=== PATIENT | male | born 1940 | race Caucasian/White ===

== ENCOUNTER → 2019-08-07 15:25 | Outpatient (CLI) | payer MEDICARE, OTHER, SELFPAY ==
[2019-08-07 17:29] LABS: Microalbumin,Random Urine 9.6 mg/L (NO RANGE EST.); Microalbumin:Creatinine Ratio 8.1 mg/g CRE (<30 mg/g CRE)
== END ==
PROVIDERS: PCP Family Medicine; Visit Provider Internal Medicine Nephrology
DX: E11.22 Type 2 diabetes mellitus with diabetic chronic kidney disease (principal); N18.9 Chronic kidney disease, unspecified
CPT/HCPCS: 36415; 82043; 82570

== ENCOUNTER → 2019-08-19 09:10 | Outpatient (CLI) | payer MEDICARE, OTHER, SELFPAY ==
--- NOTE | 2019-08-19 09:21 | US_ITS ---
STUDY: RENAL ULTRASOUND - COMPLETE REASON FOR EXAM: Male, 79 years old. CKD 3 TECHNIQUE: Ultrasound evaluation of the kidneys was performed with real-time and static wang-scale imaging. COMPARISON: None. FINDINGS: RIGHT KIDNEY: Normal location of the right kidney, which is normal in size. The right kidney measures 9.4 cm x 4.9 cm x 4.4 cm. There is a normal cortex of the right kidney. The renal cortex measures 0.9 cm. There is no right renal mass or cyst. There are no right renal calculi. There is no right hydronephrosis. DISTAL RIGHT URETER: There is non-visualization of the distal right ureter. There is no demonstrated right ureterovesical junction calculus. There is a visualized right ureteral jet. LEFT KIDNEY: Normal location of the left kidney, which is normal in size. The left kidney measures 9.8 cm x 4.5 cm x 4.3 cm. There is a normal cortex of the left kidney. The renal cortex measures 1.2 cm. There is no left renal mass or cyst. There are no left renal calculi. There is no left hydronephrosis. DISTAL LEFT URETER: There is non-visualization of the distal left ureter. There is no demonstrated left ureterovesical junction calculus. There is a visualized left ureteral jet. BLADDER: The distended urinary bladder has a volume of 72 ml. US/Kidney and Bladder IMPRESSION: Normal ultrasound of the kidneys and urinary bladder. Electronically Signed: Brian Jamison, at 15:13 EDT , Service support ,
== END ==
PROVIDERS: PCP Family Medicine; Visit Provider Family Medicine Geriatric Medicine
DX: N18.3 Chronic kidney disease, stage 3 (moderate) (principal)
CPT/HCPCS: 76770

== ENCOUNTER → 2019-09-17 08:03 | Outpatient (CLI) | payer MEDICARE, OTHER, SELFPAY ==
[2019-09-17 09:00] LABS: Albumin, Serum 3.9 g/dL (3.2-5.0); BUN 52 mg/dL (7-18); BUN/Creat Ratio 29.1 RATIO (10-20); Calcium,Total 8.7 mg/dL (8.5-10.1); Chloride 104 mmol/L (98-107); Creatinine, Serum 1.79 mg/dL (0.70-1.30); EST Glomerular Filtration Rate 39 mL/min (>60); Est Glom Filt Rate - Afr Amer 47 mL/min (>60); Glucose 166 mg/dL (74-106); Phosphorus 3.8 mg/dL (2.5-4.9); Potassium 3.7 mmol/L (3.5-5.1); Sodium Level 137 mmol/L (136-145)
[2019-09-17 09:08] LABS: PTHIN 66.9 pg/mL (18.4-80.1)
[2019-09-17 09:13] LABS: Vitamin D,25 Hydroxy 96.5 ng/mL
== END ==
PROVIDERS: PCP Family Medicine; Referring Provider Internal Medicine Nephrology; Visit Provider Internal Medicine Nephrology
DX: N18.3 Chronic kidney disease, stage 3 (moderate) (principal); E55.9 Vitamin D deficiency, unspecified
CPT/HCPCS: 36415; 80069; 82306; 83970

== ENCOUNTER → 2019-12-01 11:12 | Outpatient (CLI) | payer MEDICARE, OTHER, SELFPAY ==
[2019-12-01 12:56] LABS: Albumin, Serum 3.9 g/dL (3.2-5.0); BUN 36 mg/dL (7-18); BUN/Creat Ratio 20.5 RATIO (10-20); Calcium,Total 9.7 mg/dL (8.5-10.1); Chloride 104 mmol/L (98-107); Creatinine, Serum 1.76 mg/dL (0.70-1.30); EST Glomerular Filtration Rate 40 mL/min (>60); Est Glom Filt Rate - Afr Amer 48 mL/min (>60); Glucose 176 mg/dL (74-106); Phosphorus 3.8 mg/dL (2.5-4.9); Sodium Level 138 mmol/L (136-145)
== END ==
PROVIDERS: PCP Family Medicine; Referring Provider Internal Medicine Nephrology; Visit Provider Internal Medicine Nephrology
DX: N18.3 Chronic kidney disease, stage 3 (moderate) (principal)
CPT/HCPCS: 36415; 80069

== ENCOUNTER → 2020-01-27 08:03 | Outpatient (CLI) | payer MEDICARE, OTHER, SELFPAY ==
[2020-01-27 08:57] LABS: Albumin, Serum 3.7 g/dL (3.2-5.0); BUN 42 mg/dL (7-18); BUN/Creat Ratio 24.1 RATIO (10-20); Calcium,Total 9.4 mg/dL (8.5-10.1); Chloride 108 mmol/L (98-107); Creatinine, Serum 1.74 mg/dL (0.70-1.30); EST Glomerular Filtration Rate 40 mL/min (>60); Est Glom Filt Rate - Afr Amer 49 mL/min (>60); Glucose 176 mg/dL (74-106); Phosphorus 3.7 mg/dL (2.5-4.9); Potassium 3.8 mmol/L (3.5-5.1); Sodium Level 139 mmol/L (136-145)
== END ==
PROVIDERS: PCP Family Medicine; Referring Provider Internal Medicine Nephrology; Visit Provider Internal Medicine Nephrology
DX: N18.30 Chronic kidney disease, stage 3 unspecified (principal)
CPT/HCPCS: 36415; 80069

== ENCOUNTER → 2020-04-26 08:25 | Outpatient (CLI) | payer MEDICARE, OTHER, SELFPAY ==
[2020-04-26 10:33] LABS: Albumin, Serum 3.5 g/dL (3.2-5.0); BUN 42 mg/dL (7-18); BUN/Creat Ratio 26.9 RATIO (10-20); Calcium,Total 9.3 mg/dL (8.5-10.1); Chloride 104 mmol/L (98-107); Creatinine, Serum 1.56 mg/dL (0.70-1.30); EST Glomerular Filtration Rate 46 mL/min (>60); Est Glom Filt Rate - Afr Amer 55 mL/min (>60); Glucose 196 mg/dL (74-106); Phosphorus 3.7 mg/dL (2.5-4.9); Potassium 3.6 mmol/L (3.5-5.1); Sodium Level 138 mmol/L (136-145)
== END ==
PROVIDERS: PCP Family Medicine; Referring Provider Internal Medicine Nephrology; Visit Provider Internal Medicine Nephrology
DX: N18.30 Chronic kidney disease, stage 3 unspecified (principal)
CPT/HCPCS: 36415; 80069

== ENCOUNTER → 2021-01-20 08:56 | Outpatient (CLI) | payer MEDICARE, OTHER, SELFPAY ==
[2021-01-20 09:49] LABS: Hematocrit 40.6 % (40-54); Hemoglobin 13.7 g/dL (13.0-16.5); Mean Corp Hgb Conc 33.7 g/dL (32-36); Mean Corpuscular Hgb 30.4 pg (27.0-32.0); Mean Corpuscular Volume 90.2 fL (80-94); Mean Platelet Vol. 8.7 fl (6.2-12.0); Platelet Count 215 K/mm3 (150-450); RBC Distribution Width CV 12.7 % (11.6-14.6); RBC Distribution Width SD 42.1 fl (35.1-43.9); White Blood Count 7.6 K/mm3 (4.4-11.0)
[2021-01-20 10:10] LABS: Albumin, Serum 3.7 g/dL (3.2-5.0); BUN 35 mg/dL (7-18); BUN/Creat Ratio 20.8 RATIO (10-20); Calcium,Total 8.8 mg/dL (8.5-10.1); Chloride 102 mmol/L (98-107); Creatinine, Serum 1.68 mg/dL (0.70-1.30); EST Glomerular Filtration Rate 42 mL/min (>60); Est Glom Filt Rate - Afr Amer 51 mL/min (>60); Glucose 211 mg/dL (74-106); Phosphorus 2.8 mg/dL (2.5-4.9); Potassium 3.9 mmol/L (3.5-5.1); Sodium Level 138 mmol/L (136-145)
== END ==
PROVIDERS: PCP Family Medicine; Referring Provider Internal Medicine Nephrology; Visit Provider Internal Medicine Nephrology
DX: N18.30 Chronic kidney disease, stage 3 unspecified (principal)
CPT/HCPCS: 36415; 80069; 85027

== ENCOUNTER 2021-07-08 11:19 | Inpatient (IN) | payer MEDICARE, OTHER, SELFPAY ==
[2021-07-08] VITALS (11 sets, daily range): BP systolic 115–168; BP diastolic 63–72; PULSE 58–68; RESP 14–18; TEMP 36.3–36.8; O2SAT 96–98; BMI 26.4; BMI 25.2
--- NOTE | 2021-07-08 11:35 | EKG12_ITS ---
Test Reason : CP Blood Pressure : / mmHG Vent. Rate : 066 BPM Atrial Rate : 066 BPM P-R Int : 174 ms QRS Dur : 146 ms QT Int : 426 ms P-R-T Axes : 005 -35 003 degrees QTc Int : 446 ms Normal sinus rhythm Left axis deviation Right bundle branch block Abnormal ECG Confirmed by SCOTT GUTIERREZ, ANDRY ([id number]), editor publications BESYS GONZALEZ ([id number]) on 07/12/2021 8:55:05 AM Referred By: Confirmed By:ANDRY CHAVEZ MD
--- NOTE | 2021-07-08 11:44 | EX.ED.DYSGE1 ---
HPI <WILLARD Thomas - Last Filed: 07/08/21 13:27> History of Present Illness Chief Complaint: Chest Pain Narrative Narrative: 81-year-old male with history of diabetes, hyperlipidemia, hypertension presents to the emergency department with 1 week of midsternal chest pain worse with exertion. Patient states that for the last week he has felt that while he was walking coming for example going up steps he gets tightness in his chest, he has bilateral arm aching and feels short of breath. These symptoms usually decrease and pretty much disappear with rest. Patient arrives here in slight chest pain secondary to ambulation. Patient has not had any sort of cardiac testing in the last 10 years. 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 Patient denies any recent travel, fevers chills infectious symptoms. [facility] <WILLARD Thomas - Last Filed: 07/08/21 13:27> [facility] Medical History (Updated 07/08/21 @ 13:27 by WILLARD Thomas) Diabetes HTN (hypertension) Hypercholesteremia Home Medications amlodipine 10 mg PO DAILY 07/08/21 [History Last Taken Unknown] atorvastatin 20 mg PO QHS 07/08/21 [History Last Taken Unknown] glipizide 5 mg PO BID 07/08/21 [History Last Taken Unknown] hydrochlorothiazide 12.5 mg PO DAILY 07/08/21 [History Last Taken Unknown] losartan 100 mg PO DAILY 07/08/21 [History Last Taken Unknown] Allergy/AdvReac Type Severity Reaction Status Date / Time No Known Allergies Allergy Verified 07/08/21 11:46 Social History Smoking Status: Former smoker ROS <WILLARD Thomas - Last Filed: 07/08/21 13:27> ROS ED ROS Narrative Constitutional: Negative for fever, chills, weight loss, weakness Eyes: Negative for vision loss, vision change, double vision ENT: Negative for any sore throat, ear pain, congestion Cardiovascular: Negative for any palpitations, racing heartbeat. Positive for chest pain, tightness Respiratory: Negative for any cough, sputum production, hemoptysis, orthopnea. Positive shortness of breath, shortness of breath on exertion Gastrointestinal: Negative for any abdominal pain, nausea, vomiting, diarrhea, constipation, blood in stool, blood in vomit : Negative for any urinary frequency, incontinence, dysuria, retention, blood in urine Muscle skeletal: Negative for any muscle joint pain, stiffness, myalgias, arthralgias, neck pain, back pain Neurological: Negative for any headache, dizziness, syncope, numbness or tingling Skin: Negative for any rashes, lumps, itching, abrasions, lacerations Psychiatric: Negative for any depression, anxiety, stress, suicidal ideation, homicidal ideation Hematologic: Negative for any easy bruising, excessive bruising, easy bleeding Allergies: Negative for any eczema, hives, rash EXAM <WILLARD Thomas - Last Filed: 07/08/21 13:27> Physical Exam Narrative Exam Narrative: Vital signs reviewed. Patient is alert and orient x4, patient is in no respiratory distress, vital signs are stable. Patient does state to have slight pain at this time. HEET: Head normocephalic atraumatic, TMs clear bilaterally. Posterior pharynx is clear, moist mucous membranes. Nares clear bilaterally. Neck: Supple with no lymphadenopathy or tenderness. No signs of meningismus, negative jolt sign. Cardiac: Regular rate and rhythm no murmurs gallops or rubs, equal peripheral pulses bilaterally. Respiratory: Lungs clear to auscultation bilaterally. No chest tenderness. Abdomen: Soft, nontender, nondistended. No abdominal bruit or pulsatile masses. No hepatosplenomegaly Extremities: No peripheral edema, no signs of gross trauma or deformity. Active full range of motion of all extremities. Neuro: Cranial nerves II through XII intact, no focal neurological deficits. Skin: Clean dry and intact with no rash, purpura, petechiae, vesicles or pustules. Backslash flank: No CVA tenderness, no midline spinal tenderness, no deformity. Psych: Normal mood and affect. No SI, HI or acute psychosis. Const Vital Signs: 07/08/21 11:22 07/08/21 11:39 07/08/21 11:43 Temperature 98.1 F Temperature Source Temporal Pulse Rate 68 62 Respiratory Rate 18 Respiratory Pattern Normal Blood Pressure 155/68 H 168/67 H Blood Pressure Mean 97 100 Pulse Ox 97 Oxygen Delivery Method Room Air Room Air 07/08/21 11:45 07/08/21 12:10 07/08/21 12:37 Temperature Temperature Source Pulse Rate 60 Respiratory Rate 17 Respiratory Pattern Blood Pressure 134/66 H 149/64 H Blood Pressure Mean 92 Pulse Ox 97 Oxygen Delivery Method Room Air Room Air Positive well nourished and well developed General Appearance ED: well developed <Dr. Paulino Ray MD - Last Filed: 07/08/21 12:17> Physical Exam Const Vital Signs: 07/08/21 11:22 07/08/21 11:39 07/08/21 11:43 Temperature 98.1 F Temperature Source Temporal Pulse Rate 68 62 Respiratory Rate 18 Respiratory Pattern Normal Blood Pressure 155/68 H 168/67 H Blood Pressure Mean 97 100 Pulse Ox 97 Oxygen Delivery Method Room Air Room Air 07/08/21 11:45 07/08/21 12:10 07/08/21 12:37 Temperature Temperature Source Pulse Rate 60 Respiratory Rate 17 Respiratory Pattern Blood Pressure 134/66 H 149/64 H Blood Pressure Mean 92 Pulse Ox 97 Oxygen Delivery Method Room Air Room Air MDM <WILLARD Thomas - Last Filed: 07/08/21 13:27> [facility] Narrative Medical decision making narrative: Patient arrives well, is in no distress, patient presents emergency department with 1 week of chest pain worse on exertion. Patient did receive a full cardiac work-up, patient's laboratory studies show a normal CBC, patient's chemistry shows slight renal dysfunction however this is chronic and baseline for the patient. Patient's BNP was 74 which is normal. Patient's troponin was 17. Patient's EKG did have slight changes from 10 years ago. Patient still had slight chest pain on arrival while at rest, patient received Nitropaste as well as 324 aspirin. Patient was then pain-free and remained so. Patient's chest x-ray was unremarkable read by ER physician. After talking with the patient, I do believe that the patient's story is concerning, patient's heart score is 5, due to the patient's age, story being convincing, I am concerned for unstable angina. I did speak with cardiology who agrees with admission and would like to patient to receive Lovenox. Patient will be admitted by the hospitalist, patient verbally is happy with the care and is stable for admission. Patient's diagnosis will be unstable angina Lab Data Labs: Laboratory Results - last 24 hr 07/08/21 07/08/21 07/08/21 11:30 11:30 11:30 WBC 7.1 RBC 4.53 L Hgb 13.4 Hct 41.2 MCV 90.9 MCH 29.6 MCHC 32.5 RDW Std Deviation 43.4 RDW Coeff of Jose Miguel 13.1 Plt Count 216 MPV 8.3 Immature Gran % (Auto) 0.400 Neut % (Auto) 60.7 Lymph % (Auto) 23.0 [place] % (Auto) 10.2 H Eos % (Auto) 5.0 Baso % (Auto) 0.7 Absolute Neuts (auto) 4.3 Absolute Lymphs (auto) 1.62 Nucleated RBC % 0 Sodium 139 Potassium 4.1 Chloride 109 H Carbon Dioxide 23.0 Anion Gap 7 BUN 37 H Creatinine 1.66 H Estim Creat Clear Calc 36.04 Est GFR (MDRD) Af Amer 51 L Est GFR (MDRD) Non-Af 43 L BUN/Creatinine Ratio 22.3 H Glucose 170 H Calcium 9.0 Troponin I High Sens B-Natriuretic Peptide 74.0 07/08/21 11:30 WBC RBC Hgb Hct MCV MCH MCHC RDW Std Deviation RDW Coeff of Jose Miguel Plt Count MPV Immature Gran % (Auto) Neut % (Auto) Lymph % (Auto) [place] % (Auto) Eos % (Auto) Baso % (Auto) Absolute Neuts (auto) Absolute Lymphs (auto) Nucleated RBC % Sodium Potassium Chloride Carbon Dioxide Anion Gap BUN Creatinine Estim Creat Clear Calc Est GFR (MDRD) Af Amer Est GFR (MDRD) Non-Af BUN/Creatinine Ratio Glucose Calcium Troponin I High Sens 17 B-Natriuretic Peptide Radiography Diagnostic Testing: Clinical Impression(s) from Imaging Studies Chest X-Ray 07/08/21 11:50 IMPRESSION: No radiographic evidence of acute cardiopulmonary disease. Electronically Signed: Collins Marina MD at 12:24 EDT Reading Location ID and State: [facility] / [place] Tel , Service support , EKG Normal sinus rhythm: Attestation: I personally reviewed and interpreted this EKG as follows: Interpretation: Sinus Rhythm Comments: Normal sinus rhythm, left axis deviation, right bundle branch block, rate of 66 bpm, FL interval 174 ms, QRS duration 146 ms, no acute ST elevation, no acute infarct noted. Prior EKG tracings: available for review <Dr. Paulino Ray MD - Last Filed: 07/08/21 12:17> MDM MDM Narrative Medical decision making narrative: Seen and evaluated independently and in conjunction with nurse practitioner. Agree with notes above unless documented otherwise. Patient with about 1 week of symptoms consistent with stable angina, after resting his symptoms resolved in about 30 minutes. He gets dyspneic, discomfort in his substernal area that is nonpleuritic and discomfort in both of his arms. He states occasionally he has had discomfort when lying down at night and it has gone away with [place]. He had some discomfort last night and instead of taking anything he got up and went to the couch and eventually things resolved and then he went back to bed and went to sleep. Today he had another episode after walking to the basement and back up, and thought he should be seen since he has not sought care yet for this in the last week. He states that this time while at rest he still has some mild chest tightness but no arm discomfort or other symptoms. When he walks a little and does not get chest discomfort, he also does not have dyspnea. No known history of ischemic cardiac disease. EKG shows an old stable right bundle branch block, but he has a new left axis although we are comparing to an EKG from 2012, which certainly has its limitations. Lab Data Attestation: I reviewed the patient's lab results. Labs: Laboratory Results - last 24 hr 07/08/21 07/08/21 07/08/21 11:30 11:30 11:30 WBC 7.1 RBC 4.53 L Hgb 13.4 Hct 41.2 MCV 90.9 MCH 29.6 MCHC 32.5 RDW Std Deviation 43.4 RDW Coeff of Jose Miguel 13.1 Plt Count 216 MPV 8.3 Immature Gran % (Auto) 0.400 Neut % (Auto) 60.7 Lymph % (Auto) 23.0 [place] % (Auto) 10.2 H Eos % (Auto) 5.0 Baso % (Auto) 0.7 Absolute Neuts (auto) 4.3 Absolute Lymphs (auto) 1.62 Nucleated RBC % 0 Sodium 139 Potassium 4.1 Chloride 109 H Carbon Dioxide 23.0 Anion Gap 7 BUN 37 H Creatinine 1.66 H Estim Creat Clear Calc 36.04 Est GFR (MDRD) Af Amer 51 L Est GFR (MDRD) Non-Af 43 L BUN/Creatinine Ratio 22.3 H Glucose 170 H Calcium 9.0 Troponin I High Sens B-Natriuretic Peptide 74.0 07/08/21 11:30 WBC RBC Hgb Hct MCV MCH MCHC RDW Std Deviation RDW Coeff of Jose Miguel Plt Count MPV Immature Gran % (Auto) Neut % (Auto) Lymph % (Auto) [place] % (Auto) Eos % (Auto) Baso % (Auto) Absolute Neuts (auto) Absolute Lymphs (auto) Nucleated RBC % Sodium Potassium Chloride Carbon Dioxide Anion Gap BUN Creatinine Estim Creat Clear Calc Est GFR (MDRD) Af Amer Est GFR (MDRD) Non-Af BUN/Creatinine Ratio Glucose Calcium Troponin I High Sens 17 B-Natriuretic Peptide Radiography Chest X-Ray - ED: 1 View, Read by ED Physician, Normal and No Acute Disease Diagnostic Testing: Clinical Impression(s) from Imaging Studies Chest X-Ray 07/08/21 11:50 IMPRESSION: No radiographic evidence of acute cardiopulmonary disease. Electronically Signed: Collins Marina MD at 12:24 EDT Reading Location ID and State: [facility] / [place] Tel , Service support , Discharge Plan Triage Chief Complaint: Chest Pain ED Midlevel Provider: Joel Lu ED Provider: Paulino Ray Dx/Rx/DC Orders Clinical Impression: Angina pectoris, unstable, Acute dyspnea Prescriptions: No Action amlodipine 10 mg tablet 10 mg PO DAILY RF: 0 losartan 25 mg tablet 100 mg PO DAILY RF: 0 glipizide 5 mg tablet 5 mg PO BID RF: 0 atorvastatin 20 mg tablet 20 mg PO QHS RF: 0 hydrochlorothiazide 12.5 mg tablet 12.5 mg PO DAILY RF: 0 Primary Care Provider: Joe Mak Referrals: Joe Mak MD [Primary Care Provider] - Disposition Disposition: Acute Care [facility]
[2021-07-08 11:47] LABS: Absolute Lymphocyte Count 1.62 X10^3/uL (0.83-4.51); Absolute Neutrophil Count 4.3 X10^3/uL (2.0-7.7); Basophil# 0.05 X10^3/uL; Basophil% 0.7 % (0-1); Eosinophil# 0.35 X10^3/uL; Hematocrit 41.2 % (40-54); Hemoglobin 13.4 g/dL (13.0-16.5); Lymphocyte # 1.62 X10^3/ul (0.83-4.51); Mean Corp Hgb Conc 32.5 g/dL (32-36); Mean Corpuscular Hgb 29.6 pg (27.0-32.0); Mean Corpuscular Volume 90.9 fL (80-94); Mean Platelet Vol. 8.3 fl (6.2-12.0); Monocyte# 0.72 X10^3/uL; Monocyte% 10.2 % (0-10); NRBC Flagged by Analyzer 0 % (0-5); Neutrophil # 4.28 X10^3/uL (2.7-7.7); Neutrophil % 60.7 % (47-70); Platelet Count 216 K/mm3 (150-450); RBC Distribution Width CV 13.1 % (11.6-14.6); RBC Distribution Width SD 43.4 fl (35.1-43.9); Red Blood Count 4.53 M/mm3 (4.6-6.2); White Blood Count 7.1 K/mm3 (4.4-11.0)
--- NOTE | 2021-07-08 11:50 | RAD_ITS ---
INDICATION: chest pain EXAMINATION/TECHNIQUE: X-RAY - XR Chest 1 View COMPARISON: 08/06/2011. FINDINGS: Poor inspiratory effort is seen that limits evaluation. LINES/DEVICES: None. LUNGS: No consolidation, edema or effusion. No pneumothorax. MEDIASTINUM AND CARDIOVASCULAR STRUCTURES: Cardiac silhouette not enlarged. Central airways and mediastinal contour are unremarkable. BONES AND SOFT TISSUES: Degenerative bone changes seen unremarkable for the patient''s age. RAD/Chest 1 View (Portable) IMPRESSION: No radiographic evidence of acute cardiopulmonary disease. Electronically Signed: Collins Marina MD at 12:24 EDT ,
[2021-07-08 12:01] LABS: Anion Gap 7 (5-15); BUN 37 mg/dL (7-18); BUN/Creat Ratio 22.3 RATIO (10-20); Chloride 109 mmol/L (98-107); Creatinine, Serum 1.66 mg/dL (0.70-1.30); EST Glomerular Filtration Rate 43 mL/min (>60); Est Glom Filt Rate - Afr Amer 51 mL/min (>60); Estimated Creatinine Clearance 36.04 ml/min; Glucose 170 mg/dL (74-106); Potassium 4.1 mmol/L (3.5-5.1); Sodium Level 139 mmol/L (136-145)
[2021-07-08] MEDS: Aspirin 81 MG TAB.CHEW 162 MG PO (12:07)
[2021-07-08] MEDS: Nitroglycerin Oint 1 INCH PACKET 0.5 INCH TD ×2 (12:10→17:32)
[2021-07-08 12:28] LABS: Troponin-I HS (w/2H Reflex) 17 pg/mL (3.0-78.0)
[2021-07-08] MEDS: Enoxaparin 80 MG/0.8 ML Syringe SC (13:46)
--- NOTE | 2021-07-08 13:50 | ECHOD_ITS ---
Reason For Study: Unstable Angina Procedure This was a 2D Doppler, Color Flow transthoracic echocardiogram. Exam performed portable in patient room. Left Ventricle Normal left ventricle. The estimated ejection fraction is 55-60 %. Right Ventricle Normal right ventricle. Normal systolic function. Atria Normal left atrium. Normal right atrium. Mitral Valve The mitral valve is structurally normal. No prolapse or stenosis seen. No eccentric mitral valve insufficiency. Tricuspid Valve Normal tricuspid valve. No tricuspid valve insufficiency. Aortic Valve Mild diffuse aortic valve calcification. Mild (1+) aortic valve insufficiency. Pulmonic Valve The pulmonic valve is not well visualized. Great Vessels Normal aortic root. Pericardium/Pleural No pericardial effusion. MMode/2D Measurements & Calculations LVIDd: 4.7 cm IVSd: 1.2 cm LA dimension: 3.9 cm LVIDs: 2.4 cm LVPWd: 1.2 cm FS: 49.1 % LAV(MOD-bp): 59.2 ml LA A4 area: 17.8 cm2 RA A4 area: 12.8 cm2 LAV(MOD-bp) Indexed: 30.0 ml/m2 LAV(MOD-sp2): 69.4 ml LAV(MOD-sp4): 46.9 ml Time Measurements MV dec time: 0.48 sec Doppler Measurements & Calculations MV E max neal: 47.8 cm/sec Lat Peak E' Neal: 8.1 cm/sec Med Peak E' Neal: 6.3 cm/sec MV A max neal: 90.4 cm/sec E/E' lat: 5.9 E/E' med: 7.6 MV E/A: 0.53 MV V2 max: 102.1 cm/sec MV P1/2t max neal: 60.7 cm/sec Ao V2 max: 102.2 cm/sec MV max P.2 mmHg MV P1/2t: 141.4 msec Ao max P.2 mmHg MV V2 mean: 45.7 cm/sec MV dec slope: 125.7 cm/sec2 MV mean P.99 mmHg MVA(P1/2t): 1.6 cm2 MV V2 VTI: 28.9 cm AI max neal: 377.9 cm/sec LV V1 max: 79.4 cm/sec PA V2 max: 82.8 cm/sec AI max P.1 mmHg LV V1 max P.5 mmHg AI dec slope: 125.8 cm/sec2 AI P1/2t: 880.1 msec TR max neal: 210.3 cm/sec TR max P.7 mmHg ECHO/Echo Complete Interpretation Summary The estimated ejection fraction is 55-60 %. Mild AI No previous study to compare Ordering Physician: Keegan Lee Referring Physician: Joe Mak Performed By: Helio Ochoa RCS
[2021-07-08 14:13] LABS: Reflex Troponin-HS? (from REC) Y
--- NOTE | 2021-07-08 14:20 | EKG12_ITS ---
Test Reason : TIMED EKG Blood Pressure : / mmHG Vent. Rate : 060 BPM Atrial Rate : 060 BPM P-R Int : 190 ms QRS Dur : 146 ms QT Int : 424 ms P-R-T Axes : 058 -32 015 degrees QTc Int : 424 ms Normal sinus rhythm Left axis deviation Right bundle branch block Abnormal ECG Confirmed by SCOTT GUTIERREZ, ANDRY ([id number]), web content editor BESSY GONZALEZ ([id number]) on 07/12/2021 11:19:16 AM Referred By: DR SPARKS Confirmed By:ANDRY CHAVEZ MD
[2021-07-08 14:32] LABS: Phosphorus 2.8 mg/dL (2.5-4.9)
[2021-07-08 14:35] LABS: Troponin-I HS 13 pg/mL (3.0-78.0)
[2021-07-08 14:38] LABS: AST(SGOT) 19 U/L (15-37); Alanine Aminotransfer ALT/SGPT 30 U/L (16-61); Albumin, Serum 3.8 g/dL (3.2-5.0); Alkaline Phosphatase 63 U/L (45-117); Bilirubin, Direct 0.11 mg/dL (0.00-0.30); Globulin 3.1 g/dL (2.2-4.2); Magnesium 2.3 mg/dL (1.6-2.6); Protein, Total 6.9 g/dL (6.4-8.2)
--- NOTE | 2021-07-08 14:50 | PCM.HP.STD ---
HPI - General General Date of Admission: 07/08/21 Date of Service: 07/08/21 Chief Complaint: Chest pain ongoing intermittent for 1 week HPI Narrative JOAQUIN DARDEN, is a 81 M with no significant prior cardiac disease came to ED with chest pain for 1 week. He describes chest pain mainly exertional on walking and climbing stairs for 1 week. He denies having chest pain before that. Chest pain is mainly midsternal feels like tightness associated with shortness of breath/exertional dyspnea, 4-5/10 intensity. At the same time he has bilateral aching pain over both arms but he denies radiation. The frequency, severity and duration of chest pain is increased in last 1 week. Denies numbness and tingling in fingers. Denies dizziness/lightheadedness. No fever chills, cough or URI symptoms. Patient had twelve-lead EKG in ED which shows normal sinus rhythm, LAD, RBBB, QTC 446 ms, QRS 146 ms. There is slight [address] depression in 1-lead V4. He had old EKG done in 2011 which has all T waves upright otherwise no significant ST-T difference. Patient had last stress test about 10 years ago was told it is normal. He had also 1 time cardiac cath in 2005 in [facility] and no significant abnormality was found. Chest x-ray individually reviewed no acute abnormality. ER physician consulted carroting machine offbearer Dr. Swartz and 1 therapeutic dose of Lovenox. Patient has CKD stage IIIb and follows Dr. Hillary Ferrell Patient started smoking in the age of 10 and quit in 1966. Used to smoke 3 packs a day therefore 45 pack years of smoking but he denies having chronic cough, wheezing or other chronic symptoms of COPD. Patient does not have drinking alcohol or substance use habit [facility] Medical History Diabetes GERD (gastroesophageal reflux disease) HTN (hypertension) Hypercholesteremia Kidney disease Home Medications amlodipine 10 mg PO DAILY 07/08/21 [History Last Taken 07/08/21] atorvastatin 20 mg PO QHS 07/08/21 [History Last Taken 07/07/21] glipizide 5 mg PO BID 07/08/21 [History Last Taken 07/08/21] hydrochlorothiazide 12.5 mg PO DAILY 07/08/21 [History Last Taken 07/08/21] losartan 100 mg PO DAILY 07/08/21 [History Last Taken 07/08/21] Allergy/AdvReac Type Severity Reaction Status Date / Time No Known Allergies Allergy Verified 07/08/21 11:46 Social History Smoking Status: Former smoker ROS ROS Narrative Constitutional: Denies fever or chills. Patient has good exercise capacity. HEENT: Reports systems reviewed and no addt'l complaints, except as documented Respiratory/Chest: Exertional chest pain or shortness of breath admission HPI Gastrointestinal: Denies coffee ground emesis, hematemesis or vomiting. No constipation. Bowel movement normal. Genitourinary: Denies burning urination or new urinary tract symptoms Musculoskeletal: No significant joint pain and limited range of motion Neurologic: Denies seizure-like activity skin: No ulcer. No rash Endocrinology: Reports systems reviewed and no addt'l complaints, except as documented Hematologic/Lymphatic: Reports systems reviewed and no addt'l complaints, except as documented Rest 14 ROS are negative except as mentioned in HPI Vital Signs Vital Signs Vital Signs: 07/08/21 11:22 07/08/21 11:39 07/08/21 11:43 Temperature 98.1 F Temperature Source Temporal Pulse Rate 68 62 Respiratory Rate 18 Respiratory Pattern Normal Blood Pressure 155/68 H 168/67 H Blood Pressure Mean 97 100 Blood Pressure Source Blood Pressure Position Blood Pressure Location Pulse Ox 97 Oxygen Delivery Method Room Air Room Air 07/08/21 11:45 07/08/21 12:10 07/08/21 12:37 Temperature Temperature Source Pulse Rate 60 Respiratory Rate 17 Respiratory Pattern Blood Pressure 134/66 H 149/64 H Blood Pressure Mean 92 Blood Pressure Source Blood Pressure Position Blood Pressure Location Pulse Ox 97 Oxygen Delivery Method Room Air Room Air 07/08/21 13:35 07/08/21 14:30 Temperature 97.3 F L 97.3 F L Temperature Source Temporal Oral Pulse Rate 60 58 L Respiratory Rate 14 16 Respiratory Pattern Blood Pressure 115/72 148/63 H Blood Pressure Mean 86 91 Blood Pressure Source Monitor Blood Pressure Position Semi-Fowlers Blood Pressure Location Right Arm Pulse Ox 98 98 Oxygen Delivery Method Room Air Room Air Weight Weight: 175 lb 11.335 oz Body Mass Index (BMI) 25.2 Physical Exam Narrative General: Alert, Oriented x3, Cooperative HEENT: Atraumatic, PERRLA, EOMI, Normocephalic Oral: No Gingival or Mucosal Lesions/ Ulcerations Neck: Supple, No JVD, Negative Carotid Bruits Lungs: Air entry equal in bilateral lung bases. No crepitation/rhonchi Cardiovascular: Regular rate, Regular Rhythm, Normal S1, Normal S2, No murmurs Abdomen: Bowel Sounds Present, Soft, Non Tender, Non-Distended : No renal angle tenderness. No suprapubic tenderness. Extremities: Subtle bilateral ankle edema, Capillary Refill Less than 3 Seconds Skin: No rashes, No breakdown Musculoskeletal: No Tenderness to Palpation of Joints or Extremities. ROM full Neurological: Cranial nerves II-XII grossly intact, DTR 2+/4 and Symmetrical, Neuro grossly intact Psych/Mental Status: Normal Affect, Appropriate Results Lab / Micro Data Result Diagrams: 07/08/21 11:30 07/08/21 11:30 Labs: Laboratory Results - last 24 hr 07/08/21 11:30: WBC 7.1, RBC 4.53 L, Hgb 13.4, Hct 41.2, MCV 90.9, MCH 29.6, MCHC 32.5, RDW Std Deviation 43.4, RDW Coeff of Jose Miguel 13.1, Plt Count 216, MPV 8.3, Immature Gran % (Auto) 0.400, Neut % (Auto) 60.7, Lymph % (Auto) 23.0, [place] % (Auto) 10.2 H, Eos % (Auto) 5.0, Baso % (Auto) 0.7, Absolute Neuts (auto) 4.3, Absolute Lymphs (auto) 1.62, Nucleated RBC % 0 07/08/21 11:30: Sodium 139, Potassium 4.1, Chloride 109 H, Carbon Dioxide 23.0, Anion Gap 7, BUN 37 H, Creatinine 1.66 H, Estim Creat Clear Calc 36.04, Est GFR (MDRD) Af Amer 51 L, Est GFR (MDRD) Non-Af 43 L, BUN/Creatinine Ratio 22.3 H, Glucose 170 H, Calcium 9.0 07/08/21 11:30: B-Natriuretic Peptide 74.0 07/08/21 11:30: Troponin I High Sens 17 07/08/21 13:55: Magnesium 2.3, Total Bilirubin 0.40, Direct Bilirubin 0.11, AST 19, ALT 30, Alkaline Phosphatase 63, Total Protein 6.9, Albumin 3.8, Globulin 3.1 07/08/21 13:55: Phosphorus 2.8 07/08/21 13:55: Troponin I High Sens 13 Radiology Impression Chest X-Ray 07/08/21 11:50 IMPRESSION: No radiographic evidence of acute cardiopulmonary disease. Assessment & Plan Assessment/Plan (1) Angina pectoris, unstable: PLAN: This 81-year-old female admitted with chest pain and shortness of breath with only exertional which increased in severity, frequency and duration consistent with unstable angina. 1. Unstable angina: Patient is being admitted. Twelve-lead EKG reviewed does not show any significant change. Repeat EKG on the floor. First troponin negative. Serial troponin. Bond Trader is consulted. Lexiscan nuclear stress test tomorrow AM. 2D echo is ordered. TSH and lipid for tomorrow a.m. Patient denies any previous history of [place], cardiac stent. This started on baby aspirin, nitroglycerin ointment. The patient troponin goes high we will start on heparin drip but patient is not good for enoxaparin because of CKD stage IIIb 2. Hypertension: Blood pressure elevated, systolic in 160s. Patient is on losartan, HCTZ and amlodipine continued. 3. Dyslipidemia: On atorvastatin 40 mg daily. 4. CKD stage IIIb: Patient creatinine clearance is 36 mL/min. His creatinine 1.66. He is around baseline 1.5- 1.7. He follows Dr. Ferrell. 5. VT prophylaxis: Patient already had 1 therapeutic dose of Lovenox. Will hold for further anticoagulant. Bilateral SCDs Living will/advanced directive/end of life care: Patient does have living will or advanced directive. His is power of library circulation technician for health after discussion of benefits/risks procedures involved with full code, DNR CC arrest and DNR CC, the patient opted for DNRCC arrest with no intubation Patient doesn't want artificial life support including intubation, tube feed, ventilator and/chest compression, central venous catheter, vasopressor and DC shock if needed Total time spent in [id number] encounter in discussion of advanced directive 16 minutes. Charges/Coding Visit Charges OBSV E&M: 16093 Initial observation care L3 Procedures Hospitalists Procedures: 58537 Advncd Care Plan 30 Min
--- NOTE | 2021-07-08 15:31 | PCM.CONS.C ---
Documented by User: Carey WILBURN PA 07/08/21 16:38 Assessment & Plan Assessment/Plan (1) Angina pectoris, unstable: (2) HTN (hypertension): (3) Hypercholesteremia: PLAN: Patient's chest discomfort is concerning for angina. We will obtain an echocardiogram and a stress test. Patient was given nitroglycerin paste. He will also continue with his atorvastatin. Troponins have been negative x2 Patient's blood pressure appears adequately controlled at this time. He will continue with his current home medication. He is on amlodipine, losartan, hydrochlorothiazide HPI Consult Data Date of Consult: 07/08/21 HPI Narrative HPI Narrative: JOAQUIN DARDEN, is a 81 M who presents here to [facility] ER for CP. He notes that he has CP 1 week that is midsternal and worse with exertion. Patient states that for the last week he has felt that while he was walking coming for example going up steps he gets tightness in his chest, he has bilateral arm aching and feels short of breath. These symptoms usually decrease and pretty much disappear with rest. troponins negative x 2. He does have a hx of HTN, HLD and DM. [facility] Medical History (Updated 07/08/21 @ 16:35 by Carey WILBURN, PA) Diabetes GERD (gastroesophageal reflux disease) HTN (hypertension) Hypercholesteremia Kidney disease Home Medications amlodipine 10 mg PO DAILY 07/08/21 [History Last Taken 07/08/21] atorvastatin 20 mg PO QHS 07/08/21 [History Last Taken 07/07/21] glipizide 5 mg PO BID 07/08/21 [History Last Taken 07/08/21] hydrochlorothiazide 12.5 mg PO DAILY 07/08/21 [History Last Taken 07/08/21] losartan 100 mg PO DAILY 07/08/21 [History Last Taken 07/08/21] Allergy/AdvReac Type Severity Reaction Status Date / Time No Known Allergies Allergy Verified 07/08/21 11:46 Social History Smoking Status: Former smoker ROS Constitutional Constitutional: Denies change in weight, chills, fatigue, frequent falls, headache(s) or lethargy Eyes Eyes: Denies acute decrease in peripheral vision, blurry vision or change in vision ENT HEENT: Denies dizziness, dry mouth, epistaxis, headache(s), tinnitus or vertigo Cardiovascular Cardiovascular: Reports as per HPI and chest pain; Denies claudication, dyspnea at rest, dyspnea on exertion, edema, irregular heart rhythm, lightheadedness, orthopnea, orthostatic symptoms, palpitations or pedal edema Respiratory/Chest Respiratory/Chest: Denies cough, dyspnea, dyspnea on exertion, tachypnea or wheezing Gastrointestinal Gastrointestinal: Denies abdominal pain, bloating, coffee ground emesis, diarrhea, heartburn, hematemesis, hematochezia, melena or nausea Genitourinary Genitourinary: Denies hematuria Musculoskeletal Musculoskeletal: Denies myalgias, numbness or tingling Neurologic Neurologic: Denies abnormal gait, abnormal speech, memory loss, paresthesias or weakness Physical Exam Const alert, oriented x3, no apparent distress and healthy appearing HEENT normocephalic, head/scalp atraumatic, hearing grossly normal bilaterally, external ears normal, external nose normal and moist oral mucous membranes Eyes PERRL, EOMs intact bilaterally, conjunctivae normal and no scleral icterus Neck no lymphadenopathy, supple and no JVD Resp normal respiratory effort and clear to auscultation bilaterally Cardio regular rate, regular rhythm, S1 normal heart sound, S2 normal heart sound, no murmurs, no rub, no gallops, no clicks, no JVD and peripheral pulses 2+ throughout GI normal to inspection, nondistended, normoactive bowel sounds, soft to palpation, non-tender and non-distended Extremity normal to inspection, normal capillary refill, no clubbing, cyanosis or edema and no pedal edema Neuro oriented x3, CN's II-XII intact bilaterally, moves all extremities and no focal motor deficits Psych cooperative and affect normal Risk Stratification Risk Stratification Applicable: Yes Age >/= 65: Yes >/= 3 CAD Risk Factors (HTN, HLD, DM, family hx of CAD, or current smoker): Yes Aspirin Use in the Past 7 Days: Yes Severe Angina (>/= episodes in 24 hours): No EKG ST Changes >/= 0.5mm: No Positive Cardiac Marker: No SIOBHAN Risk Stratification Score: 3 SIOBHAN % Risk: 13% Risk Charges/Coding Visit Charges Office Visits / Consults: 48928 IP Consult L3 Objective Data Vital Signs: Vital Signs Temp Pulse Resp BP Pulse Ox 97.3 F L 58 L 16 148/63 H 98 07/08/21 14:30 07/08/21 14:30 07/08/21 14:30 07/08/21 14:30 07/08/21 14:58 Oxygen Delivery Method Room Air Weight: 175 lb 11.335 oz Body Mass Index (BMI) 25.2 Lab / Micro Data Result Diagrams: 07/08/21 11:30 07/08/21 11:30 Labs: Laboratory Results - last 24 hr 07/08/21 11:30: WBC 7.1, RBC 4.53 L, Hgb 13.4, Hct 41.2, MCV 90.9, MCH 29.6, MCHC 32.5, RDW Std Deviation 43.4, RDW Coeff of Jose Miguel 13.1, Plt Count 216, MPV 8.3, Immature Gran % (Auto) 0.400, Neut % (Auto) 60.7, Lymph % (Auto) 23.0, [place] % (Auto) 10.2 H, Eos % (Auto) 5.0, Baso % (Auto) 0.7, Absolute Neuts (auto) 4.3, Absolute Lymphs (auto) 1.62, Nucleated RBC % 0 07/08/21 11:30: Sodium 139, Potassium 4.1, Chloride 109 H, Carbon Dioxide 23.0, Anion Gap 7, BUN 37 H, Creatinine 1.66 H, Estim Creat Clear Calc 36.04, Est GFR (MDRD) Af Amer 51 L, Est GFR (MDRD) Non-Af 43 L, BUN/Creatinine Ratio 22.3 H, Glucose 170 H, Calcium 9.0 07/08/21 11:30: B-Natriuretic Peptide 74.0 07/08/21 11:30: Troponin I High Sens 17 07/08/21 13:55: Magnesium 2.3, Total Bilirubin 0.40, Direct Bilirubin 0.11, AST 19, ALT 30, Alkaline Phosphatase 63, Total Protein 6.9, Albumin 3.8, Globulin 3.1 07/08/21 13:55: Phosphorus 2.8 07/08/21 13:55: Troponin I High Sens 13 Cardiology Labs/Tests 07/08/21 11:30: WBC 7.1, RBC 4.53 L, Hgb 13.4, Hct 41.2, MCV 90.9, MCH 29.6, MCHC 32.5, Plt Count 216, MPV 8.3, Immature Gran % (Auto) 0.400, Neut % (Auto) 60.7, Lymph % (Auto) 23.0, [place] % (Auto) 10.2 H, Eos % (Auto) 5.0, Baso % (Auto) 0.7, Absolute Neuts (auto) 4.3, Nucleated RBC % 0 07/08/21 11:30: Sodium 139, Potassium 4.1, Chloride 109 H, Carbon Dioxide 23.0, Anion Gap 7, BUN 37 H, Creatinine 1.66 H, Est GFR (MDRD) Af Amer 51 L, Est GFR (MDRD) Non-Af 43 L, BUN/Creatinine Ratio 22.3 H, Glucose 170 H, Calcium 9.0 07/08/21 11:30: B-Natriuretic Peptide 74.0 07/08/21 13:55: Magnesium 2.3, Total Bilirubin 0.40, Direct Bilirubin 0.11 07/08/21 13:55: Phosphorus 2.8 EKG: SR with RBBB Radiography Diagnostic Testing: Radiology Impression Chest X-Ray 07/08/21 11:50 IMPRESSION: No radiographic evidence of acute cardiopulmonary disease. Electronically Signed: Collins Marina MD at 12:24 EDT Reading Location ID and State: [facility] Tel , Service support , Documented by User: Dr. Ana Alex MD 07/08/21 17:45 Assessment & Plan Assessment/Plan (1) Angina pectoris, unstable: (2) HTN (hypertension): (3) Hypercholesteremia: PLAN: I independently reviewed the clinical data, including the EKG, cardiac telemetry, echocardiogram cardiac biomarkers with high sensitive troponins, current lab test and I formulated the cardiac care plan As per midlevel documentation HPI Consult Data Date of Consult: 07/08/21 [facility] Medical History (Updated 07/08/21 @ 16:35 by Carey WILBURN, PA) Diabetes GERD (gastroesophageal reflux disease) HTN (hypertension) Hypercholesteremia Kidney disease Home Medications amlodipine 10 mg PO DAILY 07/08/21 [History Last Taken 07/08/21] atorvastatin 20 mg PO QHS 07/08/21 [History Last Taken 07/07/21] glipizide 5 mg PO BID 07/08/21 [History Last Taken 07/08/21] hydrochlorothiazide 12.5 mg PO DAILY 07/08/21 [History Last Taken 07/08/21] losartan 100 mg PO DAILY 07/08/21 [History Last Taken 07/08/21] Allergy/AdvReac Type Severity Reaction Status Date / Time No Known Allergies Allergy Verified 07/08/21 11:46 Social History Smoking Status: Former smoker Lab / Micro Data Result Diagrams: 07/08/21 11:30 07/08/21 11:30
[2021-07-08] MEDS: 0.9% Normal Saline 1,000 ML 75 ML IV (15:35)
[2021-07-08 17:26] LABS: Bedside Glucose 154 mg/dL (74-106)
[2021-07-08 18:54] LABS: Troponin-I HS 13 pg/mL (3.0-78.0)
--- NOTE | 2021-07-08 20:00 | EKG12_ITS ---
Test Reason : Blood Pressure : / mmHG Vent. Rate : 058 BPM Atrial Rate : 058 BPM P-R Int : 192 ms QRS Dur : 152 ms QT Int : 432 ms P-R-T Axes : -29 -38 -06 degrees QTc Int : 424 ms Sinus bradycardia Left axis deviation Right bundle branch block Abnormal ECG Confirmed by SCOTT GUTIERREZ, ANDRY ([id number]), order editor BESSY GONZALEZ ([id number]) on 07/12/2021 11:20:02 AM Referred By: CLARE Confirmed By:ANDRY CHAVEZ MD
[2021-07-08] MEDS: Atorvastatin Calcium 40 MG Tablet PO (21:23)
[2021-07-08 21:30] LABS: Bedside Glucose 92 mg/dL (74-106)
[2021-07-09] VITALS (13 sets, daily range): BP systolic 104–146; BP diastolic 57–78; PULSE 53–64; RESP 12–18; TEMP 36.4–37.1; O2SAT 95–99
--- NOTE | 2021-07-09 05:55 | EKG12_ITS ---
Test Reason : AM EKG Blood Pressure : / mmHG Vent. Rate : 053 BPM Atrial Rate : 053 BPM P-R Int : 184 ms QRS Dur : 148 ms QT Int : 452 ms P-R-T Axes : -20 -34 -05 degrees QTc Int : 424 ms Sinus bradycardia Left axis deviation Right bundle branch block Abnormal ECG Confirmed by SCOTT GUTIERREZ, ANDRY ([id number]), material expeditor BESSY GONZALEZ ([id number]) on 07/12/2021 11:18:18 AM Referred By: DR SPARKS Confirmed By:ANDRY CHAVEZ MD
[2021-07-09 06:20] LABS: Hematocrit 36.3 % (40-54); Hemoglobin 11.7 g/dL (13.0-16.5); Mean Corp Hgb Conc 32.2 g/dL (32-36); Mean Corpuscular Hgb 29.1 pg (27.0-32.0); Mean Corpuscular Volume 90.3 fL (80-94); Mean Platelet Vol. 8.7 fl (6.2-12.0); Platelet Count 178 K/mm3 (150-450); RBC Distribution Width CV 13.1 % (11.6-14.6); RBC Distribution Width SD 42.9 fl (35.1-43.9); Red Blood Count 4.02 M/mm3 (4.6-6.2); White Blood Count 5.7 K/mm3 (4.4-11.0)
[2021-07-09] MEDS: Losartan Potassium 100 MG Tablet PO (06:44)
[2021-07-09 06:50] LABS: Bedside Glucose 98 mg/dL (74-106)
[2021-07-09 07:06] LABS: Anion Gap 5 (5-15); BUN 30 mg/dL (7-18); BUN/Creat Ratio 23.1 RATIO (10-20); Calcium,Total 8.1 mg/dL (8.5-10.1); Chloride 111 mmol/L (98-107); Cholesterol 115 mg/dL (200); EST Glomerular Filtration Rate 56 mL/min (>60); Est Glom Filt Rate - Afr Amer 68 mL/min (>60); Estimated Creatinine Clearance 46.01 ml/min; Glucose 93 mg/dL (74-106); High Density Lipoprotein 38 mg/dL; Potassium 4.2 mmol/L (3.5-5.1); Sodium Level 139 mmol/L (136-145); Thyroid Stim Hormone (TSH) 1.67 uIU/mL (0.358-3.74); Triglycerides 116 mg/dL; Very Low Density Lipoprotein 23 mg/dL (5-40)
[2021-07-09] MEDS: amLODIPine 10 MG Tablet PO (08:00)
[2021-07-09 08:07] LABS: Hemoglobin A1c 7.3 % (3.8-5.6)
[2021-07-09 11:06] LABS: Bedside Glucose 191 mg/dL (74-106)
--- NOTE | 2021-07-09 11:19 | PCM.DC ---
Discharge Instructions Diet Discharge Diet: 2000 mg Sodium Diet Activity Discharge Activity: Return to Normal Activity and May Not Drive Dressing / Incision Call your doctor if you observe: Fever of 101 or Higher, Numbness or Tingling, Change in Color, Inability to urinate, Inability to have a bowel movement, Shortness of breath, Dizziness, Fainting spells, Swelling in the ankles, Chest pain, Prolonged hiccupping, Increased palpitations (irregular heartbeat) and Calf discomfort Follow Up Care Test Results: Test results from this visit will be discussed in further detail at your follow-up appointment, if applicable. Discharge Plan Admission Admit Date/Time: 07/08/21 13:16 Primary Reason for Your Visit: Atypical chest pain/unstable angina Attending Provider: eKegan Lee Primary Care Provider: Joe Mak Consulting Providers: Ana Alex Discharge Orders/Prescriptions Prescriptions: New losartan 100 mg Tablet 100 mg PO DAILY Qty: 30 RF: 0 aspirin [Aspirin Low Dose] 81 mg tablet,delayed release (DR/EC) 81 mg PO DAILY Qty: 30 RF: 2 Continued amlodipine 10 mg tablet 10 mg PO DAILY RF: 0 losartan 25 mg tablet 100 mg PO DAILY RF: 0 glipizide 5 mg tablet 5 mg PO BID RF: 0 atorvastatin 20 mg tablet 20 mg PO QHS RF: 0 hydrochlorothiazide 12.5 mg tablet 12.5 mg PO DAILY RF: 0 Referrals / Follow Up: Joe Mak MD [Primary Care Provider] - Disposition Disposition (needs filled in before D/C Order can be placed): Home, Self Care
[2021-07-09] MEDS: hydroCHLOROthiazide 12.5mg 12.5 MG PO (12:19)
--- NOTE | 2021-07-09 13:26 | PCM.PN.HOSP ---
Subjective Subjective The patient did not had any chest pain overnight. He tolerated the stress test good but a stress test right abnormal therefore plan for heart cath on Sunday Objective Data Objective Data Vital Signs: Vital Signs Temp Pulse Resp BP Pulse Ox 98.1 F 57 L 12 138/64 H 99 07/09/21 12:14 07/09/21 12:14 07/09/21 12:14 07/09/21 12:14 07/09/21 12:14 Oxygen Delivery Method Room Air Weight: 175 lb 11.335 oz Body Mass Index (BMI) 25.2 Intake & Output: Intake and Output for Last 24 Hours 07/07/21 07/08/21 07/09/21 23:59 23:59 23:59 Intake Total 650 / 650 1030 / 1030 Balance 650 / 650 1030 / 1030 Lab / Micro Data Result Diagrams: 07/09/21 05:38 07/09/21 05:38 Labs: Laboratory Results - last 24 hr 07/08/21 13:55: Magnesium 2.3, Total Bilirubin 0.40, Direct Bilirubin 0.11, AST 19, ALT 30, Alkaline Phosphatase 63, Total Protein 6.9, Albumin 3.8, Globulin 3.1 07/08/21 13:55: Phosphorus 2.8 07/08/21 13:55: Troponin I High Sens 13 07/08/21 17:18: POC Glucose 154 H 07/08/21 17:50: Troponin I High Sens 13 07/08/21 21:21: POC Glucose 92 07/09/21 05:38: WBC 5.7, RBC 4.02 L, Hgb 11.7 L, Hct 36.3 L, MCV 90.3, MCH 29.1, MCHC 32.2, RDW Std Deviation 42.9, RDW Coeff of Jose Miguel 13.1, Plt Count 178, MPV 8.7 07/09/21 05:38: Sodium 139, Potassium 4.2, Chloride 111 H, Carbon Dioxide 23.0, Anion Gap 5, BUN 30 H, Creatinine 1.30, Estim Creat Clear Calc 46.01, Est GFR (MDRD) Af Amer 68, Est GFR (MDRD) Non-Af 56 L, BUN/Creatinine Ratio 23.1 H, Glucose 93, Calcium 8.1 L, Triglycerides 116, Cholesterol 115, LDL Cholesterol 54, VLDL Cholesterol 23, HDL Cholesterol 38 L, TSH 1.67 07/09/21 05:38: Hemoglobin A1c 7.3 H 07/09/21 06:42: POC Glucose 98 07/09/21 11:00: POC Glucose 191 H Radiography Diagnostic Testing: Radiology Impression Echocardiogram 07/08/21 13:50 Interpretation Summary The estimated ejection fraction is 55-60 %. Mild AI No previous study to compare Ordering Physician: Keegan Lee Referring Physician: Joe Mak Performed By: Helio Ochoa RCS Physical Exam Narrative Seen and examined. General: Alert, Oriented x3, Cooperative HEENT: Atraumatic, PERRLA, EOMI, Normocephalic Oral: No Gingival or Mucosal Lesions/ Ulcerations Neck: Supple, No JVD, Negative Carotid Bruits Lungs: Air entry equal in bilateral lung bases. No crepitation/rhonchi Cardiovascular: Regular rate, Regular Rhythm, Normal S1, Normal S2, subtle grade 2/6 early diastolic murmur over right second ICS Abdomen: Bowel Sounds Present, Soft, Non Tender, Non-Distended : No renal angle tenderness. No suprapubic tenderness. Extremities: Ankle edema resolved. Capillary Refill Less than 3 Seconds Skin: No rashes, No breakdown Musculoskeletal: No Tenderness to Palpation of Joints or Extremities. ROM full Neurological: Cranial nerves II-XII grossly intact, DTR 2+/4 and Symmetrical, Neuro grossly intact Psych/Mental Status: Normal Affect, Appropriate Assessment & Plan Assessment/Plan (1) Angina pectoris, unstable: PLAN: This 81-year-old female admitted with chest pain and shortness of breath with only exertional which increased in severity, frequency and duration consistent with unstable angina. 1. Unstable angina: Patient is being admitted. Patient was admitted for observation but changed to inpatient status when the stress test came abnormal. Twelve-lead EKG reviewed does not show any significant change. Repeat EKG on the floor. First troponin negative. Serial troponin. Base Cloth Inspector is consulted. Lexiscan nuclear stress test tomorrow AM. 2D echo is ordered. TSH and lipid for tomorrow a.m. Patient denies any previous history of [place], cardiac stent. This started on baby aspirin, nitroglycerin ointment. 07/09: Patient serial troponins are negative. Patient AK-Taine worsen V1 to V4 and repeat EKG on floor was similar with no difference. Patient had uneventful night and had Lexiscan nuclear stress test. Stress test reported abnormal therefore discussed with the patient to stay over the weekend for heart cath on Sunday. Patient agreed. Fasting profile in normal range except HDL 38. 2. Hypertension: Blood pressure elevated, systolic in 160s. Patient is on losartan, HCTZ and amlodipine continued. 07/09: Blood pressure is controlled. plate inspector shows sinus rhythm. 3. Dyslipidemia: On atorvastatin 40 mg daily. 4. Diabetes mellitus type 2 with diabetic nephropathy, CKD stage IIIb: A1c came 7.3 g%. Glucose 93. Patient will most likely need low-dose glipizide. Patient can be put on metformin but needs his creatinine clearance to be closely monitored. Currently creatinine clearance is 46 mL/min but it is contraindicated if creatinine clearance less than 30 mill per minute Patient's admitting creatinine clearance is 36 mL/min with creatinine 1.66. He is around baseline 1.5- 1.7. He follows Dr. Ferrell. 5. VT prophylaxis: Patient already had 1 therapeutic dose of Lovenox. Will hold for further anticoagulant. Bilateral SCDs Living will/advanced directive/end of life care: Patient does have living will or advanced directive. His is power of retail assistant for health after discussion of benefits/risks procedures involved with full code, DNR CC arrest and DNR CC, the patient opted for DNRCC arrest with no intubation Patient doesn't want artificial life support including intubation, tube feed, ventilator and/chest compression, central venous catheter, vasopressor and DC shock if needed Total time spent in [id number] encounter in discussion of advanced directive 16 minutes. Charges/Coding Visit Charges Inpatient E&M: 93429 Subs Hosp L2
--- NOTE | 2021-07-09 13:36 | STRESSREP_ITS ---
Stress Test Report Pharmacologic/Lexiscan sestamibi myocardial perfusion stress test. Indication; 81-year-old patient admitted through the ER with symptoms of chest pain Evidently this has been ongoing for 1 week midsternal worse with exertion and it has been radiating to both arms associated with shortness of breath. Patient had history of hypertension, hyperlipidemia and typical angina Also noted he had a mild elevation of serum creatinine 1.6. Stress protocol: Resting EKG demonstrates. Normal sinus rhythm. With right bundle branch block 0.4 mg of regadenoson was infused per usual protocol followed by rapid intravenous saline flush injection continuous EKG monitoring was performed. The maximum heart rate attained was 80 bpm which was 57% of maximum predicted heart . Stress EKG showed[, no significant change from the resting EKG, with maximum heart rate of 80 bpm. When as right bundle branch block Arrhythmia: No arrhythmia demonstrated Symptoms: Patient had no symptoms of chest pain Blood pressure at rest: 172/70 mmHg blood pressure at the end of stress: 172/70 mmHg Myocardial perfusion protocol. 12 mCi ]of Technetium 99m Sestamibi was injected at rest. [ 0.4 mg ]of Regadenoson was infused per usual protocol peak [id number] mCi ]of Technetium 99m sestamibi was injected. Stress images were obtained stress and rest images were reconstructed and compared in the short axis vertical and horizontal long axis. Gated images were also obtained Perfusion SPECT analysis: Review of the images demonstrate reduced tracer uptake post Lexiscan injection in the anterior, apical and inferior myocardium In comparison to the resting images, consistent with reversible myocardial ischemia in the area specified Gated SPECT analysis: The gated ejection fraction is 65%, normal wall motion and normal LV systolic function Conclusion: Abnormal Lexiscan sestamibi myocardial fusion study with reversible myocardial ischemia in the anteroapical and inferior myocardium. Normal LV systolic function Recommendations; Correlate with clinical presentation and discuss the need of cardiac catheterization. Ana Alex MD,FACC,[facility]
--- NOTE | 2021-07-09 14:10 | CASEMGMT ---
RN CM CONTROL ROOM SUPERVISOR CM to room to meet with patient for initial transition planning/care coordination assessment. RN SUJATHA introduced self and role at [facility]. Pt voices understanding and consents to assessment at this time. Pt resting in bed in no distress at this time. Pt is A/O at this time and answers all questions appropriately. Care providers, pharmacy, and demographics verified/updated at this time. PCP: Dr Joe Mak Specialists: Dr Ferrell--carpentry supervisor Preferred Pharmacy: [facility] Insurance: [facility], [facility] Prescription Benefit: Yes LNOK: , [place]. Dtr, Yuliana Living Arrangements: Lives w/ in one-story home w/2 steps to enter. Independent w/ADL's and IADL's. Transportation: Pt states drives self and states no transportation concerns at this time. also drives. DME: Has a functioning glucometer w/supplies. Pt denies need for further DME. HHC/SNF: No hx of either. Denies need for HHC. Pt wishes to return home and states has no concerns with going home at time of discharge. CM to follow for any discharge planning/needs. Pt voices no concerns/needs at this time. Advised pt to ask for CM if any questions/concerns/needs arise. Voices understanding. PLAN: Home w/discharge plans in place. Griffin MARKS RN, CM
--- NOTE | 2021-07-09 14:31 | PN.CARD_ITS ---
Objective Data Vital Signs: Vital Signs Temp Pulse Resp BP Pulse Ox 98.1 F 57 L 12 138/64 H 99 07/09/21 12:14 07/09/21 12:14 07/09/21 12:14 07/09/21 12:14 07/09/21 12:14 Oxygen Delivery Method Room Air Weight: 175 lb 11.335 oz Body Mass Index (BMI) 25.2 Intake & Output: Intake and Output for Last 24 Hours 07/07/21 07/08/21 07/09/21 23:59 23:59 23:59 Intake Total 650 / 650 1030 / 1030 Balance 650 / 650 1030 / 1030 Lab / Micro Data Result Diagrams: 07/09/21 05:38 07/09/21 05:38 Labs: Laboratory Results - last 24 hr 07/08/21 13:55: Magnesium 2.3, Total Bilirubin 0.40, Direct Bilirubin 0.11, AST 19, ALT 30, Alkaline Phosphatase 63, Total Protein 6.9, Albumin 3.8, Globulin 3.1 07/08/21 13:55: Phosphorus 2.8 07/08/21 13:55: Troponin I High Sens 13 07/08/21 17:18: POC Glucose 154 H 07/08/21 17:50: Troponin I High Sens 13 07/08/21 21:21: POC Glucose 92 07/09/21 05:38: WBC 5.7, RBC 4.02 L, Hgb 11.7 L, Hct 36.3 L, MCV 90.3, MCH 29.1, MCHC 32.2, RDW Std Deviation 42.9, RDW Coeff of Jose Miguel 13.1, Plt Count 178, MPV 8.7 07/09/21 05:38: Sodium 139, Potassium 4.2, Chloride 111 H, Carbon Dioxide 23.0, Anion Gap 5, BUN 30 H, Creatinine 1.30, Estim Creat Clear Calc 46.01, Est GFR (MDRD) Af Amer 68, Est GFR (MDRD) Non-Af 56 L, BUN/Creatinine Ratio 23.1 H, Glucose 93, Calcium 8.1 L, Triglycerides 116, Cholesterol 115, LDL Cholesterol 54, VLDL Cholesterol 23, HDL Cholesterol 38 L, TSH 1.67 07/09/21 05:38: Hemoglobin A1c 7.3 H 07/09/21 06:42: POC Glucose 98 07/09/21 11:00: POC Glucose 191 H Cardiology Labs/Tests 07/08/21 13:55: Magnesium 2.3, Total Bilirubin 0.40, Direct Bilirubin 0.11 07/08/21 13:55: Phosphorus 2.8 07/09/21 05:38: WBC 5.7, RBC 4.02 L, Hgb 11.7 L, Hct 36.3 L, MCV 90.3, MCH 29.1, MCHC 32.2, Plt Count 178, MPV 8.7 07/09/21 05:38: Sodium 139, Potassium 4.2, Chloride 111 H, Carbon Dioxide 23.0, Anion Gap 5, BUN 30 H, Creatinine 1.30, Est GFR (MDRD) Af Amer 68, Est GFR (MDRD) Non-Af 56 L, BUN/Creatinine Ratio 23.1 H, Glucose 93, Calcium 8.1 L, Triglycerides 116, Cholesterol 115, LDL Cholesterol 54, VLDL Cholesterol 23, HDL Cholesterol 38 L 07/09/21 05:38: Hemoglobin A1c 7.3 H Rhythm: Normal sinus rhythm EKG: Right bundle branch block ECHO: LV systolic function with no significant valve abnormality Stress Test: Abnormal stress result with reversible myocardial ischemia anterior, apical and inferior LV systolic function is preserved with ejection fraction of 66% Radiography Diagnostic Testing: Radiology Impression Echocardiogram 07/08/21 13:50 Interpretation Summary The estimated ejection fraction is 55-60 %. Mild AI No previous study to compare Ordering Physician: Keegan Lee Referring Physician: Joe Mak Performed By: Helio Ochoa RCS Physical Exam Narrative Seen and evaluated today at bedside along with the nursing staff No symptoms of chest pain reported Patient alert orientated x3 Cardiovascular exam; personnel monitor showed normal sinus rhythm S1-S2 regular, no murmur no systolic or diastolic murmur Chest is clear to auscultation bilateral. No lower extremity edema noted. Assessment & Plan Assessment/Plan (1) Hypercholesteremia: (2) HTN (hypertension): (3) Angina pectoris, unstable: PLAN: This 81-year-old male who had typical symptoms of chest pain on exertion/relieved with rest Highly suggestive of angina with CAD Patient known to have history of hypertension hyperlipidemia There is no prior cardiac evaluation And also noted mild elevation serum creatinine to 1.6 on admission now 1.3 Patient had evaluation with a series of high sensitive troponin which is negative, personnel monitor, echocardiogram and Lexiscan sestamibi marker perfusion study Cardiac care plan recommendations; 1. We will start on IV fluids 75 cc/per hour and encourage oral fluid intake 2. We will continue to monitor BMP. Will continue the current medication and will plan for evaluation with cardiac catheterization on Sunday/right radial artery approach. I discussed the need for cardiac catheterization in detail with the patient as well as with the nursing staff
[2021-07-09] MEDS: 0.9% Normal Saline 1,000 ML 75 ML IV (14:41)
[2021-07-09 16:26] LABS: Bedside Glucose 150 mg/dL (74-106)
[2021-07-09] MEDS: Nitroglycerin Oint 1 INCH PACKET 0.5 INCH TD ×2 (17:02→23:36)
--- NOTE | 2021-07-09 18:53 | CASEMGMT ---
RN CM NOTE: Pt has MCR, so can transfer to any tertiary facility of choice, if transfer is recommended. Griffin BSN RN CM
[2021-07-09] MEDS: Atorvastatin Calcium 40 MG Tablet PO (21:52)
[2021-07-09 22:01] LABS: Bedside Glucose 110 mg/dL (74-106)
[2021-07-10] VITALS (13 sets, daily range): BP systolic 124–158; BP diastolic 57–68; PULSE 51–60; RESP 18; TEMP 36.2–36.6; O2SAT 94–98
[2021-07-10] MEDS: 0.9% Normal Saline 1,000 ML 75 ML IV ×2 (02:24→15:08)
[2021-07-10 06:37] LABS: Anion Gap 8 (5-15); BUN 37 mg/dL (7-18); BUN/Creat Ratio 23.7 RATIO (10-20); Calcium,Total 8.3 mg/dL (8.5-10.1); Chloride 110 mmol/L (98-107); Creatinine, Serum 1.56 mg/dL (0.70-1.30); EST Glomerular Filtration Rate 46 mL/min (>60); Est Glom Filt Rate - Afr Amer 55 mL/min (>60); Estimated Creatinine Clearance 38.35 ml/min; Glucose 119 mg/dL (74-106); Sodium Level 140 mmol/L (136-145)
[2021-07-10] MEDS: Nitroglycerin Oint 1 INCH PACKET 0.5 INCH TD ×4 (06:45→23:36)
[2021-07-10] MEDS: hydroCHLOROthiazide 12.5mg 12.5 MG PO (10:19)
[2021-07-10] MEDS: amLODIPine 10 MG Tablet PO (10:19)
[2021-07-10] MEDS: Losartan Potassium 100 MG Tablet PO (10:19)
--- NOTE | 2021-07-10 11:09 | PCM.PN.HOSP ---
Subjective Subjective Patient does not have any chest pain or shortness of breath. Plan for cardiac cath on Sunday Objective Data Objective Data Vital Signs: Vital Signs Temp Pulse Resp BP Pulse Ox 97.7 F L 60 18 158/68 H 98 07/10/21 10:15 07/10/21 10:15 07/10/21 10:15 07/10/21 10:15 07/10/21 10:15 Oxygen Delivery Method Room Air Weight: 175 lb 11.335 oz Body Mass Index (BMI) 25.2 Intake & Output: Intake and Output for Last 24 Hours 07/08/21 07/09/21 07/10/21 23:59 23:59 23:59 Intake Total 650 / 650 1580 / 1580 1278.75 / 1278.75 Balance 650 / 650 1580 / 1580 1278.75 / 1278.75 Lab / Micro Data Result Diagrams: 07/09/21 05:38 07/10/21 05:24 Labs: Laboratory Results - last 24 hr 07/09/21 16:00: POC Glucose 150 H 07/09/21 21:51: POC Glucose 110 H 07/10/21 05:24: Sodium 140, Potassium 4.0, Chloride 110 H, Carbon Dioxide 22.0, Anion Gap 8, BUN 37 H, Creatinine 1.56 H, Estim Creat Clear Calc 38.35, Est GFR (MDRD) Af Amer 55 L, Est GFR (MDRD) Non-Af 46 L, BUN/Creatinine Ratio 23.7 H, Glucose 119 H, Calcium 8.3 L Physical Exam Narrative Seen and examined. Sinus rhythm on associate dean. Physical exam General: Alert, Oriented x3, Cooperative HEENT: Atraumatic, PERRLA, EOMI, Normocephalic Oral: No Gingival or Mucosal Lesions/ Ulcerations Neck: Supple, No JVD, Negative Carotid Bruits Lungs: Air entry equal in bilateral lung bases. No crepitation/rhonchi Cardiovascular: Regular rate, Regular Rhythm, Normal S1, Normal S2, grade 2/6 early diastolic murmur over right second ICS Abdomen: Bowel Sounds Present, Soft, Non Tender, Non-Distended : No renal angle tenderness. No suprapubic tenderness. Extremities: Ankle edema resolved. Capillary Refill Less than 3 Seconds Skin: No rashes, No breakdown Musculoskeletal: No Tenderness to Palpation of Joints or Extremities. ROM full Neurological: Cranial nerves II-XII grossly intact, DTR 2+/4 and Symmetrical, Neuro grossly intact Psych/Mental Status: Normal Affect, Appropriate Assessment & Plan Assessment/Plan (1) Angina pectoris, unstable: PLAN: This 81-year-old female admitted with chest pain and shortness of breath with only exertional which increased in severity, frequency and duration consistent with unstable angina. 1. Unstable angina: Patient is being admitted. Patient was admitted for observation but changed to inpatient status when the stress test came abnormal. Twelve-lead EKG reviewed does not show any significant change. Repeat EKG on the floor. First troponin negative. Serial troponin. Electrical Appliance Repairer is consulted. Lexiscan nuclear stress test tomorrow AM. 2D echo is ordered. TSH and lipid for tomorrow a.m. Patient denies any previous history of [place], cardiac stent. This started on baby aspirin, nitroglycerin ointment. 07/09: Patient serial troponins are negative. Patient AK-Taine worsen V1 to V4 and repeat EKG on floor was similar with no difference. Patient had uneventful night and had Lexiscan nuclear stress test. Stress test reported abnormal therefore discussed with the patient to stay over the weekend for heart cath on Sunday. Patient agreed. Fasting profile in normal range except HDL 38. 07/10: TSH normal. Plan for cardiac cath on Sunday 2. Hypertension: Blood pressure elevated, systolic in 160s. Patient is on losartan, HCTZ and amlodipine continued. 07/09: Blood pressure is controlled. product development director shows sinus rhythm. 07/10: Blood pressure fluctuates. Continue home medications. 3. Dyslipidemia: On atorvastatin 40 mg daily. 4. Diabetes mellitus type 2 with diabetic nephropathy, CKD stage IIIb: A1c came 7.3 g%. Glucose 93. Patient will most likely need low-dose glipizide. Patient can be put on metformin but needs his creatinine clearance to be closely monitored. Currently creatinine clearance is 46 mL/min but it is contraindicated if creatinine clearance less than 30 mill per minute Patient's admitting creatinine clearance is 36 mL/min with creatinine 1.66. He is around baseline 1.5- 1.7. He follows Dr. Ferrell. 5. VT prophylaxis: Patient already had 1 therapeutic dose of Lovenox. Will hold for further anticoagulant. Bilateral SCDs Living will/advanced directive/end of life care: Patient does have living will or advanced directive. His is power of state attorney for health after discussion of benefits/risks procedures involved with full code, DNR CC arrest and DNR CC, the patient opted for DNRCC arrest with no intubation Patient doesn't want artificial life support including intubation, tube feed, ventilator and/chest compression, central venous catheter, vasopressor and DC shock if needed Total time spent in [id number] encounter in discussion of advanced directive 16 minutes. Charges/Coding Visit Charges Inpatient E&M: 83064 Subs Hosp L2
[2021-07-10 11:46] LABS: Bedside Glucose 163 mg/dL (74-106)
--- NOTE | 2021-07-10 16:32 | PN.CARD_ITS ---
Subjective Subjective Seen and evaluated today at bedside No symptoms of chest pain at rest. Objective Data Vital Signs: Vital Signs Temp Pulse Resp BP Pulse Ox 97.7 F L 58 L 18 158/68 H 98 07/10/21 10:15 07/10/21 15:04 07/10/21 10:15 07/10/21 10:15 07/10/21 10:15 Oxygen Delivery Method Room Air Weight: 175 lb 11.335 oz Body Mass Index (BMI) 25.2 Intake & Output: Intake and Output for Last 24 Hours 07/08/21 07/09/21 07/10/21 23:59 23:59 23:59 Intake Total 650 / 650 1580 / 1580 2592.50 / 2592.50 Balance 650 / 650 1580 / 1580 2592.50 / 2592.50 Lab / Micro Data Result Diagrams: 07/09/21 05:38 07/10/21 05:24 Labs: Laboratory Results - last 24 hr 07/09/21 21:51: POC Glucose 110 H 07/10/21 05:24: Sodium 140, Potassium 4.0, Chloride 110 H, Carbon Dioxide 22.0, Anion Gap 8, BUN 37 H, Creatinine 1.56 H, Estim Creat Clear Calc 38.35, Est GFR (MDRD) Af Amer 55 L, Est GFR (MDRD) Non-Af 46 L, BUN/Creatinine Ratio 23.7 H, Glucose 119 H, Calcium 8.3 L 07/10/21 11:35: POC Glucose 163 H Cardiology Labs/Tests 07/10/21 05:24: Sodium 140, Potassium 4.0, Chloride 110 H, Carbon Dioxide 22.0, Anion Gap 8, BUN 37 H, Creatinine 1.56 H, Est GFR (MDRD) Af Amer 55 L, Est GFR (MDRD) Non-Af 46 L, BUN/Creatinine Ratio 23.7 H, Glucose 119 H, Calcium 8.3 L Rhythm: Sinus rhythm EKG: Normal sinus rhythm no significant ST?the abnormalities noted ECHO: Normal LV systolic function Stress Test: Abnormal nuclear stress test Assessment & Plan Assessment/Plan (1) Hypercholesteremia: (2) HTN (hypertension): (3) Angina pectoris, unstable: PLAN: This patient presented with typical angina severe retrosternal chest pain worse on exertion relieved with rest Had a history of hypertension hyperlipidemia Also had symptoms of dyspnea on exertion Present his clinical presentation he was evaluated by echocardiogram serial cardiac markers as well as Lexiscan sestamibi [facility] Cardiac care plan recommendations; 1. I reviewed the current medication continue current treatment 2. He had renal insufficiency with a baseline creatinine 1.5?to 1.6 is on IV fluid normal saline 3. He has abnormal nuclear stress test and will proceed with cardiac catheterization with minimal amount of contrast
[2021-07-10 16:45] LABS: Bedside Glucose 163 mg/dL (74-106)
[2021-07-10] MEDS: Atorvastatin Calcium 40 MG Tablet PO (20:42)
[2021-07-10 21:26] LABS: Bedside Glucose 161 mg/dL (74-106)
[2021-07-11] VITALS (16 sets, daily range): BP systolic 115–153; BP diastolic 61–100; PULSE 54–63; RESP 12–21; TEMP 36–36.8; O2SAT 96–99
[2021-07-11] MEDS: 0.9% Normal Saline 1,000 ML 75 ML IV (04:00)
--- NOTE | 2021-07-11 05:00 | EKG12_ITS ---
Test Reason : PRE OP Blood Pressure : / mmHG Vent. Rate : 053 BPM Atrial Rate : 053 BPM P-R Int : 196 ms QRS Dur : 148 ms QT Int : 448 ms P-R-T Axes : -13 -26 002 degrees QTc Int : 420 ms Sinus bradycardia Right bundle branch block Abnormal ECG Confirmed by SCOTT GUTIERREZ, ANDRY ([id number]), publishing editor BESSY GONZALEZ ([id number]) on 07/13/2021 10:03:47 AM Referred By: KEMAR Confirmed By:ANDRY CHAVEZ MD
[2021-07-11 05:37] LABS: Anion Gap 7 (5-15); BUN 35 mg/dL (7-18); BUN/Creat Ratio 26.3 RATIO (10-20); Calcium,Total 8.4 mg/dL (8.5-10.1); Chloride 110 mmol/L (98-107); Creatinine, Serum 1.33 mg/dL (0.70-1.30); EST Glomerular Filtration Rate 55 mL/min (>60); Est Glom Filt Rate - Afr Amer 66 mL/min (>60); Estimated Creatinine Clearance 44.98 ml/min; Glucose 147 mg/dL (74-106); Sodium Level 137 mmol/L (136-145)
[2021-07-11] MEDS: Nitroglycerin Oint 1 INCH PACKET 0.5 INCH TD ×2 (06:00→11:38)
[2021-07-11] MEDS: Losartan Potassium 100 MG Tablet PO (06:01)
[2021-07-11] MEDS: amLODIPine 10 MG Tablet PO (06:01)
[2021-07-11 06:16] LABS: Bedside Glucose 153 mg/dL (74-106)
--- NOTE | 2021-07-11 08:36 | NURSING ---
Report called to crime laboratory analyst.
--- NOTE | 2021-07-11 10:14 | PCM.OP.PRO ---
Procedure Report Date of Procedure: 07/11/21 1. Select of left cholangiography 2. Selective right cholangiography 3. Left ventriculogram. #4 placement of TR band to right radial artery arteriotomy site. Preprocedure diagnosis. 81-year-old patient presented with retrosternal chest pain typical of angina noted mainly on exertion relieved with rest Patient had history of hypertension hyperlipidemia had associated symptoms of shortness of breath Based on clinical presentation we will schedule for nuclear stress test which is abnormal with preserved LV function and abnormal nuclear stress test in the LAD distribution Including anterior and apical myocardium. The echocardiographic evaluation showed LV function is preserved with no significant valvular abnormality. Initial creatinine was 1.6 patient was given IV fluid and creatinine improved to 1.33 Patient was taken to the Bilingual Patient Support Caseworker today Consent; Risk and benefit of the procedure explained detail patient like to proceed informed consent obtained. Sedation patient sedated with intravenous Versed intravenous fentanyl Diagnostic catheter use; 1. 6 Nepalese sheaths Terumo applied to right radial artery 2. 5 Nepalese [place] catheter 3. 5 Nepalese pigtail catheter. Procedure in detail; Patient brought to the Bilingual Patient Support Caseworker in fasting state Right radial artery prepped and draped in the usual sterile fashion Access obtained from the right radial artery We proceed with a 5 Nepalese [place] catheter advanced ascending aorta cannulated the left main without difficulty, multiple views of the left coronary system obtain including ROMANSH, KAN cranial and caudal views Following this same catheter, used to cannulate the RCA and 3 views of the right coronary system obtain including ROMANSH, KAN cranial and caudal views Following this catheter exchanged for 5 Nepalese pigtail catheter/straight advanced ascending aorta across the aortic valve without difficulty and left ventriculogram in addition to measurement of LVEDP was performed Pullback pressure was performed as well Findings; Hemodynamic Of systolic function preserved, ejection fraction 60% 2. No systolic gradient across aortic valve. 3. No mitral regurgitation noted 4. LVEDP measured within normal Coronary angiography; 1. Left main heavily calcified with extension of calcification into LAD, left circumflex and a small ramus intermedius Left main coronary artery had around 50% stenosis, tram-like calcification was noted into the left main as well as into the LAD. 2. With the high-grade 90% stenosis of the proximal LAD involving the site of the Ist diagonal Also noted lesion involving the very septal branch ostial around 70% Rest of the LAD had no significant atherosclerosis, the left anterior descending artery large vessel reach all the way to the apex Ramus intermedius small vessel was ostium around 70% 3 the left circumflex large vessel calcified with a circumflex in the AV groove had distal lesion of around 70% and ostial lesion of around 50 to 60% 4. RCA large dominant calcified proximally around 50% Distal RCA had around 20-30%, and the ostium and proximal RPDA had around 50% stenosis Conclusion and recommendation Next; This patient 81-year-old with typical angina and abnormal stress test Had a heavily calcified coronary system involving the left main with extension of calcification into the LAD I discussed the case with the singeing torch operator Dr. Emiliana Pretty at [facility] She accepted to reviewed the angiographic films and evaluate the patient for possible intervention in the proximal LAD versus evaluation for CABG Total amount of contrast used in this case is 70 cc Patient remained stable in the Bilingual Patient Support Caseworker with no complication TR band applied to right radial artery sheath and patient will be transferred today to [facility] Ana Alex MD,FACC,[facility]
[2021-07-11] MEDS: hydroCHLOROthiazide 12.5mg 12.5 MG PO (10:51)
[2021-07-11 11:45] LABS: Bedside Glucose 157 mg/dL (74-106)
--- NOTE | 2021-07-11 14:22 | PCM.DC.SUM ---
Providers Date of Admission: 07/09/21 Date of Discharge: 07/11/21 Primary Care Physician: Dr. Joe Mak MD Consultations 07/08/21 13:22 Consult: Cardiology Routine Consulting Provider: Ana Alex Reason for Consult: Unstable angina EMERGENT Consult: No MD Notified: Yes Date Notified: 07/08/21 Time Notified: 13:22 Method of Notification: Verbal Comments:: ED physician discussed with him Reason For Visit: CHEST PAIN Diagnosis Discharge Diagnosis (1) Hypercholesteremia: Status: Acute Code(s): E78.00 - Pure hypercholesterolemia, unspecified (2) HTN (hypertension): Status: Chronic Code(s): I10 - Essential (primary) hypertension (3) Angina pectoris, unstable: Status: Acute Code(s): I20.0 - Unstable angina Medications at Discharge Home Medications amlodipine 10 mg PO DAILY 07/08/21 atorvastatin 20 mg PO QHS 07/08/21 glipizide 5 mg PO BID 07/08/21 hydrochlorothiazide 12.5 mg PO DAILY 07/08/21 losartan 100 mg PO DAILY 07/08/21 aspirin [Aspirin Low Dose] 81 mg PO DAILY #30 tab 07/09/21 losartan 100 mg PO DAILY #30 tab 07/09/21 Hospital Course Operations None Procedures 2-D Echocardiogram, Cardiac catheterization and Stress test Summary of Care Provided Minutes Spent on Discharge: 36 Hospital Course: Mr. Barajas is an 81-year-old white male who presented to the emergency department at [facility] on 07/09/2021 with a chief complaint of intermittent chest pain. The patient had no previous history of cardiac disease however he came into the emergency department on the above date after suffering from intermittent chest pain for approximately 1 week. On presentation he reported that the pain was predominantly exertional and he was experiencing it when he was walking or climbing stairs. Pain was located in the midsternal region and felt like tightness and was associated with shortness of breath/exertional dyspnea. At the time he is experiencing the chest pain he was also experiencing bilateral aching sensation over bilateral upper extremities. An EKG was done on presentation and showed slight ST depression in leads V1 through V4. He evidently had a stress test 10 years prior and was told it was normal. He reported he also had a cardiac catheterization in 2005 at the [facility] in [place] and no significant abnormalities were found at that time. His chest x-ray was unremarkable. The ER physician talked to the manufacturing manager on-call who recommended a therapeutic dose of Lovenox and admission for further work-up. He was admitted to the PCU and a stress test was performed on 07/09/2021 which showed reversible myocardial ischemia at the anterior apical and inferior myocardium. An echocardiogram was performed and showed an EF of 55 to 60% with mild AI and given his abnormal stress test cardiac catheterization was recommended. He was maintained on aspirin, atorvastatin, and losartan during his hospitalization. Beta-tanisha was deferred secondary to bradycardia. Cardiac enzymes were cycled and were negative x3 during his hospital course. A lipid panel was obtained and he was found to have a total cholesterol 115/HDL of 38/LDL of 54. His hemoglobin A1c was drawn and found to be 7.3 on 07/09/2021. He does have some chronic kidney disease and follows with Dr. Hillary Ferrell from nephrology. Hydration was maintained after cardiac catheterization up until the time of discharge. His cardiac catheterization showed heavily calcified left main with extension of calcification into the LAD, left circumflex, and ramus intermedius. The LAD had approximately 50% stenosis. There is a high-grade 90% stenosis of the proximal LAD as well as a 70% stenotic lesion involving the septal ostial branch of the LAD. The ramus intermedius was a small vessel and had approximately 70% disease. The circumflex was a large vessel that was calcified and had approximately 70% stenosis as well as an ostial lesion around 50 to 60%. The RCA was large and dominant and had calcified proximately to 50% with the distal RCA showing around 20 to 30% stenosis. Given his heavily calcified coronary artery system and disease involving the left main with extension of the calcium to the LAD his case was discussed with interventional radiology at [facility] and she accepted the patient for possible intervention via high risk PCI versus CABG. The patient was discharged to [facility] chest pain-free on 07/11/2021 in stable condition. Discharge diagnoses: Multivessel coronary artery disease with significant calcification HTN HPL CKD stage III [id number] with a hemoglobin A1c of 7.3 History of GERD History of tobacco abuse-remote Physical Exam Const alert, oriented x3, no apparent distress, average body habitus and no limitations Constitutional Narrative: Older white male sitting up in bed watching television eating lunch, appears comfortable nontoxic General Appearance: cooperative, comfortable, well kempt and well developed Orientation / Consciousness: awake HEENT normocephalic, head/scalp atraumatic and moist oral mucous membranes HEENT Narrative: Mildly hard of hearing, dentition is fair, no thrush Eyes PERRL, EOMs intact bilaterally and conjunctivae normal Neck no lymphadenopathy, supple and no JVD Neck Narrative: Trachea midline, no thyroid enlargement Resp normal respiratory effort, no retractions, no use of accessory muscles and clear to auscultation bilaterally Auscultation: Negative for crackles, rales, rhonchi or wheezes Cardio regular rhythm, S1 normal heart sound, S2 normal heart sound, no murmurs, no rub, no gallops, no clicks and no JVD Cardio Narrative: Slight bradycardia GI normal to inspection, nondistended, normoactive bowel sounds, soft to palpation, non-tender and non-distended; Negative for hepatosplenomegaly Extremity no clubbing, cyanosis or edema Extremity Narrative: Right wrist with post catheterization compressive device in place, no cyanosis in the fingers, cap refill is 2+ in the right hand, no ecchymosis at catheterization site Skin no rashes or lesions noted, no wounds, skin turgor normal and no jaundice Neuro oriented x3, CN's II-XII intact bilaterally, moves all extremities and no focal motor deficits Sensorium / Orientation: awake and alert Speech: speech normal Motor Exam: strength 5/5 throughout Psych affect normal Psych Narrative: Very pleasant and appropriately interactive Weight / BMI Weight Weight: 79.7 kg Body Mass Index (BMI) 25.2 ABG / Lab / Microbiology Data Result Diagrams: 07/09/21 05:38 07/11/21 05:05 Laboratory: Laboratory Results - last 24 hr 07/10/21 16:37: POC Glucose 163 H 07/10/21 20:41: POC Glucose 161 H 07/11/21 05:05: Sodium 137, Potassium 4.0, Chloride 110 H, Carbon Dioxide 20.0 L, Anion Gap 7, BUN 35 H, Creatinine 1.33 H, Estim Creat Clear Calc 44.98, Est GFR (MDRD) Af Amer 66, Est GFR (MDRD) Non-Af 55 L, BUN/Creatinine Ratio 26.3 H, Glucose 147 H, Calcium 8.4 L 07/11/21 05:56: POC Glucose 153 H 07/11/21 11:37: POC Glucose 157 H D/C Instructions Discharge Diet: 2000 mg Sodium Diet Call your doctor if you observe: Fever of 101 or Higher, Numbness or Tingling, Change in Color, Inability to urinate, Inability to have a bowel movement, Shortness of breath, Dizziness, Fainting spells, Swelling in the ankles, Chest pain, Prolonged hiccupping, Increased palpitations (irregular heartbeat) and Calf discomfort Meaningful Use Info Meaningful Use Diagnoses (Choose all that apply): None applicable Discharge Plan Admission Admit Date/Time: 07/09/21 14:26 Primary Reason for Your Visit: Atypical chest pain/unstable angina Attending Provider: Trudy Ferrell Primary Care Provider: Joe Mak Consulting Providers: Ana Alex Discharge Orders/Prescriptions Prescriptions: New losartan 100 mg Tablet 100 mg PO DAILY Qty: 30 RF: 0 aspirin [Aspirin Low Dose] 81 mg tablet,delayed release (DR/EC) 81 mg PO DAILY Qty: 30 RF: 2 Continued amlodipine 10 mg tablet 10 mg PO DAILY RF: 0 losartan 25 mg tablet 100 mg PO DAILY RF: 0 glipizide 5 mg tablet 5 mg PO BID RF: 0 atorvastatin 20 mg tablet 20 mg PO QHS RF: 0 hydrochlorothiazide 12.5 mg tablet 12.5 mg PO DAILY RF: 0 Referrals / Follow Up: Joe Mak MD [Primary Care Provider] - Disposition Disposition (needs filled in before D/C Order can be placed): Acute Care Hospital Charges/Coding Visit Charges Inpatient E&M: 82984 Disch Hosp
--- NOTE | 2021-07-11 14:44 | NURSING ---
Report called to [facility] 1 central RN Migdalia.
--- NOTE | 2021-07-11 14:49 | NURSING ---
Patient stated he would call family and update them with his transfer to [facility]. Pt given bed number and telephone number for family.
== END 2021-07-11 16:18 | disposition short-term general hospital (02) | DRG 287 ==
LOC: ED 13:27 → PCU 13:41
PROVIDERS: Internal Medicine Interventional Cardiology; Nurse Practitioner; Admitting Provider Internal Medicine; Emergency Provider Emergency Medicine; PCP Family Medicine; Visit Provider Internal Medicine
DX: I25.110 Atherosclerotic heart disease of native coronary artery with unstable angina pectoris (principal); I45.2 Bifascicular block; E11.22 Type 2 diabetes mellitus with diabetic chronic kidney disease; N18.32 Chronic kidney disease, stage 3b; E78.5 Hyperlipidemia, unspecified; I12.9 Hypertensive chronic kidney disease with stage 1 through stage 4 chronic kidney disease, or unspecified chronic kidney disease; K21.9 Gastro-esophageal reflux disease without esophagitis; R00.1 Bradycardia, unspecified; Z79.84 Long term (current) use of oral hypoglycemic drugs; Z87.891 Personal history of nicotine dependence; Z79.899 Other long term (current) drug therapy
CPT/HCPCS: 36415; 71045; 78452; 80048; 80061; 80076; 82962; 83036; 83735; 83880; 84100; 84443; 84484; 85025; 85027; 93005; 93017; 93306; 93458; 99152; 99153; 99285; A9500; J7030; Q9957; Q9967; A4216; C1769; C1894; J2785

== ENCOUNTER → 2021-08-03 | Outpatient (CLI) | payer MEDICARE, OTHER, SELFPAY ==
--- NOTE | 2021-08-03 11:03 | ART_ITS ---
Reason For Study: Decreased pedal pulses, PVD Procedure A bilateral lower extremity continuous wave Doppler with analog waveform analysis,segmental pressures,and ankle brachial indexes without exercise. Left Segmental Pressures Left brachial= 168mmHg. Left calf = 191mmHg. Left posterior tibial artery = 164mmHg. Left dorsalis pedis artery = 151mmHg. Left digit = 76 mmHg. The left dorsalis pedis waveforms are biphasic. The left posterior tibial artery waveforms are biphasic. Right Segmental Pressures Right brachial= 163mmHg. Right posterior tibial artery = 153mmHg. Right dorsalis pedis artery = 174mmHg. Right digit = 109 mmHg. The right dorsalis pedis waveforms are biphasic. The right posterior tibial artery waveforms are triphasic. Indices The right ankle brachial index by the dorsalis pedis is 1.04. The right ankle brachial index by the posterior tibial artery is 0.91. The right digital-brachial index is 0.65. The left ankle brachial index by the dorsalis pedis is 0.90. The left ankle brachial index by the posterior tibial artery is 0.98. The left digital-brachial index is 0.45. VL/Lower Ext Art Exam w/o Exercis Interpretation Summary Right PT and DP ankle-brachial index at rest with a PT of 0.91 and a DP of 1.04 and that value technically normal. The right posterior tibial demonstrates a normal triphasic Doppler waveform while the dorsalis pedis is biphasic consistent with more moderate disease. The right digital brachial index of 0.65 is abnormal Left lower extremity demonstrates a left PT and DP ankle-brachial index of 0.98 and 0.9 at rest which is close to normal however Doppler waveforms are biphasic at both the lef t posterior tibial and dorsalis pedis consistent with a more moderate level disease. The left digi doretha brachial index is abnormal at 0.45 Ordering Physician: Carey Valladares Referring Physician: Joe Mak MD Performed By: Corinne Allen RVT
--- NOTE | 2021-08-03 11:03 | CDU_ITS ---
Reason For Study: Bruit Rt. Velocities/BP Lt. Velocities/BP Prox CCA 68.2/8.2 cm/sec. Prox CCA 96.2/11.4 cm/sec. Mid CCA 69.5/9.5 cm/sec. Mid CCA 67.9/6.5 cm/sec. Dist CCA 61.7/6.9 cm/sec. Dist CCA 60.5/6.5 cm/sec. Prox ICA 117.4/22.5 cm/sec. Prox ICA 60.5/9 cm/sec. Mid ICA 112/18.8 cm/sec. Mid ICA 56.9/9 cm/sec. Dist ICA 65.6/14.7 cm/sec. Dist ICA 90/15.1 cm/sec. Rt. ICA/CCA = 1.72. Lt. ICA/CCA = 1.33. Prox ECA 90/5.3 cm/sec. Prox ECA 66.7/7.7 cm/sec. Rt. Vert. 43.2/6.9 cm/sec. Lt. Vert. 34.3/6 cm/sec. Right Extracranial There is homogeneous, smooth atherosclerotic plaque noted in the right common carotid artery. There is heterogeneous, irregular atherosclerotic plaque noted in the right internal carotid artery. The right internal carotid artery is not well visualized. There is intimal thickening but no significant atherosclerotic plaque noted in the right external carotid artery. Antegrade flow is noted in the right vertebral artery. Left Extracranial There is homogeneous, smooth atherosclerotic plaque noted in the left common carotid artery. There is heterogeneous, irregular atherosclerotic plaque noted in the left internal carotid artery. The left internal carotid artery is not well visualized. There is intimal thickening but no significant atherosclerotic plaque noted in the left external carotid artery. Antegrade flow is noted in the left vertebral artery. Procedure Carotid Duplex [id number]. This is a Carotid Duplex examination using B-mode, color flow and specral Doppler. Exam performed in department. VL/Carotid Duplex Ultrasound Interpretation Summary Mild calcific plaque with shadowing proximal right internal carotid artery with less than 50% stenosis Less than 50% stenosis right external carotid artery Minimal plaque of the proximal left internal carotid artery with less than 50% stenosis. Less than 50% stenosis left external carotid artery Patent and antegrade vertebral arteries bilaterally Ordering Physician: Carey Valladares Referring Physician: Joe Mak MD Performed By: Corinne Allen RVT
== END | disposition home or self-care (01) ==
LOC: CVS 09:18
PROVIDERS: PCP Family Medicine; Referring Provider Physician Assistant Medical; Visit Provider Physician Assistant Medical
DX: R09.89 Other specified symptoms and signs involving the circulatory and respiratory systems (principal); I73.9 Peripheral vascular disease, unspecified
CPT/HCPCS: 93880; 93923

== ENCOUNTER → 2021-08-16 | Outpatient (CLI) | payer MEDICARE, OTHER, SELFPAY ==
--- NOTE | 2021-08-16 08:33 | CR.HP_ITS ---
CR - History & Physical - General Arrival date:: 08/16/21 Arrival time:: 08:00 Date of Referral:: 07/21/21 Date of CR Evaluation:: 08/16/21 Referring Physician: Dr. Anupama Holguin - History of Present Cardiac Event Onset Date: Enter Onset Date of cardiac illnesses in Comment field below PTCA or coronary stenting:: Yes - 06/28/2021 Type of Symptoms:: 81 M history of diabetes, hyperlipidemia, hypertension presented to the emergency room on 07/08/2021 with midsternal chest pains with 1-week duration. Over the previous wek noticed a tightness in his chest while walking, going up steps, he developed bilateral arm aching and shortness of breath. Interventions with present event:: Nuclear stress test and heart cath w/subsequent coronary stenting. Were there any complications?: None - Sleep Disorder Evaluation Hx of Sleep Apnea: No Do you snore loudly (louder than talking or can be heard through closed doors)?: No Do you often feel tired/ fatigued/ sleepy during daytime?: No Has anyone observed you stop breathing during sleep?: No History of Hypertension (for STOP score): Yes STOP Results: Negative - Medications Home Medications: Ambulatory Orders Medication Instructions Recorded glipizide 5 mg PO BID 07/08/21 amlodipine 10 mg tablet 10 mg PO DAILY #90 tab 08/03/21 aspirin 81 mg tablet,delayed 81 mg PO DAILY #90 tab 08/03/21 release clopidogrel 75 mg tablet 75 mg PO DAILY #90 tab 08/03/21 atorvastatin 80 mg tablet 80 mg PO DAILY #90 tab 08/04/21 losartan 100 mg tablet 100 mg PO DAILY #90 tab 08/05/21 pantoprazole 40 mg tablet,delayed 40 mg PO DAILY #90 tab 08/05/21 release COVID-19 vacc,mRNA(Pfizer)(PF) ml IM 08/16/21 [Pfizer COVID-19 Vaccine (EUA)] - Allergies Allergies/Adverse Reactions: Allergies No Known Allergies Allergy (Verified 07/19/21 15:19) Advanced Directives - Advanced Directives Power of Atg Java Developer: Yes Living Will: Yes Advance Directives Information Provided: No Advance Directives on File: Yes DNR Order?:: No - MOLST See MOLST form: No Past Medical History - Covid-19 Screening Fever: No Unexplained muscle aches: No Current respiratory symptoms: No Upper respiratory infections symptoms: No Gastro-intestinal symptoms: Yes - Side effects related to medications (loose stools) Xhs-Ejip-Wwwqkg symptoms: No Has tested positive for COVID-19 in last 30 days: No Date of testin08/16/21 - Has had 2 vaccines and one of the Booster Vaccines Had contact w/person w/symptoms or Covid-19 (+) last 14 days: No Has High Risk Exposures ID'd by Health dept/Inf Control team: No 65 years or older:: Yes Lives in Assisted Living facility:: No Has a chronic lung disease or moderate to severe asthma:: No Has a serious heart condition:: No Immunocompromised:: No Severely obese (Body Mass Index of 40 or higher):: No Diabetic:: Yes Has chronic kidney disease undergoing dialysis:: No Has liver disease:: No - Past Medical Illness Medical History: Past Medical History (Last Updated 07/19/21 @ 16:34 by Carey WILBURN, PA) Angina pectoris, unstable I20.0 CAD (coronary artery disease), [place] coronary artery I25.10 Left main heavily calcified with extension of calcification into LAD, left circumflex and a small ramus intermedius, Left main coronary artery had around 50% stenosis, tram-like calcification was noted into the left main as well as into the LAD. With the high-grade 90% stenosis of the proximal LAD involving the site of the Ist diagonal Also noted lesion involving the very septal branch ostial around 70% Rest of the LAD had no significant atherosclerosis, the left anterior descending artery large vessel reach all the way to the apex Ramus intermedius small vessel was ostium around 70% 3 the left circumflex large vessel calcified with a circumflex in the AV groove had distal lesion of around 70% and ostial lesion of around 50 to 60% RCA large dominant calcified proximally around 50% Distal RCA had around 20- 30%, and the ostium and proximal RPDA had around 50% stenosis Diabetes E11.9 GERD (gastroesophageal reflux disease) K21.9 HTN (hypertension) I10 Hypercholesteremia E78.00 Kidney disease N28.9 Right carotid bruit R09.89 - Past Surgical History Surgical History: Past Surgical History (Last Updated 07/19/21 @ 16:39 by Carey WILBURN, PA) History of heart artery stent Z95.5 06/2021 [facility] Social History - Smoking History Smoking Status: Former smoker Hx Tobacco Use: No Hx Smoking Exposure: No - Alcohol Use Alcohol Usage: No - Substance Abuse Hx Substance Use: No - Occupation Occupation (List type of work in comments):: Retired - Hobbies, Recreation, Social Activities Hobbies: Sports - GOLF but hasn't played 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 Recreational Activities: I am able to engage in all my recreational activities Social Environment - Status Marital Status: - Current Living Arrangements Living Environment:: Spouse - Children How many children do you have?: 2 Do any of your children live nearby?: Yes - Suha (daughter), other (son) lives in [facility] - Safety Do you feel safe in your surroundings?: Yes - Assistance Do you need any assistance at home?: none Review of Systems - Review of Systems Hints: Right click = Denies (Slash). Left click = Reports ([place]) Review of Present Symptoms: Reports: Shortness of Breath with Exertion, Angina - still a little chest pressure even after the stent. Denied radiating arm discomfort., Fatigue, Appetite - Normal, Appetite - Special Diet - Try to watch foods due to diabetic history., Sleep - Normal. Denies: Shortness of Breath at Rest, Dizziness/Lightheadedness, Heart Arrhythmia/Irregularities, Sexual Changes - Pain Is Patient Pain Free?: Yes Pain Location: none Pain Level: 0/10 Risk Factor Assessment - Chief Complaint Chief Complaint: 81 male w/ history of diabetes hypertension and hyperlipidemia. - Vital Signs Temperature: 98.6 F Respiratory Rate: 18 Pulse Ox: 98 Blood Pressure: 144/82 - Pulse Pulse Rate: 66 Pulse Rhythm: Regular - Hypertension Blood Pressure Sitting - Left Arm: 144/82 - Stress Stress: Recent - Blood Cholesterol/Lipids Total Cholesterol (mg/dL) Goal = less than 200 mg/dL: 115 HDL Cholesterol (mg/dL) Goal = less than 40 mg/dL: 38 LDL Cholesterol (mg/dL) Goal = less than 70 mg/dL: 54 Triglycerides (mg/dL) Goal = less than 150 mg/dL: 116 - Diabetes Diabetic History: Type II, Medication Dependent Nutrition Referral for Diabetes: No - Obesity Height: 5 ft 10 in Weight:: 179 lb Weight in Pounds: 179.0 lbs Weight Source: Standing Scale Body Mass Index (BMI): 25.7 Nutritional Referral for Obesity: No - Physical Inactivity Physical Inactivity: Reg Exercise 30 min/day, Recreational activity - Risk Stratification Risk Guidelines: Lowest Risk: Risk Factor for Smoking, Risk Factor for Dyslipidemia, Risk Factor for Obesity, Risk Factor for Sedentary Lifestyle, Risk Factor for Depression, Moderate Risk: Risk Factor for Diabetes - Glucose 147 A1c 7.3, Highest Risk: Risk Factor for Hypertension - 144/82 Motivation - Motivation to Participate On a scale of 1 to 10, how prepared are you to commit to attending program?: 8 What do you see as barriers to successfully being able to complete the program?: none What do you see as the benefits of succesfully completing the program? In other words, what do you hope to get out of participating in the program?: Get health back, be able to confidently do tasks not worry about heart. Are there issues you are dealing with that will interfere with completing the program?: none Do you have a spouse or signficant other, family or friends who will help support you to complete the program?: Not really, children dont check in much. mainly my support.
--- NOTE | 2021-08-16 08:33 | PCM.CR.ITP ---
Diagnosis - General Information Admitting Diagnosis: 81 M history of diabetes, hyperlipidemia, hypertension presented to the emergency room on 07/08/2021 with midsternal chest pains with 1-week duration. Over the previous wek noticed a tightness in his chest while walking, going up steps, he developed bilateral arm aching and shortness of breath. Secondary Diagnosis: Diabetes, Hyperlpidemia, Hypertension Personal Learning Style:: Audio/Visual, Written Barriers to Learning: Hearing Impairment, Vision Impairment Stage of change r/t lifestyle modifications:: Action Gave educational material for:: Treating Heart Disease, Emotions & Heart Disease, Stress Management & Relaxation, Sleep Disorders & Heart Disease, How The Heart Works, What it means to have Heart Disease, How Coronary Artery Disease is Diagnosed, Heart Procedures, What Heart Medications Do, Risk Factors & Modifications, Living an Active Life, Nutrition - Education/Goals Individual Counseling: Initial Assessment: Abnormal Cholesterol Levels, High Blood Pressure Cardiac Rehabilitation Goals: 1. Maintain the individual as the primary focus of care. 2. To improve the patient's quality of life. 3. Identification of cardiac risk factors and provide cardiac risk factor management. 4. Enhance the psychosocial status of the patient. 5. Reconditioning enough to allow the patient to resume customary activities. 6. Control symptoms of cardiac disease Personal Goals: Initial Assessment: Improve energy level, Improve knowledge of cardiac disease, Improve muscle strength and endurance, Control risk factors (learn risk factor modification) Scale for measuring improvement of personal goals: Enter appropriate number in Comments. 2 = Unchanged. 3 = Slightly Better. 4 = Moderate Improvement. 5 = Met my Goal - Diagnosis & Disease Process Outcomes/Goals: Pt IDs own risk factors & lifestyle modifications by Session 10, Verbalizes symptoms of angina & response by session 3., Pt independently manages Plan/Interventions: Assist Pt to ID & engage in lifestyle modification to reduce CVD risk, Instruct on individual risk factors, Review symptoms of angina & emergency actions, Review secondary diagnosis & identify educational needs. - Safety Referral to Physical Therapy: No Referral to [facility] Case Management: No Fall Risk Assessed:: Yes Assistive Devices:: None Exercise - Initial Assessment - Visit Date of Eval: 08/16/21 Session #:: 0 - Pre-cardiac rehab evaluation Mets: Pre-: >7 METS for 30 minutes by discharge - Physician Prescribed Exercise Modalities: Treadmill, Rower, Airdyne, NuStep Frequency: 3x/week for 12 weeks [36 sessions] Intensity: 60-80% of age predicted maximum heart rate reserve Current METSs:: 3.0 Target Heart Rate:: 90-118 Resting Blood Pressure: 144/82 EKG Type: Sinus Rhythm Current Physical Activity or Exercising minutes: >60 minutes daily - Outcomes & Goals Goals:: Verbalizes understanding of THR, RPE & goal METS by session 6, Documents in home exercise log/reports 30 min aerobic 5 day/wk by DC, Demonstrates accurate pulse taking by DC - Intervention & Plan Exercise Program Goals: Instruct on personal THR & RPE, Instruct on MET level & personal MET goal, Show patient to take own pulse /validate performance until accurate, Instruct on home exercise - Physical Activity Home Exercise Physical Activity - Home Exercise: Safe Exercise, Warm-up, Self-monitoring, Cool-Down, Home Exercise > 30 min Daily, Sitting Time <3 hours/daily - Outcomes & Goals Outcomes/Goals: Demonstrates correct Warm-up/exercise Cool-Down (S3) if = 2.5 METs, Verbalizes symptoms of exercise intolerance by Session 3 (S3), Demonstrate safe equipment use (S3) & follows exercise prescrition (6) - Intervention & Plan Plan/Intervention: Instruct warm-up & cool-down if exercising at > 2 METs, Instruct on symptoms of exercise intolerance & actions to take, Instruct & monitor on saf, Assess intial functional capacity & safety risk Nutrition - Initial Assessment - Program Goals Nutrition Program Goals: LDL <100 optimal. 100 - 129 Near optimal. 130 - 159 Borderline High. 160 - 189 High. Total Cholesterol <200 desirable. 200 - 239 Borderline High. >/= 240 High. HDL < 40 Low >/=60 High. Triglycerides <150 desirable. <199 optimal. VlDL 5 - 40. HgbA1C <7%. BMI <25 Patient has diagnosis of Hyperlipidemia (ICD E78)?: Yes - Visit Date of Assessment:: 08/16/21 Session #:: 0 - pre-cardiac rehab evaluation - Cholesterol/Lipids Triglycerides (mg/dL): 116 Total Cholesterol (mg/dL): 115 LDL Cholesterol (mg/dL): 54 HDL Cholesterol (mg/dL): 38 Determine presence & major risk factors that modify LDL goal: Hypertension or hypertensive medication, Low HDL cholesterol <40 mg/dL*, Family history of premature CHD in Male < 55 years: female <65 yearsFa, Age men > 45 years; women >/= 55 years Outcomes/Goals: Pt IDs own risk factors & lifestyle modifications by Session 10, Verbalizes symptoms of angina & response by session 3., Pt independently manages Intervention/Plan: Instruct on personal lipid levels & lipid goals/NCEP guidelines, Instruct on cholesterol Referral to dietitian:: Yes - Medical Nutrition Therapy - Diabetes (Other Core Measures) Diabetes Type: Diagnosis Type II ICD-10 E11 Fasting blood glucose:: 147 Hgb A1C (4.2 - 6.3): 7.3 Insulin dependent injection/pump?: No Non-Insulin Dependent?: Yes Do you monitor your blood sugar at home?: Yes Referral to Diabetic Clinic:: No - Previously did Diabetic Education/Clinic - using vitamins Outcomes/Goals:: Able to state symptoms of, Able to state, Able to state Intervention/Plan:: Instruct on, Instruct on - Weight Mgt (Other Care) Not Applicable: Yes Height: 5 ft 10 in Weight:: 179 lb BMI: 25.7 Diagnosis Overweight/Obesity BMI> 30% ICD-10 E66: No Diagnosis High BMI/Morbid Obesity BMI> 35% ICD-10 Z68: No Outcomes/Goals: Pt sets, maintains & shows weight loss goal & trend during rehab Intervention/Plan: Instruct on ideal BMI & set weight loss goal w/patient - Healthy Eating Habits Will attend diet classes:: Yes Outcomes/Goals:: Consume diet rich in vegs,fruits,whole grain/high fiber,fish,lean meat, Limit sat/trans fats,cholesterol & added salts & sugars Intervention/Plan:: Assess current eating habits - Education Gave educational materials for:: Signs & symptoms of hypoglycemia - Patient able to verbalize symptoms/reactions to blood sugar emergencies., Signs & symptoms of hyperglycemia, Relate diabetes to coronary artery disease, Healthy eating Nutrition - 30-Day Assessment Nutrition - 60-Day Assessment Nutrition - 90-Day Assessment Nutrition - Final Assessment Medical - Initial Assessment - Visit Date of Eval: 08/16/21 Session #:: 0 - pre-cardiac rehab evaluation - Medication Compliance Preventative Medication(s):: Aspirin, Clopidogrel/P2Y12 inhibit, Beta tanisha H/O mental health issues: depression, anxiety, or addiction?: No Doesn?t believe in the benefits of treatment?: No Believes medications are unnecessary or harmful?: No Has a concern about medication side effects?: No Expresses concern over the cost of medications?: No Outcomes/Goals: Verbalizes medications,desired effect & common side effects @ DC, Pt self-reports following medication regimen, Keeps card in wallet w/medications listed by DC Interventions/plans: Instruct on medication effects & side effects, Review medication list w/patient every two weeks, Instruct importance of taking meds as ordered & assist problem solving - Tobacco Use Tobacco Use: Non-smoker - Hypertension Hypertension Diagnosis:: Hypertension ICD-10 I10 Resting Blood Pressure:: 144/82 [place] [employer] Hypertension Guidelines: [place] [employer] Hypertension Guidelines. Normal BP Less than 120/80. Elevated BP 120/80. Hypertension Stage 1: BP 130-139/80-89. Hypertesnion Stage 2: BP 140 or higher/90 or higher. Hypertension Crisis: BP higher than 180/120 Outcomes/Goals: Able to verbalize/achieve optimal blood pressure <130/80, Incorporates diet changes & exercise for blood pressure control by DC Interventions/plan: Instruct on optimal blood pressure, hypertension & medications, Instruct on effects of sodium, alcohol, stress, exercise &hypertension - Tobacco Cessation Referral Smoking Cessation Referral:: No Individual Education/Counseling:: No Education Schedule Given:: Yes Medical- 30-Day Assessment Medical- 60-Day Assessment Medical- 90-Day Assessment Medical - Final Assessment Psychosocial - Initial Assess - VIsit Date of Eval: 08/16/21 Session #:: 0 - pre-cardiac rehab evaulation Not Applicable: Yes History of previous Mental disease:: No - Psychosocial Test Tool Used:: [employer] Power QOL Cardiac, PHQ-9 Questionnaire phq-9 Severity: Severity. 1-4 Minimal Depression. 5-9 Mild Depression. 10-14 Moderate Depression. 15-19 Moderately Sever Depression. 20-27 Severe Depression. Rule: - Referral to Behavioral Health PS - Interventions: Yes Attend Stress Management Classes, No Referral to Behavioral Health if PHQ-9 score >9:, No Referral to [facility], No Referral to Physician if PHQ-9 if score is 5-9: - Outcomes/Goals: See list Psychosocial Outcomes/Goals:: ID's personal stressors & 2 strategies to manage stress by discharge - Intervention/Plan: See List Interventions/Plan:: Assess stressors,coping strategies & signs of derpression on admission, Instruct/assist pt to develop coping & personal stress Mgt strategies, Instruct patient to recognize signs & symptoms of depression, Instruct patient to recog Psychosocial - 30-Day Assess Psychosocial - 60-Day Assess Psychosocial - 90-Day Assess Psychosocial - Final Assessmen Patient Health Questionnaire Initial Assessment 1. Little interest or pleasure in doing things: Not at all 2. Feeling down, depressed, or hopeless: Not at all 3. Trouble falling or staying asleep, or sleeping too much: More than half the days 5. Poor appetite or overeating: Not at all 6. Feeling bad about yourself -- or that you are a failure or have let yourself or your family down: Not at all 7. Trouble concentrating on things, such as reading the newspaper or watching television: Not at all 8. Moving or speaking so slowly that other people could have noticed. Or the opposite - being so fidgety or restless that you have been moving around a lot more than usual: More than half the days 9. Thoughts that you would be better off , or of hurting yourself in some way: Not at all How difficult have these problems made it for you to do your work, take care of things at home, or get along with other people?: Not difficult at all Total Score: 4 JENNIFER-Q SV Test - Statements CAD is a disease of the arteries in the heart: I Don't Know Examples of risk factors for heart disease: I Don't Know Angina is chest pain or discomfort: I Don't Know The benefits of resistance training include: True Eating more meat and dairy products: False Anti-platelet medications such as aspirin are important: True The only effective way to manage stress: False An exercise warm-up slowly increases heart rate: I Don't Know Prepared, processed foods usually have high sodium: True Depression is common after a heart attack: True The statin medications lower cholesterol: True To control blood pressure, lower the amount of sodium: True If someone gets chest discomfort during walking: False Transfats are partially hydrogenated vegetable oils: True Sleep apnea that is not treated increases the risk: I Don't Know To control cholesterol, one should become a vegetarian: False Someone knows if he/she is exercising at the right level: I Don't Know Diabetes cannot be prevented with exercise & health eating: False Stress is a large risk for heart attack: True A diet that can help lower blood pressure is rich in: True - Total Score Total Correct Responses: 14 Self-Efficacy Initial Assessment We would like to know how confident you are in doing certain activities. Please select your confidence level for:: Select your confidence level for the following using the scale 1-10 where 1 is not at all confident and 10 is totally confident. Your score is the average of all 6 responses. Fatigue: How confident are you that you can keep the fatigue caused by your disease from interfering with the things you want to do? Select Number: 5 Physical Discomfort or Pain: How confident are you that you can keep the physical discomfort or pain of your disease from interfering with the things you want to do? Select Number: 5 Emotional Distress: How confident are you that you can keep the emotional distress caused by your disease from interfering with the things you want to do? Select Number: 9 Other Symptoms or Health Problems: How confident are you that you can keep other symptoms or health problems from interfering with the things you want to do? Select Number: 9 Different Tasks and Activities: How confident are you that you can do the different tasks and activities needed to manage your health condition so as to reduce your need to see a doctor? Select Number: 10 Medication: How confident are you that you can do things other than just taking medication to reduce how much your illness affects your everyday life? Select Number: 9 Total Score:: 7 Nutrition Survey - Nutrition Survey Initial Have you lost >10 lbs over the past 2 months without trying?: No Are you following a special diet at home for diabetes, low fat, or low salt?: Yes Are you interested in meeting with a dietitian for help understanding your diet?: No Do you eat less than 3 meals a day?: Yes Do you eat fatty meats (mathur, sausage, ribs, etc), fried foods, desserts, large amounts of salad dressings, margarine, butter, or cheese most days?: Yes Do you have food allergies? [Enter types in comment field]: No Do you eat in restaurants more than 3 times a week?: No Do you season food with salt, seasoning salt, or garlic salt?: Yes Do you used canned, boxed, frozen meals, or soups, seasoning packets?: No Total Score:: 4
[2021-08-16 09:09] VITALS: BP 144/82; PULSE 66; RESP 18; TEMP 37; O2SAT 98; BMI 25.7
[2021-08-16 09:36] VITALS: BP 144/82; BMI 25.7
== END | disposition home or self-care (01) ==
LOC: CR 07:37
PROVIDERS: PCP Family Medicine; Referring Provider Internal Medicine Cardiovascular Disease; Visit Provider Internal Medicine Cardiovascular Disease
DX: Z00.00 Encounter for general adult medical examination without abnormal findings (principal)

== ENCOUNTER → 2021-08-30 | Outpatient (CLI) | payer MEDICARE, OTHER, SELFPAY ==
[2021-08-16 09:36] VITALS: BMI 25.7
[2021-08-30 10:13] LABS: Absolute Lymphocyte Count 1.34 X10^3/uL (0.83-4.51); Absolute Neutrophil Count 3.7 X10^3/uL (2.0-7.7); Basophil# 0.06 X10^3/uL; Eosinophil# 0.35 X10^3/uL; Eosinophils% 5.7 % (0-5); Hematocrit 39.7 % (40-54); Hemoglobin 13.2 g/dL (13.0-16.5); Lymphocyte # 1.34 X10^3/ul (0.83-4.51); Lymphocyte % 21.7 % (19-41); Mean Corp Hgb Conc 33.2 g/dL (32-36); Mean Corpuscular Hgb 29.9 pg (27.0-32.0); Mean Platelet Vol. 8.3 fl (6.2-12.0); Monocyte# 0.72 X10^3/uL; Monocyte% 11.7 % (0-10); NRBC Flagged by Analyzer 0 % (0-5); Neutrophil # 3.68 X10^3/uL (2.7-7.7); Neutrophil % 59.6 % (47-70); Platelet Count 212 K/mm3 (150-450); RBC Distribution Width CV 13.7 % (11.6-14.6); RBC Distribution Width SD 44.9 fl (35.1-43.9); Red Blood Count 4.41 M/mm3 (4.6-6.2); White Blood Count 6.2 K/mm3 (4.4-11.0)
[2021-08-30 10:49] LABS: Anion Gap 7 (5-15); BUN 30 mg/dL (7-18); BUN/Creat Ratio 18.1 RATIO (10-20); Chloride 105 mmol/L (98-107); Creatinine, Serum 1.66 mg/dL (0.70-1.30); EST Glomerular Filtration Rate 43 mL/min (>60); Est Glom Filt Rate - Afr Amer 51 mL/min (>60); Glucose 170 mg/dL (74-106); Sodium Level 137 mmol/L (136-145)
== END | disposition home or self-care (01) ==
LOC: LAB 09:44
PROVIDERS: PCP Family Medicine; Referring Provider Physician Assistant Medical; Visit Provider Physician Assistant Medical
DX: I25.10 Atherosclerotic heart disease of native coronary artery without angina pectoris (principal); I10 Essential (primary) hypertension
CPT/HCPCS: 36415; 80048; 85025

== ENCOUNTER → 2021-09-07 | Outpatient (CLI) | payer MEDICARE, OTHER, SELFPAY ==
[2021-09-07 08:11] VITALS: BMI 25.0
[2021-09-07 10:20] LABS: Hematocrit 39.3 % (40-54); Hemoglobin 13.1 g/dL (13.0-16.5); Mean Corp Hgb Conc 33.3 g/dL (32-36); Mean Corpuscular Hgb 29.8 pg (27.0-32.0); Mean Corpuscular Volume 89.5 fL (80-94); Mean Platelet Vol. 8.4 fl (6.2-12.0); Platelet Count 205 K/mm3 (150-450); RBC Distribution Width CV 13.7 % (11.6-14.6); RBC Distribution Width SD 44.9 fl (35.1-43.9); Red Blood Count 4.39 M/mm3 (4.6-6.2); White Blood Count 6.9 K/mm3 (4.4-11.0)
[2021-09-07 10:46] LABS: Albumin, Serum 3.8 g/dL (3.2-5.0); BUN 29 mg/dL (7-18); BUN/Creat Ratio 16.9 RATIO (10-20); Calcium,Total 9.1 mg/dL (8.5-10.1); Chloride 105 mmol/L (98-107); Creatinine, Serum 1.72 mg/dL (0.70-1.30); EST Glomerular Filtration Rate 41 mL/min (>60); Est Glom Filt Rate - Afr Amer 49 mL/min (>60); Glucose 173 mg/dL (74-106); Potassium 4.5 mmol/L (3.5-5.1); Sodium Level 137 mmol/L (136-145)
== END | disposition home or self-care (01) ==
LOC: LAB 09:57
PROVIDERS: PCP Family Medicine; Visit Provider Internal Medicine Nephrology
DX: N18.30 Chronic kidney disease, stage 3 unspecified (principal)
CPT/HCPCS: 36415; 80069; 83970; 85027

== ENCOUNTER 2021-09-14 09:30 | Outpatient (RCR) | payer MEDICARE, OTHER, SELFPAY ==
[2021-08-16 09:36] VITALS: BMI 25.7
--- NOTE | 2021-09-07 07:57 | CR.ITP_ITS ---
Diagnosis Exercise - 30-day Assessment - Visit Date of Eval: 09/07/21 Session #:: 6 - Physician Prescribed Exercise Modalities: Treadmill, Rower, Airdyne, NuStep, SciFit, Lateral [employer] Frequency: 3x/week for 12 weeks [36 sessions] Intensity: 60-80% of age predicted maximum heart rate reserve Current METSs:: 3.5 Target Heart Rate:: 90-118 Current RPE:: 12 Maximum Excercise HR:: 101 Resting Blood Pressure: 142/60 Maximum Exercise Blood Pressure: 134/60 EKG Type: SR to ST with BBB with occas pac noted. - Outcomes & Goals Goals:: Verbalizes understanding of THR, RPE & goal METS by session 6, Documents in home exercise log/reports 30 min aerobic 5 day/wk by DC, Demonstrates accurate pulse taking by DC, Other additional outcome/goals: see below - Intervention & Plan Exercise Program Goals: Instruct on personal THR & RPE, Instruct on MET level & personal MET goal, Show patient to take own pulse /validate performance until accurate, Instruct on home exercise, Other additional plan/int - 30-day Reassessments 30 day Reassessments:: Progressing - Physical Activity Home Exercise Physical Activity - Home Exercise: Safe Exercise, Warm-up, Self-monitoring, Cool-Down, Home Exercise > 30 min Daily, Sitting Time <3 hours/daily - Outcomes & Goals Outcomes/Goals: Demonstrates correct Warm-up/exercise Cool-Down (S3) if = 2.5 METs, Verbalizes symptoms of exercise intolerance by Session 3 (S3), Demonstrate safe equipment use (S3) & follows exercise prescrition (6), Other: See below - Intervention & Plan Plan/Intervention: Instruct warm-up & cool-down if exercising at > 2 METs, Instruct on symptoms of exercise intolerance & actions to take, Instruct & monitor on saf, Assess intial functional capacity & safety risk, Other See below - 30-day Reassessments 30 day Reassessments:: Progressing Nutrition - Initial Assessment Nutrition - 30-Day Assessment - Program Goals Nutrition Program Goals: LDL <100 optimal. 100 - 129 Near optimal. 130 - 159 Borderline High. 160 - 189 High. Total Cholesterol <200 desirable. 200 - 239 Borderline High. >/= 240 High. HDL < 40 Low >/=60 High. Triglycerides <150 desirable. <199 optimal. VlDL 5 - 40. HgbA1C <7%. BMI <25 Patient has diagnosis of Hyperlipidemia (ICD E78)?: Yes - Visit Date of Assessment:: 09/07/21 Session #:: 6 - Cholesterol/Lipids Determine presence & major risk factors that modify LDL goal: Hypertension or hypertensive medication, Low HDL cholesterol <40 mg/dL*, Family history of premature CHD in Male < 55 years: female <65 yearsFa, Age men > 45 years; women >/= 55 years Outcomes/Goals: Pt IDs own risk factors & lifestyle modifications by Session 10, Verbalizes symptoms of angina & response by session 3., Pt independently manages, Other Additional Outcomes/Goals: Intervention/Plan: Advocate for lipid panel cholesterol medication if applicable, Instruct on personal lipid levels & lipid goals/NCEP guidelines, Instruct on cholesterol, Other additional plan/int Referral to dietitian:: Yes - medical nutrition therapy 30-day Reassessments:: Progressing - Diabetes (Other Core Measures) Diabetes Type: Diagnosis Type II ICD-10 E11 Insulin dependent injection/pump?: No Non-Insulin Dependent?: Yes Do you monitor your blood sugar at home?: Yes Referral to Diabetic Clinic:: No - previously attended Outcomes/Goals:: Able to state symptoms of, Able to state, Able to state, Other additional Intervention/Plan:: Instruct on, Refer to, Instruct on, Other 30-day Reassessments:: Progressing - Weight Mgt (Other Care) Height: 5 ft 10 in Weight:: 78.925 kg BMI: 25.0 Diagnosis Overweight/Obesity BMI> 30% ICD-10 E66: No Diagnosis High BMI/Morbid Obesity BMI> 35% ICD-10 Z68: No Outcomes/Goals: Pt sets, maintains & shows weight loss goal & trend during rehab, Other additional outcomes/goals Intervention/Plan: Instruct on ideal BMI & set weight loss goal w/patient, Assist pt to ID & incorporate diet changes for weight loss by S9, Refer to Structured Weight Loss program as appropriate, Encourage goal of using 250- 300dcal per session for weight loss, Other additional plan/interventions 30 day Reassessments:: Progressing - Healthy Eating Habits Will attend diet classes:: Yes Outcomes/Goals:: Consume diet rich in vegs,fruits,whole grain/high fiber,fish,lean meat, Limit sat/trans fats,cholesterol & added salts & sugars, Other additional outcome/goals: Intervention/Plan:: Assess current eating habits, Other Additional plan/interventions 30-day Reassessments:: Progressing Nutrition - 60-Day Assessment Nutrition - 90-Day Assessment Nutrition - Final Assessment Medical - Initial Assessment Medical- 30-Day Assessment - Visit Date of Eval: 09/07/21 Session #:: 6 - Medication Compliance Preventative Medication(s):: Aspirin, Clopidogrel/P2Y12 inhibit, Beta tanisha H/O mental health issues: depression, anxiety, or addiction?: No Doesn?t believe in the benefits of treatment?: No Believes medications are unnecessary or harmful?: No Has a concern about medication side effects?: No Expresses concern over the cost of medications?: No Outcomes/Goals: Verbalizes medications,desired effect & common side effects @ DC, Pt self-reports following medication regimen, Keeps card in wallet w/medications listed by DC, Other additional outcome/goals: Interventions/plans: Instruct on medication effects & side effects, Review medication list w/patient every two weeks, Instruct importance of taking meds as ordered & assist problem solving, Other additional 30-day Reassessments:: Progressing - Tobacco Use Tobacco Use: Non-smoker - Hypertension Hypertension Diagnosis:: Hypertension ICD-10 I10 Resting Blood Pressure:: 142/60 [place] [employer] Hypertension Guidelines: [place] [employer] Hypertension Guidelines. Normal BP Less than 120/80. Elevated BP 120/80. Hypertension Stage 1: BP 130-139/80-89. Hypertesnion Stage 2: BP 140 or higher/90 or higher. Hypertension Crisis: BP higher than 180/120 Peak Exercise Blood Pressure:: 134/60 Outcomes/Goals: Able to verbalize/achieve optimal blood pressure <130/80, Incorporates diet changes & exercise for blood pressure control by DC, Other additional outcomes/goals Interventions/plan: Instruct on optimal blood pressure, hypertension & medications, Instruct on effects of sodium, alcohol, stress, exercise &hypertension, Other additional plan/interventions 30 day Reassessments:: Progressing - Tobacco Cessation Referral Smoking Cessation Referral:: No Individual Education/Counseling:: No Education Schedule Given:: Yes Medical- 60-Day Assessment Medical- 90-Day Assessment Medical - Final Assessment Psychosocial - Initial Assess Psychosocial - 30-Day Assess - VIsit Date of Eval: 09/07/21 Session #:: 6 History of previous Mental disease:: No - Outcomes/Goals: See list Psychosocial Outcomes/Goals:: ID's personal stressors & 2 strategies to manage stress by discharge, Other Additional outcome/goals: - Intervention/Plan: See List Interventions/Plan:: Assess stressors,coping strategies & signs of derpression on admission, Instruct/assist pt to develop coping & personal stress Mgt strategies, Refer to Behavioral Health if appropriate, Refer to Physician if appropriate, Instruct patient to recognize signs & symptoms of depression, Instruct patient to recog, Other additional plan/intervention - 30-day Reassessments: 30 day Reassessments:: Progressing Psychosocial - 60-Day Assess Psychosocial - 90-Day Assess Psychosocial - Final Assessmen Patient Health Questionnaire 30-Day Re-eval Assessment 1. Little interest or pleasure in doing things: Not at all 2. Feeling down, depressed, or hopeless: Not at all 3. Trouble falling or staying asleep, or sleeping too much: More than half the days 4. Feeling tired or having little energy: Not at all 5. Poor appetite or overeating: Not at all 6. Feeling bad about yourself -- or that you are a failure or have let yourself or your family down: Not at all 7. Trouble concentrating on things, such as reading the newspaper or watching television: Not at all 8. Moving or speaking so slowly that other people could have noticed. Or the opposite - being so fidgety or restless that you have been moving around a lot more than usual: More than half the days 9. Thoughts that you would be better off , or of hurting yourself in some way: Not at all How difficult have these problems made it for you to do your work, take care of things at home, or get along with other people?: Not difficult at all Total Score: 4 Self-Efficacy 30-Day Re-eval Assessment We would like to know how confident you are in doing certain activities. Please select your confidence level for:: Select your confidence level for the following using the scale 1-10 where 1 is not at all confident and 10 is totally confident. Your score is the average of all 6 responses. Fatigue: How confident are you that you can keep the fatigue caused by your disease from interfering with the things you want to do? Select Number: 5 Physical Discomfort or Pain: How confident are you that you can keep the physical discomfort or pain of your disease from interfering with the things you want to do? Select Number: 5 Emotional Distress: How confident are you that you can keep the emotional distress caused by your disease from interfering with the things you want to do? Select Number: 9 Other Symptoms or Health Problems: How confident are you that you can keep other symptoms or health problems from interfering with the things you want to do? Select Number: 9 Different Tasks and Activities: How confident are you that you can do the different tasks and activities needed to manage your health condition so as to reduce your need to see a doctor? Select Number: 10 Medication: How confident are you that you can do things other than just taking medication to reduce how much your illness affects your everyday life? Select Number: 9 Total Score:: 7 Nutrition Survey
[2021-09-07 08:11] VITALS: BP 134/60; BP 142/60; BMI 25.0
== END 2021-09-15 23:59 ==
LOC: CR 09:30
PROVIDERS: PCP Family Medicine; Referring Provider Internal Medicine Cardiovascular Disease; Visit Provider Internal Medicine Cardiovascular Disease
DX: Z95.5 Presence of coronary angioplasty implant and graft (principal)
CPT/HCPCS: 93798

== ENCOUNTER 2021-10-11 10:58 | Emergency (ER) | payer MEDICARE, OTHER, SELFPAY ==
[2021-09-07 08:11] VITALS: BMI 25.0
--- NOTE | 2021-10-11 | CT_ITS ---
STUDY: CT ABDOMEN AND PELVIS WITH CONTRAST REASON FOR EXAM: Male, 81 years old. One month history of intermittent abdominal pain. This is worse postprandial. RADIATION DOSAGE (If Supplied By Facility): CTDIvol = ( 14.84 ) mGy, DLP = ( 906.80 ) mGycm TECHNIQUE: Transaxial images were obtained from the dome of the diaphragm to the symphysis pubis with oral contrast. Oral and amp; IV Gastrografin and amp; 100mL Isovue-300 was administered. Sagittal and coronal images were reconstructed. Individualized dose optimization techniques were used for this CT. COMPARISON: None. FINDINGS: Calcified granuloma in the right lower lobe. Mild increased linear markings at the lung bases suggestive of bibasilar atelectasis and/or scarring. Coronary artery calcification. There is decreased attenuation of the liver consistent with steatosis. There are surgical clips in the gallbladder fossa consistent with a prior cholecystectomy. Normal spleen. Normal pancreas. Normal bilateral adrenal glands. Normal right kidney. There is a 1 cm cyst in the inferior lateral aspect of the left kidney. Normal visualized stomach. Normal small intestine. There are multiple colonic diverticula consistent with diverticulosis. Fecal material is seen in the cecum. I cannot rule out an underlying lesion. The appendix is visualized and appears normal. There is diffuse atherosclerotic calcification of the abdominal aorta and its major visceral branches, without a demonstrated aneurysm. Normal inferior vena cava. Normal retroperitoneum. Normal urinary bladder. There is enlargement of the prostate gland. The prostate measures 4.3 cm x 4.5 cm. Normal abdominal wall. Disc space narrowing and degeneration with spondylosis at the L4-L5 level. CT/Abdomen/Pelvis WITH Contrast IMPRESSION: Sigmoid diverticulosis. Fecal material is seen in the cecum. An underlying lesion cannot be excluded. Fatty attrition of the liver. Prior cholecystectomy. Electronically Signed: Brian Jamison MD at 15:18 EDT ,
[2021-10-11 10:59] VITALS: BP 122/70; PULSE 67; RESP 18; TEMP 36.8; O2SAT 98; BMI 25.1
--- NOTE | 2021-10-11 11:14 | EKG12_ITS ---
Test Reason : Blood Pressure : / mmHG Vent. Rate : 062 BPM Atrial Rate : 062 BPM P-R Int : 186 ms QRS Dur : 144 ms QT Int : 448 ms P-R-T Axes : 210 212 173 degrees QTc Int : 454 ms Suspect arm lead reversal, interpretation assumes no reversal Unusual P axis, possible ectopic atrial rhythm Right bundle branch block T wave abnormality, consider inferior ischemia Abnormal ECG Recommend Repeat ECG Confirmed by SCOTT GUTIERREZ, ANDRY ([id number]), online content editor BESSY GONZALEZ ([id number]) on 10/13/2021 12:51:35 PM Referred By: Nader Confirmed By:ANDRY CHAVEZ MD
--- NOTE | 2021-10-11 11:15 | EDS_ITS ---
HPI History of Present Illness Chief Complaint: Abd Pain Informant: patient Onset/Context/Timing Onset: Month(s) Current Severity: Mild Maximum Severity: Moderate Narrative Narrative: Patient presents secondary to epigastric abdominal pain. He states he has had this pain for several months since he had his heart attack. He was initially given a prescription for pantoprazole. Patient states he did not really notice much improvement with this and at his last cardiology appointment they told him he could stop it. He was seen by his PCP last week for routine check. He mentioned the abdominal pain to his doctor. When pain worsened he called his PCP who recommended he come to the emergency room. Patient has noted no fever or chills. He denies vomiting or diarrhea. [facility] Medical History Angina pectoris, unstable CAD (coronary artery disease), [place] coronary artery Diabetes GERD (gastroesophageal reflux disease) HTN (hypertension) Hypercholesteremia Kidney disease Right carotid bruit Home Medications glipizide 5 mg tablet 5 mg PO BID diabetic 07/08/21 [History Last Taken 07/08/21] amlodipine 10 mg tablet 10 mg PO DAILY heart #90 tabs 08/03/21 [Rx Last Taken U nknown] aspirin 81 mg tablet,delayed release (Teofilo Low Dose Aspirin) 81 mg PO DAILY #90 tabs 08/03/21 [Rx Last Taken Unknown] clopidogrel 75 mg tablet (Plavix) 75 mg PO DAILY #90 tabs 08/03/21 [Rx Last Taken Unknown] atorvastatin 80 mg tablet 80 mg PO DAILY increased from 20 to 80 mg due to stents #90 tabs 08/04/21 [Rx Last Taken Unknown] pantoprazole 40 mg tablet,delayed release 40 mg PO DAILY #90 tabs 08/05/21 [Rx Last Taken Unknown] COVID-19 vacc,mRNA(Pfizer)(PF) 30 mcg/0.3 mL IM susp (purple) (Arrayent COVID-19 Vaccine (PF)) ml IM 08/16/21 [History Last Taken Unknown] isosorbide mononitrate 30 mg tablet,extended release 24 hr 30 mg PO DAILY #90 tabs 08/30/21 [Rx Last Taken Unknown] losartan 100 mg tablet 50 mg PO DAILY this is a dose increase since in hospital #90 tabs 08/30/21 [Rx Last Taken Unknown] nitroglycerin 0.4 mg sublingual tablet (Nitrostat) 0.4 mg sublingual Q5-15M PRN chest pain #25 tabs 08/30/21 [Rx Last Taken Unknown] hydrocodone-acetaminophen 5-325mg 5mg-325mg 1 tab PO Q6H PRN pain 3 days #10 tabs 10/11/21 [Rx Last Taken Unknown] Allergy/AdvReac Type Severity Reaction Status Date / Time No Known Allergies Allergy Verified 10/11/21 11:01 Surgical History History of heart artery stent Social History Smoking Status: Former smoker ROS ROS ED Constitutional Constitutional ED: Denies chills or fever(s) Eyes Eyes: Denies change in vision or discharge from eye(s) ENT ENT ED: Denies discharge from eye(s), rhinorrhea or sore throat Cardiovascular Cardiovascular: Denies chest pain or palpitations Respiratory/Chest Respiratory/Chest: Denies cough or dyspnea Gastrointestinal Gastrointestinal: Reports abdominal pain; Denies diarrhea, nausea or vomiting Genitourinary Genitourinary ED: Denies difficulty urinating or dysuria Musculoskeletal Musculoskeletal: Denies back pain or extremity pain Integumentary Denies Abrasions or rash Neurologic Neurologic: Denies headache(s) or weakness Allergic/Immunologic Allergic/Immunologic ED: Denies lip swelling or urticaria EXAM Physical Exam Const Vital Signs: 10/11/21 10:59 10/11/21 13:00 Temperature 98.2 F Temperature Source Temporal Pulse Rate 67 82 Respiratory Rate 18 16 Blood Pressure 122/70 H 141/67 H Blood Pressure Mean 87 91 Pulse Ox 98 96 Oxygen Delivery Method Room Air Room Air Positive well nourished and well developed General Appearance ED: well developed HEENT Reports normocephalic and head/scalp atraumatic Eyes PERRL and EOMs intact bilaterally Neck supple Chest Wall inspection of chest normal and palpation of chest normal Resp normal respiratory effort and clear to auscultation bilaterally Cardio regular rate and regular rhythm GI non-tender Auscultation: hypoactive bowel sounds Palpation: soft Back/Spine no CVA tenderness Extremity normal to inspection Neuro oriented x3 and no sensory deficits noted Sensorium / Orientation: alert Motor Exam: strength 5/5 throughout Psych mental status grossly normal Skin no rashes or lesions noted MDM MDM MDM Narrative Medical decision making narrative: EKG and lab work obtained. Patient initially given a GI cocktail. When he had no resolution of his symptoms with this morphine and Zofran are ordered. CT scan with contrast obtained. Lab Data Attestation: I reviewed the patient's lab results. Labs: Laboratory Results - last 24 hr 10/11/21 10/11/21 11:33 11:33 WBC 7.4 RBC 4.01 L Hgb 12.0 L Hct 36.4 L MCV 90.8 MCH 29.9 MCHC 33.0 RDW Std Deviation 46.5 H RDW Coeff of Jose Miguel 13.8 Plt Count 180 MPV 8.5 Immature Gran % (Auto) 0.400 Neut % (Auto) 70.9 H Lymph % (Auto) 15.9 L [place] % (Auto) 8.1 Eos % (Auto) 4.3 Baso % (Auto) 0.4 Absolute Neuts (auto) 5.3 Absolute Lymphs (auto) 1.18 Nucleated RBC % 0 Sodium 140 Potassium 3.8 Chloride 108 H Carbon Dioxide 23.0 Anion Gap 9 BUN 38 H Creatinine 1.56 H Estim Creat Clear Calc 37.14 Est GFR (MDRD) Af Amer 55 L Est GFR (MDRD) Non-Af 46 L BUN/Creatinine Ratio 24.4 H Glucose 142 H Calcium 9.1 Total Bilirubin 0.60 Direct Bilirubin 0.17 AST 20 ALT 28 Alkaline Phosphatase 70 Troponin I High Sens 7 Total Protein 6.3 L Albumin 3.6 Globulin 2.7 Lipase 145 Radiography Diagnostic Testing: Clinical Impression(s) from Imaging Studies Abdomen/Pelvis CT 10/11/21 00:00 IMPRESSION: Sigmoid diverticulosis. Fecal material is seen in the cecum. An underlying lesion cannot be excluded. Fatty attrition of the liver. Prior cholecystectomy. Electronically Signed: Brian Jamison MD at 15:18 EDT , Treatment and Re-Evaluation Narrative: CBC and chemistry studies largely unremarkable. Creatinine 1.56, similar to prior values. LFTs and lipase normal. Troponin normal. CT scan abdomen pelvis reveals diverticulosis with some fecal material at the cecum. No upper abdominal abnormalities appreciated. Patient has no pain in the lower abdomen, only the epigastrium. We did discuss possibility of an ulcer and he will need GI follow-up for possible scope. I did recommend he restart his pantoprazole. I will write him a few pain pills for breakthrough pain. Discharge Plan Triage Chief Complaint: Abd Pain ED Provider: Lisa Doe Dx/Rx/DC Orders Clinical Impression: Epigastric pain Instructions: ED Epigastric Pain Uncertain Cause Prescriptions: New hydrocodone-acetaminophen 5-325 mg tablet 1 tab PO Q6H PRN (Reason: pain) 3 Days Qty: 10 0RF No Action losartan 100 mg tablet 50 mg PO DAILY Qty: 90 3RF isosorbide mononitrate 30 mg tablet extended release 24 hr 30 mg PO DAILY Qty: 90 3RF nitroglycerin [Nitrostat] 0.4 mg tablet, sublingual 0.4 mg sublingual Q5-15M PRN (Reason: chest pain) Qty: 25 3RF Rx Instructions: do not exceed 3 doses per episode glipizide 5 mg tablet 5 mg PO BID Label Comments: TAKE 1 TABLET BY MOUTH TWICE DAILY U4EA COVID-19 Vaccine (EUA) 30 mcg/0.3 mL Suspension For Reconstitution IM Rx Instructions: PATIENT HAS HAD TWO VACCINES MAR/APR 2020 AND THE ONE BOOSTER 02/07/2021. amlodipine 10 mg tablet 10 mg PO DAILY Qty: 90 3RF aspirin [Teofilo Low Dose Aspirin] 81 mg tablet,delayed release (DR/EC) 81 mg PO DAILY Qty: 90 3RF clopidogrel [Plavix] 75 mg tablet 75 mg PO DAILY Qty: 90 3RF atorvastatin 80 mg tablet 80 mg PO DAILY Qty: 90 3RF pantoprazole 40 mg tablet,delayed release (DR/EC) 40 mg PO DAILY Qty: 90 3RF Primary Care Provider: Joe Mak Referrals: Friend,DO Odilon [Med Staff - Active Staff] - As soon as possible Joe Mak MD [Primary Care Provider] - Disposition Disposition: Home, Self Care
[2021-10-11 11:40] LABS: Absolute Lymphocyte Count 1.18 X10^3/uL (0.83-4.51); Absolute Neutrophil Count 5.3 X10^3/uL (2.0-7.7); Basophil# 0.03 X10^3/uL; Basophil% 0.4 % (0-1); Eosinophil# 0.32 X10^3/uL; Eosinophils% 4.3 % (0-5); Hematocrit 36.4 % (40-54); Lymphocyte # 1.18 X10^3/ul (0.83-4.51); Lymphocyte % 15.9 % (19-41); Mean Corpuscular Hgb 29.9 pg (27.0-32.0); Mean Corpuscular Volume 90.8 fL (80-94); Mean Platelet Vol. 8.5 fl (6.2-12.0); Monocyte% 8.1 % (0-10); NRBC Flagged by Analyzer 0 % (0-5); Neutrophil # 5.27 X10^3/uL (2.7-7.7); Neutrophil % 70.9 % (47-70); Platelet Count 180 K/mm3 (150-450); RBC Distribution Width CV 13.8 % (11.6-14.6); RBC Distribution Width SD 46.5 fl (35.1-43.9); Red Blood Count 4.01 M/mm3 (4.6-6.2); White Blood Count 7.4 K/mm3 (4.4-11.0)
[2021-10-11] MEDS: Mag Hydrox/Al Hydrox/Simeth 30 ML UDC PO (11:41)
[2021-10-11 12:00] LABS: AST(SGOT) 20 U/L (15-37); Alanine Aminotransfer ALT/SGPT 28 U/L (16-61); Albumin, Serum 3.6 g/dL (3.2-5.0); Alkaline Phosphatase 70 U/L (45-117); Anion Gap 9 (5-15); BUN 38 mg/dL (7-18); BUN/Creat Ratio 24.4 RATIO (10-20); Bilirubin, Direct 0.17 mg/dL (0.00-0.30); Calcium,Total 9.1 mg/dL (8.5-10.1); Chloride 108 mmol/L (98-107); Creatinine, Serum 1.56 mg/dL (0.70-1.30); EST Glomerular Filtration Rate 46 mL/min (>60); Est Glom Filt Rate - Afr Amer 55 mL/min (>60); Estimated Creatinine Clearance 37.14 ml/min; Globulin 2.7 g/dL (2.2-4.2); Glucose 142 mg/dL (74-106); Lipase 145 U/L (73-393); Potassium 3.8 mmol/L (3.5-5.1); Protein, Total 6.3 g/dL (6.4-8.2); Sodium Level 140 mmol/L (136-145); Troponin-I HS 7 pg/mL (3.0-78.0)
[2021-10-11 13:00] VITALS: BP 141/67; PULSE 82; RESP 16; O2SAT 96
[2021-10-11] MEDS: Morphine 4 MG/ML Syringe IV (13:18)
[2021-10-11] MEDS: Ondansetron 4 MG/2 ML Vial IV (13:19)
[2021-10-11 15:38] VITALS: BP 146/72; PULSE 84; RESP 16; O2SAT 97
== END 2021-10-11 15:48 | disposition home or self-care (01) ==
PROVIDERS: Emergency Provider Emergency Medicine; PCP Family Medicine; Visit Provider Emergency Medicine
DX: R10.13 Epigastric pain (principal); I25.10 Atherosclerotic heart disease of native coronary artery without angina pectoris; I25.2 Old myocardial infarction; Z87.891 Personal history of nicotine dependence
CPT/HCPCS: 74177; 80048; 80076; 83690; 84484; 85025; 93005; 96374; 96375; 99283; Q9967; A4216; J2405

== ENCOUNTER 2021-10-14 09:30 | Outpatient (RCR) | payer MEDICARE, OTHER, SELFPAY ==
[2021-09-07 08:11] VITALS: BMI 25.0
[2021-09-16 00:10] VITALS: BP 134/60; BP 142/60
== END 2021-10-16 23:59 ==
LOC: CR 09:30
PROVIDERS: PCP Family Medicine; Referring Provider Internal Medicine Cardiovascular Disease; Visit Provider Internal Medicine Cardiovascular Disease
DX: Z95.5 Presence of coronary angioplasty implant and graft (principal)
CPT/HCPCS: 93798

== ENCOUNTER → 2021-11-09 | Outpatient (CLI) | payer MEDICARE, OTHER, SELFPAY ==
[2021-09-07 08:11] VITALS: BMI 25.0
[2021-10-31 09:46] VITALS: BMI 24.2
--- NOTE | 2021-11-09 12:47 | STRESSREP_ITS ---
Stress Test Report Date: 11-09-2021 Procedure: Exercise tolerance test/imaging study Indications: Chest pain; CAD; PCI; PAD Consent: Per the patient Procedure: The patient exercised on a Kingsley protocol for 6 minutes completing Stage II achieving a peak heart rate of 123 bpm (88% predicted maximal heart rate) with a peak blood pressure 180/60 mmHg and a peak MET capacity of 7 METs. The baseline ECG demonstrated sinus bradycardia; right bundle branch block. The peak exercise ECG demonstrated significant somatic/motion artifact with no obvious ECG changes. There were no cardiac dysrhythmias pretest, during exercise, or recovery. The functional capacity was considered good. There was brief chest tightness during early recovery was subsequent spontaneous resolution. The examination was discontinued secondary to dyspnea and leg fatigue. Impression: 1. Technically adequate (percent predicted maximal heart rate greater than 85%) exercise tolerance test 2. Peak exercise ECG with continued right bundle branch block pattern with no obvious ECG changes 3. There were no cardiac dysrhythmias pretest, during exercise, or recovery 4. Nuclear images pending Myocardial perfusion imaging study: Technique: The patient was injected with 12.0 mCi of technetium 99m Cardiolite and subsequently rest SPECT Cardiolite nuclear imaging was obtained in the horizontal long, vertical long, and short axis views. The patient exercised on a Kingsley protocol for 6 minutes completing Stage II achieving a peak heart rate of 123 bpm (88% predicted maximal heart rate) with a peak blood pressure 180/60 mmHg and a peak MET capacity of 7 METs. The patient was injected with 35.3 mCi of technetium 99m Cardiolite and subsequently stress SPECT Cardiolite nuclear imaging was obtained in the horizontal long, vertical long, and short axis views. A gated Cardiolite study at peak stress was obtained. Interpretation: Rest and stress SPECT Cardiolite nuclear imaging status post realignment, normalization, and attenuation correction, demonstrates the appearance of relative uniform tracer uptake and myocardial perfusion appearing within normal limits. There is end systolic thickening and brightening. The gated Cardiolite study demonstrates myocardial thickening and inward wall motion. The reported LVEF is 72%. Impression: 1. Rest and stress SPECT Cardiolite nuclear imaging demonstrate relative uniform tracer uptake and myocardial perfusion appearing within normal limits. 2. The gated Cardiolite study reports an LVEF of 72%. This note was generated with [employer] software. It may contain incorrect words, spelling, and punctuation that were not noted in checking the note before signing.
== END | disposition home or self-care (01) ==
LOC: CVS 06:35
PROVIDERS: PCP Family Medicine; Referring Provider Physician Assistant Medical; Visit Provider Physician Assistant Medical
DX: R07.9 Chest pain, unspecified (principal)
CPT/HCPCS: 78452; 93017; A9500; A4216

== ENCOUNTER 2021-11-11 09:30 | Outpatient (RCR) | payer MEDICARE, OTHER, SELFPAY ==
[2021-09-07 08:11] VITALS: BMI 25.0
[2021-10-17 00:10] VITALS: BP 134/60; BP 142/60
--- NOTE | 2021-10-31 09:36 | CR.ITP_ITS ---
Diagnosis Exercise - 90-day Assessment - Visit Date of Eval: 10/31/21 Session #:: 32 Comments:: Patient is to be scheduled for a stress test but does not know the date. - Physician Prescribed Exercise Modalities: Treadmill, Airdyne, NuStep Frequency: 3x/week for 12 weeks [36 sessions] Intensity: 60-80% of age predicted maximum heart rate reserve Current METSs:: 5.0 Target Heart Rate:: 90-118 Current RPE:: 12-13 Maximum Excercise HR:: 103 Resting Blood Pressure: 94/44 Maximum Exercise Blood Pressure: 124/44 Current Physical Activity or Exercising minutes: 35:04 - Outcomes & Goals Goals:: Verbalizes understanding of THR, RPE & goal METS by session 6, Documents in home exercise log/reports 30 min aerobic 5 day/wk by DC, Demonstrates accurate pulse taking by DC - Intervention & Plan Exercise Program Goals: Instruct on personal THR & RPE, Instruct on MET level & personal MET goal, Show patient to take own pulse /validate performance until accurate, Instruct on home exercise - 30-day Reassessments 30 day Reassessments:: Met - Physical Activity Home Exercise Physical Activity - Home Exercise: Safe Exercise, Warm-up, Self-monitoring, Cool-Down, Home Exercise > 30 min Daily, Sitting Time <3 hours/daily - Outcomes & Goals Outcomes/Goals: Demonstrates correct Warm-up/exercise Cool-Down (S3) if = 2.5 METs, Verbalizes symptoms of exercise intolerance by Session 3 (S3), Demonstrate safe equipment use (S3) & follows exercise prescrition (6) - Intervention & Plan Plan/Intervention: Instruct warm-up & cool-down if exercising at > 2 METs, Instruct on symptoms of exercise intolerance & actions to take, Instruct & monitor on saf, Assess intial functional capacity & safety risk - 30-day Reassessments 30 day Reassessments:: Met Nutrition - Initial Assessment Nutrition - 30-Day Assessment Nutrition - 60-Day Assessment Nutrition - 90-Day Assessment - Program Goals Nutrition Program Goals: LDL <100 optimal. 100 - 129 Near optimal. 130 - 159 Borderline High. 160 - 189 High. Total Cholesterol <200 desirable. 200 - 239 Borderline High. >/= 240 High. HDL < 40 Low >/=60 High. Triglycerides <150 desirable. <199 optimal. VlDL 5 - 40. HgbA1C <7%. BMI <25 Patient has diagnosis of Hyperlipidemia (ICD E78)?: Yes - Visit Date of Assessment:: 10/31/21 Session #:: 32 - No recent labs drawn - Cholesterol/Lipids Lipid Medication: Atorvastatin Determine presence & major risk factors that modify LDL goal: Hypertension or hypertensive medication, Family history of premature CHD in Male < 55 years: female <65 yearsFa, Age men > 45 years; women >/= 55 years Outcomes/Goals: Pt IDs own risk factors & lifestyle modifications by Session 10, Verbalizes symptoms of angina & response by session 3., Pt independently manages Intervention/Plan: Instruct on personal lipid levels & lipid goals/NCEP guidelines, Instruct on cholesterol Referral to dietitian:: Yes 30-day Reassessments:: Met Reassessment Notes & Comments:: Patient compliant with medication for cholesterol control. - Diabetes (Other Core Measures) Diabetes Type: Not Applicable - Weight Mgt (Other Care) Not Applicable: Yes Height: 5 ft 10 in Weight:: 169 lb BMI: 24.2 Diagnosis Overweight/Obesity BMI> 30% ICD-10 E66: No Diagnosis High BMI/Morbid Obesity BMI> 35% ICD-10 Z68: No Outcomes/Goals: Pt sets, maintains & shows weight loss goal & trend during rehab Intervention/Plan: Instruct on ideal BMI & set weight loss goal w/patient, Assist pt to ID & incorporate diet changes for weight loss by S9, Encourage goal of using 250-300dcal per session for weight loss 30 day Reassessments:: Met Reassessment Notes & Comments:: Patient at appropriate weight and BMI - Healthy Eating Habits Will attend diet classes:: Yes Outcomes/Goals:: Consume diet rich in vegs,fruits,whole grain/high fiber,fish,lean meat, Limit sat/trans fats,cholesterol & added salts & sugars Intervention/Plan:: Assess current eating habits 30-day Reassessments:: Met - Education Gave educational materials for:: Healthy eating - Patient easting healthy diet, Cardiac Diet Low Fat, Low Cholesterol, Low Sodium Nutrition - Final Assessment Core - Initial Assessment Core - 30-Day Assessment Core - 60-Day Assessment Core - 90 Day Assessment - Visit Date of Eval: 10/31/21 Session #:: 32 - Medication Compliance Preventative Medication(s):: Aspirin, Clopidogrel/P2Y12 inhibit, Statin/lipid, Beta tanisha H/O mental health issues: depression, anxiety, or addiction?: No Doesn?t believe in the benefits of treatment?: No Believes medications are unnecessary or harmful?: No Has a concern about medication side effects?: No Expresses concern over the cost of medications?: No Outcomes/Goals: Verbalizes medications,desired effect & common side effects @ DC, Pt self-reports following medication regimen, Keeps card in wallet w/medications listed by DC Interventions/plans: Instruct on medication effects & side effects, Review medication list w/patient every two weeks, Instruct importance of taking meds as ordered & assist problem solving 30-day Reassessments:: Met Reassessment Notes & Comments:: Patient compliant with medications, taken as prescribed. Verbalizes general action/side effects. - Tobacco Use Tobacco Use: Non-smoker - Hypertension Hypertension Diagnosis:: Hypertension ICD-10 I10 Resting Blood Pressure:: 94/44 [place] [employer] Hypertension Guidelines: [place] [employer] Hypertension Guidelines. Normal BP Less than 120/80. Elevated BP 120/80. Hypertension Stage 1: BP 130-139/80-89. Hypertesnion Stage 2: BP 140 or higher/90 or higher. Hypertension Crisis: BP higher than 180/120 Peak Exercise Blood Pressure:: 124/44 Outcomes/Goals: Able to verbalize/achieve optimal blood pressure <130/80, Incorporates diet changes & exercise for blood pressure control by DC Interventions/plan: Instruct on optimal blood pressure, hypertension & medications, Instruct on effects of sodium, alcohol, stress, exercise &hypertension 30 day Reassessments:: Met Reassessment Notes & Comments:: Blood pressure is controlled by medication. - Tobacco Cessation Referral Smoking Cessation Referral:: No Individual Education/Counseling:: No Education Schedule Given:: Yes Core - Final Assessment Psychosocial - Initial Assess Psychosocial - 30-Day Assess Psychosocial - 60-Day Assess Psychosocial - 90-Day Assess - VIsit Date of Eval: 10/31/21 Session #:: 32 Not Applicable: Yes History of previous Mental disease:: No - Psychosocial Test Tool Used:: PHQ-9 Questionnaire phq-9 Severity: Severity. 1-4 Minimal Depression. 5-9 Mild Depression. 10-14 Moderate Depression. 15-19 Moderately Sever Depression. 20-27 Severe Depression. Rule: - Referral to Behavioral Health PS - Interventions: Yes Attend Stress Management Classes, No Referral to Behavioral Health if PHQ-9 score >9:, No Referral to [facility], No Referral to Physician if PHQ-9 if score is 5-9: - Outcomes/Goals: See list Psychosocial Outcomes/Goals:: ID's personal stressors & 2 strategies to manage stress by discharge - Intervention/Plan: See List Interventions/Plan:: Assess stressors,coping strategies & signs of derpression on admission, Instruct/assist pt to develop coping & personal stress Mgt strategies, Instruct patient to recognize signs & symptoms of depression, Instruct patient to recog - 30-day Reassessments: 30 day Reassessments:: Met Reassessment Notes & Comments:: Patient able to identify stressors and methods to control stress. Practices relaxation techniques. Psychosocial - Final Assessmen Patient Health Questionnaire 90-Day Re-eval Assessment 1. Little interest or pleasure in doing things: Not at all 2. Feeling down, depressed, or hopeless: Not at all 3. Trouble falling or staying asleep, or sleeping too much: Several days 4. Feeling tired or having little energy: Not at all 5. Poor appetite or overeating: Not at all 6. Feeling bad about yourself -- or that you are a failure or have let yourself or your family down: Not at all 7. Trouble concentrating on things, such as reading the newspaper or watching television: Not at all 8. Moving or speaking so slowly that other people could have noticed. Or the opposite - being so fidgety or restless that you have been moving around a lot more than usual: Several days 9. Thoughts that you would be better off , or of hurting yourself in some way: Not at all How difficult have these problems made it for you to do your work, take care of things at home, or get along with other people?: Not difficult at all Total Score: 2 Self-Efficacy 90-Day Re-eval Assessment We would like to know how confident you are in doing certain activities. Please select your confidence level for:: Select your confidence level for the following using the scale 1-10 where 1 is not at all confident and 10 is totally confident. Your score is the average of all 6 responses. Fatigue: How confident are you that you can keep the fatigue caused by your disease from interfering with the things you want to do? Select Number: 6 Physical Discomfort or Pain: How confident are you that you can keep the physical discomfort or pain of your disease from interfering with the things you want to do? Select Number: 7 Emotional Distress: How confident are you that you can keep the emotional distress caused by your disease from interfering with the things you want to do? Select Number: 9 Other Symptoms or Health Problems: How confident are you that you can keep other symptoms or health problems from interfering with the things you want to do? Select Number: 9 Different Tasks and Activities: How confident are you that you can do the different tasks and activities needed to manage your health condition so as to reduce your need to see a doctor? Select Number: 10 Medication: How confident are you that you can do things other than just taking medication to reduce how much your illness affects your everyday life? Select Number: 10 Total Score:: 8 Nutrition Survey
[2021-10-31 09:46] VITALS: BP 124/44; BP 94/44; BMI 24.2
== END 2021-11-16 23:59 ==
LOC: CR 09:30
PROVIDERS: PCP Family Medicine; Referring Provider Internal Medicine Cardiovascular Disease; Visit Provider Internal Medicine Cardiovascular Disease
DX: Z95.5 Presence of coronary angioplasty implant and graft (principal)
CPT/HCPCS: 93798

== ENCOUNTER 2021-11-24 15:08 | Outpatient (CLI) | payer MEDICARE, OTHER, SELFPAY ==
[2021-10-31 09:46] VITALS: BMI 24.2
[2021-11-24 16:17] LABS: Erythrocyte Sedimentation Rate 5 mm/hr (0-20)
[2021-11-24 16:51] LABS: CRP < 2.90 mg/L (0.0-3.0)
[2021-11-28 13:07] LABS: Anti-Centromere B Ab <0.2 AI (0.0-0.9); Anti-Chromatin <0.2 AI (0.0-0.9); Anti-Jo <0.2 AI (0.0-0.9); Anti-Scleroderma-70 AB <0.2 AI (0.0-0.9); RNP Ab <0.2 AI (0.0-0.9); SJOGREN'S Anti-SS-A test < 0.2 AI (0.0-0.9); SJOGREN'S Anti-SS-B test < 0.2 AI (0.0-0.9); Smith Ab <0.2 AI (0.0-0.9)
[2021-11-28 15:07] LABS: Endomysial Antibody IgA Negative (Negative)
[2021-11-29 14:12] LABS: Immunoglobulin A 159 mg/dL (61-437); t-Transglutaminase IgA <2 U/mL (0-3)
[2021-11-29 15:25] LABS: Anti-dsDNA Ab <1 IU/mL (0-9)
[2021-12-02 07:07] LABS: Albumin 3.6 g/dL (2.9-4.4); Alpha-1-Globulins 0.3 g/dL (0.0-0.4); Alpha-2-Globulins 0.7 g/dL (0.4-1.0); Cytoplasmic Ab (C-ANCA) <1:20 titer (Neg:<1:20); Gamma Globulin 0.6 g/dL (0.4-1.8); Immunoglobulin A 162 mg/dL (61-437); Immunoglobulin E 235 IU/mL (6-495); Immunoglobulin G 633 mg/dL (603-1613); Immunoglobulin M 62 mg/dL (15-143)
[2021-12-02 11:02] LABS: Carbohydrate Ag 19-9 2261 26 U/mL (0-35); Gastrin, Serum 862 pg/mL (0-115); Perinuclear Ab (P-ANCA) <1:20 titer (Neg:<1:20)
== END 2021-11-24 23:59 | disposition home or self-care (01) ==
LOC: LAB 15:10
PROVIDERS: PCP Family Medicine; Referring Provider Internal Medicine Gastroenterology; Visit Provider Internal Medicine Gastroenterology
DX: R10.9 Unspecified abdominal pain (principal)
CPT/HCPCS: 36415; 82784; 82785; 82941; 83516; 84165; 85652; 86140; 86225; 86235; 86255; 86256; 86301; 86304; 86334

== ENCOUNTER → 2021-12-01 | Outpatient (CLI) | payer MEDICARE, OTHER, SELFPAY ==
[2021-10-31 09:46] VITALS: BMI 24.2
--- NOTE | 2021-12-01 09:13 | RAD_ITS ---
PROCEDURE: Air contrast Upper GI with Small Bowel Follow Through DATE OF EXAMINATION: 12/01/2021. INDICATION: Male, 81 years old. Upper abdominal pain and weight loss. FLUOROSCOPY TIME (if supplied): (1:14) minutes/seconds. 24 images were obtained. TECHNIQUE: Radiographic and fluoroscopic images of the distal esophagus, stomach, and entire small intestine were obtained following the oral ingestion of barium. COMPARISON: None. FINDINGS: The esophagus is unremarkable. No evidence of esophageal obstruction. There is evidence of gastroesophageal reflux. No mass lesion is seen. The stomach and duodenum are unremarkable. No evidence of ulceration. No mass lesion is seen. A single contrast small bowel follow through exam demonstrates the small bowel to have no evidence for stricture, ulceration or mass. The transit time is normal at 60 minutes. RAD/Upper GI/w Small Bowel IMPRESSION: 1. Gastroesophageal reflux. Electronically Signed: Brian Jamison MD at 14:59 EDT ,
== END | disposition home or self-care (01) ==
LOC: RAD 09:12
PROVIDERS: PCP Family Medicine; Referring Provider Internal Medicine Gastroenterology; Visit Provider Internal Medicine Gastroenterology
DX: R10.9 Unspecified abdominal pain (principal); R63.4 Abnormal weight loss
CPT/HCPCS: 74246; 74248

== ENCOUNTER → 2022-01-03 | Outpatient (CLI) | payer MEDICARE, OTHER, SELFPAY ==
[2021-10-31 09:46] VITALS: BMI 24.2
[2022-01-03 10:17] LABS: Absolute Lymphocyte Count 1.28 X10^3/uL (0.83-4.51); Absolute Neutrophil Count 4.3 X10^3/uL (2.0-7.7); Basophil# 0.06 X10^3/uL; Basophil% 0.9 % (0-1); Eosinophil# 0.41 X10^3/uL; Eosinophils% 6.1 % (0-5); Hematocrit 41.4 % (40-54); Hemoglobin 13.4 g/dL (13.0-16.5); Lymphocyte # 1.28 X10^3/ul (0.83-4.51); Lymphocyte % 19.1 % (19-41); Mean Corp Hgb Conc 32.4 g/dL (32-36); Mean Corpuscular Hgb 29.6 pg (27.0-32.0); Mean Corpuscular Volume 91.6 fL (80-94); Mean Platelet Vol. 9.3 fl (6.2-12.0); Monocyte# 0.64 X10^3/uL; Monocyte% 9.5 % (0-10); NRBC Flagged by Analyzer 0 % (0-5); Neutrophil % 64.1 % (47-70); Platelet Count 204 K/mm3 (150-450); RBC Distribution Width CV 13.8 % (11.6-14.6); RBC Distribution Width SD 46.9 fl (35.1-43.9); Red Blood Count 4.52 M/mm3 (4.6-6.2); White Blood Count 6.7 K/mm3 (4.4-11.0)
[2022-01-03 10:49] LABS: Iron 97 ug/dL (65-175)
== END | disposition home or self-care (01) ==
LOC: LAB 09:15
PROVIDERS: PCP Family Medicine; Referring Provider Internal Medicine Gastroenterology; Visit Provider Internal Medicine Gastroenterology
DX: R63.4 Abnormal weight loss (principal); D64.9 Anemia, unspecified
CPT/HCPCS: 36415; 83540; 85025

== ENCOUNTER → 2022-01-10 | Outpatient (CLI) | payer MEDICARE, OTHER, SELFPAY ==
[2021-10-31 09:46] VITALS: BMI 24.2
--- NOTE | 2022-01-10 13:33 | RAD_ITS ---
EXAM: XR THORACIC SPINE, 3 VIEWS CLINICAL INDICATION: ABD PAIN TECHNIQUE: Frontal, lateral and swimmer''s views of the thoracic spine. This report was created using [employer] technology. COMPARISON: None. FINDINGS: VERTEBRAE: Mild curvature of the thoracic spine convex to the right. Exaggeration of the normal thoracic kyphosis. Preserved vertebral body height. No fracture. No spondylolisthesis. No significant facet arthropathy. DISC SPACES: Unremarkable. Disc spaces are maintained. RAD/Thoracic Spine 3 Views IMPRESSION: 1. Mild curvature of the thoracic spine convex to the right. 2. Exaggeration of the normal thoracic kyphosis. 3. No acute abnormality identified. Electronically Signed: Grant Hines MD at 2:43 EDT ,
== END | disposition home or self-care (01) ==
LOC: RAD 13:32
PROVIDERS: PCP Family Medicine; Referring Provider Family Medicine; Visit Provider Family Medicine
DX: R10.9 Unspecified abdominal pain (principal)
CPT/HCPCS: 72072

== ENCOUNTER → 2022-04-03 | Outpatient (CLI) | payer MEDICARE, OTHER, SELFPAY ==
[2021-10-31 09:46] VITALS: BMI 24.2
--- NOTE | 2022-04-03 16:44 | CT_ITS ---
CT angiogram of the abdominal aorta with bilateral lower extremity runoff with 3-dimensional reconstructions, with MIP reconstructions Clinical history: ABD PAIN POST MEALS Technique: Multiple helical CT images were obtained from the domes the diaphragms to level of feet after intravenous administration of iodinated contrast with transaxial, coronal and sagittal multiplanar reconstructions. On a separate workstation, 3-dimensional reconstructions were obtained of the arterial vasculature using volume rendering technique and maximal intensity projection technique as per departmental protocol. This CT exam has been performed using low dose vendor recommended protocols to limit radiation exposure to As Low As Reasonably Achievable. Radiation Dose: The CTDI = mGy and the total DLP = 546.28 mGy*cm.. COMPARISON: none FINDINGS: ABDOMEN / PELVIS: Heart size is normal. There is minor coronary artery calcification. Minor atelectasis within the dependent portion of the lungs. Nonspecific fatty infiltrated liver without mass or bile duct dilatation. The visualized portions of the spleen and pancreas appear to be within normal limits. The gallbladder has been removed The kidneys are unremarkable. No evidence for small bowel obstruction. Diverticular disease of the descending and sigmoid colon without evidence for acute diverticulitis. No evidence for acute appendicitis. The pelvic structures appear normal. Lumbar spine demonstrates degenerative changes VASCULAR STRUCTURES: There appears to be good opacification and patency of the visualized abdominal aorta which demonstrates multifocal calcific plaque without aneurysmal dilatation. There appears to be good opacification and patency of the celiac trunk, superior mesenteric artery also demonstrate proximal calcific plaquing without significant narrowing.. There appears to be good opacification and patency noted of the RIGHT and LEFT renal arteries also demonstrate mild calcific plaquing.. There appears to be good opacification and patency noted of the inferior mesenteric artery. CT/CTA Abdomen W/WO Contrast IMPRESSION: Diffuse atherosclerotic disease without evidence for aneurysmal dilatation or hemodynamically significant stenosis of the aorta or major visceral branches... No acute abnormalities with other findings as above Electronically Signed: Mihai Dewey MD at 17:37 EST ,
[2022-04-03 17:30] LABS: CREATININE FINGERSTICK 1.6 mg/dL (0.70-1.30)
== END | disposition home or self-care (01) ==
LOC: CT 16:42
PROVIDERS: PCP Family Medicine; Referring Provider Internal Medicine Gastroenterology; Visit Provider Internal Medicine Gastroenterology
DX: R10.84 Generalized abdominal pain (principal)
CPT/HCPCS: 74175; Q9967

== ENCOUNTER → 2022-05-02 | Outpatient (CLI) | payer MEDICARE, OTHER, SELFPAY ==
[2021-09-07 08:11] VITALS: BMI 25.0
[2021-10-31 09:46] VITALS: BMI 24.2
[2022-05-02 12:04] LABS: Albumin, Serum 3.7 g/dL (3.2-5.0); BUN 30 mg/dL (7-18); BUN/Creat Ratio 20.3 RATIO (10-20); Calcium,Total 8.8 mg/dL (8.5-10.1); Chloride 104 mmol/L (98-107); Creatinine, Serum 1.48 mg/dL (0.70-1.30); EST Glomerular Filtration Rate 48 mL/min (>60); Est Glom Filt Rate - Afr Amer 59 mL/min (>60); Glucose 150 mg/dL (74-106); Phosphorus 3.5 mg/dL (2.5-4.9); Potassium 4.2 mmol/L (3.5-5.1); Sodium Level 139 mmol/L (136-145)
== END | disposition home or self-care (01) ==
LOC: LAB 11:08
PROVIDERS: PCP Family Medicine; Referring Provider Internal Medicine Nephrology; Visit Provider Internal Medicine Nephrology
DX: N18.30 Chronic kidney disease, stage 3 unspecified (principal)
CPT/HCPCS: 36415; 80069

== ENCOUNTER → 2022-05-06 | Outpatient (CLI) | payer MEDICARE, OTHER, SELFPAY ==
[2021-10-31 09:46] VITALS: BMI 24.2
--- NOTE | 2022-05-06 08:42 | CT_ITS ---
INDICATION: ABNORMAL CXR EXAMINATION: CT CHEST WITHOUT CONTRAST - CT Chest W/O Contrast Injection TECHNIQUE: Helically acquired images were obtained of the chest. A radiation dose optimization technique was used for this scan. IV Contrast dosage and agent: None. COMPARISON: Prior chest x-ray of 07/08/2021. FINDINGS: LUNGS, PLEURA AND LARGE AIRWAYS: 8 mm calcified granuloma in the right lower lobe. Pleural-based stranding/scarring right upper lobe. No focal infiltrate otherwise is seen. No pleural effusion or thickening. No pneumothorax. THYROID: No thyroid lesions. HEART AND PERICARDIUM: Heart size is normal. No pericardial effusion. Coronary calcifications. VESSELS: There is spotty calcifications of the thoracic aorta without evidence of aneurysm. MEDIASTINUM AND HARDEEP: Few small normal-sized mediastinal nodes. No evidence of adenopathy. Esophagus is unremarkable. No hiatal hernia. UPPER ABDOMEN: Status post hysterectomy. No acute process is seen. BONES: Degenerative changes of the thoracic spine. CT/Chest without Contrast IMPRESSION: 1. Calcified right lower lobe granuloma. 2. No focal acute inflammatory process. Electronically Signed: Vinny Leahy MD at 13:47 EST ,
== END | disposition home or self-care (01) ==
LOC: CT 08:38
PROVIDERS: PCP Family Medicine; Referring Provider Family Medicine; Visit Provider Family Medicine
DX: R93.89 Abnormal findings on diagnostic imaging of other specified body structures (principal); R91.1 Solitary pulmonary nodule
CPT/HCPCS: 71250

== ENCOUNTER → 2022-07-21 | Outpatient (CLI) | payer MEDICARE, OTHER, SELFPAY ==
[2021-10-31 09:46] VITALS: BMI 24.2
[2022-07-21 12:04] LABS: Absolute Lymphocyte Count 1.44 X10^3/uL (0.83-4.51); Absolute Neutrophil Count 9.3 X10^3/uL (2.0-7.7); Basophil# 0.01 X10^3/uL; Basophil% 0.1 % (0-1); Eosinophil# 0.04 X10^3/uL; Eosinophils% 0.3 % (0-5); Hematocrit 39.9 % (40-54); Hemoglobin 12.8 g/dL (13.0-16.5); Lymphocyte # 1.44 X10^3/ul (0.83-4.51); Lymphocyte % 12.1 % (19-41); Mean Corp Hgb Conc 32.1 g/dL (32-36); Mean Corpuscular Hgb 29.8 pg (27.0-32.0); Mean Platelet Vol. 8.4 fl (6.2-12.0); Monocyte# 1.13 X10^3/uL; Monocyte% 9.5 % (0-10); NRBC Flagged by Analyzer 0 % (0-5); Neutrophil # 9.25 X10^3/uL (2.7-7.7); Neutrophil % 77.4 % (47-70); Platelet Count 214 K/mm3 (150-450); RBC Distribution Width CV 13.7 % (11.6-14.6); RBC Distribution Width SD 46.4 fl (35.1-43.9); Red Blood Count 4.29 M/mm3 (4.6-6.2); White Blood Count 11.9 K/mm3 (4.4-11.0)
[2022-07-21 12:39] LABS: Anion Gap 8 (5-15); BUN 44 mg/dL (7-18); BUN/Creat Ratio 28.4 RATIO (10-20); Calcium,Total 9.1 mg/dL (8.5-10.1); Chloride 108 mmol/L (98-107); Creatinine, Serum 1.55 mg/dL (0.70-1.30); EST Glomerular Filtration Rate 46 mL/min (>60); Est Glom Filt Rate - Afr Amer 56 mL/min (>60); Glucose 133 mg/dL (74-106); Sodium Level 140 mmol/L (136-145); Thyroid Stim Hormone (TSH) 1.78 uIU/mL (0.358-3.74)
== END | disposition home or self-care (01) ==
LOC: LAB 11:29
PROVIDERS: PCP Family Medicine; Referring Provider Internal Medicine Cardiovascular Disease; Visit Provider Internal Medicine Cardiovascular Disease
DX: I10 Essential (primary) hypertension (principal); I25.10 Atherosclerotic heart disease of native coronary artery without angina pectoris
CPT/HCPCS: 36415; 80048; 84443; 85025

== ENCOUNTER 2022-08-08 12:25 | Observation (INO) | payer MEDICARE, OTHER, SELFPAY ==
[2021-10-31 09:46] VITALS: BMI 24.2
[2022-08-07 09:48] VITALS: BMI 24.2
--- NOTE | 2022-08-08 12:31 | CL.D_ITS ---
Patient Name: JOAQUIN DARDEN Study Date: 08/08/2022 Performing: Aníbal Donaldson MD Ht: 70 inches 177.8 cm : 1940 Wt: 169.01 lbs 76.66 kg Age: 82 Gender: male BSA: 1.94 PROCEDURE(S) PERFORMED [id number])LHC/COR/LV CLINICAL PROFILE AND INDICATIONS Indications: Suspected CAD Heart Failure: None Stress/Imaging Stress/Image Study Performed: No CAD Presentations: Unstable angina. CONCLUSIONS Severe in-stent stenosis noted in the proximal LAD with severe proximal right coronary artery disease. RECOMMENDATIONS Referred for immediate PCI DESCRIPTION OF PROCEDURE The patient arrived to the procedure lab. The risks and benefits of the procedure as well as a full description of our services here and current unavailability of surgical backup were fully explained to the patient and/or their significant other prior to the catheterization. The Timeout was completed, verifying the correct patient and procedure. The patient's procedural site was prepped and draped in the usual fashion. Local anesthetic was given subcutaneously to right radial region with Lidocaine 2%. Using a modified Seldinger technique, arterial access was obtained via the right radial artery, a 6Fr sheath was inserted. Right Coronary Artery selective angiography was then performed in multiple views using a 5 Fr. 4.0 Palermo catheter. Left Coronary Artery selective angiography was performed in multiple views using a 5 Fr. 4.0 Palermo catheter. Left Ventriculography was performed in KAN projection using a 5 Fr. Pigtail catheter. LV to AO pullback pressures were then recorded. CORONARY ANGIOGRAPHY DOMINANCE: Right Dominant LEFT HEART ASSESSMENT Left Ventricular Ejection Fraction: by LV Gram 60 % Normal LV wall motion Normal Left Ventricular systolic function LEFT MAIN: Mild calcification, Mild luminal irregularities LEFT ANTERIOR DESCENDING ARTERY: Previously stented vessel in the proximal and mid segment with what appears to be a high-grade in-stent stenosis of approximately 80% in the proximal LAD and mild diffuse disease in the rest of the LAD. CIRCUMFLEX ARTERY: Moderate luminal irregularities up to 50% RIGHT CORONARY ARTERY: Proximal right coronary artery with eccentric 60% stenotic lesion and diffuse disease noted throughout the rest of the vessel with distal 50% stenosis present. COMPLICATIONS No Complications PROCEDURE MEDICATIONS Versed 1 mg IV Fentanyl 50 mcg IV Oxygen: 2 L/min via nasal cannula Heparin given IA 08/08/2022 12:03:25 Heparin 3000 unit(s) IV 08/08/2022 12:29:18 Verapamil 2.5mg, Ntg 200mcgs, 2000 units of Heparin given IA 08/08/2022 12:03:25 SUMMARY OF HEMODYNAMIC DATA Time AIR REST ECG 10:35:36 AO 113/48 (76) SA 12:10:18 LV 125/5, 13 12:17:42 LV 133/4, 12 12:17:51 LV 135/4, 14 12:18:34 LV 131/4, 14 12:18:37 Signed By Aníbal Donaldson MD On 08/08/2022 12:30:47 Aníbal Donaldson MD
--- NOTE | 2022-08-08 13:30 | EKG12_ITS ---
Test Reason : AM EKG Blood Pressure : / mmHG Vent. Rate : 048 BPM Atrial Rate : 048 BPM P-R Int : 192 ms QRS Dur : 146 ms QT Int : 496 ms P-R-T Axes : 044 -33 027 degrees QTc Int : 443 ms Sinus bradycardia Left axis deviation Right bundle branch block Abnormal ECG When compared with ECG of 08-AUG-2022 15:00, MANUAL COMPARISON REQUIRED, DATA IS UNCONFIRMED Confirmed by LEI GUTIERREZ, ANÍBAL ([id number]), newspaper managing editor BESSY GONZALEZ ([id number]) on 08/10/2022 9:14:21 AM Referred By: Aníbal Donaldson Confirmed By:ANÍBAL DONALDSON MD
[2022-08-08 13:42] VITALS: BP 164/62; PULSE 56; RESP 16; TEMP 36.3; O2SAT 97
--- NOTE | 2022-08-08 13:45 | CRPHASE1 ---
Patient Communication Former Patient:: Phase II PHII Cardiac Rehab Discussed with Patient:: Yes Guide to Cardiac Rehab Given to Patient:: Yes Cardiac Rehab Facility Choice List Given to Patient:: No Choice Program [facility] PHII:: Communication Given to CR [employer] Attendant:: Aníbal Donaldson Phase II Cardiac Rehab:: Yes Sessions:: 36 sessions - 3 days/wk, 12 weeks Cardiac Rehabilitation Info Cardiac Rehabilitation Program Information: Cardiac Rehab The cardiac rehab team at [facility] consists of highly skilled exercise physiologists, nurses, respiratory therapists and physicians working together with you. Our purpose is to help you have a full recovery and achieve the goals you set for yourself. Over the years many of our patients have returned to activities they assumed they would never do again! We can help restore your confidence and motivation to make lifestyle changes that can have a significant impact on your health and quality of life! We can help answer questions and concerns you may have about exercise, lifestyle, medications, diet, stress and anxiety which are common following a hospitalization. WE monitor ECG and vital signs during exercise and discuss your progress with you and report to your physician(s). Cardiac Rehab is proven to help reduce readmissions, improve functional capacity and lower recurrence of problems with your heart. Our Cardiac Rehab program is Certified by the [place] [employer]io-Vascular [employer] Pulmonary [employer] (AACVPR) and Accredited by the [place] [employer] through our [facility]. You can contact us at . We invite you to call us with your questions or to get started in our program. If you have other questions or concerns be sure to ask your physician/provider during your follow-up visit. WE look forward to seeing you!
--- NOTE | 2022-08-08 13:45 | CRPH1.INSTRU ---
General Education CAD and cardiac anatomy and function:: Patient communicates acknowledgment, Needs reinforcement Explanation of diagnoses and procedures:: Patient communicates acknowledgment, Needs reinforcement Sign/Symptoms of ND:: Patient communicates acknowledgment, Needs reinforcement Antiplatelet therapy: Patient communicates acknowledgment, Needs reinforcement Proper use of NTG-SL: Patient communicates acknowledgment, Needs reinforcement Emergency procedures and activation of EMS: Patient communicates acknowledgment, Needs reinforcement Compliance of all prescribed medications: Patient communicates acknowledgment, Needs reinforcement Smoking Patient Nicotine/Smoking Risk Factors Are:: Non-smoker Dyslipidemia Patient Dyslipidemia Risk Factors Are:: Total Cholesterol, Triglycerides, HDL, LDL Recommendations Include:: Lipid profile not available Dyslipidemia Response Code:: Patient communicates acknowledgment, Needs reinforcement Overweight/Obesity Patient Overweight/Obesity Risk Factors Are:: BMI Normal [24-29 & > 65 years old] Recommendations Include:: Weight loss of 5-10%, Reduced calorie diet, Exercise 5-7 times/week Overweight/Obesity:: Patient communicates acknowledgment, Needs reinforcement Hypertension Recommendations Include:: BP <130/80 if diabetic, Decrease/maintain normal body weight Hypertension:: Patient communicates acknowledgment, Needs reinforcement Heart Disease Patient Heart Disease Risk Factors Are:: Previous cardiac event Recommendations Include:: Educated family members of their risk Heart Disease Response Code:: Patient communicates acknowledgment, Needs reinforcement Diabetes Patient Diabetes Risk Factors Are:: Elevated blood sugars Recommendations Include:: Maintain fasting blood sugars 70-110 md/dL, Maintain HgbA1c of 6% or less, Monitor blood sugar as prescribed, Diabetic dietary guidelines Diabetes:: Patient communicates acknowledgment, Needs reinforcement Sedentary Patient Sedentary Risk Factors Are:: Lack of regular exercise Recommendations Include:: Aerobic exercise 5-7 times/week for 20-30 minutes continuously, Benefits of regular exercise, Discussed home walking program, Monitored Outpatient Cardiac Rehab Sedentary Response Code:: Patient communicates acknowledgment, Needs reinforcement
[2022-08-08 15:46] VITALS: BP 114/65; PULSE 55; RESP 16; TEMP 35.8; O2SAT 97
[2022-08-08] MEDS: glipiZIDE 5 MG Tablet PO (17:21)
[2022-08-08] MEDS: Atorvastatin Calcium 80 MG Tablet PO (17:21)
[2022-08-08] MEDS: Sucralfate 1 GM Tablet PO (17:21)
[2022-08-08 21:57] VITALS: BP 141/64; PULSE 51; RESP 18; TEMP 36.6; O2SAT 95
[2022-08-09 03:29] VITALS: BP 112/60; PULSE 50; RESP 18; TEMP 36.4; O2SAT 96
[2022-08-09 06:50] LABS: Bedside Glucose 114 mg/dL (74-106)
[2022-08-09 07:16] LABS: Hematocrit 39.4 % (40-54); Hemoglobin 12.9 g/dL (13.0-16.5); Mean Corp Hgb Conc 32.7 g/dL (32-36); Mean Corpuscular Hgb 30.4 pg (27.0-32.0); Mean Corpuscular Volume 92.7 fL (80-94); Mean Platelet Vol. 8.8 fl (6.2-12.0); Platelet Count 153 K/mm3 (150-450); RBC Distribution Width CV 13.7 % (11.6-14.6); Red Blood Count 4.25 M/mm3 (4.6-6.2); White Blood Count 5.6 K/mm3 (4.4-11.0)
--- NOTE | 2022-08-09 07:23 | PN.CARD_ITS ---
Subjective Subjective Patient seen and evaluated. Objective Data Vital Signs: Vital Signs Temp Pulse Resp BP Pulse Ox O2 Del Method 97.6 F L 50 L 18 112/60 96 Room Air 08/09/22 03:29 08/09/22 03:29 08/09/22 03:29 08/09/22 03:29 08/09/22 03:29 08/09/22 03:29 Oxygen Delivery Method Room Air Weight: 169 lb Body Mass Index (BMI) 24.2 Intake & Output: Intake and Output for Last 24 Hours 08/07/22 08/08/22 08/09/22 23:59 23:59 23:59 Intake Total 120 / 320 400 / 400 Output Total 400 / 900 900 / 900 Balance -280 / -580 -500 / -500 Lab / Micro Data Result Diagrams: 08/09/22 06:25 08/09/22 06:25 Labs: Laboratory Results - last 24 hr 08/09/22 06:25: WBC 5.6, RBC 4.25 L, Hgb 12.9 L, Hct 39.4 L, MCV 92.7, MCH 30.4, MCHC 32.7, RDW Std Deviation 47.0 H, RDW Coeff of Jose Miguel 13.7, Plt Count 153, MPV 8.8 08/09/22 06:28: POC Glucose 114 H Cardiology Labs/Tests 08/09/22 06:25: WBC 5.6, RBC 4.25 L, Hgb 12.9 L, Hct 39.4 L, MCV 92.7, MCH 30.4, MCHC 32.7, Plt Count 153, MPV 8.8 Rhythm: EKG: ECHO: Stress Test: Cardiac Cath: PCI: CT Surgery: Holter monitor: EPS: PPM: CXR: Chest CT Scan: Physical Exam Const alert, oriented x3 and no apparent distress General Appearance: cooperative HEENT hearing grossly normal bilaterally Head and Scalp: atraumatic Eyes EOMs intact bilaterally Neck General: normal visual inspection Chest inspection of chest normal and palpation of chest normal Resp normal respiratory effort Auscultation: clear to auscultation bilaterally Cardio regular rate, regular rhythm, S1 normal heart sound and S2 normal heart sound Jugular Venous Distention: JVD GI normal to inspection, nondistended, normoactive bowel sounds Extremity normal capillary refill and no pedal edema Peripheral Pulses: Yes pulses 2+ throughout and femoral pulses present Skin no rashes or lesions noted Neuro oriented x3 and CN's II-XII intact bilaterally Psych Appearance: grossly normal and appropriate Assessment & Plan Assessment/Plan (1) Hx of right coronary artery stent placement: PLAN: Patient underwent angioplasty and stenting of the right coronary artery. Appears to be doing well. I would not recommend that we make any changes at this particular time. (2) History of placement of stent in LAD coronary artery: PLAN: He underwent angioplasty and stenting of the proximal LAD which had in- stent stenosis. The plan to be to continue the same with no changes. Patient will follow-up with rehabilitation as well as in the office. (3) HTN (hypertension): PLAN: He does have a history of hypertension and will continue with the current medical therapy.
--- NOTE | 2022-08-09 07:27 | DCINST_ITS ---
Discharge Instructions Diet Discharge Diet: No restrictions Activity Discharge Activity: Return to Normal Activity Additional Activity Instructions:: You must have someone drive you home. Do not drive until instructed by your doctor. You must have someone stay with you all night after your test. Rest in bed or on the couch until the next morning. Limit the number of times you go up and down stairs the day of your test. Apply pressure to the puncture site if you sneeze or cough. Dressing / Incision Call your doctor if your incision/area has: Increased Pain/ Swelling, Increased Redness, Foul Smelling Discharge and Swelling at the incision site Call your doctor if you observe: Fever of 101 or Higher Additional Dressing/Incision Instructions:: Keep the dressing (bandage) on until the next morning. You may then shower, but do not take a tub bath for 5 days after your test. It is normal to have some tenderness and discomfort at the puncture site. Sometimes bruising also occurs. However, if pain, numbness, or coldness occurs below the puncture site (in your leg, toes, arms or fingers) call your doctor at once. You may have a small, marble sized knot at the puncture site. This is normal. Do not rub it. It will go away in 4-6 weeks. Bleeding can occur from the area where the puncture was done. Blood may spurt or drip from the site. If blood spurts, apply pressure right away to stop bleeding and call 911. Although rare, bleeding into the tissue (hematoma) can also occur. If this happens, a large, firm area goose egg under the skin will appear. If any of these occur, lie down as flat as you can and have someone apply firm pressure to the cath site with a gauze pad or a clean washcloth for 10-15 minutes. Call 911 or go to the Emergency Department. Follow Up Care When: Office will call for appointment. Test Results: Test results from this visit will be discussed in further detail at your follow- up appointment, if applicable. Discharge Plan Admission Admit Date/Time: 08/08/22 12:25 Attending Provider: Aníbal Donaldson Primary Care Provider: Joe Mak Discharge Orders/Prescriptions Prescriptions: No Action nitroglycerin [Nitrostat] 0.4 mg tablet, sublingual 0.4 mg sublingual Q5-15M PRN (Reason: chest pain) Qty: 25 3RF Rx Instructions: do not exceed 3 doses per episode sucralfate [Carafate] 100 mg/mL suspension 10 ml PO BID Qty: 1000 1RF tramadol 100 mg tablet 100 mg PO DAILY Qty: 14 1RF Rx Instructions: DNExceed 3 doses/24h cholecalciferol (vitamin D3) 125 mcg (5,000 unit) capsule 125 mcg PO DAILY isosorbide mononitrate 60 mg tablet extended release 24 hr 60 mg PO DAILY Qty: 60 3RF amlodipine 10 mg tablet 10 mg PO DAILY Qty: 60 3RF glipizide 5 mg tablet 5 mg PO BID Label Comments: TAKE 1 TABLET BY MOUTH TWICE DAILY aspirin [Teofilo Low Dose Aspirin] 81 mg tablet,delayed release (DR/EC) 81 mg PO DAILY Qty: 90 3RF atorvastatin 80 mg tablet 80 mg PO DAILY Qty: 90 3RF clopidogrel [Plavix] 75 mg tablet 75 mg PO DAILY Qty: 90 3RF losartan 100 mg tablet 100 mg PO DAILY Qty: 90 3RF Referrals / Follow Up: Joe Mak MD [Primary Care Provider] - Disposition Disposition (needs filled in before D/C Order can be placed): Home, Self Care
[2022-08-09 08:11] LABS: ALB/GLOB Ratio 1.3 RATIO (0.9-2.4); AST(SGOT) 21 U/L (15-37); Alanine Aminotransfer ALT/SGPT 26 U/L (16-61); Albumin, Serum 3.3 g/dL (3.2-5.0); Alkaline Phosphatase 67 U/L (45-117); Anion Gap 7 (5-15); BUN 32 mg/dL (7-18); BUN/Creat Ratio 22.2 RATIO (10-20); Calcium,Total 8.7 mg/dL (8.5-10.1); Chloride 111 mmol/L (98-107); Creatinine, Serum 1.44 mg/dL (0.70-1.30); EST Glomerular Filtration Rate 50 mL/min (>60); Est Glom Filt Rate - Afr Amer 60 mL/min (>60); Estimated Creatinine Clearance 40.84 ml/min; Globulin 2.6 g/dL (2.2-4.2); Glucose 117 mg/dL (74-106); Potassium 4.2 mmol/L (3.5-5.1); Protein, Total 5.9 g/dL (6.4-8.2); Sodium Level 140 mmol/L (136-145)
[2022-08-09 08:40] VITALS: BP 119/50; PULSE 53; RESP 16; TEMP 36.4; O2SAT 97
[2022-08-09] MEDS: Losartan Potassium 100 MG Tablet PO (08:44)
[2022-08-09] MEDS: Clopidogrel Bisulfate 75 MG Tablet PO (08:44)
[2022-08-09] MEDS: Aspirin E.C. 81 MG Tablet PO (08:44)
[2022-08-09] MEDS: amLODIPine 10 MG Tablet PO (08:44)
[2022-08-09] MEDS: Isosorbide Mononitrate 60 MG Tablet PO (08:44)
[2022-08-09] MEDS: glipiZIDE 5 MG Tablet PO (08:44)
[2022-08-09] MEDS: Cholecalciferol (Vit D3) 125 MCG CAPSULE (5,000 UNITS) PO (08:45)
[2022-08-09] MEDS: Atorvastatin Calcium 80 MG Tablet PO (08:47)
--- NOTE | 2022-08-09 09:46 | PHA.DC.MR ---
Pharmacy Service has performed discharge medication reconciliation for this patient. The patient's discharge medication list was reviewed for discrepancies and discrepancies were resolved. Home Medications glipizide 5 mg tablet 5 mg PO BID diabetic 07/08/21 nitroglycerin 0.4 mg sublingual tablet (Nitrostat) 0.4 mg sublingual Q5-15M PRN chest pain #25 tabs 08/30/21 sucralfate 100 mg/mL oral suspension (Carafate) 10 ml PO BID #1,000 mL 11/24/21 tramadol 100 mg tablet 100 mg PO DAILY #14 tabs 11/24/21 aspirin 81 mg tablet,delayed release (Teofilo Low Dose Aspirin) 81 mg PO DAILY 03/22/2022: Do not refill until pt calls #90 tabs 03/22/22 atorvastatin 80 mg tablet 80 mg PO DAILY 03/22/2022: Do not refill until pt. calls #90 tabs 03/22/22 clopidogrel 75 mg tablet (Plavix) 75 mg PO DAILY #90 tabs 07/11/22 losartan 100 mg tablet 100 mg PO DAILY #90 tabs 07/11/22 amlodipine 10 mg tablet 10 mg PO DAILY 03/22/22: Do not refill until pt calls #60 tabs 07/21/22 cholecalciferol (vitamin D3) 125 mcg (5,000 unit) capsule 125 mcg PO DAILY 07/21/22 isosorbide mononitrate 60 mg tablet,extended release 24 hr 60 mg PO DAILY 03/22/2022 Do not refill until pt. calls #60 tabs 07/21/22
--- NOTE | 2022-08-09 10:00 | EKG12_ITS ---
Test Reason : Blood Pressure : / mmHG Vent. Rate : 053 BPM Atrial Rate : 053 BPM P-R Int : 190 ms QRS Dur : 142 ms QT Int : 480 ms P-R-T Axes : 114 -39 023 degrees QTc Int : 450 ms Sinus bradycardia Left axis deviation Right bundle branch block Abnormal ECG When compared with ECG of 11-OCT-2021 11:28, Sinus rhythm has replaced Ectopic atrial rhythm Questionable change in QRS axis Confirmed by LEI GUTIERREZ, ANÍBAL ([id number]), greeting card editor BESSY GONZALEZ ([id number]) on 08/10/2022 9:15:32 AM Referred By: Aníbal Donaldson Confirmed By:ANÍBAL DONALDSON MD
--- NOTE | 2022-08-09 12:01 | CL.I_ITS ---
Patient Name: JOAQUIN DARDEN Study Date: 08/08/2022 Performing: Cortez Sinclair MD Ht: 70 inches 177.8 cm : 1940 Wt: 169.2 lbs 76.66 kg Age: 82 Gender: male BSA: 1.94 PROCEDURE(S) PERFORMED IC12-(47470/C9600)TATE W/WO PTCA, SINGLE CORONARY ARTERY IC12-(73278/C9600)TATE W/WO PTCA, SINGLE CORONARY ARTERY CLINICAL PROFILE AND CO-MORBIDITIES Indications: Suspected CAD Heart Failure: None Stress/Imaging Stress/Image Study Performed: No CAD Presentations: Unstable angina. CONCLUSIONS Successful TATE to pLAD and pRCA RECOMMENDATIONS DESCRIPTION OF PROCEDURE The patient arrived to the procedure lab. The risks and benefits of the procedure as well as a full description of our services here and current unavailability of surgical backup were fully explained to the patient and/or their significant other prior to the catheterization. The Timeout was completed, verifying the correct patient and procedure. The patient's procedural site was prepped and draped in the usual fashion. Local anesthetic was given subcutaneously to right radial region with Lidocaine 2% Using a modified Seldinger technique,arterial access was obtained via the right radial artery, a 6Fr sheath was inserted. Right Coronary Artery selective angiography was then performed in multiple views using a 5 Fr. 4.0 [place] catheter. Left Coronary Artery selective angiography was performed in multiple views using a 5 Fr. 4.0 [place] catheter. Left Ventriculography was performed in KAN projection using a 5 Fr. Pigtail catheter. LV to AO pullback pressures were then recorded.The images were reviewed and options discussed. A decision was then made to proceed with an Intervention, IVUS or other adjunct procedure. xb3 Guide catheter was inserted and engaged into the LCA. bmw Guide wire was advanced to the LAD. trevor 4.0 x 12 Drug Eluting stent was advanced across the lesion in the LAD, proximal. Angiogram performed post stent deployment. nc euphora 4.0 x 8 Balloon catheter was inserted post stent. Angiogram performed post balloon dilatation. bmw Guide wire was repositioned to the RCA jr4 Guide catheter was inserted and engaged into the RCA. svc euphora 3.0 x 15 Balloon catheter was advanced across lesion in the right coronary, proximal. PTCA balloon inflated at 10 atms for 11 secs. PTCA balloon inflated at 8 atms for 10 secs. trevor 3.5 x 18 Drug Eluting stent was advanced across the lesion in the right coronary, proximal. Angiogram performed post stent deployment. The arterial sheath was pulled and a TR Band was applied for hemostasis INTERVENTION INFORMATION LESION SITE: LAD (Proximal) Lesion Complexity: High/C, chronic total occlusion: No, lesion at bifurcation: No, thrombus present: No, lesion length: 12 mm, culprit lesion: Yes, Previously treated lesion: No Pre Stenosis: 85 % Pre intervention SIOBHAN flow: 3 PROCEDURE: Drug Eluting Stent with post dilatation Post Stenosis: 0 % Post intervention SIOBHAN flow: 3 Lesion Devices: Cordis 6 Fr XB3.0 100cm Guide Catheter Aparicio .014 190cm BMW [place] Straight Medtronic Resolute Trevor RX TATE 4.0x12 Medtronic NC EUPHORA RX 4.0x08 BALLOON LESION SITE: RCA (Proximal) Lesion Complexity: High/C, chronic total occlusion: No, lesion at bifurcation: No, thrombus present: No, lesion length: 15 mm, culprit lesion: Yes, Previously treated lesion: No Pre Stenosis: 80 % Pre intervention SIOBHAN flow: 3 PROCEDURE: Drug Eluting Stent with pre dilatation. Post Stenosis: 0 % Post intervention SIOBHAN flow: 3 Lesion Devices: Cordis 6 Fr JR4 100cm Guide Catheter Medtronic SC EUPHORA RX 3.0x15 BALLOON Medtronic Resolute [place] RX TATE 3.5x18 [employer] 6 Irish GuideLiner COMPLICATIONS No Complications PROCEDURE MEDICATIONS Versed 1 mg IV Fentanyl 50 mcg IV Oxygen: 2 L/min via nasal cannula Heparin given IA 08/08/2022 12:03:25 Heparin 3000 unit(s) IV 08/08/2022 12:29:18 Verapamil 2.5mg, Ntg 200mcgs, 2000 units of Heparin given IA 08/08/2022 12:03:25 SUMMARY OF HEMODYNAMIC DATA Time AIR REST ECG 10:35:36 AO 113/48 (76) SA 12:10:18 LV 125/5, 13 12:17:42 LV 133/4, 12 12:17:51 LV 135/4, 14 12:18:34 LV 131/4, 14 12:18:37 Signed By Cortez Sinclair MD On 08/09/2022 12:00:36 Cortez Sinclair MD
== END 2022-08-09 07:27 | disposition home or self-care (01) ==
LOC: PCU 13:29
PROVIDERS: Specialist; Admitting Provider Internal Medicine Cardiovascular Disease; PCP Family Medicine; Referring Provider Internal Medicine Cardiovascular Disease; Visit Provider Internal Medicine Cardiovascular Disease
DX: I25.110 Atherosclerotic heart disease of native coronary artery with unstable angina pectoris (principal); E11.9 Type 2 diabetes mellitus without complications; Z95.5 Presence of coronary angioplasty implant and graft; T82.855A Stenosis of coronary artery stent, initial encounter; Z79.899 Other long term (current) drug therapy; Z79.84 Long term (current) use of oral hypoglycemic drugs; Z79.82 Long term (current) use of aspirin; Z79.02 Long term (current) use of antithrombotics/antiplatelets; K21.9 Gastro-esophageal reflux disease without esophagitis; I10 Essential (primary) hypertension; E78.00 Pure hypercholesterolemia, unspecified; Z87.891 Personal history of nicotine dependence
CPT/HCPCS: 36415; 80053; 82962; 85027; 92928; 93005; 93458; 99152; 99153; 99221; J7040; Q9967; C1725; C1769; C1874; C1887; C1894; C9600; G0378

== ENCOUNTER → 2022-08-21 | Outpatient (CLI) | payer MEDICARE, OTHER, SELFPAY ==
[2021-10-31 09:46] VITALS: BMI 24.2
--- NOTE | 2022-08-21 14:29 | PCM.CR.HP2 ---
CR - History & Physical - General Arrival date:: 08/21/22 Arrival time:: 14:29 Date of Referral:: 08/08/22 Date of CR Evaluation:: 08/21/22 Referring Physician: Dr. Aníbal Donaldson Primary Diagnosis: PCI with stent - History of Present Cardiac Event Onset Date: Enter Onset Date of cardiac illnesses in Comment field below PTCA or coronary stenting:: Yes - 08/08/22 LAD Vessel: LAD - Sleep Disorder Evaluation Hx of Sleep Apnea: No Do you snore loudly (louder than talking or can be heard through closed doors)?: No Do you often feel tired/ fatigued/ sleepy during daytime?: No Has anyone observed you stop breathing during sleep?: No History of Hypertension (for STOP score): Yes STOP Results: Negative - Medications Home Medications: Ambulatory Orders Medication Instructions Recorded glipizide 5 mg tablet 5 mg PO BID diabetic 07/08/21 nitroglycerin 0.4 mg sublingual 0.4 mg sublingual Q5-15M PRN chest 08/30/21 tablet (Nitrostat) pain #25 tabs sucralfate 100 mg/mL oral 10 ml PO BID #1,000 mL 11/24/21 suspension (Carafate) tramadol 100 mg tablet 100 mg PO DAILY #14 tabs 11/24/21 aspirin 81 mg tablet,delayed 81 mg PO DAILY 03/22/2022: Do not 03/22/22 release (Teofilo Low Dose Aspirin) refill until pt calls #90 tabs atorvastatin 80 mg tablet 80 mg PO DAILY 03/22/2022: Do not 03/22/22 refill until pt. calls #90 tabs clopidogrel 75 mg tablet (Plavix) 75 mg PO DAILY #90 tabs 07/11/22 losartan 100 mg tablet 100 mg PO DAILY #90 tabs 07/11/22 amlodipine 10 mg tablet 10 mg PO DAILY 03/22/22: Do not 07/21/22 refill until pt calls #60 tabs cholecalciferol (vitamin D3) 125 125 mcg PO DAILY 07/21/22 mcg (5,000 unit) capsule isosorbide mononitrate 60 mg 60 mg PO DAILY 03/22/2022 Do not 07/21/22 tablet,extended release 24 hr refill until pt. calls #60 tabs - Allergies Allergies/Adverse Reactions: Allergies No Known Allergies Allergy (Verified 07/21/22 10:19) Advanced Directives - Advanced Directives Power of [place]: Yes Living Will: Yes Advance Directives Information Provided: Yes Advance Directives on File: Yes DNR Order?:: No Past Medical History - Covid-19 Screening 65 years or older:: Yes Has a serious heart condition:: Yes - Past Medical Illness Medical History: Past Medical History (Last Updated 08/08/22 @ 16:55 by Mikala Staton) Angina pectoris, unstable I20.0 CAD (coronary artery disease), [place] coronary artery I25.10 Left main heavily calcified with extension of calcification into LAD, left circumflex and a small ramus intermedius, Left main coronary artery had around 50% stenosis, tram-like calcification was noted into the left main as well as into the LAD. With the high-grade 90% stenosis of the proximal LAD involving the site of the Ist diagonal Also noted lesion involving the very septal branch ostial around 70% Rest of the LAD had no significant atherosclerosis, the left anterior descending artery large vessel reach all the way to the apex Ramus intermedius small vessel was ostium around 70% 3 the left circumflex large vessel calcified with a circumflex in the AV groove had distal lesion of around 70% and ostial lesion of around 50 to 60% RCA large dominant calcified proximally around 50% Distal RCA had around 20-30%, and the ostium and proximal RPDA had around 50% stenosis Diabetes E11.9 GERD (gastroesophageal reflux disease) K21.9 HTN (hypertension) I10 Hypercholesteremia E78.00 Kidney disease N28.9 Right carotid bruit R09.89 - Past Surgical History Surgical History: Past Surgical History (Last Updated 08/08/22 @ 16:55 by Mikala Staton) History of heart artery stent Z95.5 06/2021 [facility] History of placement of stent in LAD coronary artery Onset Date: ~08/08/22 Z95.5 Proximal LAD- TATE [place] 4.0 x12mm Hx of right coronary artery stent placement Onset Date: ~08/08/22 Z95.5 Proximal RCA-TATE [place] 3.5 x 18mm Social History - Smoking History Smoking Status: Former smoker Years Smokin Packs Smoked per Day: 3 Hx Smoking Cessation Date: 03/19/1966 Hx Tobacco Use: No - Alcohol Use Alcohol Usage: No - Substance Abuse Hx Substance Use: No - Occupation Occupation (List type of work in comments):: Retired - Hobbies, Recreation, Social Activities Hobbies: Woodworking Recreational Activities: I am able to engage in most, but not all activities Social Environment - Status Marital Status: - 2 - Current Living Arrangements Living Environment:: Spouse - Children How many children do you have?: 2 Do any of your children live nearby?: Yes - Safety Do you feel safe in your surroundings?: Yes - Assistance Do you need any assistance at home?: no Review of Systems - Review of Systems Hints: Right click = Denies (Slash). Left click = Reports ([place]) Review of Present Symptoms: Reports: Shortness of Breath with Exertion, PVD, Angina, Dizziness/Lightheadedness, Fatigue, Appetite - Normal, Appetite - Special Diet, Sleep - Normal. Denies: Shortness of Breath at Rest, Operative Discomfort, Wound Healing, Heart Arrhythmia/Irregularities, Sexual Changes - Pain Is Patient Pain Free?: No Pain Location: back, other - knee Pain Level: 07/26 Risk Factor Assessment - Vital Signs Pulse Ox: 96 Blood Pressure: 116/70 - Hypertension How long have you been treated?: 20 - Diabetes Diabetic History: Type II - declines nutrition therapy Nutrition Referral for Diabetes: No - Obesity Height: 5 ft 10 in Weight:: 76.657 kg Weight in Pounds: 169.0 lbs Body Mass Index (BMI): 24.2 Nutritional Referral for Obesity: No - Physical Inactivity Physical Inactivity: Reg Exercise 30 min/day - Risk Stratification Risk Guidelines: Lowest Risk: Risk Factor for Smoking, Moderate Risk: Risk Factor for Dyslipidemia, Risk Factor for Diabetes, Risk Factor for Obesity, Risk Factor for Hypertension, Risk Factor for Sedentary Lifestyle, Risk Factor for Depression Motivation - Motivation to Participate On a scale of 1 to 10, how prepared are you to commit to attending program?: 10 What do you see as barriers to successfully being able to complete the program?: nothing What do you see as the benefits of succesfully completing the program? In other words, what do you hope to get out of participating in the program?: more energy Are there issues you are dealing with that will interfere with completing the program?: no Do you have a spouse or signficant other, family or friends who will help support you to complete the program?: yes
[2022-08-21 15:15] VITALS: BP 116/70; O2SAT 96; BMI 24.2
--- NOTE | 2022-08-21 15:16 | PCM.CR.ITP ---
Diagnosis - General Information Admitting Diagnosis: PCI with stent Personal Learning Style:: Audio/Visual Gave educational material for:: Treating Heart Disease, Emotions & Heart Disease, Stress Management & Relaxation, Sleep Disorders & Heart Disease, How The Heart Works, What it means to have Heart Disease, How Coronary Artery Disease is Diagnosed, Heart Procedures, What Heart Medications Do, Risk Factors & Modifications, Living an Active Life, Nutrition - Education/Goals Cardiac Rehabilitation Goals: 1. Maintain the individual as the primary focus of care. 2. To improve the patient's quality of life. 3. Identification of cardiac risk factors and provide cardiac risk factor management. 4. Enhance the psychosocial status of the patient. 5. Reconditioning enough to allow the patient to resume customary activities. 6. Control symptoms of cardiac disease Personal Goals: Initial Assessment: Improve muscle strength and endurance, Control risk factors (learn risk factor modification) Scale for measuring improvement of personal goals: Enter appropriate number in Comments. 2 = Unchanged. 3 = Slightly Better. 4 = Moderate Improvement. 5 = Met my Goal - Diagnosis & Disease Process Outcomes/Goals: Pt IDs own risk factors & lifestyle modifications by Session 10, Verbalizes symptoms of angina & response by session 3., Pt independently manages, Other Additional Outcomes/Goals: Plan/Interventions: Assist Pt to ID & engage in lifestyle modification to reduce CVD risk, Instruct on individual risk factors, Review symptoms of angina & emergency actions, Review secondary diagnosis & identify educational needs., Other see comment 30 day Reassessments:: Not Met 30 day Reassessments:: Not Met 30 day Reassessments:: Not Met - Safety Referral to Physical Therapy: No Referral to [facility] Case Management: No Fall Risk Assessed:: Yes Assistive Devices:: None Exercise - Initial Assessment - Visit Date of Eval: 08/21/22 - initial eval Mets: Pre-: >3 METS for 30 minutes by discharge, >5 METS for 30 minutes by discharge, >7 METS for 30 minutes by discharge, Unable to meet goal due to: (see comment below) - Physician Prescribed Exercise Modalities: Treadmill, Rower, Airdyne, NuStep, SciFit, Lateral [place] Frequency: 3x/week for 12 weeks [36 sessions] Intensity: 60-80% of age predicted maximum heart rate reserve Current METSs:: 3 Target Heart Rate:: 89-103 Resting Blood Pressure: 116/70 EKG Type: SB - Outcomes & Goals Goals:: Verbalizes understanding of THR, RPE & goal METS by session 6, Documents in home exercise log/reports 30 min aerobic 5 day/wk by DC, Demonstrates accurate pulse taking by DC, Other additional outcome/goals: see below - Intervention & Plan Exercise Program Goals: Instruct on personal THR & RPE, Instruct on MET level & personal MET goal, Show patient to take own pulse /validate performance until accurate, Instruct on home exercise, Other additional plan/int - Physical Activity Home Exercise Physical Activity - Home Exercise: Safe Exercise, Warm-up, Self-monitoring, Cool-Down, Home Exercise > 30 min Daily, Sitting Time <3 hours/daily - Outcomes & Goals Outcomes/Goals: Demonstrates correct Warm-up/exercise Cool-Down (S3) if = 2.5 METs, Verbalizes symptoms of exercise intolerance by Session 3 (S3), Demonstrate safe equipment use (S3) & follows exercise prescrition (6), Other: See below - Intervention & Plan Plan/Intervention: Instruct warm-up & cool-down if exercising at > 2 METs, Instruct on symptoms of exercise intolerance & actions to take, Instruct & monitor on saf, Assess intial functional capacity & safety risk, Other See below Nutrition - Initial Assessment - Program Goals Nutrition Program Goals: LDL <100 optimal. 100 - 129 Near optimal. 130 - 159 Borderline High. 160 - 189 High. Total Cholesterol <200 desirable. 200 - 239 Borderline High. >/= 240 High. HDL < 40 Low >/=60 High. Triglycerides <150 desirable. <199 optimal. VlDL 5 - 40. HgbA1C <7%. BMI <25 Patient has diagnosis of Hyperlipidemia (ICD E78)?: Yes - Visit Date of Assessment:: 08/21/22 - initial eval - Cholesterol/Lipids (Other Core Measures) Determine presence & major risk factors that modify LDL goal: Cigarette smoking, Hypertension or hypertensive medication, Low HDL cholesterol <40 mg/dL*, Family history of premature CHD in Male < 55 years: female <65 yearsFa, Age men > 45 years; women >/= 55 years Outcomes/Goals: Pt IDs own risk factors & lifestyle modifications by Session 10, Verbalizes symptoms of angina & response by session 3., Pt independently manages, Other Additional Outcomes/Goals: Intervention/Plan: Advocate for lipid panel cholesterol medication if applicable, Instruct on personal lipid levels & lipid goals/NCEP guidelines, Instruct on cholesterol, Other additional plan/int Referral to dietitian:: No - declines - Diabetes (Other Core Measures) Diabetes Type: Diagnosis Type II ICD-10 E11 Non-Insulin Dependent?: Yes Outcomes/Goals:: Able to state symptoms of, Able to state, Able to state, Other additional - Healthy Eating Habits Will attend diet classes:: Yes Outcomes/Goals:: Consume diet rich in vegs,fruits,whole grain/high fiber,fish,lean meat, Limit sat/trans fats,cholesterol & added salts & sugars, Other additional outcome/goals: Intervention/Plan:: Assess current eating habits, Other Additional plan/interventions - Education Gave educational materials for:: Signs & symptoms of hypoglycemia, Signs & symptoms of hyperglycemia, Relate diabetes to coronary artery disease Nutrition - 30-Day Assessment Nutrition - 60-Day Assessment Nutrition - 90-Day Assessment Nutrition - Final Assessment Core - Initial Assessment - Visit Date of Eval: 08/21/22 - initial eval - Medication Compliance Preventative Medication(s):: Clopidogrel/P2Y12 inhibit, Statin/lipid, Beta tanisha, ARB (Angiotensi Rcap) H/O mental health issues: depression, anxiety, or addiction?: No Doesn?t believe in the benefits of treatment?: No Has a concern about medication side effects?: No Expresses concern over the cost of medications?: No Outcomes/Goals: Verbalizes medications,desired effect & common side effects @ DC, Pt self-reports following medication regimen, Keeps card in wallet w/medications listed by DC, Other additional outcome/goals: Interventions/plans: Instruct on medication effects & side effects, Review medication list w/patient every two weeks, Instruct importance of taking meds as ordered & assist problem solving, Other additional - Tobacco Use Tobacco Use: Non-smoker How long ago did you quit using tobacco products?: Greater than or equal to 6 months ago - Hypertension Hypertension Diagnosis:: Hypertension ICD-10 I10 Resting Blood Pressure:: 116/70 [place] [employer] Hypertension Guidelines: [place] [employer] Hypertension Guidelines. Normal BP Less than 120/80. Elevated BP 120/80. Hypertension Stage 1: BP 130-139/80-89. Hypertesnion Stage 2: BP 140 or higher/90 or higher. Hypertension Crisis: BP higher than 180/120 Outcomes/Goals: Able to verbalize/achieve optimal blood pressure <130/80, Incorporates diet changes & exercise for blood pressure control by DC, Other additional outcomes/goals Interventions/plan: Instruct on optimal blood pressure, hypertension & medications, Instruct on effects of sodium, alcohol, stress, exercise &hypertension, Other additional plan/interventions - Tobacco Cessation Referral Smoking Cessation Referral:: No Individual Education/Counseling:: No Education Schedule Given:: Yes Core - 30-Day Assessment Core - 60-Day Assessment Core - 90 Day Assessment Core - Final Assessment Psychosocial - Initial Assess - VIsit Date of Eval: 08/21/22 - initial eval History of previous Mental disease:: No - Outcomes/Goals: See list Psychosocial Outcomes/Goals:: ID's personal stressors & 2 strategies to manage stress by discharge, Other Additional outcome/goals: - Intervention/Plan: See List Interventions/Plan:: Assess stressors,coping strategies & signs of derpression on admission, Instruct/assist pt to develop coping & personal stress Mgt strategies, Refer to Behavioral Health if appropriate, Refer to Physician if appropriate, Instruct patient to recognize signs & symptoms of depression, Instruct patient to recog, Other additional plan/intervention Psychosocial - 30-Day Assess Psychosocial - 60-Day Assess Psychosocial - 90-Day Assess Psychosocial - Final Assessmen Patient Health Questionnaire Initial Assessment 1. Little interest or pleasure in doing things: More than half the days 2. Feeling down, depressed, or hopeless: Not at all 3. Trouble falling or staying asleep, or sleeping too much: Not at all 4. Feeling tired or having little energy: Nearly every day 5. Poor appetite or overeating: Not at all 6. Feeling bad about yourself -- or that you are a failure or have let yourself or your family down: Not at all 7. Trouble concentrating on things, such as reading the newspaper or watching television: Not at all 8. Moving or speaking so slowly that other people could have noticed. Or the opposite - being so fidgety or restless that you have been moving around a lot more than usual: Nearly every day 9. Thoughts that you would be better off , or of hurting yourself in some way: Several days How difficult have these problems made it for you to do your work, take care of things at home, or get along with other people?: Not difficult at all Total Score: 9 JENNIFER-Q SV Test - Statements CAD is a disease of the arteries in the heart: True Examples of risk factors for heart disease: False Angina is chest pain or discomfort: I Don't Know The benefits of resistance training include: False Eating more meat and dairy products: False Anti-platelet medications such as aspirin are important: True The only effective way to manage stress: False An exercise warm-up slowly increases heart rate: True Prepared, processed foods usually have high sodium: True Depression is common after a heart attack: True The statin medications lower cholesterol: True To control blood pressure, lower the amount of sodium: True If someone gets chest discomfort during walking: False Transfats are partially hydrogenated vegetable oils: False Sleep apnea that is not treated increases the risk: I Don't Know To control cholesterol, one should become a vegetarian: False Someone knows if he/she is exercising at the right level: True Diabetes cannot be prevented with exercise & health eating: False Stress is a large risk for heart attack: True A diet that can help lower blood pressure is rich in: True - Total Score Total Correct Responses: 14 Self-Efficacy Initial Assessment We would like to know how confident you are in doing certain activities. Please select your confidence level for:: Select your confidence level for the following using the scale 1-10 where 1 is not at all confident and 10 is totally confident. Your score is the average of all 6 responses. Fatigue: How confident are you that you can keep the fatigue caused by your disease from interfering with the things you want to do? Select Number: 5 Physical Discomfort or Pain: How confident are you that you can keep the physical discomfort or pain of your disease from interfering with the things you want to do? Select Number: 5 Emotional Distress: How confident are you that you can keep the emotional distress caused by your disease from interfering with the things you want to do? Select Number: 10 Other Symptoms or Health Problems: How confident are you that you can keep other symptoms or health problems from interfering with the things you want to do? Select Number: 9 Different Tasks and Activities: How confident are you that you can do the different tasks and activities needed to manage your health condition so as to reduce your need to see a doctor? Select Number: 10 Medication: How confident are you that you can do things other than just taking medication to reduce how much your illness affects your everyday life? Select Number: 10 Total Score:: 8 Nutrition Survey - Nutrition Survey Initial Have you lost >10 lbs over the past 2 months without trying?: No Are you following a special diet at home for diabetes, low fat, or low salt?: Yes Are you interested in meeting with a dietitian for help understanding your diet?: No Do you eat less than 3 meals a day?: No Do you eat fatty meats (mathur, sausage, ribs, etc), fried foods, desserts, large amounts of salad dressings, margarine, butter, or cheese most days?: No Do you have food allergies? [Enter types in comment field]: No Do you eat in restaurants more than 3 times a week?: No Do you season food with salt, seasoning salt, or garlic salt?: No Do you used canned, boxed, frozen meals, or soups, seasoning packets?: No Total Score:: 1
[2022-08-21 15:28] VITALS: BP 116/70
== END | disposition home or self-care (01) ==
LOC: CR 14:26
PROVIDERS: PCP Family Medicine; Referring Provider Internal Medicine Cardiovascular Disease; Visit Provider Internal Medicine Cardiovascular Disease
DX: Z95.5 Presence of coronary angioplasty implant and graft (principal); E11.9 Type 2 diabetes mellitus without complications; I10 Essential (primary) hypertension; I25.10 Atherosclerotic heart disease of native coronary artery without angina pectoris; K21.9 Gastro-esophageal reflux disease without esophagitis; E78.00 Pure hypercholesterolemia, unspecified; N28.9 Disorder of kidney and ureter, unspecified; R09.89 Other specified symptoms and signs involving the circulatory and respiratory systems; Z87.891 Personal history of nicotine dependence; R06.02 Shortness of breath; R42 Dizziness and giddiness; R53.83 Other fatigue

== ENCOUNTER 2022-09-15 08:00 | Outpatient (RCR) | payer MEDICARE, OTHER, SELFPAY ==
[2021-10-31 09:46] VITALS: BMI 24.2
== END 2022-09-15 23:59 ==
LOC: CR 08:00
PROVIDERS: PCP Family Medicine; Referring Provider Internal Medicine Cardiovascular Disease; Visit Provider Internal Medicine Cardiovascular Disease
DX: Z95.5 Presence of coronary angioplasty implant and graft (principal)
CPT/HCPCS: 93798

== ENCOUNTER → 2022-10-13 | Outpatient (CLI) | payer MEDICARE, OTHER, SELFPAY ==
[2021-10-31 09:46] VITALS: BMI 24.2
[2022-09-20 11:18] VITALS: BMI 24.6
--- NOTE | 2022-10-13 09:25 | ART_ITS ---
Reason For Study: PVD Procedure A bilateral lower extremity continuous wave Doppler with analog waveform analysis,segmental pressures,and ankle brachial indexes without exercise. Left Segmental Pressures Left brachial= 110mmHg. Left posterior tibial artery = 116mmHg. Left dorsalis pedis artery = 129mmHg. Left digit = 57 mmHg. Right Segmental Pressures Right brachial= 116mmHg. Right posterior tibial artery = 128mmHg. Right dorsalis pedis artery = 130mmHg. Right digit = 54 mmHg. Indices The right ankle brachial index by the posterior tibial artery is 1.10. The right ankle brachial index by the dorsalis pedis is 1.12. The right digital-brachial index is 0.47. The left ankle brachial index by the posterior tibial artery is 1.00. The left ankle brachial index by the dorsalis pedis is 1.11. The left digital-brachial index is 0.49. VL/Lower Ext Art Exam w/o Exercis Interpretation Summary Right MEME 1.12, normal. Doppler/PVR waveforms of the right leg normal at rest. TBI diminished, pedal/digit disease vs spasm Left MEME 1.11, normal. Doppler/PVR waveforms of the left leg normal at rest. TB I diminished, pedal/digit disease vs spasm Ordering Physician: Ventura Berry Referring Physician: Joe Mak Performed By: Serena Burns RDCS/RVT
== END | disposition home or self-care (01) ==
LOC: CVS 09:24
PROVIDERS: PCP Family Medicine; Referring Provider Surgery Trauma Surgery; Visit Provider Surgery Trauma Surgery
DX: R09.89 Other specified symptoms and signs involving the circulatory and respiratory systems (principal)
CPT/HCPCS: 93923

== ENCOUNTER 2022-10-16 08:00 | Outpatient (RCR) | payer MEDICARE, OTHER, SELFPAY ==
[2021-10-31 09:46] VITALS: BMI 24.2
--- NOTE | 2022-09-20 11:07 | PCM.CR.ITP ---
Exercise - Initial Assessment Visit Session #:: 12 Nutrition - Initial Assessment Visit Session #:: 12 Weight Mgt (Other Care) Height: 5 ft 10 in Weight:: 171 lb 8 oz BMI: 24.6 Core - Initial Assessment Visit Session #:: 12 Psychosocial - Initial Assess VIsit Session #:: 12 Target Goals Target Goals Patient Health Questionnaire PHQ-9 Screening 30-Day Re-eval Assessment: 1. Little interest or pleasure in doing things: More than half the days 2. Feeling down, depressed, or hopeless: Not at all 3. Trouble falling or staying asleep, or sleeping too much: Not at all 4. Feeling tired or having little energy: Nearly every day 5. Poor appetite or overeating: Not at all 6. Feeling bad about yourself -- or that you are a failure or have let yourself or your family down: Not at all 7. Trouble concentrating on things, such as reading the newspaper or watching television: Not at all 8. Moving or speaking so slowly that other people could have noticed. Or the opposite - being so fidgety or restless that you have been moving around a lot more than usual: Nearly every day Total Score: 8 Self-Efficacy 6-Item Scale 30-Day Re-eval Assessment: We would like to know how confident you are in doing certain activities. Please select your confidence level for: Fatigue Select Number: 5 Physical Discomfort or Pain Select Number: 5 Emotional Distress Select Number: 10 Other Symptoms or Health Problems Select Number: 9 Different Tasks and Activities Select Number: 10 Medication Select Number: 10 Total Score:: 8 Nutrition Survey Nutrition Survey Instructions Scoring Instructions Exercise - 30-day Assessment Visit Date of Eval: 09/20/22 Session #:: 12 Physician Prescribed Exercise Modalities: Treadmill, NuStep and Lateral [place] Frequency: 3x/week for 12 weeks [36 sessions] Intensity: 60-80% of age predicted maximum heart rate reserve Current METSs:: 4 Target Heart Rate:: 89-103 Current RPE:: 12 Maximum Excercise HR:: 81 Resting Blood Pressure: 98/46 Maximum Exercise Blood Pressure: 110/40 EKG Type: 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 Outcomes & Goals Goals:: Verbalizes understanding of THR, RPE & goal METS by session 6, Documents in home exercise log/reports 30 min aerobic 5 day/wk by DC, Demonstrates accurate pulse taking by DC and Other additional outcome/goals: see below Intervention & Plan Exercise Program Goals: Instruct on personal THR & RPE, Instruct on MET level & personal MET goal, Show patient to take own pulse /validate performance until accurate, Instruct on home exercise and Other additional plan/int 30-day Reassessments 30 day Reassessments:: Progressing Reassessment Notes & Comments:: pulse taking demonstrated Physical Activity Home Exercise Physical Activity - Home Exercise: Safe Exercise, Warm-up, Self-monitoring, Cool-Down, Home Exercise > 30 min Daily and Sitting Time <3 hours/daily Outcomes & Goals Outcomes/Goals: Demonstrates correct Warm-up/exercise Cool-Down (S3) if = 2.5 METs, Verbalizes symptoms of exercise intolerance by Session 3 (S3), Demonstrate safe equipment use (S3) & follows exercise prescrition (6) and Other: See below Intervention & Plan Plan/Intervention: Instruct warm-up & cool-down if exercising at > 2 METs, Instruct on symptoms of exercise intolerance & actions to take, Instruct & monitor on saf, Assess intial functional capacity & safety risk and Other See below 30-day Reassessments 30 day Reassessments:: Progressing Reassessment Notes & Comments:: safe exercise class attended Nutrition - 30-Day Assessment Program Goals Nutrition Program Goals Patient has diagnosis of Hyperlipidemia (ICD E78)?: Yes Visit Date of Eval: 09/20/22 Session #:: 12 Cholesterol/Lipids (Other Core Measures) Determine presence & major risk factors that modify LDL goal: Cigarette smoking, Hypertension or hypertensive medication, Low HDL cholesterol <40 mg/dL*, Family history of premature CHD in Male < 55 years: female <65 yearsFa and Age men > 45 years; women >/= 55 years Outcomes/Goals: Pt IDs own risk factors & lifestyle modifications by Session 10, Verbalizes symptoms of angina & response by session 3., Pt independently manages and Other Additional Outcomes/Goals: Intervention/Plan: Advocate for lipid panel cholesterol medication if applicable, Instruct on personal lipid levels & lipid goals/NCEP guidelines, Instruct on cholesterol and Other additional plan/int Referral to dietitian:: No (declines) 30-day Reassessments:: Progressing Reassessment Notes & Comments:: pt to attend nutrition class Diabetes (Other Core Measures) Diabetes Type: Diagnosis Type II ICD-10 E11 Outcomes/Goals:: Able to state symptoms of, Able to state, Able to state and Other additional Intervention/Plan:: Instruct on, Refer to, Instruct on and Other Weight Mgt (Other Care) Height: 5 ft 10 in Weight:: 171 lb 8 oz BMI: 24.6 Diagnosis Overweight/Obesity BMI> 30% ICD-10 E66: No Diagnosis High BMI/Morbid Obesity BMI> 35% ICD-10 Z68: No Outcomes/Goals: Pt sets, maintains & shows weight loss goal & trend during rehab and Other additional outcomes/goals Intervention/Plan: Instruct on ideal BMI & set weight loss goal w/patient, Assist pt to ID & incorporate diet changes for weight loss by S9, Refer to Structured Weight Loss program as appropriate, Encourage goal of using 250-300dcal per session for weight loss and Other additional plan/interventions 30 day Reassessments:: Progressing Reassessment Notes & Comments:: pt to attend nutrition class Healthy Eating Habits Will attend diet classes:: Yes Outcomes/Goals:: Consume diet rich in vegs,fruits,whole grain/high fiber,fish,lean meat, Limit sat/trans fats,cholesterol & added salts & sugars and Other additional outcome/goals: 30-day Reassessments:: Progressing Reassessment Notes & Comments:: pt to attend nutrition class Education Gave educational materials for:: Signs & symptoms of hypoglycemia, Signs & symptoms of hyperglycemia, Relate diabetes to coronary artery disease and Healthy eating Nutrition - 60-Day Assessment Weight Mgt (Other Care) Height: 5 ft 10 in Weight:: 171 lb 8 oz BMI: 24.6 Core - 30-Day Assessment Visit Date of Eval: 09/20/22 Session #:: 12 Medication Compliance Preventative Medication(s):: Clopidogrel/P2Y12 inhibit, Statin/lipid, Beta tanisha and ARB (Angiotensi Rcap) H/O mental health issues: depression, anxiety, or addiction?: No Doesn?t believe in the benefits of treatment?: No Believes medications are unnecessary or harmful?: No Has a concern about medication side effects?: No Expresses concern over the cost of medications?: No Outcomes/Goals: Verbalizes medications,desired effect & common side effects @ DC, Pt self-reports following medication regimen, Keeps card in wallet w/medications listed by DC and Other additional outcome/goals: Interventions/plans: Instruct on medication effects & side effects, Review medication list w/patient every two weeks, Instruct importance of taking meds as ordered & assist problem solving and Other additional 30-day Reassessments:: Met Tobacco Use Tobacco Use: Non-smoker Hypertension Hypertension Diagnosis:: Hypertension ICD-10 I10 Resting Blood Pressure:: 98/46 [place] [employer] Hypertension Guidelines Outcomes/Goals: Able to verbalize/achieve optimal blood pressure <130/80, Incorporates diet changes & exercise for blood pressure control by DC and Other additional outcomes/goals Interventions/plan: Instruct on optimal blood pressure, hypertension & medications, Instruct on effects of sodium, alcohol, stress, exercise &hypertension and Other additional plan/interventions 30 day Reassessments:: Met Tobacco Cessation Referral Smoking Cessation Referral:: No Individual Education/Counseling:: No Education Schedule Given:: Yes Psychosocial - 30-Day Assess VIsit Date of Eval: 09/20/22 Session #:: 12 History of previous Mental disease:: No Target Goals Target Goals Psychosocial - 60-Day Assess Target Goals Target Goals Psychosocial - 90-Day Assess Target Goals Target Goals Psychosocial - Final Assessmen Target Goals Target Goals Nutrition - 90-Day Assessment Weight Mgt (Other Care) Height: 5 ft 10 in Weight:: 171 lb 8 oz BMI: 24.6 Nutrition - Final Assessment Weight Mgt (Other Care) Height: 5 ft 10 in Weight:: 171 lb 8 oz BMI: 24.6
[2022-09-20 11:18] VITALS: BP 98/46; BMI 24.6
== END 2022-10-16 23:59 ==
LOC: CR 08:00
PROVIDERS: PCP Family Medicine; Referring Provider Internal Medicine Cardiovascular Disease; Visit Provider Internal Medicine Cardiovascular Disease
DX: Z95.5 Presence of coronary angioplasty implant and graft (principal)
CPT/HCPCS: 93798

== ENCOUNTER 2022-11-15 08:00 | Outpatient (RCR) | payer MEDICARE, OTHER, SELFPAY ==
[2022-09-20 11:18] VITALS: BMI 24.6
[2022-10-17 00:21] VITALS: BP 98/46
--- NOTE | 2022-10-20 07:23 | CR.ITP_ITS ---
Nutrition - Initial Assessment Weight Mgt (Other Care) Height: 5 ft 10 in Weight:: 173 lb 8 oz BMI: 24.9 Psychosocial - Initial Assess Target Goals Target Goals Referral to Behavioral Health PS - Interventions: Yes: Attend Stress Management Classes and No: Referral to Behavioral Health if PHQ-9 score >9:, No: Referral to [facility] and No: Referral to Physician if PHQ-9 if score is 5-9: Patient Health Questionnaire PHQ-9 Screening 60-Day Re-eval Assessment: 1. Little interest or pleasure in doing things: Not at all 2. Feeling down, depressed, or hopeless: Not at all 3. Trouble falling or staying asleep, or sleeping too much: Not at all 4. Feeling tired or having little energy: Several days 5. Poor appetite or overeating: Not at all 6. Feeling bad about yourself -- or that you are a failure or have let yourself or your family down: Not at all 7. Trouble concentrating on things, such as reading the newspaper or watching television: Not at all 8. Moving or speaking so slowly that other people could have noticed. Or the opposite - being so fidgety or restless that you have been moving around a lot more than usual: Several days 9. Thoughts that you would be better off , or of hurting yourself in some way: Not at all How difficult have these problems made it for you to do your work, take care of things at home, or get along with other people?: Somewhat difficult Total Score: 2 Self-Efficacy 6-Item Scale 60-Day Re-eval Assessment: We would like to know how confident you are in doing certain activities. Please select your confidence level for: Fatigue Select Number: 6 Physical Discomfort or Pain Select Number: 8 Emotional Distress Select Number: 10 Other Symptoms or Health Problems Select Number: 9 Different Tasks and Activities Select Number: 10 Medication Select Number: 10 Total Score:: 8 Nutrition Survey Nutrition Survey Instructions Scoring Instructions Exercise - 60-day Assessment Visit Date of Eval: 10/20/22 Session #:: 23 Physician Prescribed Exercise Modalities: Treadmill, NuStep and Lateral Windows Vmware Administrator Frequency: 3x/week for 12 weeks [36 sessions] Intensity: 60-80% of age predicted maximum heart rate reserve Duration: 30 - 45 minutes Current METSs:: 5.0 Target Heart Rate:: 89-103 Current RPE:: 11-13 Maximum Excercise HR:: 88 Resting Blood Pressure: 98/44 Maximum Exercise Blood Pressure: 144/50 EKG Type: SB to sinus rhythm with BBB and rare PACs. Current Physical Activity or Exercising minutes: 42:32 Outcomes & Goals Goals:: Verbalizes understanding of THR, RPE & goal METS by session 6, Documents in home exercise log/reports 30 min aerobic 5 day/wk by DC and Demonstrates accurate pulse taking by DC Intervention & Plan Exercise Program Goals: Instruct on personal THR & RPE, Instruct on MET level & personal MET goal, Show patient to take own pulse /validate performance until accurate and Instruct on home exercise 30-day Reassessments 30 day Reassessments:: Met Physical Activity Home Exercise Physical Activity - Home Exercise: Safe Exercise, Warm-up, Self-monitoring, Cool-Down, Home Exercise > 30 min Daily and Sitting Time <3 hours/daily Outcomes & Goals Outcomes/Goals: Demonstrates correct Warm-up/exercise Cool-Down (S3) if = 2.5 METs, Verbalizes symptoms of exercise intolerance by Session 3 (S3) and Demonstrate safe equipment use (S3) & follows exercise prescrition (6) Intervention & Plan Plan/Intervention: Instruct warm-up & cool-down if exercising at > 2 METs, Instruct on symptoms of exercise intolerance & actions to take, Instruct & monitor on saf and Assess intial functional capacity & safety risk 30-day Reassessments 30 day Reassessments:: Met Nutrition - 30-Day Assessment Weight Mgt (Other Care) Height: 5 ft 10 in Weight:: 173 lb 8 oz BMI: 24.9 Nutrition - 60-Day Assessment Program Goals Nutrition Program Goals Patient has diagnosis of Hyperlipidemia (ICD E78)?: Yes Visit Date of Eval: 10/20/22 Session #:: 23 Cholesterol/Lipids (Other Core Measures) Total Triglycerides (mg/dL): 116 Total Cholesterol: 115 LDL Cholesterol (mg/dL): 54 HDL Cholesterol (mg/dL): 38 Determine presence & major risk factors that modify LDL goal: Hypertension or hypertensive medication, Low HDL cholesterol <40 mg/dL*, Family history of premature CHD in Male < 55 years: female <65 yearsFa and Age men > 45 years; women >/= 55 years Outcomes/Goals: Pt IDs own risk factors & lifestyle modifications by Session 10, Verbalizes symptoms of angina & response by session 3. and Pt independently manages Intervention/Plan: Instruct on personal lipid levels & lipid goals/NCEP guidelines and Instruct on cholesterol Referral to dietitian:: Yes 30-day Reassessments:: Progressing Diabetes (Other Core Measures) Diabetes Type: Not Applicable Weight Mgt (Other Care) Not Applicable: Yes Height: 5 ft 10 in Weight:: 173 lb 8 oz BMI: 24.9 Diagnosis Overweight/Obesity BMI> 30% ICD-10 E66: No Diagnosis High BMI/Morbid Obesity BMI> 35% ICD-10 Z68: No Outcomes/Goals: Pt sets, maintains & shows weight loss goal & trend during rehab Intervention/Plan: Instruct on ideal BMI & set weight loss goal w/patient 30 day Reassessments:: Met Healthy Eating Habits Will attend diet classes:: Yes Outcomes/Goals:: Consume diet rich in vegs,fruits,whole grain/high fiber,fish,lean meat and Limit sat/trans fats,cholesterol & added salts & sugars Intervention/Plan:: Assess current eating habits Education Gave educational materials for:: Healthy eating Core - 60-Day Assessment Visit Date of Eval: 10/20/22 Session #:: 23 Medication Compliance Preventative Medication(s):: Aspirin, Clopidogrel/P2Y12 inhibit, Statin/lipid and Beta tanisha H/O mental health issues: depression, anxiety, or addiction?: No Doesn?t believe in the benefits of treatment?: No Believes medications are unnecessary or harmful?: No Has a concern about medication side effects?: No Expresses concern over the cost of medications?: No Outcomes/Goals: Verbalizes medications,desired effect & common side effects @ DC, Pt self-reports following medication regimen and Keeps card in wallet w/medications listed by DC Interventions/plans: Instruct on medication effects & side effects, Review medication list w/patient every two weeks and Instruct importance of taking meds as ordered & assist problem solving 30-day Reassessments:: Met Tobacco Use Tobacco Use: Non-smoker Hypertension Hypertension Diagnosis:: Hypertension ICD-10 I10 Resting Blood Pressure:: 98/44 [place] [employer] Hypertension Guidelines Peak Exercise Blood Pressure:: 144/50 Outcomes/Goals: Able to verbalize/achieve optimal blood pressure <130/80 and Incorporates diet changes & exercise for blood pressure control by DC Interventions/plan: Instruct on optimal blood pressure, hypertension & medications and Instruct on effects of sodium, alcohol, stress, exercise &hypertension 30 day Reassessments:: Met Tobacco Cessation Referral Smoking Cessation Referral:: No Individual Education/Counseling:: No Education Schedule Given:: Yes Psychosocial - 30-Day Assess Target Goals Target Goals Referral to Behavioral Health PS - Interventions: Yes: Attend Stress Management Classes and No: Referral to Behavioral Health if PHQ-9 score >9:, No: Referral to [facility] and No: Referral to Physician if PHQ-9 if score is 5-9: Outcomes/Goals: See list Psychosocial Outcomes/Goals:: ID's personal stressors & 2 strategies to manage stress by discharge Psychosocial - 60-Day Assess VIsit Date of Eval: 10/20/22 Session #:: 23 Not Applicable: Yes History of previous Mental disease:: No Target Goals Target Goals Psychosocial Test Tool Used:: PHQ-9 Questionnaire phq-9 Severity Referral to Behavioral Health PS - Interventions: Yes: Attend Stress Management Classes and No: Referral to Behavioral Health if PHQ-9 score >9:, No: Referral to [facility] and No: Referral to Physician if PHQ-9 if score is 5-9: Outcomes/Goals: See list Psychosocial Outcomes/Goals:: ID's personal stressors & 2 strategies to manage stress by discharge Intervention/Plan: See List Interventions/Plan:: Assess stressors,coping strategies & signs of derpression on admission, Instruct/assist pt to develop coping & personal stress Mgt strategies, Instruct patient to recognize signs & symptoms of depression and Instruct patient to recog 30-day Reassessments: 30 day Reassessments:: Progressing Psychosocial - 90-Day Assess Target Goals Target Goals Referral to Behavioral Health PS - Interventions: Yes: Attend Stress Management Classes and No: Referral to Behavioral Health if PHQ-9 score >9:, No: Referral to [facility] and No: Referral to Physician if PHQ-9 if score is 5-9: Psychosocial - Final Assessmen Target Goals Target Goals Referral to Behavioral Health PS - Interventions: Yes: Attend Stress Management Classes and No: Referral to Behavioral Health if PHQ-9 score >9:, No: Referral to [facility] and No: Referral to Physician if PHQ-9 if score is 5-9: Nutrition - 90-Day Assessment Weight Mgt (Other Care) Height: 5 ft 10 in Weight:: 173 lb 8 oz BMI: 24.9 Nutrition - Final Assessment Weight Mgt (Other Care) Height: 5 ft 10 in Weight:: 173 lb 8 oz BMI: 24.9
[2022-10-20 07:30] VITALS: BP 98/44; BMI 24.9
== END 2022-11-16 23:59 ==
LOC: CR 08:00
PROVIDERS: PCP Family Medicine; Referring Provider Internal Medicine Cardiovascular Disease; Visit Provider Internal Medicine Cardiovascular Disease
DX: Z95.5 Presence of coronary angioplasty implant and graft (principal)
CPT/HCPCS: 93798

== ENCOUNTER 2022-11-17 06:01 | Outpatient (RCR) | payer MEDICARE, OTHER, SELFPAY ==
[2022-10-20 07:30] VITALS: BMI 24.9
[2022-11-17 00:30] VITALS: BP 98/44; BP 98/46
== END 2022-12-16 23:59 ==
LOC: CR 06:01
PROVIDERS: PCP Family Medicine; Referring Provider Internal Medicine Cardiovascular Disease; Visit Provider Internal Medicine Cardiovascular Disease
DX: Z95.5 Presence of coronary angioplasty implant and graft (principal); I25.10 Atherosclerotic heart disease of native coronary artery without angina pectoris
CPT/HCPCS: 93798

== ENCOUNTER → 2022-11-27 | Outpatient (CLI) | payer MEDICARE, OTHER, SELFPAY ==
[2022-10-20 07:30] VITALS: BMI 24.9
[2022-11-27 11:01] LABS: AST(SGOT) 22 U/L (15-37); Alanine Aminotransfer ALT/SGPT 35 U/L (16-61); Albumin, Serum 3.4 g/dL (3.2-5.0); Alkaline Phosphatase 73 U/L (45-117); Bilirubin, Direct 0.18 mg/dL (0.00-0.30); Cholesterol 104 mg/dL (200); Globulin 3.2 g/dL (2.2-4.2); High Density Lipoprotein 57 mg/dL; Protein, Total 6.6 g/dL (6.4-8.2); Triglycerides 67 mg/dL; Very Low Density Lipoprotein 13 mg/dL (5-40)
== END | disposition home or self-care (01) ==
LOC: LAB 09:42
PROVIDERS: PCP Family Medicine; Referring Provider Physician Assistant Medical; Visit Provider Physician Assistant Medical
DX: E78.00 Pure hypercholesterolemia, unspecified (principal); I10 Essential (primary) hypertension
CPT/HCPCS: 36415; 80061; 80076

== ENCOUNTER → 2022-12-25 | Outpatient (CLI) | payer MEDICARE, OTHER, SELFPAY ==
[2021-10-31 09:46] VITALS: BMI 24.2
[2022-10-20 07:30] VITALS: BMI 24.9
[2022-12-25 12:02] LABS: Albumin, Serum 3.4 g/dL (3.2-5.0); BUN 29 mg/dL (7-18); BUN/Creat Ratio 15.8 RATIO (10-20); Calcium,Total 9.2 mg/dL (8.5-10.1); Chloride 105 mmol/L (98-107); Creatinine, Serum 1.84 mg/dL (0.70-1.30); EST Glomerular Filtration Rate 38 mL/min (>60); Est Glom Filt Rate - Afr Amer 46 mL/min (>60); Glucose 225 mg/dL (74-106); Phosphorus 3.6 mg/dL (2.5-4.9); Potassium 4.1 mmol/L (3.5-5.1); Sodium Level 137 mmol/L (136-145)
[2022-12-25 13:49] LABS: Protein, Urine (Random) 30.3 mg/dL (<11.9); Protein:Creat Ratio 81 mg/g CRE (0-200)
== END | disposition home or self-care (01) ==
LOC: LAB 09:56
PROVIDERS: PCP Family Medicine; Referring Provider Internal Medicine Nephrology; Visit Provider Internal Medicine Nephrology
DX: E11.22 Type 2 diabetes mellitus with diabetic chronic kidney disease (principal); N18.30 Chronic kidney disease, stage 3 unspecified
CPT/HCPCS: 36415; 80069; 82570; 84156

== ENCOUNTER → 2023-02-02 | Outpatient (CLI) | payer MEDICARE, OTHER, SELFPAY ==
[2022-10-20 07:30] VITALS: BMI 24.9
[2023-02-02 09:07] LABS: Albumin, Serum 3.5 g/dL (3.2-5.0); BUN 24 mg/dL (7-18); Calcium,Total 8.5 mg/dL (8.5-10.1); Chloride 110 mmol/L (98-107); Creatinine, Serum 1.41 mg/dL (0.70-1.30); EST Glomerular Filtration Rate 51 mL/min (>60); Est Glom Filt Rate - Afr Amer 62 mL/min (>60); Glucose 151 mg/dL (74-106); Phosphorus 3.4 mg/dL (2.5-4.9); Potassium 3.7 mmol/L (3.5-5.1); Sodium Level 141 mmol/L (136-145)
== END | disposition home or self-care (01) ==
LOC: LAB 07:53
PROVIDERS: PCP Family Medicine; Referring Provider Internal Medicine Nephrology; Visit Provider Internal Medicine Nephrology
DX: N17.9 Acute kidney failure, unspecified (principal); N18.30 Chronic kidney disease, stage 3 unspecified
CPT/HCPCS: 36415; 80069

== ENCOUNTER 2023-04-02 18:07 | Inpatient (IN) | payer MEDICARE, OTHER, SELFPAY ==
[2022-10-20 07:30] VITALS: BMI 24.9
[2023-04-02 18:08] VITALS: BP 136/72; PULSE 71; RESP 16; TEMP 36; O2SAT 98
[2023-04-02 19:06] LABS: Absolute Lymphocyte Count 1.56 X10^3/uL (0.83-4.51); Absolute Neutrophil Count 3.4 X10^3/uL (2.0-7.7); Basophil# 0.06 X10^3/uL; Eosinophil# 0.56 X10^3/uL; Eosinophils% 8.9 % (0-5); Hematocrit 35.4 % (40-54); Hemoglobin 11.4 g/dL (13.0-16.5); Lymphocyte # 1.56 X10^3/ul (0.83-4.51); Lymphocyte % 24.8 % (19-41); Mean Corp Hgb Conc 32.2 g/dL (32-36); Mean Corpuscular Hgb 29.2 pg (27.0-32.0); Mean Corpuscular Volume 90.8 fL (80-94); Mean Platelet Vol. 8.6 fl (6.2-12.0); Monocyte# 0.71 X10^3/uL; Monocyte% 11.3 % (0-10); NRBC Flagged by Analyzer 0 % (0-5); Neutrophil # 3.38 X10^3/uL (2.7-7.7); Neutrophil % 53.8 % (47-70); Platelet Count 203 K/mm3 (150-450); RBC Distribution Width CV 13.6 % (11.6-14.6); RBC Distribution Width SD 45.1 fl (35.1-43.9); White Blood Count 6.3 K/mm3 (4.4-11.0)
[2023-04-02 19:24] LABS: Anion Gap 9 (5-15); BUN 34 mg/dL (7-18); BUN/Creat Ratio 16.8 RATIO (10-20); Calcium,Total 8.8 mg/dL (8.5-10.1); Chloride 105 mmol/L (98-107); Creatinine, Serum 2.02 mg/dL (0.70-1.30); EST Glomerular Filtration Rate 34 mL/min (>60); Est Glom Filt Rate - Afr Amer 41 mL/min (>60); Glucose 284 mg/dL (74-106); Potassium 3.6 mmol/L (3.5-5.1); Sodium Level 140 mmol/L (136-145)
[2023-04-02 20:06] VITALS: BMI 24.6
[2023-04-02 20:10] VITALS: RESP 18
--- NOTE | 2023-04-02 20:19 | EX.ED.DYSGE1 ---
HPI History of Present Illness Chief Complaint: GI Bleed [facility] Medical History Angina pectoris, unstable CAD (coronary artery disease), [place] coronary artery Diabetes GERD (gastroesophageal reflux disease) HTN (hypertension) Hypercholesteremia Kidney disease Right carotid bruit Home Medications glipizide 5 mg tablet 5 mg PO BID diabetic 07/08/21 [History Last Taken 04/02/23] aspirin 81 mg tablet,delayed release (Teofilo Low Dose Aspirin) 81 mg PO DAILY 03/22/2022: Do not refill until pt calls #90 tabs 03/22/22 [Rx Last Taken 04/02/23] clopidogrel 75 mg tablet (Plavix) 75 mg PO DAILY #90 tabs 07/11/22 [Rx Last Taken 04/02/23] cholecalciferol (vitamin D3) 125 mcg (5,000 unit) capsule 125 mcg PO DAILY 07/21/22 [History Last Taken 04/02/23] isosorbide mononitrate 60 mg tablet,extended release 24 hr 60 mg PO DAILY 03/22/2022 Do not refill until pt. calls #60 tabs 07/21/22 [Rx Last Taken 04/02/23] atorvastatin 80 mg tablet 80 mg PO DAILY #90 tabs 09/22/22 [Rx Last Taken 04/01/23] amlodipine 5 mg tablet 5 mg PO DAILY Dose decreased #90 tabs 01/08/23 [Rx Last Taken 04/02/23] losartan 50 mg tablet 50 mg PO DAILY Dose decreased #90 tabs 01/08/23 [Rx Last Taken 04/02/23] Allergy/AdvReac Type Severity Reaction Status Date / Time No Known Allergies Allergy Verified 04/02/23 18:07 Surgical History History of heart artery stent History of placement of stent in LAD coronary artery (~08/08/22) Hx of right coronary artery stent placement (~08/08/22) Social History Smoking Status: Former smoker EXAM Physical Exam Const Vital Signs: 04/02/23 18:08 04/02/23 20:10 04/02/23 21:42 Temperature 96.8 F L 96.2 F L Temperature Source Temporal Pulse Rate 71 61 Respiratory Rate 16 18 16 Blood Pressure 136/72 H 150/77 H Blood Pressure Mean 93 101 Pulse Ox 98 97 Oxygen Delivery Method Room Air Room Air [facility] [place] Medical decision making narrative: HISTORY OF PRESENT ILLNESS: 82-year-old male presents with concern for GI bleed. States he noted dark stool. Denies taking blood thinners notes he takes aspirin and Plavix. REVIEW OF SYSTEMS: Pertinent positives: Dark stool Pertinent negatives: Abdominal pain, chest pain, shortness of breath PHYSICAL EXAM: Nursing triage notes reviewed, Vital signs reviewed Constitutional: please see mdm HENT: MMM Eyes: Pupils equal round and reactive to light, Extraocular muscles intact Neck: No stridor, no JVD, full neck ROM Lungs: Clear to auscultation, No wheezing or rales. No increased work of breathing, no conversational dyspnea, no accessory muscle use, no nasal flaring. No respiratory distress noted Heart: Regular rate and rhythm, No murmurs, No rubs and No gallops, 2+ distal pulses (radial, femoral, posterior tibial) in all extremities Abdomen: Soft, there is no tenderness, rigidity, rebound or guarding, no obvious peritoneal signs, no palpable pulsatile abdominal masses, no auscultated abdominal bruit : No CVAT rectal exam: (Performed property management bookkeeper) with dried bright blood. Extremities: No edema Neuro: No focal neurological deficits, cranial nerves II through XII intact, 5/5 strength in all extremities. Intact sensation to light touch in all extremities, 2+ reflexes bilateral patella tendons. Normal gait. No ataxia. Skin: No rash or lesions noted MEDICAL DECISION MAKING: Chief Complaint: GI bleed External records reviewed: Last GI visit in 2021 Factors affecting care: CAD status post stent, type 2 diabetes, hypertension, hyperlipidemia Social determinants of health: Elderly History obtained from others: The patient's Consults: Gastroenterology, internal medicine [facility] Narrative: Patient was hemodynamically stable, afebrile, nontoxic-appearing. Patient had multiple episodes of copious bloody bowel movements here proximally 60 cc x 2. I considered the following differential diagnosis: Peptic ulcer disease, GI bleed, anemia, arrhythmia ALL IMAGES (IF OBTAINED) HAVE BEEN PERSONALLY REVIEWED AND INTERPRETED BY MYSELF. CBC with leukocytosis, noted worsening anemia approximately 1.5 g/dL decreased from last study, no thrombocytopenia BMP without electrolyte abnormalities, no anion gap,, no CAMELIA Hemoccult test is positive The synthesis of the patient history, physical exam suggest a relatively brisk GI bleed. He is hemodynamically stable otherwise did not require emergent transfusion at this time. Did talk to Dr. Hirsch GI doctor. Dr. Hirsch agreed to evaluate the patient on urgent basis. Spoke with the hospitalist who recommend admitting the patient to the ICU. Dr. Scherer recommended obtaining type and screen, and giving Protonix. These were ordered. The patient and/or family, caregivers express understanding. The patient and/or family, caregivers agrees with the plan. Shared decision making: I will have a discussion with the patient and or visitors regarding risk/benefits of further testing or admission. They will be made aware of of the risk/benefits inherent in this decision they will be given the opportunity to voice understanding. Total critical care time today provided was at least 0 minutes. This excludes separately billable procedures. Critical care time (if documented) is secondary to the patient having high probability of clinically significant/life threatening deterioration in the patient's condition which required my urgent intervention. Impression: 1. GI bleed 2. Acute kidney injury 3. Antiplatelet therapy Dispo: Admit to ICU Lab Data Labs: Laboratory Results - last 24 hr 04/02/23 19:00 WBC 6.3 RBC 3.90 L Hgb 11.4 L Hct 35.4 L MCV 90.8 MCH 29.2 MCHC 32.2 RDW Std Deviation 45.1 H RDW Coeff of Jose Miguel 13.6 Plt Count 203 MPV 8.6 Immature Gran % (Auto) 0.200 Neut % (Auto) 53.8 Lymph % (Auto) 24.8 [place] % (Auto) 11.3 H Eos % (Auto) 8.9 H Baso % (Auto) 1.0 Absolute Neuts (auto) 3.4 Absolute Lymphs (auto) 1.56 Nucleated RBC % 0 Sodium 140 Potassium 3.6 Chloride 105 Carbon Dioxide 26.0 Anion Gap 9 BUN 34 H Creatinine 2.02 H Est GFR (MDRD) Af Amer 41 L Est GFR (MDRD) Non-Af 34 L BUN/Creatinine Ratio 16.8 Glucose 284 H Calcium 8.8 Discharge Plan Triage Chief Complaint: GI Bleed ED Provider: Teja Cruz Dx/Rx/DC Orders Prescriptions: No Action cholecalciferol (vitamin D3) 125 mcg (5,000 unit) capsule 125 mcg PO DAILY isosorbide mononitrate 60 mg tablet extended release 24 hr 60 mg PO DAILY Qty: 60 3RF glipizide 5 mg tablet 5 mg PO BID Patient Comments: TAKE 1 TABLET BY MOUTH TWICE DAILY aspirin [Teofilo Low Dose Aspirin] 81 mg tablet,delayed release (DR/EC) 81 mg PO DAILY Qty: 90 3RF clopidogrel [Plavix] 75 mg tablet 75 mg PO DAILY Qty: 90 3RF atorvastatin 80 mg tablet 80 mg PO DAILY Qty: 90 3RF losartan 50 mg tablet 50 mg PO DAILY Qty: 90 3RF amlodipine 5 mg tablet 5 mg PO DAILY Qty: 90 3RF Primary Care Provider: Joe Mak Referrals: Joe Mak MD [Primary Care Provider] - Capacity Legal [employer] Shift Superintendent Reflex Medical hold order details:: IF a medical hold is selected below, a suggested order for a MEDICAL HOLD will reflex upon signing the document. Next of kin: [place] law dictates a PRIORITY LIST for identifying legal decision-maker/legal next of kin in the following order (LNOK): 1st: The patient?s legal guardian, if any 2nd: The patient's spouse (if status is questionable, consult Risk Management) 3rd: The patient?s adult child(georges) (majority, if multiple children) 4th: The patient?s parents 5th: The patient?s adult siblings (majority, if multiple children siblings)
--- OUTSIDE RECORDS SUMMARY | 2023-04-02 20:58 | XMS RPT_ITS | CCD ---
Author Name Unknown Address [address] [place] [address] Organization [facility] Care Team Providers Care Bilingual Teacher Assistant Name Role Phone Jovanna Osuna NP Unavailable [phone] NOVY, MIRTA MCCORD Admitting Unavailable ADA SEARS Attending Unavailable NOVY, MIRTA MCCORD Referring Unavailable BROWN, JOE F Primary Care Unavailable NOVY, MIRTA MCCORD Admitting Unavailable RAJESH HENRY Attending Unavailable NOVY, MIRTA MCCORD Referring Unavailable BROWN, JEO F Primary Care Unavailable NOVY, MIRTA MCCORD Admitting Unavailable MH DIAB, CLASSROOM Attending Unavailable NOVY, MIRTA MCCORD Referring Unavailable BROWN, JOE F Primary Care Unavailable NOVY, MIRTA MCCORD Admitting Unavailable MH DIAB, CLASSROOM Attending Unavailable NOVY, MIRTA MCCORD Referring Unavailable BROWN, JOE F Primary Care Unavailable NOVY, MIRTA MCCORD Admitting Unavailable MH DIAB, CLASSROOM Attending Unavailable NOVY, MIRTA MCCORD Referring Unavailable ZAHRAA, JOE F Primary Care Unavailable NOVY, MIRTA MCCORD Admitting Unavailable MH DIAB, CLASSROOM Attending Unavailable NOVY, MIRTA MCCORD Referring Unavailable BROWN, JOE F Primary Care Unavailable NOVY, MIRTA MCCORD Admitting Unavailable RAJESH HENRY Attending Unavailable NOVY, MIRTA MCCORD Referring Unavailable BROWN, JOE F Primary Care Unavailable Jovanna Osuna NP Unavailable [phone] Unavailable Primary Care Provider UnavailKAYLEIGH Peñaloza Referring Unavailable PROVIDER, UNKNOWN Attending Unavailable PROVIDER, UNKNOWN Admitting Unavailable BARB CASAS Referring Unavailable PROVIDER, UNKNOWN Attending Unavailable PROVIDER, UNKNOWN Admitting Unavailable JOE MAK Admitting Unavailable ZAHRAA, JOE Primary Care Unavailable JOE MAK Consulting Unavailable JOE MAK Attending Unavailable PROVIDER, UNKNOWN Consulting Unavailable PROVIDER, UNKNOWN Consulting Unavailable PROVIDER, UNKNOWN Consulting Unavailable Joe Mak MD Primary Care Provider JOE MAK Referring Unavailable JOE MAK Primary Care Unavailable WILLY VELIZ Attending Unavailable Joe Mak MD Unavailable [facility] Unavailable [phone] Endocrinology Provider Unavailable Unavailab bandar Neurology Provider Unavailable Unavailable Harjinder GUTIERREZ, Dr. Eckert Unavailable [facility] Unavailable [facility] Unavailable Darling GUTIERREZ, Dr. Lemus Unavailable Ghassan HALE, Dr. Hillary Aceves Unavailable [phone] [facility] Unavailable [place]ham SECURITY ROVER, Cara Shipman Unavailable Unavailable Kelvin SECURITY ROVER, Yennifer Unavailable Unavailable Eliceo MUJICA, Zhanna Unavailable Unavailable Kd PRADHANN, Carey Unavailable Unavailable Griffin CHATTERJEE, Janice Hancock Unavailable Unavaila ble Ankush SECURITY ROVER, Rodolfo Unavailable Unavailable Kemi Rey RN Unavailable [place]augh SECURITY ROVER, Kirsten K Unavailable Unavai labbandar Hines, Annika R Unavailable Unavailable Dumont, Lavonne L Unavailable Raúl COAT FELLER, Esther Unavailable Unavailable Connor SECURITY ROVER, Jacinta M Unavailable Unavailab le [place] SECURITY ROVER, Rosalee Garcia Unavailable Unavailab bandar Taylor MD, Felipe Hancock Unavailable Gianna Acharya Unavailable Unavailable Vess SECURITY ROVER, Neilee L Unavailable Unavailable Wengerd SECURITY ROVER, Lisa Unavailable Unavailabl e Zaugg SECURITY ROVER, Annika Unavailable Unavailable Unavailable Unavailable Allergies Allergy Classification Reported Allergen(s) Allergy Type Date of Onset Reaction(s) Facility (3 sources) Grass pollen; Translations: [GRASS POLLEN] Drug Intolerance 5 Intolerance [facility] Medications Current Medications Medication Drug Class(es) Dates Sig (Normalized) Sig (Original) clopidogrel 75 mg oral tablet (1 source) P2Y12 Platelet Inhibitor take 1 tablet by mouth once daily Clopidogrel Bisulfate 75 MG Oral Tablet ; 1 daily (75 MG) dicyclomine hydrochloride 10 mg oral capsule (1 source) Anticholinergic Start: 01-09-2022 take 1 capsule by mouth three times daily as needed for pain Dicyclomine HCl 10 MG Oral Capsule ; 1 (one) Capsule tid prn abdominal pain for 0 days Quantity: 60 {Capsule} Refills: 0 Ordered: 09-Jan-2022 KRISTY Ryan Kenneth Start: 09-Jan-2022 escitalopram 5 mg oral tablet (2 sources) Serotonin Reuptake Inhibitor Start: 03-23-2022 End: 03-24-2023 take 1 tablet by mouth once daily for anxiety escitalopram oxalate (LEXAPRO) 5 mg tablet TAKE ONE TABLET BY MOUTH EVERY DAY FOR REPEATED EPISODES OF ANXIETY 0 03/23/2022 03/24/2023 Active Completed/Discontinued Medications Medication Drug Class(es) Dates Sig (Normalized) Sig (Original) acarbose 25 mg oral tablet (3 sources) alpha-Glucosidase Inhibitor Start: 09-16-2010 End: 11-05-2012 PRECOSE 25 MG TABS ACARBOSE [id number] Kenan Shelton DO Problems Active Problems Problem Classification Problem Date Documented Da te Episodic/Chronic Abdominal pain (16 sources) Abdominal pain, epigastric; Translations: [Generalized abdominal pain] 03-31-2021 Episodic Administrative/social admission (9 sources) Issue of repeat prescriptions 03-31-2021 Episodic Anxiety disorders (5 sources) Anxiety disorder; Translations: [Anxiety disorder, unspecified] 03-31-2021 Chronic Chronic kidney disease (13 sources) Chronic kidney disease stage 3; Translations: [Chronic kidney disease, Stage III (moderate)] 10-04-2022 Chronic Chronic obstructive pulmonary disease and bronchiectasis (2 sources) Bronchitis; Translations: [Bronchitis, not specified as acute or chronic] 03-31-2021 Episodic Coronary atherosclerosis and other heart disease (7 sources) Coronary arteriosclerosis; Translations: [Atherosclerotic heart disease of [place] coronary artery without angina pectoris] Onset: 04-21-2022 Chronic Past or Other Problems Problem Classification Problem Date Documented Date Episodic/Chronic Biliary tract disease (2 sources) Intramural calcification of gallbladder; Translations: [Other specified diseases of gallbladder] Onset: 11-17-2009 Episodic Other and unspecified benign neoplasm (3 sources) Hemangioma of skin; Translations: [Skin - benign mole and nevus] Onset: 01-06-2011 01-06-2011 Episodic Other and unspecified benign neoplasm (1 source) Skin - benign mole and nevus; Translations: [Other benign neoplasm of skin, unspecified] Onset: 01-06-2011 01-06-2011 Episodic Other nutritional; endocrine; and metabolic disorders (2 sources) Body mass index (BMI) 26.0-26.9, adult; Translations: [Body mass index (BMI) 26.0-26.9, adult] Onset: 07-31-2016 07-31-2016 Episodic Other skin disorders (3 sources) Actinic keratosis; Translations: [Lentigo] Onset: 01-06-2011 01-06-2011 Episodic Other skin disorders (1 source) Lentigo; Translations: [Other melanin hyperpigmentation] Onset: 01-06-2011 01-06-2011 Episodic Unclassified (1 source) Consultation - Would like to discuss off and on abdominal pain. No constipation or diarrhea. Has been going to Dr Nolan. Is taking Tramadol as needed for pain. Pain is worse when he is upright feels better supine. 01-10-2022 Unclassified (1 source) Follow up consultation - The patient is here to follow-up after hospitalization ([facility] with chest pain (heart cath)) on : (07-11-21 to 07-13-21). Note for Consultation follow-up : Just started driving today, but feeling light headed. Seen cap inspector, Dr. Holguin's MATH INSTRUCTOR, on 07/19/2021. Patient brought list of blood sugar readings. Is to be on new (thinks it is insulin) medication but was never called in so has not started. 07-20-2021 Unclassified (1 source) [ADDITIONAL REASON] Transition into care - The patient is transitioning into care from a hospital and a summary of care was reviewed. 07-20-2021 Unclassified (1 source) Elevated blood sugars - The past several weeks fasting blood sugars have ranged from 164 to 215. Also thinks he has been taking two Amlodipine instead of one daily. Insurance will not fill new rx. reviewed by [facility] 04-18-2021 Unclassified (1 source) Follow up diagnostic procedure results - Diagnostic tests performed on : (06/14/2018) include other (Echocardiogram). 06-21-2018 Unclassified (1 source) Dizziness - The onset of the dizziness has been acute and has been occurring in a persistent pattern for months. The course has been increasing. The dizziness is characterized as lightheadedness. The dizziness is precipitated by standing suddenly. There has been associated neck pain, neck stiffness and visual changes (flashing lights yesterday), while there has been no associated nausea, vomiting, headache, fever, tinnitus or ear pain. The dizziness is relieved by lying still. Note for Dizziness : Complains of extreme fatigue and weakness and generalized pain. We recently increased glyburide but sx predate that. get sob very easily. No CP. Sx are worsening. 06-12-2018 Unclassified (1 source) Follow Up for Multiple Chronic Conditions - The patient is here for follow-up of chronic kidney disease, depression, diabetes, hyperlipidemia and hypertension. The patient always takes the prescribed medications. No side effects noted (no refill needed today.). The patient has low activity level and no regular exercise program (states difficult to walk due to heel spur of left foot, was seen by foot doctor yesterday). The patient's glucose levels are monitored several time(s) a month (occasionally, brought list of readings), out of office blood pressure checks occur occasionally (brought list of readings) and dietary compliance is fairly good usually adhering to recommendations. The patient states that there is no recent angina or dyspnea, weight has increased (7#) and headaches are rarely noted. Note for Multiple chronic conditions follow-up : Last blood work was 12/18/2017 through [facility], last lipid 04/2017.Metformin was stopped at last office visit due to decreased RF . EGFR was down to 29 and Cr up to 2.2. Once stopping metformin his Cr dropped to 1.4 and EGFR was u to 49. Patient started taking again about 1 week ago, is up to taking 1 tab BID. reviewed by [facility] 01-25-2018 Unclassified (1 source) Cold Symptoms - Symptoms include nasal congestion, runny nose, ear fullness, sore throat, productive cough, fever, chills and headache. The onset was sudden 2 week(s) ago. The symptoms occur constantly. The patient describes this as moderate in severity and unchanged. Current treatment includes non-prescription cold medication. Risk factors do not include smoking. The patient has not been exposed to an individual with similar symptoms. Note for Upper respiratory infection : reviewed by [facility] 02-26-2017 Unclassified (1 source) Elevated Glucose - Patient is here today with the complain of elevated glucose. He checks his blood sugar at home and is noticing an increase. He is seeing technology engineer at [facility] but he has not been satisifed w results. 10-04-2016 Unclassified (1 source) Follow up consultation - The patient is here to follow-up after a consult ([facility]) on : (05/12/16 and several times after ). Note for Consultation follow-up : Patient went to a routine visit at the [facility] and they advised his blood pressure was elevated and they changed his medications. They d/c his enalapril and placed him on losartan 50mg qd. His bp remains elevated and he is here today for follow up. reviewed by [facility] 06-16-2016 Unclassified (1 source) DIscuss Medications - Pt here today just to discuss some of his medications. He is currently on Foltanx bid it costs him 45.00 for 6o tabs ( 1 month supply) and its just too expensive. Wants to discuss an alternative.He also has some Vitamins with him that he has taken for years. He takes Red Rice yeast 600 mg bid; Prostate Health 3 tabs daily; Berberine Glucogold 1 tab tid; CoQ 10 100 mg daily; Vitamin D3 once a day 1000 IU; B COmplex daily. He just wants to make sure he is taking these correctly and that all are needed.He also recently had labs done at [facility] and has results that he would like to discuss. reviewed by [facility] 11-15-2015 Unclassified (1 source) Diarrhea - The onset of the diarrhea has been sudden (come upon quickly.) and has been occurring for 3 weeks. The course has been increasing (worse daily than other days.). The stools are watery. The frequency of bowel movements has been 5 per day (better get to the toilet right after eating or drinking.). The volume of the stools is small. The symptoms have been associated with abdominal pain (when he has to use the bathroom.). Note for Diarrhea : He has hx of dumping ever since GB surgery. he took immodium and it slowed him somewhat. 08-19-2014 Unclassified (1 source) Abdominal pain - The onset of the abdominal pain has been acute and has been occurring in a persistent pattern for 4 weeks. The pain is described as a moderate dull ache and pressure sensation. The pain is located in the lower abdomen and radiates to the back. The symptoms have no relieving factors. There has been no associated constipation, dysuria, heartburn or nausea. Note for Abdominal pain : Pain seems to start lower back and radiates to lower abdomen. No sx w urination. Pt has had divertivulitis but this feels different. No fevers. 07-21-2013 Unclassified (1 source) Follow up consultation - The patient is here to follow-up after Emergency Room/Urgent Care ([facility] with diagnosis of non traumatic left shoulder pain.) on : (08-14-11). Note for Follow up consultation : Continues with left shoulder pain but it is not as severe as yesterday. In ER cardiac enzymes and EKG were normal . Chest and abdominal CTs wer basically normal. There were some mediastinal abnormalities that were read as fat deposits ( also an AVM of R lower lobe ). Pain is 70 % better. He reports pain is much worse w deep inspiration. 08-15-2011 Unclassified (1 source) Abdominal pain - The onset of the pain has been acute and has been occurring in an intermittent pattern for 1 month. The course has been recurrent. The pain is described as a moderate pressure sensation and gnawing. The pain is located in the epigastrium and radiates to the back (on occasion.). The symptoms are aggravated by meals (1/2 to 1 hour after eating) and lying down. There has been no associated constipation or diarrhea. Note for Abdominal pain : Pain is worse after eating in epigatrium and radiation to the back and right. He is under increased stress since staring on building a home. MOM did not help, no other meds tried. 06-13-2011 Unclassified (1 source) Follow up for multiple chronic conditions - The patient is here for follow-up of hypertension, hyperlipidemia and diabetes. The patient always takes the prescribed medications. No side effects noted. The patient engages in regular exercise program 1-3 times per week. The patient's glucose levels are monitored daily (this morning was 140), out of office blood pressure checks occur rarely and dietary compliance is fairly good usually adhering to recommendations. Note for Follow up for multiple chronic conditions : pt has no c/o at this time. at last vist we stopped zocor and pt is due for labs today 05-10-2011 Unclassified (1 source) Right flank pain - Continues with right flank pain for a couple of months. No improvement. Kidney u/s was normal. No relation to eating or drinking. has hx of GB removal in past. Pain catches at times gladys w rotational movements.Last just a few seconds w sharp pain but otherwise has a contnuous dull ache in R flank. 10-05-2010 Unclassified (1 source) Ellieutinantolin - 69 year old here today for routine check up for diabetes, cholesterol and HTN. States that whenever he takes his sugars at home they are always running in the 200's. Currently on Metformin 500 bid and precose 25 mg tid with meals. States that he feels ok even with the high sugars. Was dizzy once when it was elevated but otherwise no sympotms. FBS today 217. HGB A1C 8.6 today.Has been fasting for cholesterol today. On zocor 40 mg daily for this. Denies any chest pain or sob.On enalopril 20 mg bid for htn. Does not monitor these at home and today BP [id number]. Denies headache or swelling of ewxtrmities.Has no major concerns or issues today. Is not able to exericise on regular basis with weather lately but looking forward to spring when he can get out and move around. 05-27-2010 Unclassified (1 source) Rt little finger laceration - Fell lastnight and injured rt little finger. Laceration on end of finger. 03-23-2010 Results Test Name Value Interpretation Reference Range Facil ity Vital Signs Date Time Vital Sign Value Performing Clinician Sri joshi 11-07-2022 12:45-0400 Body height 177.8 cm Willy Veliz MD Work Phone: [facility] 11-07-2022 12:45-0400 Body weight 78.47 kg Willy Veliz MD Work Phone: [facility] 11-07-2022 12:45-0400 Diastolic blood pressure 62 mm[Hg] Willy Veliz MD Work Phone: [facility] 11-07-2022 12:45-0400 Heart rate 54 /min Willy Veliz MD Work Phone: [facility] 11-07-2022 12:45-0400 Systolic blood pressure 115 mm[Hg] Willy Veliz MD Work Phone: [facility] 10-04-2022 08:03-0400 Body weight 77.11 kg Rodolfo Le[facility]uga [facility]PN [facility]. 10-04-2022 08:03-0400 Diastolic blood pressure 53 mm[Hg] Rodolfo Lechuga LPN [facility]. Encounters Encounter Date Encounter Type Care Provider Facility Start: 11-07-2022 End: 11-07-2022 ambulatory JOE MAK Facility:[facility] Start: 11-07-2022 End: 11-07-2022 Patient encounter procedure Willy Veliz MD Work Phone: [facility] Procedures Date Procedure Procedure Detail Performing Clinician Start: 10-04-2022 End: 10-04-2022 Adv care pln/ no alt dcsn mkr docd or refusal Joe Mak MD Work Phone: Start: 10-04-2022 End: 10-04-2022 Depression screening Joe Mak MD Work Phone: Start: 10-04-2022 End: 10-04-2022 Falls risk assessment documented Joe Mak MD Work Phone: Start: 10-04-2022 End: 10-04-2022 PPPS, subseq visit Joe Mak MD Work Phone: Start: 10-04-2022 End: 10-04-2022 Pt falls assess docd w/o fall/injury past year Joe Mak MD Work Phone: Start: 10-04-2022 End: 10-04-2022 Scr dep neg, no plan reqd Joe Mak MD Work Phone: Start: 09-28-2022 End: 09-28-2022 Hemoglobin A1c/Hemoglobin.total in Blood Rodolfo Lechuga LPN Plan of Treatment Date Care Activity Detail Author Start: 04-04-2023 Patient encounter procedure Medical; RTN OFFICE VISIT - 6 MTH F[facility] Start: 04-Apr-2023 8:10 MD Joe Mak [facility]ment [facility] Start: 03-27-2023 Nursing evaluation of patient and report Medical; Nurse visit - fasting labs - [facility] Start: 27-Mar-2023 8:00 NURSE, FLOAT Appointment Request [facility] Start: 11-17-2022 Influenza vaccination INFLUENZA (#1) [facility] Start: 03-19-2022 ADVANCE DIRECTIVE DISCUSSION ADVANCE DIRECTIVE DISCUSSION [facility] Start: 03-19-2022 DEPRESSION ASSESSMENT DEPRESSION ASSESSMENT [facility] Start: 03-15-2021 COVID-19 Vaccine (4 - Booster for Pfizer series) COVID-19 Vaccine (4 - Booster for Pfizer series) [facility] Start: 03-15-2021 COVID-19 VACCINE (4 - Pfizer series) COVID-19 VACCINE (4 - Pfizer series) [facility] Start: 07-21-2019 Hemoglobin A1c/Hemoglobin.total in Blood HBA1C [facility] Start: 07-31-2016 End: 08-06-2016 *CMP Complete Metabolic Panel *CMP Complete Metabolic Panel [facility] Work Phone: Start: 07-31-2016 End: 08-06-2016 *Microalbumin, Creatine Ratio, rand urine *Microalbumin, Creatine Ratio, rand urine [facility] Work Phone: Start: 07-31-2016 End: 08-06-2016 HbA1c *HgA1C [facility] Work Phone: Start: 07-31-2016 End: 08-06-2016 Lipid panel [AGGREGATE] *Lipid Profile [facility] Work Phone: Start: 2005 PNEUMOCOCCAL: 65+ (1 - PCV) PNEUMOCOCCAL: 65+ (1 - PCV) [facility] Start: 1990 Shingles (RZV) Vaccine (1 of 2) Shingles (RZV) Vaccine (1 of 2) [facility] Start: 1990 SHINGRIX VACCINE (1 of 2) SHINGRIX VACCINE (1 of 2) [facility] Start: 06-28-1959 Tetanus vaccination Tetanus (Td or Tdap) Booster [facility] Start: 04-11-1960 Urine microalbumin profile DTAP,TDAP,TD (1 - Tdap) [facility] Start: 1958 Hepatitis B surface antibody level LDL CHOLESTEROL [facility] Start: 1958 Tetanus + diphtheria + acellular pertussis vaccine (product) Tdap Booster [facility] Start: 1950 3 comp foot exam completed DIABETIC FOOT EXAM [facility] Start: 1950 Hepatitis B screening URINE ALBUMIN:CREATININE RATIO [facility] Start: 1950 Hepatitis C antibody, confirmatory test DILATED RETINAL EXAM [facility] Start: 1946 PNEUMOCOCCAL: 65+ (1 - PCV) PNEUMOCOCCAL: 65+ (1 - PCV) [facility] Start: 1940 COVID-19 VACCINE (#1) COVID-19 VACCINE (#1) [facility] Immunizations Immunization Date Immunization Notes Care Provider Fa cili 01-30-2022 influenza, high dose seasonal, preservative-free Joe Mak MD Work Phone: [facility]; [facility] 01-30-2022 Influenza, injectabl e, high-dose seasonal, quadrivalent, 0.7 mL, preservative free (LHG=337) Kayleigh Merchant WEB COMMUNICATIONS SPECIALIST-DEVELOPMENT ARCHITECT Work Phone: [facility] 01-18-2021 COVID-Pfizer (30 MCG/0.3 ML) Joe Mak MD [facility] 01-04-2021 Influenza, injectabl e, high-dose seasonal, quadrivalent, 0.7 mL, preservative free (HZL=116) Kayleigh Merchant WEB COMMUNICATIONS SPECIALIST-DEVELOPMENT ARCHITECT Work Phone: [facility] 05-10-2020 COVID-Pfizer (30 MCG/0.3 ML) Joe Mak MD Work Phone: [facility] 04-15-2020 COVID-Pfizer (30 MCG/0.3 ML) Joe Mak MD Work Phone: [facility]; [facility] 12-23-2019 influenza virus vaccine, unspecified formulation Joe Mak MD Work Phone: [facility] 12-23-2019 influenza, injectabl e, quadrivalent, preservative free Kayleigh Merchant WEB COMMUNICATIONS SPECIALIST-DEVELOPMENT ARCHITECT Work Phone: [facility] 12-23-2019 influenza, injectabl e, quadrivalent, contains preservative Joe Mak MD Work Phone: [facility] Payers Date Payer Category Payer Unknown [id number] 2005 Medicare [id number] 2005 Medicare [id number] 2005 Department of [facility] e (SHERRY and others) [id number] 2005 Unknown [id number] 1940 Unknown [id number] 1940 Unknown [id number] 1940 Unknown [id number]. 1940 Unknown [id number]. 1940 Unknown [id number]. 1940 Unknown [id number]. 1940 Unknown [id number]. 1940 Unknown [id number] Social History Date Type Detail Facility Tobacco smoking stat [facility] Start: 1940 [facility] Start: 09-28-2010 Tobacco smoking stat [facility] Ex-smoker [facility] Work Phone: History of tobacco use Current smoker [facility] Work Phone: History of tobacco use Cigarette Smoker [facility] [place] Work Phone: Start: 09-28-2010 End: 11-07-2022 Cigarettes smoked current (pack per day) - Reported 1 [facility] Start: 09-28-2010 Tobacco use and exposure Smokeless tobacco non-user [facility] Work Phone: Start: 11-02-2021 End: 11-07-2022 Alcohol intake Current non-drinker of alcohol (finding) [facility] Start: 11-02-2021 End: 11-07-2022 Tobacco use panel [facility] Alcohol Use: Alcohol Use: ; Occasional [facility] use. [facility] Exercise History: Exercise Histo ry: ; Light. [facility]; [facility] Tobacco Use: Tobacco Use: ; F ormer smoker. [facility]; [facility] Work Phone: Occasional alcohol use [facility]; [facility] Work Phone: Medical Equipment Procedure Code Equipment Code Equipment Origin al Text Equipment Identifier Dates Blood Glucose Te st In Vitro Strip ; 1 (one) Strip Strip daily for 0 days Quantity: 100 {Strip} Refills: 6 Ordered: 27-May-2019 KRISTY Dias Rocio Start: 08-Jan-2015 End: 27-May-2019 Status: Inactive Comments: DM 250/E11.9Precision Extra Strips [id number] Start: 01-08-2015 End: 05-27-2019 Goals Date Patient Goal Desired Activity /State 03-27-2018 Progress note 11-07-2022 Note Date & Type Note Facility 11-07-2022 Note HNO ID: [id number] Author: Willy Veliz MD Service: ? Author Type: Physician Type: Progress Notes Filed: 11/07/2022 1:53 PM Note Text: Referring Provider: Joe Mak MD Date: November 07, 2022 Chief Complaint: Tremors HISTORY OF PRESENT ILLNESS: Joaquin Barajas is a 82 year old male who presents for Tremors. He is a right handed, man. Patient resides with his . He is independent in his personal care. He feels safe and confident in himself. He is also followed by cardiology. He denies smoking or alcohol use. Patient presents today for shaking of his hands that he noticed following his second stent placement in July 2022. He does not feel that one is worse than another. It has affected his writing but other cassidy he denies it stopping him from doing anything. He states that when he looks at it the shakes will stop. He can not recall any other family members that have had this sort of shaking. I, Tracy Iraheta MA, transcribing for Willy Veliz MD. ALLERGIES Allergen Reactions Grass Pollen Intolerance PAST MEDICAL HISTORY: PAST MEDICAL HISTORY Diagnosis Date Depression Diabetes (HCC) 13 years Diarrhea Hyperlipidemia Hypertension 13 Obesity, morbid (HCC) exobesity Porcelain gallbladder PAST SURGICAL HISTORY Procedure Laterality Date COLONOSCOPY FLX DX W/COLLJ SPEC WHEN PFRMD 10/19/14 Colonoscopy LAPS SURG CHOLECYSTECTOMY W/CHOLANGIOGRAPHY 11/16/09 Performed by CHELO LAGOS at [facility] ARTHOSCOPY CARDINAL 1999 TENDON LENGTHENING,EXTEN,HAND/FINGR TONSILLECTOMY HX when he was 12 UNLIS LAPAROSCOPIC PROCEDURE LIVER 11/16/09 Performed by CHELO LAGOS at [facility] FAMILY HISTORY Problem Relation Age of Onset Diabetes Father other (Rabdio [Other]) Daughter Heart Father SOCIAL HISTORY: Tobacco Use: 1 packs/day, for 10 years. Types: Cigarettes Alcohol Use: No Drug Use: No Employer And Job Title: No employer specified (retired) Years Of Education Completed: Not specified Marital Status: MEDICATIONS: Current Outpatient Medications Medication Sig amLODIPine (NORVASC) 5 mg tablet atorvastatin (LIPITOR) 80 mg tablet Take 1 tablet by mouth every afternoon. escitalopram oxalate (LEXAPRO) 5 mg tablet TAKE ONE TABLET BY MOUTH EVERY DAY FOR REPEATED EPISODES OF ANXIETY glipiZIDE (GLUCOTROL) 5 mg tablet Take 1 tablet by mouth every 12 hours. isosorbide mononitrate ER (IMDUR) 60 mg 24 hr tablet TAKE 1 TABLET (60 MG) BY MOUTH DAILY. losartan (COZAAR) 100 mg tablet Take 1 tablet by mouth every afternoon. nitroglycerin sublingual (NITROQUICK) 0.4 mg SL tablet Cholecalciferol, Vitamin D3, 2,000 unit ORAL Tab Take by mouth. aspirin(ECOTRIN LOW STRENGTH 81 MG TAB) Take one(1) tablet daily. ubidecarenone(COQ-10 100 MG CAP) Take one(1) tablet daily. COMPOUNDED PRESCRIPTION folranx tab 1 tab twice daily, for neuropathy in feet per patient (Patient not taking: Reported on 11/07/2022) Magnesium 250 mg tab Take 250 mg by mouth. (Patient not taking: Reported on 11/07/2022) Red Yeast Rice Extract 600 mg cap Take by mouth. (Patient not taking: Reported on 11/07/2022) BERB HOBBS/HERBAL COMPLEX NO.18 (BERBERINE-HERBAL COMB NO.18 ORAL) Take by mouth. (Patient not taking: Reported on 11/07/2022) SILDENAFIL CITRATE (SILDENAFIL ORAL) Take 50 mg by mouth. (Patient not taking: Reported on 11/07/2022) metFORMIN 500 mg ORAL tablet Take 2 tablets by mouth twice daily with meals. ENALAPRIL MALEATE 20 MG TAB Take one(1) tablet twice daily. (Patient not taking: Reported on 11/07/2022) B COMPLEX VITAMINS TAB Take one(1) tablet daily. (Patient not taking: Reported on 11/07/2022) ascorbate calcium(GARRETT-C 500 MG TAB) Take one(1) tablet daily. (Patient not taking: Reported on 11/07/2022) salmon oil/omega-3 fatty acids(SALMON OIL-1000 1,000 MG-200 MG CAP) Take one(1) tablet daily. (Patient not taking: Reported on 11/07/2022) CHOLECALCIFEROL (VITAMIN D3) 2,000 UNIT TAB Take one(1) tablet daily. COMPOUNDED PRESCRIPTION gymnema lopez 400mg Take one(1) tablet daily. (Patient not taking: Reported on 11/07/2022) No current facility-administered medications for this visit. I have personally reviewed the patients past medical history including social, family, surgical, diagnostics, and medications./AB Review of Systems Constitutional: Negative for chills, fever and unexpected weight change. HENT: Negative for congestion, facial swelling, trouble swallowing and voice change. Eyes: Negative for visual disturbance. Respiratory: Negative for shortness of breath. Cardiovascular: Negative for chest pain. Gastrointestinal: Negative for diarrhea, nausea and vomiting. Musculoskeletal: Negative for gait problem and myalgias. Allergic/Immunologic: Negative. Negative for immunocompromised state. Neurological: Positive for tremors. Negative for dizziness, syncope and light-headedness. Psychiatric/Behavioral: N (more content not included)... [facility] Instructions 11-07-2022 Patient Instructions Note Date & Type Note Facility 11-07-2022 Instructions Tracy Iraheta MA - 11/07/2022 1:06 PM EDT ASSESSMENT/PLAN: Parkinson disease (HCC) - ICD9: 332.0, ICD10: G20 Essential tremor - ICD9: 333.1, ICD10: G25.0 You have developed a very mild case. At this time you not show any future progression. 1.) At this time patient declines to have to take another medication but we will continue to monitor for progression. 2.) No further testing is indicated at this time. 3.) Follow up in 6 months. documented in this encounter [facility] History of Present illness Narrative 11-07-2022 Willy Veliz MD - 11/07/2022 12:45 PM EDT Note Date & Type Note Facility 11-07-2022 History of Presen t illness Narrative Referring Provider: Joe Mak MD Date: November 07, 2022 Chief Complaint: Tremors HISTORY OF PRESENT ILLNESS: Joaquin Barajas is a 82 year old male who presents for Tremors. He is a right handed, man. Patient resides with his . He is independent in his personal care. He feels safe and confident in himself. He is also followed by cardiology. He denies smoking or alcohol use. Patient presents today for shaking of his hands that he noticed following his second stent placement in July 2022. He does not feel that one is worse than another. It has affected his writing but other cassidy he denies it stopping him from doing anything. He states that when he looks at it the shakes will stop. He can not recall any other family members that have had this sort of shaking. I, Tracy Iraheta MA, transcribing for Willy Veliz MD. ALLERGIES Allergen Reactions Grass Pollen Intolerance PAST MEDICAL HISTORY: PAST MEDICAL HISTORY Diagnosis Date Depression Diabetes (HCC) 13 years Diarrhea Hyperlipidemia Hypertension 13 Obesity, morbid (HCC) exobesity Porcelain gallbladder PAST SURGICAL HISTORY Procedure Laterality Date COLONOSCOPY FLX DX W/COLLJ SPEC WHEN PFRMD 10/19/14 Colonoscopy LAPS SURG CHOLECYSTECTOMY W/CHOLANGIOGRAPHY 11/16/09 Performed by CHELO LAGOS at [facility] S KIT KNEE ARTHOSCOPY CARDINAL 1999 TENDON LENGTHENING,EXTEN,HAND/FINGR TONSILLECTOMY HX when he was 12 UNLIS LAPAROSCOPIC PROCEDURE LIVER 11/16/09 Performed by CHELO LAGOS at [facility] FAMILY HISTORY Problem Relation Age of Onset Diabetes Father other (Rabdio [Other]) Daughter Heart Father SOCIAL HISTORY: Tobacco Use: 1 packs/day, for 10 years. Types: Cigarettes Alcohol Use: No Drug Use: No Employer And Job Title: No employer specified (retired) Years Of Education Completed: Not specified Marital Status: MEDICATIONS: Current Outpatient Medications Medication Sig amLODIPine (NORVASC) 5 mg tablet atorvastatin (LIPITOR) 80 mg tablet Take 1 tablet by mouth every afternoon. escitalopram oxalate (LEXAPRO) 5 mg tablet TAKE ONE TABLET BY MOUTH EVERY DAY FOR REPEATED EPISODES OF ANXIETY glipiZIDE (GLUCOTROL) 5 mg tablet Take 1 tablet by mouth every 12 hours. isosorbide mononitrate ER (IMDUR) 60 mg 24 hr tablet TAKE 1 TABLET (60 MG) BY MOUTH DAILY. losartan (COZAAR) 100 mg tablet Take 1 tablet by mouth every afternoon. nitroglycerin sublingual (NITROQUICK) 0.4 mg SL tablet Cholecalciferol, Vitamin D3, 2,000 unit ORAL Tab Take by mouth. aspirin(ECOTRIN LOW STRENGTH 81 MG TAB) Take one(1) tablet daily. ubidecarenone(COQ-10 100 MG CAP) Take one(1) tablet daily. COMPOUNDED PRESCRIPTION folranx tab 1 tab twice daily, for neuropathy in feet per patient (Patient not taking: Reported on 11/07/2022) Magnesium 250 mg tab Take 250 mg by mouth. (Patient not taking: Reported on 11/07/2022) Red Yeast Rice Extract 600 mg cap Take by mouth. (Patient not taking: Reported on 11/07/2022) BERB HOBBS/HERBAL COMPLEX NO.18 (BERBERINE-HERBAL COMB NO.18 ORAL) Take by mouth. (Patient not taking: Reported on 11/07/2022) SILDENAFIL CITRATE (SILDENAFIL ORAL) Take 50 mg by mouth. (Patient not taking: Reported on 11/07/2022) metFORMIN 500 mg ORAL tablet Take 2 tablets by mouth twice daily with meals. ENALAPRIL MALEATE 20 MG TAB Take one(1) tablet twice daily. (Patient not taking: Reported on 11/07/2022) B COMPLEX VITAMINS TAB Take one(1) tablet daily. (Patient not taking: Reported on 11/07/2022) ascorbate calcium(GARRETT-C 500 MG TAB) Take one(1) tablet daily. (Patient not taking: Reported on 11/07/2022) salmon oil/omega-3 fatty acids(SALMON OIL-1000 1,000 MG-200 MG CAP) Take one(1) tablet daily. (Patient not taking: Reported on 11/07/2022) CHOLECALCIFEROL (VITAMIN D3) 2,000 UNIT TAB Take one(1) tablet daily. COMPOUNDED PRESCRIPTION gymnema lopez 400mg Take one(1) tablet daily. (Patient not taking: Reported on 11/07/2022) No current facility-administered medications for this visit. I have personally reviewed the patients past medical history including social, family, surgical, diagnostics, and medications./AB Review of Systems Constitutional: Negative for chills, fever and unexpected weight change. HENT: Negative for congestion, facial swelling, trouble swallowing and voice change. Eyes: Negative for visual disturbance. Respiratory: Negative for shortness of breath. Cardiovascular: Negative for chest pain. Gastrointestinal: Negative for diarrhea, nausea and vomiting. Musculoskeletal: Negative for gait problem and myalgias. Allergic/Immunologic: Negative. Negative for immunocompromised state. Neurological: Positive for tremors. Negative for dizziness, syncope and light-headedness. Psychiatric/Behavioral: Negative. Negative for hallucinations and self-injury. Vitals: BP 115/62 Pulse (!) 54 Ht 177.8 cm (5' 10 ) Wt 78.5 kg (173 lb) BMI 24.82 kg/m PHYSICAL EXAM:: The physical exam findings are as follows: General General Appearance - Well groomed Orientation: Oriented to time, oriented to place, and oriented to person. Higher Cortical Function: Awake and alert. Language functions are intact. Patient names well and repeats well, spontaneous speech as well as comprehension is normal and fund of knowledge is intact for the patient level of education. Attention span and concentration are normal and as expected for patient's age. Neurologic CRANIAL NERVES: ll - Makes and sustains eye contact. Visual powell are full to confrontation testing. lll, lV, Vl - Pupils are 2 -3 mm in size and reactive. External ocular movements are full and there is no nystagmus. V - Facial sensation to light touch and pin prick, normal. Vll - No facial asymmetry Vlll - Normal hearing. lX - Palatal movements, normal. Xl - Good and equal shoulder shrugs. Xll - Tongue protrusion, midline. Motor Exam Bulk/Size: Normal Strength Exam: Upper Extremity Right Left Deltoid 5 5 Biceps 5 5 Triceps 5 5 Wrist Extensor 5 5 Wrist Flexor 5 5 APB 5 5 FDI 5 5 Lower Extremity Right Left Flexor hip joint 5 5 Extensor hip joint 5 5 Extensor knee joint 5 5 Flexor knee joint 5 5 Dorsi flexor ankle joint 5 5 Plantar flexor ankle joint 5 5 Tone: mild bradykinesia and cogwheel rigidity Abnormal movements: Mild resting and postural tremor bilaterally, chin tremor Sensory: Right Left Light Touch Not checked Not checked Pin Prick Not checked Not checked Vibration Not checked Not checked Temperature Not checked Not checked Distal/Proximal exam normal Sensory level: None Reflex Right Left Biceps 1+ 1+ Triceps 1+ 1+ Wrist 1+ 1+ Knee 2+ 2+ Ankle 1+ 1+ Plantar Not checked Not checked Cerebellar Exam: Normal Gait and Stance: Mild postural instability Tandem walk: Not checked Romberg's: Not checked The following documents and testing were reviewed and discussed with the patient. [facility] 07/13/2022- Slightly elevated blood glucose, BUN and creatinine Magnesium 07/13/2022- Normal Phosphorus 07/13/2022-Normal CMP 07/13/2022- Elevated blood glucose, BUN and creatinine ASSESSMENT/PLAN: Parkinson disease (HCC) - ICD9: 332.0, ICD10: G20 Essential tremor - ICD9: 333.1, ICD10: G25.0 You have developed a very mild case. At this time you not show any future progression. 1.) At this time patient declines to have to take another medication but we will continue to monitor for progression. 2.) No further testing is indicated at this time. 3.) Follow up in 6 months. The old record was reviewed and new history from past medical history was obtained and recorded. I have discussed the recommended treatment, alternative treatments and other treatment options in detail. I have discussed the risks, benefits and side effect of the recommended treatment in detail as well. I have attempted to answer all their questions to their satisfaction and understanding of the explanation has been voiced. With approval we will pursue the recommended treatment. I, Willy Veliz, have reviewed and agree with the information in the medical record transcribed by Tracy Iraheta MA. Willy Veliz MD documented in this encounter [facility] Note 10-25-2022 Telephone Encounter - Mulu Lind - 10/25/2022 2:54 PM EDT Note Date & Type Note Facility 10-25-2022 Miscellaneous Notes Formattin g of this note might be different from the original. Called patient to schedule an appointment with Dr. Jose Alfredo BAIRDClint documented in this encounter [facility] Discharge summary note 07-13-2021 Note Date & Type Note Facility 07-13-2021 Note Attestation signed by Oh Hernandez MD at 07/13/2021 3:45 PM Assessment/Plan: Patient without prior cardiac history, hx of DM, here with chest pain. Cath done at outside hospital shows 3v CAD. Proximal LAD is calcified and severe. OM1 has mild CAD. OM2 with borderline severe CAD but is small vessel. RCA with moderate-severe CAD. Reviewed films with CT surgery. Agreed to a percutaneous approach. Yesterday had LAD PCI with atherectomy. Did well. Brief and mild chest pain overnight. Will plan ambulation today. DAPT. Statin, Current antihypertensive regimen. No BB due to borderline bradycardia. Can go home today if he can ambulate without symptoms. Post AMI Discharge / Progress Note Joaquin Barajas : 1940 ADMIT DATE: 07/11/2021 DISCHARGE DATE: 07/13/2021 PCP: No primary care provider on file. Visit Status: Admission Code Status: Full Code Chief Complaint Hospital Course HPI : Joaquin Barajas is a 81 y.o. male with pmhx HTN, HLD, CKD stage III, uncontrolled DMT2, GERD, and remote hx of tobacco abuse that was admitted to [facility] on 07/11/2021 for unstable angina. Patient was transferred from [facility] following a C that demonstrated three vessel CAD. Once at [facility], CT surgery was consulted and it was determined that patient was not a good CABG candidate. ? An IVUS-guided PCI of proximal-mid LAD with CSI atherectomy and DESx2 was performed on 07/12 without complication. The night after PCI, patient had chest pain. An EKG and troponin were obtained. EKG with T wave inversions in anterior leads that were deeper than previously demonstrated; otherwise unchanged. Troponin at 0.081 which was likely due to post-PCI troponin elevation. Patient was discharged home in stable condition on 07/13/21 with close outpatient follow up arranged after ambulating without pain. Procedures Performed Cath (Date: 07/[address] Mcmahan) Results: Heavily calcified severe stenosis of prox-mid LAD; CSI/PTCA; stented prox-mid with 4.0x28 and 3.5x28mm overlapped Xience TATE; diags jailed but patent. Vasc band Rt radial Discharge Diagnoses: MVCAD with unstable angina s/p PCI of proximal-mid LAD with CSI atherectomy and DESx2 - pt evaluated by CT surgery but decision made for PCI on 07/12 - aspirin 81 mg daily - atorvastatin 80 mg daily - plavix 75 mg daily - losartan 100 mg daily - consider adding beta dwayne as an outpatient, has not been added at this time due to prohibitively low heart rate - pantoprazole 40 mg daily ? CKD3B - baseline creatinine 1.6 - 1.39 -> 1.46 (on day of discharge) - monitor outpatient ? HTN - losartan 100 mg daily - amlodipine 5 mg daily ? T2DM - continue outpatient glipizide on discharge Discharge Medications: Medication List START taking these medications aspirin 81 MG chewable tablet Take 1 tablet by mouth daily Start taking on: July 14, 2021 clopidogrel 75 MG tablet Commonly known as: PLAVIX Take 1 tablet by mouth daily Start taking on: July 14, 2021 pantoprazole 40 MG tablet Commonly known as: PROTONIX Take 1 tablet by mouth every morning (before breakfast) Start taking on: July 14, 2021 CHANGE how you take these medications atorvastatin 80 MG tablet Commonly known as: LIPITOR Take 1 tablet by mouth daily What changed: ? medication strength ? how much to take CONTINUE taking these medications amLODIPine 10 MG tablet Commonly known as: NORVASC COQ-10 PO glipiZIDE 5 MG tablet Commonly known as: GLUCOTROL losartan 100 MG tablet Commonly known as: COZAAR vitamin D 125 MCG (5000 UT) Caps capsule Commonly known as: CHOLECALCIFEROL STOP taking these medications hydroCHLOROthiazide 12.5 MG capsule Commonly known as: MICROZIDE Where to Get Your Medications These medications were sent to [facility] - [address] - P [phone] - F [phone] [address] [address] ? aspirin 81 MG chewable tablet ? atorvastatin 80 MG tablet ? clopidogrel 75 MG tablet ? pantoprazole 40 MG tablet ICDRegistry Information/AMI Registry Information (Must be Completed on all STEMI and NSTEMI Patients) NYHA Functional Classification: Class II Readmission Risk 9% and Intervention: Close outpatient follow up and medication optimization ? Aspirin: Yes ? ? CRIS/ARB: Yes ? ? High Intensity Statin:Yes ? ? Beta Dwayne:No If NO reason for omission: prohibitively low heart rates inpatient; consider as an outpatient ? P2Y12 Inhibitors :Yes ? ? Aldosterone inhibitor :No If NO reason for omission: not indicated at this time for this patient ? ? Referral to Cardiac Rehab completed referral placed for DC BMI Classification: [place] (more content not included)... [facility] Evaluation note Note Date & Type Note Facility documented in this encounter [facility] Evaluation note Note Date & Type Note Facility documented in this encounter [facility] Summary Purpose Family History Cerebrovascular Accident Status:Active Comment s:Father. Coronary Artery Disease Status:Active Comments :Maternal Uncle. Diabetes Mellitus Type II Status:Active Commen ts:Family Members In General. Hypertension Status:Active Comments:Negativ e Family History Of. rhabdomyosarcoma (Renamed fr om Cancer) Status:Active Comments:Daughter. Advance Directives No Advanced Directives Records FoundNo Advanced Directives Records FoundNo Advanced Directives Records FoundNo Advanced Directives Records FoundNo Advanced Directives Records FoundNo Advanced Directives Records Found Reason for Referral Specialty Diagnoses / Procedures Referred By [place] t Referred To Contact Radiology Diagnoses Coronary artery disease, unspecified vessel or lesion type, unspecified whether angina present, unspecified whether galena or transplanted heart Procedures XR CHEST 2 VIEW PA+LAT Kayleigh Merchant, WEB COMMUNICATIONS SPECIALIST-DEVELOPMENT ARCHITECT [address] [place] [address] [facility] DIAGNOSTIC [facility]IOLOGY [address] [place] [address] [place] [address] Referral ID Status Reason Start Date Expiration Date Visits Re quested Visits Authorized [id number] Closed 04/21/2022 04/21/2023 1 1 Additional Source Comments (unrecognized sect ion and content) No Status Records FoundNo Status Records FoundNo Status Records FoundNo Status Records FoundNo Status Records FoundNo Status Records Found INFORMATION SOURCE (unrecogn ized section and content) DATE CREATED AUTHOR AUTHOR'S ORGANIZ ATION 07/20/[address] [facility] DATE CREATED AUTHOR AUTHOR'S ORGANIZ ATION 04/24/2022 [facility] DATE CREATED AUTHOR AUTHOR'S ORGANIZ ATION 05/24/2022 [facility] DATE CREATED AUTHOR AUTHOR'S ORGANIZ ATION 09/29/2022 [facility] DATE CREATED AUTHOR AUTHOR'S ORGANIZ ATION 11/08/[address] [facility] Source Comments (unrecognize d section and content) In the event this informatio n is protected by the Federal Confidentiality of Alcohol and Drug Abuse Patient Records regulations: The Federal rules restrict any use of the information to criminally investigate or prosecute any alcohol or drug abuse patient.[facility] the event this information is protected by the Federal Confidentiality of Alcohol and Drug Abuse Patient Records regulations: The Federal rules restrict any use of the information to criminally investigate or prosecute any alcohol or drug abuse patient.[facility] Reason for Visit (unrecogniz ed section and content) Reason Comments New Patient Patient is in to est ablish for tremors. Care Teams (unrecognized sec tion and content) Bilingual Teacher Assistant Relationship Specialty Start Date End Date Joe Mak MD PCP - General 11/01/09 FOR RECORDS PERTAINING TO PATIENTS WHO ARE OR HAVE BEEN ENROLLED IN A CHEMICAL DEPENDENCY/SUBSTANCEABUSE PROGRAM, SOME INFORMATION MAY BE OMITTED. This clinical summary was aggregated from multiple sources. Caution should be exercised in using it in the provision of clinical care. This summary normalizes information from multiple sources, and as a consequence, information in this document may materially change the coding, format and clinical context of patient data. In addition, data may be omitted in some cases. CLINICAL DECISIONS SHOULD BE BASED ON THE PRIMARY CLINICAL RECORDS. [employer] [facility]. provides no warranty or guarantee of the accuracy or completeness of information in this document.
[2023-04-02 21:42] VITALS: BP 150/77; PULSE 61; RESP 16; TEMP 35.7; O2SAT 97
--- NOTE | 2023-04-02 22:09 | PCM.HP.STD ---
[facility] - General General Date of Admission: 04/02/23 Date of Service: 03/26/23 Chief Complaint: GI bleeding with dark stool HPI Narrative JOAQUIN BARAJAS, is a 82 M with a past medical history of essential hypertension, hyperlipidemia, history of tobacco abuse, history of diabetes mellitus type 2; of unknown control on glipizide, CKD; stage III, Parkinson's disease; with LUE tremor (not currently being medially treated at patient request), history of right carotid bruit; s/p stent (08/08/2022) and coronary artery disease; status post LAD and RCA stent placement (08/08/2022) on chronic baby aspirin and Plavix who presents to [facility] ER complaining of GI bleeding with dark stool. Mr. Barajas reports his symptoms began approximately 1 hour prior to admission with the abrupt onset of black liquid stools approximately 50 to 60 cc in volume followed by a four more similar episodes witnessed in the ER. He denies associated fever, chills or vomiting but he does admit to intermittent nausea. In the ER he was noted to have a hemoglobin of 11.4 g/dL along with a platelet count of 203 present on admission along with Hemoccult positive stools and evidence of acute kidney injury; in the setting of CKD; stage III with an elevated creatinine of 2.02 mg/dL with a BUN of 34 mg/dL present on admission (up from his baseline creatinine of 1.41 g/dL and BUN of 24 mg/dL approximately 2 months ago) and he was then admitted to the ICU for ongoing care including plan for EGD in the a.m. for stay that expected to be greater than 48 hours. [facility] Medical History Angina pectoris, unstable CAD (coronary artery disease), [place] coronary artery Diabetes GERD (gastroesophageal reflux disease) HTN (hypertension) Hypercholesteremia Kidney disease Right carotid bruit Home Medications glipizide 5 mg tablet 5 mg PO BID diabetic 07/08/21 [History Last Taken 04/02/23] aspirin 81 mg tablet,delayed release (Teofilo Low Dose Aspirin) 81 mg PO DAILY 03/22/2022: Do not refill until pt calls #90 tabs 03/22/22 [Rx Last Taken 04/02/23] clopidogrel 75 mg tablet (Plavix) 75 mg PO DAILY #90 tabs 07/11/22 [Rx Last Taken 04/02/23] cholecalciferol (vitamin D3) 125 mcg (5,000 unit) capsule 125 mcg PO DAILY 07/21/22 [History Last Taken 04/02/23] isosorbide mononitrate 60 mg tablet,extended release 24 hr 60 mg PO DAILY 03/22/2022 Do not refill until pt. calls #60 tabs 07/21/22 [Rx Last Taken 04/02/23] atorvastatin 80 mg tablet 80 mg PO DAILY #90 tabs 09/22/22 [Rx Last Taken 04/01/23] amlodipine 5 mg tablet 5 mg PO DAILY Dose decreased #90 tabs 01/08/23 [Rx Last Taken 04/02/23] losartan 50 mg tablet 50 mg PO DAILY Dose decreased #90 tabs 01/08/23 [Rx Last Taken 04/02/23] Allergy/AdvReac Type Severity Reaction Status Date / Time No Known Allergies Allergy Verified 04/02/23 18:07 Surgical History History of heart artery stent History of placement of stent in LAD coronary artery (~08/08/22) Hx of right coronary artery stent placement (~08/08/22) Social History Smoking Status: Former smoker ROS ROS Narrative Review of systems: General: Patient denies fever or chills. HENT: Denies headache, denies stuffy nose, denies sore throat EYES: Denies changes in vision Resp: Denies cough, denies shortness of breath Cardiac: Denies chest pain GI: Patient admits to dark stools with cramping abdominal pain. : Denies changes in urination Extremity: Denies swelling Musculoskeletal: Feels somewhat generally weak and unwell Neuro: Denies any numbness/tingling Heme: Patient admits to dark blood in stools. Skin: Denies rashes Psychiatric: No complaints voiced due to uncontrolled depression or anxiety. Endocrine: No polyuria, polydipsia or polyphagia. The rest of the 14 point ROS was negative except for positives in HPI. Vital Signs Vital Signs Vital Signs: 04/02/23 18:08 04/02/23 20:10 04/02/23 21:42 Temperature 96.8 F L 96.2 F L Temperature Source Temporal Pulse Rate 71 61 Respiratory Rate 16 18 16 Blood Pressure 136/72 H 150/77 H Blood Pressure Mean 93 101 Pulse Ox 98 97 Oxygen Delivery Method Room Air Room Air Weight Weight: 171 lb 11.841 oz Body Mass Index (BMI) 24.6 Physical Exam Const alert, oriented x3, no apparent distress and average body habitus General Appearance: cooperative HEENT normocephalic, head/scalp atraumatic, hearing grossly normal bilaterally and moist oral mucous membranes Eyes PERRL and EOMs intact bilaterally Neck no lymphadenopathy and supple Resp normal respiratory effort, no retractions, no use of accessory muscles and clear to auscultation bilaterally Cardio regular rate and regular rhythm GI normal to inspection, nondistended, normoactive bowel sounds, soft to palpation, non-tender and non-distended Extremity normal to inspection and full ROM Skin Skin Narrative: Patient has no evidence of rash at this time. Neuro oriented x3, CN's II-XII intact bilaterally, moves all extremities and no focal motor deficits Sensorium / Orientation: awake, alert, oriented to person, oriented to place and oriented to time Speech: speech normal Motor Exam: strength 5/5 throughout Psych affect normal Results Medical Records Data Attestation: I reviewed the patient's medical records Lab / Micro Data Attestation: I reviewed the patient's lab results. 04/03/23 04:20 04/03/23 04:20 Labs: Laboratory Results - last 24 hr 04/02/23 19:00: WBC 6.3, RBC 3.90 L, Hgb 11.4 L, Hct 35.4 L, MCV 90.8, MCH 29.2, MCHC 32.2, RDW Std Deviation 45.1 H, RDW Coeff of Jose Miguel 13.6, Plt Count 203, MPV 8.6, Immature Gran % (Auto) 0.200, Neut % (Auto) 53.8, Lymph % (Auto) 24.8, [place] % (Auto) 11.3 H, Eos % (Auto) 8.9 H, Baso % (Auto) 1.0, Absolute Neuts (auto) 3.4, Absolute Lymphs (auto) 1.56, Nucleated RBC % 0, Sodium 140, Potassium 3.6, Chloride 105, Carbon Dioxide 26.0, Anion Gap 9, BUN 34 H, Creatinine 2.02 H, Est GFR (MDRD) Af Amer 41 L, Est GFR (MDRD) Non-Af 34 L, BUN/Creatinine Ratio 16.8, Glucose 284 H, Calcium 8.8 Micro: Microbiology 04/02/23 20:40 Stool Stool Occult Blood ([facility]) - Final Occult Blood Positive Assessment & Plan Assessment/Plan (1) GI bleed due to NSAIDs: (2) Hx of right coronary artery stent placement: (3) History of placement of stent in LAD coronary artery: (4) CAMELIA (acute kidney injury): (5) Adverse drug effect: QUALIFIERS: Encounter type: initial encounter Qualified Code(s): T50.905A - Adverse effect of unspecified drugs, medicaments and biological substances, initial encounter PLAN: Plan 1. Suspected upper GI bleed with black stools due to suspected peptic ulcer disease - Admit to ICU. Keep strict NPO. Continue Protonix drip begun in the ER. Type and screen blood and transfuse for hemoglobin less than 7 g/dL. Finally, we will consult Dr. Hirsch of the gastroenterology service to see this patient on rounds in the a.m. further recommendations regarding EGD this admission with help appreciated in advance. 2. Adverse drug action to unopposed baby aspirin and Plavix likely causing #1 started after LAD and RCA stents - Hold BASA and Plavix until EGD is completed and bleeding is neutralized. 3. Acute kidney injury arising from #1 & #2; in the setting of CKD; stage III - Give normal saline IV fluid and recheck BMP in the a.m. for improvement. Place Brandt and follow strict I's and O's. 4. Essential hypertension - Hold scheduled antihypertensives in light of all the above until bleeding neutralized. 5. History of diabetes mellitus type 2; of unknown control on glipizide - Hold glipizide with the patient NPO. Check hemoglobin A1c. Start sliding scale insulin only once patient has resumed oral intake. 6. Parkinson's disease; with resting tremor only in LUE - Stable. Patient refusing medical treatment for this at this time. He has an appointment to see his neurologist in about 2 weeks. 7. History of right carotid bruit; s/p stent (07/2022) - Noted. Patient denies any neurologic or vascular symptoms at this time. 8. DVT prophylaxis - SCD's only with active GI bleeding outlined in #1. Total time: Approximately 55 minutes. Charges/Coding Visit Charges Inpatient E&M: 32105 Init Hosp L2
--- NOTE | 2023-04-02 22:16 | EKG12_ITS ---
Test Reason : GI BLEED Blood Pressure : / mmHG Vent. Rate : 058 BPM Atrial Rate : 058 BPM P-R Int : 196 ms QRS Dur : 148 ms QT Int : 488 ms P-R-T Axes : 058 -35 -01 degrees QTc Int : 479 ms Sinus bradycardia Left axis deviation Right bundle branch block Abnormal ECG Confirmed by LEI GUTIERREZ, MARCELLUS ([id number]), features editor BESSY GONZALEZ ([id number]) on 04/04/2023 9:18:24 AM Referred By: Confirmed By:MARCELLUS ODOM MD
[2023-04-02] MEDS: Pantoprazole Sodium 80 MG in 0.9% Normal Saline (100mL MB+) 100 ML 330 MG IV (22:49)
--- NOTE | 2023-04-02 23:00 | CON.PCM.GI_ITS ---
HPI Consult Data Date of Consult: 04/02/23 HPI Narrative Reason for Consultation: GI bleed HPI Narrative: JOAQUIN BARAJAS, is a 82 M who presents with GI bleed. He has a past medical history of essential hypertension, hyperlipidemia, history of tobacco abuse, history of diabetes mellitus type 2; of unknown control on glipizide, CKD; stage III, Parkinson's disease; with LUE tremor. He also has a history of right carotid bruit; s/p stent (08/08/2022) and coronary artery disease; status post LAD and RCA stent placement (08/08/2022) on chronic baby aspirin and Plavix who presents to [facility] ER complaining of GI bleeding with dark stool. Mr. Barajas reports his symptoms began approximately 1 hour prior to admission with the abrupt onset of black liquid stools approximately 50 to 60 cc in volume followed by a four more similar episodes witnessed in the ER. He denies associated fever, chills or vomiting but he does admit to intermittent nausea. In the ER he was noted to have a hemoglobin of 11.4 g/dL along with a platelet count of 203 present on admission along with Hemoccult positive stools and evidence of acute kidney injury; in the setting of CKD; stage III with an elevated creatinine of 2.02 mg/dL with a BUN of 34 mg/dL present on admission [facility] Medical History Angina pectoris, unstable CAD (coronary artery disease), [place] coronary artery Diabetes GERD (gastroesophageal reflux disease) HTN (hypertension) Hypercholesteremia Kidney disease Right carotid bruit Home Medications glipizide 5 mg tablet 5 mg PO BID diabetic 07/08/21 [History Last Taken 04/02/23] aspirin 81 mg tablet,delayed release (Teofilo Low Dose Aspirin) 81 mg PO DAILY 03/22/2022: Do not refill until pt calls #90 tabs 03/22/22 [Rx Last Taken 04/02/23] clopidogrel 75 mg tablet (Plavix) 75 mg PO DAILY #90 tabs 07/11/22 [Rx Last Taken 04/02/23] cholecalciferol (vitamin D3) 125 mcg (5,000 unit) capsule 125 mcg PO DAILY 07/21/22 [History Last Taken 04/02/23] isosorbide mononitrate 60 mg tablet,extended release 24 hr 60 mg PO DAILY 03/22/2022 Do not refill until pt. calls #60 tabs 07/21/22 [Rx Last Taken 04/02/23] atorvastatin 80 mg tablet 80 mg PO DAILY #90 tabs 09/22/22 [Rx Last Taken 04/01/23] amlodipine 5 mg tablet 5 mg PO DAILY Dose decreased #90 tabs 01/08/23 [Rx Last Taken 04/02/23] losartan 50 mg tablet 50 mg PO DAILY Dose decreased #90 tabs 01/08/23 [Rx Last Taken 04/02/23] Allergy/AdvReac Type Severity Reaction Status Date / Time No Known Allergies Allergy Verified 04/02/23 18:07 Surgical History History of heart artery stent History of placement of stent in LAD coronary artery (~08/08/22) Hx of right coronary artery stent placement (~08/08/22) Social History Smoking Status: Former smoker ROS ROS Narrative Review of systems: General: Patient denies fever or chills. HENT: Denies headache, denies stuffy nose, denies sore throat EYES: Denies changes in vision Resp: Denies cough, denies shortness of breath Cardiac: Denies chest pain GI: Patient admits to dark stools with cramping abdominal pain. : Denies changes in urination Extremity: Denies swelling Musculoskeletal: Feels somewhat generally weak and unwell Neuro: Denies any numbness/tingling Heme: Patient admits to dark blood in stools. Skin: Denies rashes Psychiatric: No complaints voiced due to uncontrolled depression or anxiety. Endocrine: No polyuria, polydipsia or polyphagia. The rest of the 14 point ROS was negative except for positives in HPI. Physical Exam Const alert, oriented x3, no apparent distress and average body habitus General Appearance: cooperative HEENT normocephalic, head/scalp atraumatic, hearing grossly normal bilaterally and moist oral mucous membranes Eyes PERRL and EOMs intact bilaterally Neck no lymphadenopathy and supple Resp normal respiratory effort, no retractions, no use of accessory muscles and clear to auscultation bilaterally Cardio regular rate and regular rhythm GI normal to inspection, nondistended, normoactive bowel sounds, soft to palpation, non-tender and non-distended Extremity normal to inspection and full ROM Skin Skin Narrative: Patient has no evidence of rash at this time. Neuro oriented x3, CN's II-XII intact bilaterally, moves all extremities and no focal motor deficits Sensorium / Orientation: awake, alert, oriented to person, oriented to place and oriented to time Speech: speech normal Motor Exam: strength 5/5 throughout Psych affect normal Lab / Micro Data 04/03/23 11:35 04/03/23 04:20 Labs: Laboratory Results - last 24 hr 04/02/23 19:00: WBC 6.3, RBC 3.90 L, Hgb 11.4 L, Hct 35.4 L, MCV 90.8, MCH 29.2, MCHC 32.2, RDW Std Deviation 45.1 H, RDW Coeff of Jose Miguel 13.6, Plt Count 203, MPV 8.6, Immature Gran % (Auto) 0.200, Neut % (Auto) 53.8, Lymph % (Auto) 24.8, [place] % (Auto) 11.3 H, Eos % (Auto) 8.9 H, Baso % (Auto) 1.0, Absolute Neuts (auto) 3.4, Absolute Lymphs (auto) 1.56, Nucleated RBC % 0, Sodium 140, Potassium 3.6, Chloride 105, Carbon Dioxide 26.0, Anion Gap 9, BUN 34 H, Creatinine 2.02 H, Est GFR (MDRD) Af Amer 41 L, Est GFR (MDRD) Non-Af 34 L, BUN/Creatinine Ratio 16.8, Glucose 284 H, Calcium 8.8 04/02/23 22:17: Blood Type A POSITIVE, Antibody Screen NEGATIVE 04/03/23 04:20: WBC 6.7, RBC 3.44 L, Hgb 10.6 L, Hct 31.3 L, MCV 91.0, MCH 30.8, MCHC 33.9 D, RDW Std Deviation 45.1 H, RDW Coeff of Jose Miguel 13.6, Plt Count 178, MPV 8.6, Immature Gran % (Auto) 0.300, Neut % (Auto) 53.4, Lymph % (Auto) 27.5, [place] % (Auto) 10.9 H, Eos % (Auto) 7.2 H, Baso % (Auto) 0.7, Absolute Neuts (auto) 3.6, Absolute Lymphs (auto) 1.84, Nucleated RBC % 0, Sodium 142, Potassium 3.5, Chloride 112 H, Carbon Dioxide 24.0, Anion Gap 6, BUN 27 H, Creatinine 1.51 H, Estim Creat Clear Calc 38.94, Est GFR (MDRD) Af Amer 57 L, Es t GFR (MDRD) Non-Af 47 L, BUN/Creatinine Ratio 17.9, Glucose 145 H, Hemoglobin A1c 6.9 H, Calcium 7.8 L, Phosphorus 3.0, Magnesium 2.1, Total Bilirubin 0.50, AST 32, ALT 39, Alkaline Phosphatase 75, Total Protein 5.1 L, Albumin 2.7 L, Globulin 2.4, Albumin/Globulin Ratio 1.1, TSH 2.02 04/03/23 11:35: Hgb 9.9 L, Hct 30.6 L 04/03/23 12:57: POC Glucose 140 H Micro: Microbiology 04/02/23 20:40 Stool Stool Occult Blood ([facility]) - Final Occult Blood Positive Assessment & Plan Assessment/Plan (1) GI bleed due to NSAIDs: (2) Hx of right coronary artery stent placement: (3) History of placement of stent in LAD coronary artery: (4) CAMELIA (acute kidney injury): (5) Adverse drug effect: QUALIFIERS: Encounter type: initial encounter Qualified Code(s): T50.905A - Adverse effect of unspecified drugs, medicaments and biological substances, initial encounter PLAN: Plan 82-year-old with past medical history of CAD and carotid stenosis status post stenting on aspirin with suspected upper GI bleed with black stools due to suspected peptic ulcer disease -Continue Protonix drip begun in the ER. Type and screen blood and transfuse for hemoglobin less than 7 g/dL. He will undergo an upper endoscopy to evaluate upper GI tract. He was explained alternatives, risk, benefits include not withstanding bleeding, infection, sepsis, perforation, need for emergent urgent . He will have an ASA of 3. Capacity Legal Lab Technologist Reflex Medical hold order details:: IF a medical hold is selected below, a suggested order for a MEDICAL HOLD will reflex upon signing the document. Next of kin: [place] law dictates a PRIORITY LIST for identifying legal decision-maker/legal next of kin in the following order (LNOK): 1st: The patient?s legal guardian, if any 2nd: The patient's spouse (if status is questionable, consult Risk Management) 3rd: The patient?s adult child(georges) (majority, if multiple children) 4th: The patient?s parents 5th: The patient?s adult siblings (majority, if multiple children siblings) Charges/Coding Visit Charges Inpatient E&M: 98446 Init Hosp L3
--- OUTSIDE RECORDS SUMMARY | 2023-04-02 23:45 | XMS RPT_ITS | CCD ---
Author Name Unknown Address [address] [place] [address] Organization [facility] Care Team Providers Care Repair Table Operator Name Role Phone Jovanna Osuna NP Unavailable NOVY, MIRTA MCCORD Admitting Unavailable ADA SEARS [...] Primary Care Unavailable Jovanna Osuna NP Unavailable Unavailable Primary Care Provider UnavailKAYLEIGH Peñaloza Referring [...] Unavailable Unavailable Harjinder GUTIERREZ, Dr. Eckert Unavailable [facility] Unavailable [facility] Unavailable Darling GUTIERREZ, Dr. Lemus Unavailable Ghassan HALE, Dr. Hillary Aceves Unavailable [facility] Unavailable [place] LOSS PREVENTION SPECIALIST, Cara Shipman Unavailable Unavailable Kelvin LOSS PREVENTION SPECIALIST, Yennifer Unavailable Unavailable Eliceo MUJICA, Zhanna Unavailable Unavailable Kd PRADHANN, Carey Unavailable Unavailable Griffin CHATTERJEE, Janice Hancock Unavailable Unavaila ble Ankush LOSS PREVENTION SPECIALIST, Rodolfo Unavailable Unavailable Kemi Rey RN Unavailable [place] LOSS PREVENTION SPECIALIST, Kirsten K Unavailable Unavai labbandar Hines, Annika R Unavailable Unavailable Dumont, Lavonne L Unavailable Raúl MVA REACTOR OPERATOR HEAD, Esther Unavailable Unavailable Connor LOSS PREVENTION SPECIALIST, Jacinta M Unavailable Unavailab le [place] LOSS PREVENTION SPECIALIST, Rosalee Garcia Unavailable Unavailab bandar Taylor MD, Felipe Hancock Unavailable Gianna Acharya Unavailable Unavailable Vess LOSS PREVENTION SPECIALIST, Neilee L Unavailable Unavailable Wengerd LOSS PREVENTION SPECIALIST, Lisa Unavailable Unavailabl e Zaugg LOSS PREVENTION SPECIALIST, Annika Unavailable Unavailable Unavailable Unavailable Allergies Allergy Classification Reported Allergen(s) Allergy Type Date of Onset Reaction(s) Facility (3 sources) Grass pollen; Translations: [GRASS POLLEN] Drug Intolerance 5 Intolerance [facility] Medications Current Medications Medication Drug Class(es) Dates [...] End: 11-05-2012 PRECOSE 25 MG TABS ACARBOSE [id number] Kenan Shelton DO Problems Active Problems Problem [...] Coronary arteriosclerosis; Translations: [Atherosclerotic heart disease of [place] coronary artery without angina pectoris] Onset: 04-21-2022 [...] patient is here to follow-up after hospitalization ([facility] with chest pain (heart cath)) on : (07-11-21 to 07-13-21). Note for Consultation follow-up : Just started driving today, but feeling light headed. Seen recruiting intern, Dr. Holguin's SHOP WELDER, on 07/19/2021. Patient brought list of blood [...] will not fill new rx. reviewed by [facility] 04-18-2021 Unclassified (1 source) Follow up [...] : Last blood work was 12/18/2017 through [facility], last lipid 04/2017.Metformin was stopped at last [...] is noticing an increase. He is seeing kitchen cleaner at [facility] but he has not been satisifed w results. 10-04-2016 Unclassified (1 source) Follow up consultation - The patient is here to follow-up after a consult ([facility]) on : (05/12/16 and several times after ). Note for Consultation follow-up : Patient went to a routine visit at the [facility] and they advised his blood pressure was [...] needed.He also recently had labs done at [facility] and has results that he would like [...] here to follow-up after Emergency Room/Urgent Care ([facility] with diagnosis of non traumatic left shoulder [...] monitor these at home and today BP [id number]/70. Denies headache or swelling of ewxtrmities.Has no [...] 177.8 cm Willy Veliz MD Work Phone: [facility] 11-07-2022 12:45-0400 Body weight 78.47 kg Willy eVliz MD Work Phone: [facility] 11-07-2022 12:45-0400 Diastolic blood pressure 62 mm[Hg] Willy Veliz MD Work Phone: [facility] 11-07-2022 12:45-0400 Heart rate 54 /min Willy Veliz MD Work Phone: [facility] 11-07-2022 12:45-0400 Systolic blood pressure 115 mm[Hg] Willy Veliz MD Work Phone: [facility] 10-04-2022 08:03-0400 Body weight 77.11 kg Rodolfo Lechuga LPN [facility]. 10-04-2022 08:03-0400 Diastolic blood pressure 53 mm[Hg] Rodolfo Lechuga LPN [facility]. Encounters Encounter Date Encounter Type Care Provider Facility Start: 11-07-2022 End: 11-07-2022 ambulatory JOE MAK Facility:[facility] Start: 11-07-2022 End: 11-07-2022 Patient encounter procedure Willy Veliz MD Work Phone: [facility] Neurology Procedures Date Procedure Procedure Detail [...] RTN OFFICE VISIT - 6 MTH F/U [facility] Start: 04-Apr-2023 8:10 MD Joe Mak Appointment [facility] Start: 03-27-2023 Nursing evaluation of patient and report Medical; Nurse visit - fasting labs - [facility] Start: 27-Mar-2023 8:00 NURSE, FLOAT Appointment Request [facility] Start: 11-17-2022 Influenza vaccination INFLUENZA (#1) [facility] Start: 03-19-2022 ADVANCE DIRECTIVE DISCUSSION ADVANCE DIRECTIVE DISCUSSION [facility] Start: 03-19-2022 DEPRESSION ASSESSMENT DEPRESSION ASSESSMENT [facility] Start: 03-15-2021 COVID-19 Vaccine (4 - Booster for Pfizer series) COVID-19 Vaccine (4 - Booster for Pfizer series) [facility] Start: 03-15-2021 COVID-19 VACCINE (4 - Pfizer series) COVID-19 VACCINE (4 - Pfizer series) [facility] Start: 07-21-2019 Hemoglobin A1c/Hemoglobin.total in Blood HBA1C [facility] Start: 07-31-2016 End: 08-06-2016 *CMP Complete Metabolic Panel *CMP Complete Metabolic Panel [facility] Work Phone: Start: 07-31-2016 End: 08-06-2016 *Microalbumin, Creatine Ratio, rand urine *Microalbumin, Creatine Ratio, rand urine [facility] Work Phone: Start: 07-31-2016 End: 08-06-2016 HbA1c *HgA1C [facility] Work Phone: Start: 07-31-2016 End: 08-06-2016 Lipid panel [AGGREGATE] *Lipid Profile [facility] Work Phone: Start: 2005 PNEUMOCOCCAL: 65+ (1 - PCV) PNEUMOCOCCAL: 65+ (1 - PCV) [facility] Start: 1990 Shingles (RZV) Vaccine (1 of 2) Shingles (RZV) Vaccine (1 of 2) [facility] Start: 1990 SHINGRIX VACCINE (1 of 2) SHINGRIX VACCINE (1 of 2) [facility] Start: 06-28-1959 Tetanus vaccination Tetanus (Td or Tdap) Booster [facility] Start: 04-11-1960 Urine microalbumin profile DTAP,TDAP,TD (1 - Tdap) [facility] Start: 1958 Hepatitis B surface antibody level LDL CHOLESTEROL [facility] Start: 1958 Tetanus + diphtheria + acellular pertussis vaccine (product) Tdap Booster [facility] Start: 1950 3 comp foot exam completed DIABETIC FOOT EXAM [facility] Start: 1950 Hepatitis B screening URINE ALBUMIN:CREATININE RATIO [facility] Start: 1950 Hepatitis C antibody, confirmatory test DILATED RETINAL EXAM [facility] Start: 1946 PNEUMOCOCCAL: 65+ (1 - PCV) PNEUMOCOCCAL: 65+ (1 - PCV) [facility] Start: 1940 COVID-19 VACCINE (#1) COVID-19 VACCINE (#1) [facility] Immunizations Immunization Date Immunization Notes Care Provider Fa cili 01-30-2022 influenza, high dose seasonal, preservative-free Joe Mak MD Work Phone: [facility]; [facility] 01-30-2022 Influenza, injectabl e, high-dose seasonal, quadrivalent, 0.7 mL, preservative free (MXK=404) Kayleigh Merchant CLINICAL RN-SURFACING MACHINE OPERATOR Work Phone: [facility] 01-18-2021 COVID-Pfizer (30 MCG/0.3 ML) Joe Mak MD Work Phone: [facility]; [facility] 01-04-2021 Influenza, injectabl e, high-dose seasonal, quadrivalent, 0.7 mL, preservative free (VJF=716) Kayleigh Merchant CLINICAL RN-SURFACING MACHINE OPERATOR Work Phone: [facility] 05-10-2020 COVID-Pfizer (30 MCG/0.3 ML) Joe Mak MD Work Phone: [facility]; [facility] 04-15-2020 COVID-Pfizer (30 MCG/0.3 ML) Joe Mak MD Work Phone: [facility]; [facility] 12-23-2019 influenza virus vaccine, unspecified formulation Joe Mak MD Work Phone: [facility] 12-23-2019 influenza, injectabl e, quadrivalent, preservative free Kayleigh Merchant CLINICAL RN-SURFACING MACHINE OPERATOR Work Phone: [facility] 12-23-2019 influenza, injectabl e, quadrivalent, contains preservative Joe Mak MD Work Phone: [facility].; [facility] Payers Date Payer Category Payer Unknown [id number] 2005 Medicare [id number] 2005 Medicare [id number] 2005 Department of [facility] e (SHERRY and others) [id number] 2005 Unknown [id number] 1940 Unknown [id number] 1940 Unknown [id number]. 1940 Unknown [id number]. 1940 Unknown [id number]. 1940 Unknown [id number] [id number]. 1940 Unknown [id number] [id number]. 1940 Unknown [id number] [id number]. 1940 Unknown [id number] Social History Date Type Detail Facility Tobacco smoking stat [facility] Start: 1940 Sex Assigned At Not on file [facility] Start: 09-28-2010 Tobacco smoking stat [facility] Ex-smoker [facility] Work Phone: History of tobacco use Current smoker [facility] Work Phone: History of tobacco use Cigarette Smoker [facility] Work Phone: Start: 09-28-2010 End: 11-07-2022 Cigarettes smoked current (pack per day) - Reported 1 [facility]; [place] Start: 09-28-2010 Tobacco use and exposure Smokeless tobacco non-user [facility] Work Phone: Start: 11-02-2021 End: 11-07-2022 Alcohol intake Current non-drinker of alcohol (finding) [facility] Start: 11-02-2021 End: 11-07-2022 Tobacco use panel [facility] Alcohol Use: Alcohol Use: ; Occasional alcohol use. [facility]; [place] Exercise History: Exercise Histo ry: ; Light. [facility]; [place] Tobacco Use: Tobacco Use: ; F ormer smoker. [facility]; [place] [facility]; [employer] Work Phone: Occasional alcohol use [facility]; [employer] Work Phone: Medical Equipment Procedure Code Equipment Code Equipment Origin al Text Equipment Identifier Dates Blood Glucose Te st In Vitro Strip ; 1 (one) Strip Strip daily for 0 days Quantity: 100 {Strip} Refills: 6 Ordered: 27-May-2019 KRISTY Dias Rocio Start: 08-Jan-2015 End: 27-May-2019 Status: Inactive Comments: DM 250/E11.9Precision Extra Strips [id number] Start: 01-08-2015 End: 05-27-2019 Goals Date Patient Goal Desired Activity /State 03-27-2018 Progress note 11-07-2022 Note Date & Type Note Facility 11-07-2022 Note HNO ID: [id number] Author: Willy Veliz MD Service: ? Author [...] W/CHOLANGIOGRAPHY 11/16/09 Performed by CHELO LAGOS at [facility] S KIT KNEE ARTHOSCOPY CARDINAL 1999 TENDON LENGTHENING,EXTEN,HAND/FINGR TONSILLECTOMY HX when he was 12 UNLIS LAPAROSCOPIC PROCEDURE LIVER 11/16/09 Performed by CHELO LAGOS at [facility] FAMILY HISTORY Problem Relation Age of [...] light-headedness. Psychiatric/Behavioral: N (more content not included)... [facility] Instructions 11-07-2022 Patient Instructions Note Date [...] in 6 months. documented in this encounter [facility] History of Present illness Narrative 11-07-2022 Willy [...] W/CHOLANGIOGRAPHY 11/16/09 Performed by CHELO LAGOS at [facility] S KIT KNEE ARTHOSCOPY CARDINAL 1999 TENDON LENGTHENING,EXTEN,HAND/FINGR TONSILLECTOMY HX when he was 12 UNLIS LAPAROSCOPIC PROCEDURE LIVER 11/16/09 Performed by CHELO LAGOS at [facility] FAMILY HISTORY Problem Relation Age of [...] were reviewed and discussed with the patient. [facility] 07/13/2022- Slightly elevated blood glucose, BUN and [...] Willy Veliz MD documented in this encounter [facility] Note 10-25-2022 Telephone Encounter - Mulu Lind - 10/25/2022 2:54 PM EDT Note Date & Type Note Facility 10-25-2022 Miscellaneous Notes Formattin g of this note might be different from the original. Called patient to schedule an appointment with Dr. Jose Alfredo BAIRDClint documented in this encounter [facility] Discharge summary note 07-13-2021 Note Date & [...] of tobacco abuse that was admitted to [facility] on 07/11/2021 for unstable angina. Patient was transferred from [facility] following a C that demonstrated three vessel CAD. Once at [facility], CT surgery was consulted and it was [...] Your Medications These medications were sent to [facility] - [address] - P [phone] - F [phone] [address] [facility] [address] ? aspirin 81 MG chewable tablet ? [...] BMI Classification: [place] (more content not included)... [facility] Evaluation note Note Date & Type Note Facility documented in this encounter [facility] Evaluation note Note Date & Type Note Facility documented in this encounter [facility] Summary Purpose Family History Cerebrovascular Accident Status:Active [...] type, unspecified whether angina present, unspecified whether [place] or transplanted heart Procedures XR CHEST 2 VIEW PA+LAT Kayleigh Merchant, CLINICAL RN-SURFACING MACHINE OPERATOR [address] [place] [address] [facility] [address] [place] [address] [place] [address] Referral ID Status Reason Start Date Expiration Date Visits Re quested Visits Authorized [id number] Closed 04/21/2022 04/21/2023 1 1 Additional Source Comments (unrecognized sect ion and content) No Status Records FoundNo Status Records FoundNo Status Records FoundNo Status Records FoundNo Status Records FoundNo Status Records Found INFORMATION SOURCE (unrecogn ized section and content) DATE CREATED AUTHOR AUTHOR'S ORGANIZ ATION 07/20/2021 [facility] DATE CREATED AUTHOR AUTHOR'S ORGANIZ ATION 04/24/2022 [facility] DATE CREATED AUTHOR AUTHOR'S ORGANIZ ATION 05/24/2022 [facility] DATE CREATED AUTHOR AUTHOR'S ORGANIZ ATION 09/29/2022 [facility] DATE CREATED AUTHOR AUTHOR'S ORGANIZ ATION 11/08/2022 [facility] Source Comments (unrecognize d section and content) In the event this informatio n is protected by the Federal Confidentiality of Alcohol and Drug Abuse Patient Records regulations: The Federal rules restrict any use of the information to criminally investigate or prosecute any alcohol or drug abuse patient.[facility] the event this information is protected by the Federal Confidentiality of Alcohol and Drug Abuse Patient Records regulations: The Federal rules restrict any use of the information to criminally investigate or prosecute any alcohol or drug abuse patient.[facility] Reason for Visit (unrecogniz ed section and content) Reason Comments New Patient Patient is in to est ablish for tremors. Care Teams (unrecognized sec tion and content) Repair Table Operator Relationship Specialty Start Date End Date Joe [...] BE BASED ON THE PRIMARY CLINICAL RECORDS. [employer] [facility]. provides no warranty or guarantee of the accuracy or completeness of information in this document.
[2023-04-03] VITALS (30 sets, daily range): BP systolic 93–178; BP diastolic 46–73; PULSE 49–68; RESP 12–23; TEMP 36.1–36.6; O2SAT 72–100; BMI 24.1
[2023-04-03] MEDS: 0.9% Normal Saline (1000mL) 1,000 ML 125 ML IV ×3 (00:32→16:39)
[2023-04-03] MEDS: Pantoprazole Sodium 80 MG in 0.9% Normal Saline (100mL Bag) 80 ML 10 MG CONT INF ×3 (00:34→18:52)
[2023-04-03 04:34] LABS: Absolute Lymphocyte Count 1.84 X10^3/uL (0.83-4.51); Absolute Neutrophil Count 3.6 X10^3/uL (2.0-7.7); Basophil# 0.05 X10^3/uL; Basophil% 0.7 % (0-1); Eosinophil# 0.48 X10^3/uL; Eosinophils% 7.2 % (0-5); Hematocrit 31.3 % (40-54); Hemoglobin 10.6 g/dL (13.0-16.5); Lymphocyte # 1.84 X10^3/ul (0.83-4.51); Lymphocyte % 27.5 % (19-41); Mean Corp Hgb Conc 33.9 g/dL (32-36); Mean Corpuscular Hgb 30.8 pg (27.0-32.0); Mean Platelet Vol. 8.6 fl (6.2-12.0); Monocyte# 0.73 X10^3/uL; Monocyte% 10.9 % (0-10); NRBC Flagged by Analyzer 0 % (0-5); Neutrophil # 3.57 X10^3/uL (2.7-7.7); Neutrophil % 53.4 % (47-70); Platelet Count 178 K/mm3 (150-450); RBC Distribution Width CV 13.6 % (11.6-14.6); RBC Distribution Width SD 45.1 fl (35.1-43.9); Red Blood Count 3.44 M/mm3 (4.6-6.2); White Blood Count 6.7 K/mm3 (4.4-11.0)
[2023-04-03 04:58] LABS: ALB/GLOB Ratio 1.1 RATIO (0.9-2.4); AST(SGOT) 32 U/L (15-37); Alanine Aminotransfer ALT/SGPT 39 U/L (16-61); Albumin, Serum 2.7 g/dL (3.2-5.0); Alkaline Phosphatase 75 U/L (45-117); Anion Gap 6 (5-15); BUN 27 mg/dL (7-18); BUN/Creat Ratio 17.9 RATIO (10-20); Calcium,Total 7.8 mg/dL (8.5-10.1); Chloride 112 mmol/L (98-107); Creatinine, Serum 1.51 mg/dL (0.70-1.30); EST Glomerular Filtration Rate 47 mL/min (>60); Est Glom Filt Rate - Afr Amer 57 mL/min (>60); Estimated Creatinine Clearance 38.94 ml/min; Globulin 2.4 g/dL (2.2-4.2); Glucose 145 mg/dL (74-106); Magnesium 2.1 mg/dL (1.6-2.6); Potassium 3.5 mmol/L (3.5-5.1); Protein, Total 5.1 g/dL (6.4-8.2); Sodium Level 142 mmol/L (136-145); Thyroid Stim Hormone (TSH) 2.02 uIU/mL (0.358-3.74)
[2023-04-03] MEDS: 0.9% Saline Lock 10 ML Syringe IV ×2 (08:35→13:06)
[2023-04-03 08:45] LABS: Hemoglobin A1c 6.9 % (3.8-5.6)
[2023-04-03 11:43] LABS: Hematocrit 30.6 % (40-54); Hemoglobin 9.9 g/dL (13.0-16.5)
[2023-04-03 13:16] LABS: Bedside Glucose 140 mg/dL (74-106)
--- NOTE | 2023-04-03 13:22 | NURSING ---
To ENDO at this time via bed
--- NOTE | 2023-04-03 15:33 | CASEMGMT ---
RN CM in to complete assessment. Patient is out of room at procedure at this time. CM will attempt to complete assessment at later time.
--- NOTE | 2023-04-03 15:47 | OP.EGD_ITS ---
Patient Name: Dario Barajas Procedure Date: 04/03/2023 3:31 PM Date of : 1940 Age: 82 Procedure: Upper GI endoscopy Indications: Melena Providers: Odilon Hirsch DO Medicines: Monitored Anesthesia Care Patient Profile: This is an 82 year old male. Refer to note in patient chart for documentation of history and physical. Patient has symptoms of acute epigastric abdominal pain. Complications: No immediate complications. Procedure: Pre-Anesthesia Assessment: - Prior to the procedure, a History and Physical was performed, and patient medications and allergies were reviewed. The risks and benefits of the procedure and the sedation options and risks were discussed with the patient. All questions were answered and informed consent was obtained. Patient identification and proposed procedure were verified by the physician in the pre-procedure area. Mental Status Examination: alert and oriented. Airway Examination: normal oropharyngeal airway and neck mobility. Respiratory Examination: clear to auscultation. CV Examination: normal. Prophylactic Antibiotics: The patient does not require prophylactic antibiotics. Prior Anticoagulants: The patient has taken no anticoagulant or antiplatelet agents. ASA Grade Assessment: II - A patient with mild systemic disease. After reviewing the risks and benefits, the patient was deemed in satisfactory condition to undergo the procedure. The anesthesia plan was to use monitored anesthesia care (MAC). Immediately prior to administration of medications, the patient was re-assessed for adequacy to receive sedatives. The heart rate, respiratory rate, oxygen saturations, blood pressure, adequacy of pulmonary ventilation, and response to care were monitored throughout the procedure. The physical status of the patient was re-assessed after the procedure. After obtaining informed consent, the endoscope was passed under direct vision. Throughout the procedure, the patient's blood pressure, pulse, and oxygen saturations were monitored continuously. The gastroscope was introduced through the mouth, and advanced to the second part of duodenum. The upper GI endoscopy was accomplished without difficulty. The patient tolerated the procedure well. Scope In: 3:40:52 PM Scope Out: 3:43:18 PM Total Procedure Duration Time 0 hours 2 minutes 26 seconds Findings: LA Grade A (one or more mucosal breaks less than 5 mm, not extending between tops of 2 mucosal folds) esophagitis with no bleeding was found 39 to 40 cm from the incisors. The entire examined stomach was normal. The second portion of the duodenum was normal. Impression: - LA Grade A reflux esophagitis with no bleeding. - Normal stomach. - Normal second portion of the duodenum. - No specimens collected. Recommendation: - Return patient to hospital [facility] for ongoing care. - Advance diet as tolerated. -If patient decides that he wants to have a colonoscopy he will need to be on clear liquids today and prep today for colonoscopy tomorrow. -If he does not want to have a colonoscopy he can advance diet as tolerated - Continue present medications. Procedure Code(s): --- Professional --- 33344, Esophagogastroduodenoscopy, flexible, transoral; diagnostic, including collection of specimen(s) by brushing or washing, when performed (separate procedure) CPT copyright 2021 [employer]. All rights reserved. The codes documented in this report are preliminary and upon atg java developer review may be revised to meet current compliance requirements. Odilon Hirsch DO 04/03/2023 3:47:20 PM This report has been signed electronically. Number of Addenda: 0 Note Initiated On: 04/03/2023 3:31 PM
--- NOTE | 2023-04-03 15:47 | OP.CCLET_ITS ---
04/03/2023 Joe Mak Re : Upper GI endoscopy procedure for Dario Rios Obdulio This procedure was performed on Monday, April 03, 2023. My impressions and recommendations are as follows: Impressions : - LA Grade A reflux esophagitis with no bleeding. - Normal stomach. - Normal second portion of the duodenum. - No specimens collected. Recommendations : - Return patient to hospital [facility] for ongoing care. - Advance diet as tolerated. -If patient decides that he wants to have a colonoscopy he will need to be on clear liquids today and prep today for colonoscopy tomorrow. -If he does not want to have a colonoscopy he can advance diet as tolerated - Continue present medications. My findings are described in the full procedure note, which is enclosed. If I can be of further assistance, please feel free to contact me at . Sincerely, Odilon Hirsch, 04/03/2023 3:47:20 PM This report has been signed electronically.
--- NOTE | 2023-04-03 16:39 | PCM.PN.HOSP ---
Reason for Visit Reason for Visit: Diagnoses Gastrointestinal hemorrhage, unspecified (04/02/23) Acute kidney failure, unspecified (04/02/23) Adverse effect of other nonsteroidal anti-inflammatory drugs [NSAID], initial encounter (04/02/23) Adverse effect of unspecified drugs, medicaments and biological substances, initial encounter (04/02/23) Presence of coronary angioplasty implant and graft (04/02/23) Subjective Subjective Patient was seen and examined today, he is still having melanotic stools according to him, patient's hemoglobin was repeated today at 1130, his hemoglobin was 9.9 which is a slight decrease in the hemoglobin this morning. Patient states he has a history of diverticular disease on his last colonoscope. Objective Data Objective Data Vital Signs: Vital Signs Temp Pulse Resp BP Pulse Ox O2 Del Method O2 Flow Rate 97.2 F L 50 L 16 111/49 L 100 Nasal Cannula 4 04/03/23 16:10 04/03/23 16:10 04/03/23 16:10 04/03/23 16:10 04/03/23 16:10 04/03/23 16:10 04/03/23 16:10 Oxygen Flow Rate (L/min) 4 Oxygen Delivery Method Nasal Cannula Weight: 76.317 kg Body Mass Index (BMI) 24.1 Intake & Output: Intake and Output for Last 24 Hours 04/01/23 04/02/23 04/03/23 23:59 23:59 23:59 Intake Total 1801.09 / 1801.09 Output Total 1075 / 1075 Balance 726.09 / 726.09 Lab / Micro Data 04/04/23 03:15 04/04/23 03:15 Labs: Laboratory Results - last 24 hr 04/02/23 19:00: WBC 6.3, RBC 3.90 L, Hgb 11.4 L, Hct 35.4 L, MCV 90.8, MCH 29.2, MCHC 32.2, RDW Std Deviation 45.1 H, RDW Coeff of Jose Miguel 13.6, Plt Count 203, MPV 8.6, Immature Gran % (Auto) 0.200, Neut % (Auto) 53.8, Lymph % (Auto) 24.8, Cochran % (Auto) 11.3 H, Eos % (Auto) 8.9 H, Baso % (Auto) 1.0, Absolute Neuts (auto) 3.4, Absolute Lymphs (auto) 1.56, Nucleated RBC % 0, Sodium 140, Potassium 3.6, Chloride 105, Carbon Dioxide 26.0, Anion Gap 9, BUN 34 H, Creatinine 2.02 H, Est GFR (MDRD) Af Amer 41 L, Est GFR (MDRD) Non-Af 34 L, BUN/Creatinine Ratio 16.8, Glucose 284 H, Calcium 8.8 04/02/23 22:17: Blood Type A POSITIVE, Antibody Screen NEGATIVE 04/03/23 04:20: WBC 6.7, RBC 3.44 L, Hgb 10.6 L, Hct 31.3 L, MCV 91.0, MCH 30.8, MCHC 33.9 D, RDW Std Deviation 45.1 H, RDW Coeff of Jose Miguel 13.6, Plt Count 178, MPV 8.6, Immature Gran % (Auto) 0.300, Neut % (Auto) 53.4, Lymph % (Auto) 27.5, Cochran % (Auto) 10.9 H, Eos % (Auto) 7.2 H, Baso % (Auto) 0.7, Absolute Neuts (auto) 3.6, Absolute Lymphs (auto) 1.84, Nucleated RBC % 0, Sodium 142, Potassium 3.5, Chloride 112 H, Carbon Dioxide 24.0, Anion Gap 6, BUN 27 H, Creatinine 1.51 H, Estim Creat Clear Calc 38.94, Est GFR (MDRD) Af Amer 57 L, Est GFR (MDRD) Non-Af 47 L, BUN/Creatinine Ratio 17.9, Glucose 145 H, Hemoglobin A1c 6.9 H, Calcium 7.8 L, Phosphorus 3.0, Magnesium 2.1, Total Bilirubin 0.50, AST 32, ALT 39, Alkaline Phosphatase 75, Total Protein 5.1 L, Albumin 2.7 L, Globulin 2.4, Albumin/Globulin Ratio 1.1, TSH 2.02 04/03/23 11:35: Hgb 9.9 L, Hct 30.6 L 04/03/23 12:57: POC Glucose 140 H Micro: Microbiology 04/02/23 20:40 Stool Stool Occult Blood (EMMA) - Final Occult Blood Positive Physical Exam Const alert, oriented x3, no apparent distress and healthy appearing General Appearance: cooperative, well kempt and well developed Orientation / Consciousness: awake, oriented to person, oriented to place and oriented to time HEENT normocephalic and moist oral mucous membranes Eyes PERRL, EOMs intact bilaterally and conjunctivae normal Neck supple, no JVD, thyroid normal and no carotid bruits General: trachea midline Resp normal respiratory effort and clear to auscultation bilaterally Auscultation: Negative for rales, rhonchi or wheezes Cardio regular rate, regular rhythm, no murmurs, no rub and no gallops GI normal to inspection, nondistended, normoactive bowel sounds, soft to palpation, non-tender and non-distended Extremity no clubbing, cyanosis or edema Skin no rashes or lesions noted General Skin Exam: no breakdown Neuro oriented x3, CN's II-XII intact bilaterally, no focal motor deficits and no sensory deficits noted Sensorium / Orientation: awake and alert Speech: speech normal Psych affect normal Assessment & Plan Assessment/Plan (1) GI bleed: PLAN: Plan #1 GI bleed-etiology unknown, patient will undergo an EGD today, if this is unremarkable most likely he will need a colonoscopy. Continue Pepcid drip, continue to monitor hemoglobin. #2 acute kidney injury in the setting of chronic kidney disease stage III-lab will be monitored #3 essential hypertension #4 type 2 diabetes-blood sugars will be monitored, sliding scale insulin will be administered as necessary #5 Parkinson's disease #6 coronary artery disease-stable at this time Total clinical time spent by myself addressing the patient's medical issues, reviewing all of the data, and collaborating with patient's care team: 35 minutes Capacity Legal Engine Room Helper Reflex Medical hold order details:: IF a medical hold is selected below, a suggested order for a MEDICAL HOLD will reflex upon signing the document. Next of kin: [place] law dictates a PRIORITY LIST for identifying legal decision-maker/legal next of kin in the following order (LNOK): 1st: The patient?s legal guardian, if any 2nd: The patient's spouse (if status is questionable, consult Risk Management) 3rd: The patient?s adult child(georges) (majority, if multiple children) 4th: The patient?s parents 5th: The patient?s adult siblings (majority, if multiple children siblings) Charges/Coding Visit Charges Inpatient E&M: 57061 Subs Hosp L2
[2023-04-03] MEDS: Bisacodyl 5 MG Tablet 20 MG PO (18:50)
[2023-04-03] MEDS: Polyethylene Glycol 3350 BOWEL PREP PO (19:30)
[2023-04-04] VITALS (21 sets, daily range): BP systolic 93–164; BP diastolic 40–109; PULSE 48–65; RESP 12–20; TEMP 36.4–36.8; O2SAT 94–100; BMI 24.7
[2023-04-04] MEDS: 0.9% Normal Saline (1000mL) 1,000 ML 125 ML IV ×3 (00:40→14:54)
[2023-04-04 03:20] LABS: Absolute Lymphocyte Count 1.26 X10^3/uL (0.83-4.51); Basophil# 0.04 X10^3/uL; Basophil% 0.8 % (0-1); Eosinophil# 0.55 X10^3/uL; Eosinophils% 10.3 % (0-5); Hematocrit 26.9 % (40-54); Hemoglobin 8.8 g/dL (13.0-16.5); Lymphocyte # 1.26 X10^3/ul (0.83-4.51); Lymphocyte % 23.6 % (19-41); Mean Corp Hgb Conc 32.7 g/dL (32-36); Mean Corpuscular Hgb 29.9 pg (27.0-32.0); Mean Corpuscular Volume 91.5 fL (80-94); Mean Platelet Vol. 8.7 fl (6.2-12.0); Monocyte# 0.49 X10^3/uL; Monocyte% 9.2 % (0-10); NRBC Flagged by Analyzer 0 % (0-5); Neutrophil # 2.97 X10^3/uL (2.7-7.7); Neutrophil % 55.7 % (47-70); Platelet Count 149 K/mm3 (150-450); RBC Distribution Width CV 13.6 % (11.6-14.6); RBC Distribution Width SD 45.4 fl (35.1-43.9); Red Blood Count 2.94 M/mm3 (4.6-6.2); White Blood Count 5.3 K/mm3 (4.4-11.0)
[2023-04-04 03:34] LABS: Anion Gap 6 (5-15); BUN 16 mg/dL (7-18); Calcium,Total 6.7 mg/dL (8.5-10.1); Chloride 119 mmol/L (98-107); Creatinine, Serum 1.14 mg/dL (0.70-1.30); EST Glomerular Filtration Rate 65 mL/min (>60); Est Glom Filt Rate - Afr Amer 79 mL/min (>60); Estimated Creatinine Clearance 51.58 ml/min; Glucose 145 mg/dL (74-106); Potassium 3.1 mmol/L (3.5-5.1); Sodium Level 145 mmol/L (136-145)
[2023-04-04] MEDS: Pantoprazole Sodium 80 MG in 0.9% Normal Saline (100mL Bag) 80 ML 10 MG CONT INF ×2 (05:19→14:52)
[2023-04-04] MEDS: 0.9% Saline Lock 10 ML Syringe IV (05:19)
--- NOTE | 2023-04-04 12:15 | COLBX_PTH ---
PATHOLOGY RESULTS PATIENT: JOAQUIN DARDEN LOC: [facility] U#:[id number] AGE/SX: 82/M ROOM: ICU03 RE04/02/[address]: Dr. Daniele Cyr DO : 1940 BED: 1 DIS: 04/04/2023 SPEC #: [id number] RECD: 04/05/23 08:06 STATUS: GLADIS REEdwar #: [id number] MARITO: 04/04/23 12:[address]: Odilon Hirsch DEPT: SURGICAL PATHOLOGY RECD BY: Danya Higginbotham ENTERED: 04/05/23 08:07 SP TYPE: COLON BX OTHR DR: DO Dr. Daniele Nick DO Dr. Rahsaan Friend, DO Dr. Joe Mak MD Tissues: Cecum, NOS Procedures: Surgery Specimen Level IV Comments: @ Ordering doctor for SUIV edited from to @ by YAHIR at 04/05/23 1447 @ Submitting doctor edited from to @ by YAHIR at 04/05/23 1447 HEADER OPERATION: Colonoscopy, biopsy PRE-OP DIAGNOSIS: GI bleed due to NSAIDs TISSUE SUBMITTED: Cecal polyp biopsy MICROSCOPIC DIAGNOSIS Cecal polyp, biopsy: Tubular adenoma. ERI:francisco 04/06/2023 MICROSCOPIC DESCRIPTION Slides are reviewed. GROSS DESCRIPTION Received in fixative is one container labeled with the patient's name and designated cecal polyp biopsy. The specimen consists of one irregular fragment of light hicks soft tissue that measures 0.3 x 0.3 x 0.1 cm. The specimen is totally submitted in one cassette. / ERI:francisco 04/05/2023 TC:1 CPT: 26349
--- NOTE | 2023-04-04 13:43 | OP.COLON_ITS ---
Patient Name: Dario Barajas Procedure Date: 04/04/2023 1:05 PM Date of : 1940 Age: 82 Procedure: Colonoscopy Indications: Hematochezia Providers: Odilon Hirsch DO Medicines: Monitored Anesthesia Care Patient Profile: This is an 82 year old male. Refer to note in patient chart for documentation of history and physical. Last Colonoscopy: more than 10 years ago. Complications: No immediate complications. Procedure: Pre-Anesthesia Assessment: - Prior to the procedure, a History and Physical was performed, and patient medications and allergies were reviewed. The patient is competent. The risks and benefits of the procedure and the sedation options and risks were discussed with the patient. All questions were answered and informed consent was obtained. Patient identification and proposed procedure were verified by the physician in the pre-procedure area. Mental Status Examination: alert and oriented. Airway Examination: normal oropharyngeal airway and neck mobility. Respiratory Examination: clear to auscultation. CV Examination: normal. Prophylactic Antibiotics: The patient does not require prophylactic antibiotics. Prior Anticoagulants: The patient has taken no anticoagulant or antiplatelet agents. ASA Grade Assessment: III - A patient with severe systemic disease. After reviewing the risks and benefits, the patient was deemed in satisfactory condition to undergo the procedure. The anesthesia plan was to use monitored anesthesia care (MAC). Immediately prior to administration of medications, the patient was re-assessed for adequacy to receive sedatives. The heart rate, respiratory rate, oxygen saturations, blood pressure, adequacy of pulmonary ventilation, and response to care were monitored throughout the procedure. The physical status of the patient was re-assessed after the procedure. After I obtained informed consent, the scope was passed under direct vision. Throughout the procedure, the patient's blood pressure, pulse, and oxygen saturations were monitored continuously. The Colonoscope was introduced through the anus and advanced to the cecum, identified by appendiceal orifice and ileocecal valve. The colonoscopy was performed without difficulty. The patient tolerated the procedure well. The quality of the bowel preparation was fair. Scope In: 1:17:18 PM Scope Withdrawal Time 0 hours 7 minutes 40 seconds Scope Out: 1:29:59 PM Total Procedure Duration Time 0 hours 12 minutes 41 seconds Findings: The perianal and digital rectal examinations were normal. A 5 mm polyp was found in the cecum. The polyp was sessile. The polyp was removed with a cold snare. Resection and retrieval were complete. Verification of patient identification for the specimen was done. Estimated blood loss was minimal. Multiple small and large-mouthed diverticula were found in the recto-sigmoid colon and sigmoid colon. Impression: - Preparation of the colon was fair. - One 5 mm polyp in the cecum, removed with a cold snare. Resected and retrieved. - Diverticulosis in the recto-sigmoid colon and in the sigmoid colon with bleeding stigmata. Recommendation: - Discharge patient to home. - Resume previous diet. - Continue present medications. - Await pathology results. - Repeat colonoscopy. Procedure Code(s): --- Professional --- 76665, Colonoscopy, flexible; with removal of tumor(s), polyp(s), or other lesion(s) by snare technique CPT copyright 2021 [employer]. All rights reserved. The codes documented in this report are preliminary and upon medical records coder review may be revised to meet current compliance requirements. Odilon Hirsch DO 04/04/2023 1:42:30 PM This report has been signed electronically. Number of Addenda: 0 Note Initiated On: 04/04/2023 1:05 PM
--- NOTE | 2023-04-04 13:43 | OP.CCLET_ITS ---
04/04/2023 Joe Mak Re : Colonoscopy procedure for Dario Rios Obdulio This procedure was performed on Tuesday, April 04, 2023. My impressions and recommendations are as follows: Impressions : - Preparation of the colon was fair. - One 5 mm polyp in the cecum, removed with a cold snare. Resected and retrieved. - Diverticulosis in the recto-sigmoid colon and in the sigmoid colon with bleeding stigmata. Recommendations : - Discharge patient to home. - Resume previous diet. - Continue present medications. - Await pathology results. - Repeat colonoscopy. My findings are described in the full procedure note, which is enclosed. If I can be of further assistance, please feel free to contact me at . Sincerely, Odilon Hirsch, 04/04/2023 1:42:30 PM This report has been signed electronically.
--- NOTE | 2023-04-04 14:45 | CASEMGMT ---
RN CM Face to Face with patient for initial transition planning/care coordination assessment. RN CM introduced self and role at [facility]. Patient lying in bed, alert and oriented. Patient willing to participate in assessment and is able to answer all questions appropriately. Care providers, pharmacy, and demographics verified. Patient wishes to discharge home, denies need for home health at this time. Patient states he has no further needs or concerns at this time. CM to follow for discharge planning needs that may arise. PCP: Joe Mak Specialists: NAVYA Calix Preferred Pharmacy: [facility] Insurance: Yan SERRANO Prescription Benefit: [place] Living Will/HPOA: none LNOK: Living Arrangements: Patient lives with in a single story home with 2 steps and railing. Patient states he is independent Transportation: self, DME/HHC: Patient has shower chair, raised toilet, cane, grab bars, walker. No previous HHC or SNF. Disposition Plan: Patient to discharge home with family support and follow-up plans in place. Corinne MARKS, RN, CM
--- NOTE | 2023-04-04 18:29 | DCINST_ITS ---
Discharge Instructions Diet Discharge Diet: No restrictions Activity Discharge Activity: Return to Normal Activity Weight Bearing Status: Full weight bearing Follow Up Care Test Results: Test results from this visit will be discussed in further detail at your follow- up appointment, if applicable. Discharge Plan Admission Admit Date/Time: 04/02/23 22:28 Primary Reason for Your Visit: Lower GI bleed Attending Provider: Daniele Cyr Primary Care Provider: Joe Mak Consulting Providers: Tacho Pitts; Odilon Hirsch Discharge Orders/Prescriptions Prescriptions: New pantoprazole [Protonix] 40 mg tablet,delayed release (DR/EC) 40 mg PO DAILY Qty: 30 0RF Continued cholecalciferol (vitamin D3) 125 mcg (5,000 unit) capsule 125 mcg PO DAILY isosorbide mononitrate 60 mg tablet extended release 24 hr 60 mg PO DAILY Qty: 60 3RF glipizide 5 mg tablet 5 mg PO BID Patient Comments: TAKE 1 TABLET BY MOUTH TWICE DAILY aspirin [Teofilo Low Dose Aspirin] 81 mg tablet,delayed release (DR/EC) 81 mg PO DAILY Qty: 90 3RF atorvastatin 80 mg tablet 80 mg PO DAILY Qty: 90 3RF losartan 50 mg tablet 50 mg PO DAILY Qty: 90 3RF amlodipine 5 mg tablet 5 mg PO DAILY Qty: 90 3RF Discontinued clopidogrel [Plavix] 75 mg tablet 75 mg PO DAILY Qty: 90 3RF Referrals / Follow Up: Odilon Hirsch DO [Med Staff - Active Staff] - See Referral Note (Within 3 weeks) Joe Mak MD [Primary Care Provider] - Within 2 Weeks Disposition Disposition (needs filled in before D/C Order can be placed): Home, Self Care
--- NOTE | 2023-04-04 18:37 | DS.PCM_ITS ---
Providers Date of Admission: 04/02/23 Date of Discharge: 04/04/23 Primary Care Physician: Dr. Joe Mak MD Consultations 04/03/23 01:35 Consult: Gastroenterology Routine Consulting Provider: TorreyOdilon Reason for Consult: GI Bleed with Black Stools EMERGENT Consult: No MD Notified: Yes Date Notified: 04/03/23 Time Notified: 01:35 Method of Notification: Text Reason For Visit: UPPER GI BLEED AND ACUTE KIDNEY INJURY Diagnosis Discharge Diagnosis (1) GI bleed due to NSAIDs: Status: Acute Code(s): K92.2 - Gastrointestinal hemorrhage, unspecified; T39.395A - Adverse effect of other nonsteroidal anti-inflammatory drugs [NSAID], initial encounter (2) Hx of right coronary artery stent placement: Status: Acute Code(s): Z95.5 - Presence of coronary angioplasty implant and graft (3) History of placement of stent in LAD coronary artery: Status: Acute Code(s): Z95.5 - Presence of coronary angioplasty implant and graft (4) CAMELIA (acute kidney injury): Status: Acute Code(s): N17.9 - Acute kidney failure, unspecified (5) Adverse drug effect: Status: Acute Code(s): T50.905A - Adverse effect of unspecified drugs, medicaments and biological substances, initial encounter Qualifiers: Encounter type: initial encounter Qualified Code(s): T50.905A - Adverse effect of unspecified drugs, medicaments and biological substances, initial encounter Plan 1. Lower GI bleed-secondary to diverticular bleed #2 acute kidney injury in the setting of chronic kidney disease stage IIIa #3 essential hypertension #4 type 2 diabetes #5 Parkinson's disease #6 coronary artery disease Medications at Discharge Home Medications glipizide 5 mg tablet 5 mg PO BID diabetic 07/08/21 aspirin 81 mg tablet,delayed release (Teofilo Low Dose Aspirin) 81 mg PO DAILY 03/22/2022: Do not refill until pt calls #90 tabs 03/22/22 cholecalciferol (vitamin D3) 125 mcg (5,000 unit) capsule 125 mcg PO DAILY 07/21/22 isosorbide mononitrate 60 mg tablet,extended release 24 hr 60 mg PO DAILY 03/22/2022 Do not refill until pt. calls #60 tabs 07/21/22 atorvastatin 80 mg tablet 80 mg PO DAILY #90 tabs 09/22/22 amlodipine 5 mg tablet 5 mg PO DAILY Dose decreased #90 tabs 01/08/23 losartan 50 mg tablet 50 mg PO DAILY Dose decreased #90 tabs 01/08/23 pantoprazole 40 mg tablet,delayed release (Protonix) 40 mg PO DAILY #30 tabs 04/04/23 Hospital Course Operations None Procedures Colonoscopy and EGD Summary of Care Provided Minutes Spent on Discharge: 31 Hospital Course: This 82-year-old white male was seen in the emergency room at [facility] with complaints of bright red rectal bleeding with dark stool. He had the symptoms 1 hour prior to his ER visit. He had other episodes in the emergency room that was witnessed by the emergency room nursing staff. Stools were Hemoccult positive, patient's creatinine was elevated to 2.02 and he was found to have acute kidney injury. Patient's hemoglobin was 11.4. Patient was admitted to the ICU, he was placed on a Protonix drip and seen in consultation by gastroenterology, EGD was performed the next day-he was noted to have reflux esophagitis with no bleeding, otherwise his upper endoscopy was unremarkable. Patient did not require any blood transfusions during his admission to the hospital, his hemoglobin was monitored. Patient underwent a colonoscopy which showed evidence of diverticular bleed, no significant pathology was seen otherwise. On 04/04/2023, patient was seen and examined: On examination he appeared in good health and spirits. Vital signs as documented. Skin warm and dry and without overt rashes. Neck without JVD, neck was supple, trachea midline, thyroid was normal. Lungs clear bilaterally, normal air movement was noted. Heart exam notable for regular rhythm, normal sounds and absence of murmurs, rubs or gallops. Abdomen unremarkable and without evidence of organomegaly, masses, or abdominal aortic enlargement. Bowel sounds are present, abdomen is not distended. Extremities nonedematous, no cyanosis was noted, no clubbing was noted. Neuro: Cranial nerves II through XII are grossly intact, no focal motor deficits were noted, sensation to light touch and pinprick intact, motor exam 5/5 throughout. Psych: Patient is alert and oriented x3, he does not appear anxious or depressed, he does not appear agitated. On 04/04/2023, patient was discharged home in stable condition Weight / BMI Weight Weight: 78.018 kg Body Mass Index (BMI) 24.7 ABG / Lab / Microbiology Data 04/04/23 03:15 04/04/23 03:15 Laboratory: Laboratory Results - last 24 hr 04/04/23 03:15: WBC 5.3, RBC 2.94 L, Hgb 8.8 L, Hct 26.9 L, MCV 91.5, MCH 29.9, MCHC 32.7, RDW Std Deviation 45.4 H, RDW Coeff of Jose Miguel 13.6, Plt Count 149 L, MPV 8.7, Immature Gran % (Auto) 0.400, Neut % (Auto) 55.7, Lymph % (Auto) 23.6, [place] % (Auto) 9.2, Eos % (Auto) 10.3 H, Baso % (Auto) 0.8, Absolute Neuts (auto) 3.0, Absolute Lymphs (auto) 1.26, Nucleated RBC % 0, Sodium 145, Potassium 3.1 L, Chloride 119 H, Carbon Dioxide 20.0 L, Anion Gap 6, BUN 16, Creatinine 1.14, Estim Creat Clear Calc 51.58, Est GFR (MDRD) Af Amer 79, Est GFR (MDRD) Non-Af 65, BUN/Creatinine Ratio 14.0, Glucose 145 H, Calcium 6.7 L Microbiology: Microbiology 04/02/23 20:40 Stool Stool Occult Blood (EMMA) - Final Occult Blood Positive D/C Instructions Discharge Diet: No restrictions Weight Bearing Status: Full weight bearing Meaningful Use Info Meaningful Use Diagnoses (Choose all that apply): None applicable Discharge Plan Admission Admit Date/Time: 04/02/23 22:28 Primary Reason for Your Visit: Lower GI bleed Attending Provider: Daniele Cyr Primary Care Provider: Joe Mak Consulting Providers: Tacho Pitts; Odilon Hirsch Discharge Orders/Prescriptions Prescriptions: New pantoprazole [Protonix] 40 mg tablet,delayed release (DR/EC) 40 mg PO DAILY Qty: 30 0RF Continued cholecalciferol (vitamin D3) 125 mcg (5,000 unit) capsule 125 mcg PO DAILY isosorbide mononitrate 60 mg tablet extended release 24 hr 60 mg PO DAILY Qty: 60 3RF glipizide 5 mg tablet 5 mg PO BID Patient Comments: TAKE 1 TABLET BY MOUTH TWICE DAILY aspirin [Teofilo Low Dose Aspirin] 81 mg tablet,delayed release (DR/EC) 81 mg PO DAILY Qty: 90 3RF atorvastatin 80 mg tablet 80 mg PO DAILY Qty: 90 3RF losartan 50 mg tablet 50 mg PO DAILY Qty: 90 3RF amlodipine 5 mg tablet 5 mg PO DAILY Qty: 90 3RF Discontinued clopidogrel [Plavix] 75 mg tablet 75 mg PO DAILY Qty: 90 3RF Referrals / Follow Up: Odilon Hirsch DO [Med Staff - Active Staff] - See Referral Note (Within 3 weeks) Joe Mak MD [Primary Care Provider] - Within 2 Weeks Disposition Disposition (needs filled in before D/C Order can be placed): Home, Self Care Charges/Coding Visit Charges Inpatient E&M: 27370 Disch Hosp >30min
== END 2023-04-04 18:55 | disposition home or self-care (01) | DRG 378 ==
LOC: ED 22:23 → ICU 23:34
PROVIDERS: Internal Medicine Gastroenterology; Admitting Provider Internal Medicine; Emergency Provider Emergency Medicine; PCP Family Medicine; Visit Provider Internal Medicine
PROC: 0DJ08ZZ Inspection of Upper Intestinal Tract, Via Natural or Artificial Opening Endoscopic (ICD-10-PCS; CPT 43235; principal; 2023-04-03 14:25)
PROC: 0DJD8ZZ Inspection of Lower Intestinal Tract, Via Natural or Artificial Opening Endoscopic (ICD-10-PCS; CPT 45378; principal; 2023-04-04 12:10)
DX: K57.31 Diverticulosis of large intestine without perforation or abscess with bleeding (principal); N17.9 Acute kidney failure, unspecified; E11.22 Type 2 diabetes mellitus with diabetic chronic kidney disease; E11.51 Type 2 diabetes mellitus with diabetic peripheral angiopathy without gangrene; N18.31 Chronic kidney disease, stage 3a; I12.9 Hypertensive chronic kidney disease with stage 1 through stage 4 chronic kidney disease, or unspecified chronic kidney disease; E78.00 Pure hypercholesterolemia, unspecified; I25.10 Atherosclerotic heart disease of native coronary artery without angina pectoris; D12.0 Benign neoplasm of cecum; K21.00 Gastro-esophageal reflux disease with esophagitis, without bleeding; G20.A1 Parkinson's disease without dyskinesia, without mention of fluctuations; T39.395A Adverse effect of other nonsteroidal anti-inflammatory drugs [NSAID], initial encounter; Z95.5 Presence of coronary angioplasty implant and graft; Z79.02 Long term (current) use of antithrombotics/antiplatelets; Z79.82 Long term (current) use of aspirin; Z79.84 Long term (current) use of oral hypoglycemic drugs; Z79.899 Other long term (current) drug therapy; Z87.891 Personal history of nicotine dependence
CPT/HCPCS: 80048; 80053; 82274; 82962; 83036; 83735; 84100; 84443; 85014; 85018; 85025; 86850; 86900; 86901; 88305; 93005; 99284; J7030; A4216; J2405

== ENCOUNTER → 2023-08-15 | Outpatient (CLI) | payer MEDICARE, OTHER, SELFPAY ==
[2022-10-20 07:30] VITALS: BMI 24.9
[2023-08-15 10:37] LABS: Albumin, Serum 3.4 g/dL (3.2-5.0); BUN 25 mg/dL (7-18); BUN/Creat Ratio 18.2 RATIO (10-20); Calcium,Total 8.8 mg/dL (8.5-10.1); Chloride 108 mmol/L (98-107); Creatinine, Serum 1.37 mg/dL (0.70-1.30); EST Glomerular Filtration Rate 53 mL/min (>60); Est Glom Filt Rate - Afr Amer 64 mL/min (>60); Glucose 119 mg/dL (74-106); Phosphorus 2.6 mg/dL (2.5-4.9); Potassium 4.5 mmol/L (3.5-5.1); Sodium Level 138 mmol/L (136-145)
== END | disposition home or self-care (01) ==
LOC: LAB 08:52
PROVIDERS: PCP Family Medicine; Referring Provider Internal Medicine Nephrology; Visit Provider Internal Medicine Nephrology
DX: N17.9 Acute kidney failure, unspecified (principal); N18.30 Chronic kidney disease, stage 3 unspecified
CPT/HCPCS: 36415; 80069

== ENCOUNTER → 2023-11-22 | Outpatient (CLI) | payer MEDICARE, OTHER, SELFPAY ==
[2022-10-20 07:30] VITALS: BMI 24.9
[2023-11-22 12:58] LABS: Absolute Lymphocyte Count 1.45 X10^3/uL (0.83-4.51); Absolute Neutrophil Count 4.7 X10^3/uL (2.0-7.7); Basophil# 0.05 X10^3/uL; Basophil% 0.7 % (0-1); Eosinophil# 0.68 X10^3/uL; Eosinophils% 8.8 % (0-5); Hematocrit 33.4 % (40-54); Hemoglobin 10.5 g/dL (13.0-16.5); Lymphocyte # 1.45 X10^3/ul (0.83-4.51); Lymphocyte % 18.9 % (19-41); Mean Corp Hgb Conc 31.4 g/dL (32-36); Mean Corpuscular Hgb 27.9 pg (27.0-32.0); Mean Corpuscular Volume 88.8 fL (80-94); Mean Platelet Vol. 9.1 fl (6.2-12.0); Monocyte# 0.75 X10^3/uL; Monocyte% 9.8 % (0-10); NRBC Flagged by Analyzer 0 % (0-5); Neutrophil # 4.73 X10^3/uL (2.7-7.7); Neutrophil % 61.4 % (47-70); Platelet Count 210 K/mm3 (150-450); Red Blood Count 3.76 M/mm3 (4.6-6.2); White Blood Count 7.7 K/mm3 (4.4-11.0)
[2023-11-22 13:19] LABS: BNP,B-Type NATRIURETIC PEPTIDE 140.6 pg/mL (0-100)
[2023-11-22 13:31] LABS: Anion Gap 7 (5-15); BUN 31 mg/dL (7-18); BUN/Creat Ratio 18.9 RATIO (10-20); Calcium,Total 9.4 mg/dL (8.5-10.1); Chloride 111 mmol/L (98-107); Creatinine, Serum 1.64 mg/dL (0.70-1.30); EST Glomerular Filtration Rate 43 mL/min (>60); Est Glom Filt Rate - Afr Amer 52 mL/min (>60); Glucose 112 mg/dL (74-106); Magnesium 1.6 mg/dL (1.6-2.6); Potassium 4.3 mmol/L (3.5-5.1); Sodium Level 141 mmol/L (136-145)
== END | disposition home or self-care (01) ==
LOC: LAB 12:08
PROVIDERS: PCP Family Medicine; Referring Provider Nurse Practitioner Family; Visit Provider Nurse Practitioner Family
DX: R42 Dizziness and giddiness (principal); R06.02 Shortness of breath; I10 Essential (primary) hypertension; Z87.19 Personal history of other diseases of the digestive system
CPT/HCPCS: 36415; 80048; 83735; 83880; 84443; 85025

== ENCOUNTER → 2024-01-17 | Outpatient (CLI) | payer MEDICARE, OTHER, SELFPAY ==
[2022-10-20 07:30] VITALS: BMI 24.9
[2024-01-17 09:30] LABS: AST(SGOT) 29 U/L (15-37); Alanine Aminotransfer ALT/SGPT 29 U/L (16-61); Albumin, Serum 3.4 g/dL (3.2-5.0); Alkaline Phosphatase 72 U/L (45-117); Cholesterol 106 mg/dL (200); Globulin 2.8 g/dL (2.2-4.2); High Density Lipoprotein 59 mg/dL; Protein, Total 6.2 g/dL (6.4-8.2); Triglycerides 69 mg/dL; Very Low Density Lipoprotein 14 mg/dL (5-40)
== END | disposition home or self-care (01) ==
LOC: LAB 07:39
PROVIDERS: PCP Family Medicine; Referring Provider Internal Medicine Cardiovascular Disease; Visit Provider Internal Medicine Cardiovascular Disease
DX: E78.00 Pure hypercholesterolemia, unspecified (principal); I25.10 Atherosclerotic heart disease of native coronary artery without angina pectoris
CPT/HCPCS: 36415; 80061; 80076

== ENCOUNTER → 2024-08-15 | Outpatient (CLI) | payer MEDICARE, OTHER, SELFPAY ==
[2022-10-20 07:30] VITALS: BMI 24.9
--- NOTE | 2024-08-15 07:43 | NM_ITS ---
PROCEDURE: GASTRIC EMPTYING STUDY 08/15/2024 REASON FOR EXAM: ABDOMINAL PAIN COMPARISON: None TECHNIQUE: The patient ingested a standard meal of oatmeal, 1.2 mCi of technetium sulfur colon and water. There was no vomiting postprandially. Anterior and posterior planar images of the upper abdomen were obtained for 1 minute immediately following the meal at 1h, 2h and 4h if more than 10% of the activity persisted within the stomach. Regions of interest were drawn, and a geometric mean was used to calculate a [id number]. RADIOPHARMACEUTICAL: Sulfur colloid DOSE 1.2mCi FINDINGS: Percent activity remaining in stomach: 1 hour 63 % (normal 37-90%) NM/Gastric Emptying Study IMPRESSION: Normal gastric emptying examination. Reading Location: [place] [address]
== END | disposition home or self-care (01) ==
LOC: NM 07:43
PROVIDERS: PCP Family Medicine; Referring Provider Internal Medicine Gastroenterology; Visit Provider Internal Medicine Gastroenterology
DX: R10.9 Unspecified abdominal pain (principal); Z87.19 Personal history of other diseases of the digestive system
CPT/HCPCS: 78264; A9541

== ENCOUNTER → 2024-08-27 | Outpatient (CLI) | payer MEDICARE, OTHER, SELFPAY ==
[2022-10-20 07:30] VITALS: BMI 24.9
[2024-08-27 10:30] LABS: Hematocrit 34.9 % (40-54); Hemoglobin 11.4 g/dL (13.0-16.5); Mean Corp Hgb Conc 32.7 g/dL (32-36); Mean Corpuscular Hgb 28.7 pg (27.0-32.0); Mean Corpuscular Volume 87.9 fL (80-94); Mean Platelet Vol. 8.7 fl (6.2-12.0); Platelet Count 287 K/mm3 (150-450); RBC Distribution Width CV 13.8 % (11.6-14.6); RBC Distribution Width SD 44.3 fl (35.1-43.9); Red Blood Count 3.97 M/mm3 (4.6-6.2); White Blood Count 7.5 K/mm3 (4.4-11.0)
[2024-08-27 11:53] LABS: Albumin, Serum 3.9 g/dL (3.4-4.8); Anion Gap 12 (5-15); BUN 27 mg/dL (4-19); BUN/Creat Ratio 16.5 RATIO (10-20); Calcium,Total 9.2 mg/dL (7.6-11.0); Carbon Dioxide 20.8 mmol/L (21.0-32.0); Chloride 104 mmol/L (98-108); Creatinine, Serum 1.62 mg/dL (0.70-1.20); EST Glomerular Filtration Rate 42 (>60); Glucose 172 mg/dL (70-99); Phosphorus 3.1 mg/dL (2.7-4.5); Potassium 4.3 mmol/L (3.3-5.1); Sodium Level 137 mmol/L (133-145)
[2024-08-27 11:57] LABS: Microalbumin,Random Urine 29.3 mg/L (NO RANGE EST.); Microalbumin:Creatinine Ratio 171.3 mg/g CRE
== END | disposition home or self-care (01) ==
LOC: LAB 09:23
PROVIDERS: PCP Family Medicine; Referring Provider Internal Medicine Nephrology; Visit Provider Internal Medicine Nephrology
DX: E11.22 Type 2 diabetes mellitus with diabetic chronic kidney disease (principal); N18.30 Chronic kidney disease, stage 3 unspecified
CPT/HCPCS: 36415; 80069; 82043; 82570; 85027

== ENCOUNTER → 2025-02-20 | Outpatient (CLI) | payer MEDICARE, OTHER, SELFPAY ==
[2022-10-20 07:30] VITALS: BMI 24.9
[2025-02-20 10:12] LABS: Hematocrit 34.4 % (40-54); Hemoglobin 11.3 g/dL (13.0-16.5); Immature Granulocytes Count 0.010 X10^3/uL (0.0-0.0); Mean Corp Hgb Conc 32.8 g/dL (32-36); Mean Corpuscular Volume 91.7 fL (80-94); Mean Platelet Vol. 8.9 fl (6.2-12.0); NRBC Flagged by Analyzer 0 % (0-5); Platelet Count 185 K/mm3 (150-450); RBC Distribution Width CV 14.2 % (11.6-14.6); RBC Distribution Width SD 47.7 fl (35.1-43.9); Red Blood Count 3.75 M/mm3 (4.6-6.2); White Blood Count 6.7 K/mm3 (4.4-11.0)
== END | disposition home or self-care (01) ==
PROVIDERS: PCP Family Medicine; Referring Provider Physician Assistant Medical; Visit Provider Physician Assistant Medical
DX: R06.02 Shortness of breath (principal)
CPT/HCPCS: 36415; 85025

== ENCOUNTER 2025-03-09 11:17 | Emergency (ER) | payer MEDICARE, OTHER, SELFPAY ==
[2022-10-20 07:30] VITALS: BMI 24.9
[2025-03-09] VITALS (19 sets, daily range): BP systolic 106–187; BP diastolic 59–75; PULSE 47–98; RESP 15–27; TEMP 36.4; O2SAT 98–100; BMI 24.2
--- NOTE | 2025-03-09 11:18 | RAD_ITS ---
PROCEDURE: CHEST 1 VIEW (PORTABLE) 03/09/2025 REASON FOR EXAM: CHEST PAIN TECHNIQUE: Frontal view of the chest. COMPARISON: 07/08/2021. FINDINGS: The heart is normal in size. The lungs are clear. No acute osseous abnormalities. RAD/Chest 1 View (Portable) IMPRESSION: No Acute Findings. [facility]
--- NOTE | 2025-03-09 11:18 | EKG12_ITS ---
Test Reason : SOB/DIZZINESS/CHEST TIGHTNESS Blood Pressure : */* mmHG Vent. Rate : 51 BPM Atrial Rate : * BPM P-R Int : * ms QRS Dur : 126 ms QT Int : 500 ms P-R-T Axes : * -2 3 degrees QTcB Int : 460 ms Poor data quality, interpretation may be adversely affected Sinus bradycardia Right bundle branch block Abnormal ECG Confirmed by Harvinder Arcos ([id number]), senior editor HENRY MILNER ([id number]) on 03/10/2025 11:06:11 AM Also confirmed by Harvinder Arcos ([id number]), senior editor HENRY MILNER ([id number]) on 03/11/2025 11:13:07 AM Referred By: Confirmed By: Harvinder Arcos
[2025-03-09 11:42] LABS: Hematocrit 35.8 % (40-54); Hemoglobin 11.7 g/dL (13.0-16.5); Immature Granulocytes Count 0.030 X10^3/uL (0.0-0.0); Mean Corp Hgb Conc 32.7 g/dL (32-36); Mean Corpuscular Volume 92.0 fL (80-94); Mean Platelet Vol. 9.0 fl (6.2-12.0); NRBC Flagged by Analyzer 0 % (0-5); Platelet Count 186 K/mm3 (150-450); RBC Distribution Width CV 14.0 % (11.6-14.6); RBC Distribution Width SD 47.0 fl (35.1-43.9); Red Blood Count 3.89 M/mm3 (4.6-6.2); White Blood Count 8.4 K/mm3 (4.4-11.0)
[2025-03-09 11:52] LABS: Anion Gap 12 (5-15); BUN 33 mg/dL (4-19); BUN/Creat Ratio 18.1 RATIO (10-20); Calcium,Total 9.3 mg/dL (7.6-11.0); Carbon Dioxide 20.6 mmol/L (21.0-32.0); Chloride 106 mmol/L (98-108); Glucose 111 mg/dL (70-99); Potassium 4.4 mmol/L (3.3-5.1); Troponin T High Sensitivity 43 ng/L (<=22)
--- NOTE | 2025-03-09 13:00 | CT_ITS ---
PROCEDURE: BRAIN/HEAD WITHOUT CONTRAST 03/09/2025 REASON FOR EXAM: Lightheadedness TECHNIQUE: Procedure Code: CTBR Modality: CT Procedure: BRAIN/HEAD WITHOUT CONTRAST Coronal and Sagittal reconstruction series were provided. One or more dose reduction techniques were used (e.g., Automated exposure control, adjustment of the mA and/or kV according to patient size, use of iterative reconstruction technique. RADIATION DOSE SUMMARY: DLP: 1886.53 mGycm COMPARISON: None available FINDINGS: No acute hemorrhage. No acute infarct. Patchy periventricular and subcortical white matter hypodensities compatible with chronic microvascular ischemic changes. No significant mass effect or brain herniation. Global cerebral volume loss. No hydrocephalus.Enlargement of the bifrontal CSF spaces may reflect chronic subdural hematomas or hygromas. The basal cisterns are patent. The mastoid air cells are clear. The paranasal sinuses are predominantly clear. Left nasal septal deviation. Bilateral ocular lens replacements. The calvarium appears intact. Atherosclerotic calcification of the carotid siphons and left intradural vertebral artery. CT/Brain/Head without Contrast IMPRESSION: No CT evidence of acute intracranial hemorrhage, infarct, or significant mass e ffect. Reading Location: [id number]
--- NOTE | 2025-03-09 13:02 | EKG12_ITS ---
Test Reason : Blood Pressure : */* mmHG Vent. Rate : 49 BPM Atrial Rate : 49 BPM P-R Int : 222 ms QRS Dur : 128 ms QT Int : 546 ms P-R-T Axes : 54 -36 3 degrees QTcB Int : 493 ms Sinus bradycardia with 1st degree A-V block Left axis deviation Right bundle branch block Abnormal ECG Confirmed by Harvinder Arcos ([id number]), clinical editor HENRY MILNER ([id number]) on 03/10/2025 11:03:18 AM Also confirmed by Harvinder Arcos ([id number]), clinical editor HENRY MILNER ([id number]) on 03/11/2025 11:12:40 AM Referred By: Confirmed By: Harvinder Arcos
[2025-03-09 13:21] LABS: Red Blood Cells-Urine 0 SEEN /hpf (0-5); Squamous Epithelial Cells - UA 0 SEEN /hpf (0-5)
[2025-03-09 13:42] LABS: Color, Urine Yellow (Yellow); Glucose, Dipstick Normal (Normal); Ketone-Dipstick 15 mg/dl (Negative); Leukocyte Esterase-Dipstick 25 /ul (Negative); Nitrite-Dipstick Negative (Negative); Occult Blood-Urine Negative /ul (Negative); Protein-Dipstick 30 mg/dl (Negative); Specific Gravity, Urine 1.015 (1.002-1.030)
[2025-03-09 13:43] LABS: D-Dimer Quantitative (DVT/PE) 0.50 FEU/ug/m (0.27-0.49)
--- NOTE | 2025-03-09 13:46 | ED.VIS.CHEST ---
HPI History of Present Illness Chief Complaint: Palpitations Narrative Narrative: Chief complaint and HPI: 84-year-old gentleman with past medical history Parkinson's disease, CAD with history of PCI, GERD, HTN, HLD, DM, recent GI bleed due to NSAID presents for evaluation of chronic lightheadedness. Patient states for months he has been having intermittent lightheadedness with ambulation. He has followed up with his neurologist as well as cut off machine helper. States they have no clear etiology. He states he also has exertional dyspnea. He just recently seen cardiology in which he states he was scheduled for an outpatient echocardiogram. Patient states that his lightheadedness occurred today while trying to ambulate. Lightheadedness is better with rest. Triage note states the patient is having chest pain. He denies any chest pain to me. He denies any fever, chills, cough, nausea, vomiting, dysuria. States he has been eating drinking and well. States that his home health care nurse visited him today and she recommended him coming to the ER for symptoms. Review of systems: See HPI Medications: As listed on the chart Allergies: As listed on the chart PFSH: Per chart Vital signs: As listed on the chart. Reviewed. Gen: A&O x3, NAD Head: Normocephalic, atraumatic Eyes: No sclera icterus, conjunctiva clear, PERRL, EOMI ENT: TMs clear BL, moist mucous membranes, posterior oropharynx unremarkable Neck: Trachea midline, No JVD, Full ROM CV: RRR, no murmurs, no peripheral edema Resp: Lungs CTA BL, no w/r/c GI: Abd soft, non-distended, non-tender, no r/r/g Musc: Full ROM, no deformity Skin: Warm, dry Neuro: Alert, oriented, grossly intact, sensation intact Psych: Cooperative, appropriate mood and affect [facility] Medical History Abdominal pain Parkinson disease Adverse drug effect [place] (acute kidney injury) GI bleed due to NSAIDs CAD (coronary artery disease), [place] coronary artery Right carotid bruit Kidney disease GERD (gastroesophageal reflux disease) Angina pectoris, unstable Diabetes Hypercholesteremia HTN (hypertension) Home Medications ?Medication ?Instructions ?Recorded ?Last Taken ?Type glipizide 5 mg tablet 5 mg PO BID diabetic 07/08/21 03/09/25 History cholecalciferol (vitamin D3) 125 125 mcg PO DAILY 07/21/22 04/02/23 History mcg (5,000 unit) capsule isosorbide mononitrate 60 mg 60 mg PO DAILY 03/22/2022 Do not 07/21/22 03/09/25 Rx tablet,extended release 24 hr refill until pt. calls #[phone] tabs atorvastatin 80 mg tablet 80 mg PO DAILY #90 tabs 09/22/22 03/09/25 Rx escitalopram oxalate 10 mg tablet 10 mg PO DAILY 05/25/23 03/09/25 History coenzyme Q10 100 mg capsule 100 mg PO QDAY 01/17/24 03/09/25 History amlodipine 5 mg tablet 5 mg PO QDAY 07/24/24 03/09/25 History clopidogrel 75 mg tablet 75 mg PO QDAY 07/24/24 03/09/25 History multivitamin (Daily Multi-Vitamin 1 tab PO QAM 12/23/24 03/09/25 History tablet) carbidopa 25 mg-levodopa 100 mg 2 tab PO TID #180 tabs 02/19/25 03/09/25 Rx tablet losartan 50 mg tablet 50 mg PO DAILY 02/20/25 03/09/25 History glucagon 1 mg solution for 1 mg IM Q20M PRN hypoglycemia 03/09/25 Unknown History injection (Glucagon Emergency Kit) Allergy/AdvReac Type Severity Reaction Status Date / Time No Known Allergies Allergy Verified 03/09/25 11:17 Family History Father CVA (cerebral vascular accident) Mother Alzheimer dementia, Onset Age: 70 Surgical History Hx of right coronary artery stent placement (~08/08/22) History of placement of stent in LAD coronary artery (~08/08/22) History of heart artery stent Social History household members: spouse housing: house current occupational status: unemployed Smoking Status: Former smoker alcohol intake: never substance use type: does not use what type of physical activity do you participate in: none seatbelt use: always do you feel safe at home: Yes EXAM Physical Exam Const Vital Signs: 03/09/25 11:17 03/09/25 12:41 03/09/25 12:42 Temperature 97.6 F L Temperature Source Temporal Pulse Rate 58 L 50 L Pulse Rate [Lying] Pulse Rate [Sitting (for 1 minute prior to obtaining)] Pulse Rate [Standing (for 1 minute prior to obtaining)] Respiratory Rate 16 16 Respiratory Effort Blood Pressure 106/61 133/75 H Blood Pressure [Lying] Blood Pressure [Sitting (for 1 minute prior to obtaining)] Blood Pressure [Standing (for 1 minute prior to obtaining)] Blood Pressure Mean 76 94 Blood Pressure Mean [Lying] Blood Pressure Mean [Sitting (for 1 minute prior to obtaining)] Blood Pressure Mean [Standing (for 1 minute prior to obtaining)] Pulse Ox 100 100 98 Oxygen Delivery Method Room Air Room Air Room Air 03/09/25 12:42 03/09/25 12:44 03/09/25 12:45 Temperature Temperature Source Pulse Rate 48 L 49 L Pulse Rate [Lying] Pulse Rate [Sitting (for 1 minute prior to obtaining)] Pulse Rate [Standing (for 1 minute prior to obtaining)] Respiratory Rate 27 H 18 Respiratory Effort Normal Non-Labored Blood Pressure 138/68 H Blood Pressure [Lying] Blood Pressure [Sitting (for 1 minute prior to obtaining)] Blood Pressure [Standing (for 1 minute prior to obtaining)] Blood Pressure Mean 89 Blood Pressure Mean [Lying] Blood Pressure Mean [Sitting (for 1 minute prior to obtaining)] Blood Pressure Mean [Standing (for 1 minute prior to obtaining)] Pulse Ox 100 100 Oxygen Delivery Method 03/09/25 13:00 03/09/25 13:15 03/09/25 13:17 Temperature Temperature Source Pulse Rate 47 L 48 L Pulse Rate [Lying] Pulse Rate [Sitting (for 1 minute prior to obtaining)] Pulse Rate [Standing (for 1 minute prior to obtaining)] Respiratory Rate 27 H 16 Respiratory Effort Blood Pressure 143/64 H 159/69 H 159/69 H Blood Pressure [Lying] Blood Pressure [Sitting (for 1 minute prior to obtaining)] Blood Pressure [Standing (for 1 minute prior to obtaining)] Blood Pressure Mean 88 97 99 Blood Pressure Mean [Lying] Blood Pressure Mean [Sitting (for 1 minute prior to obtaining)] Blood Pressure Mean [Standing (for 1 minute prior to obtaining)] Pulse Ox 100 100 Oxygen Delivery Method Room Air 03/09/25 13:18 03/09/25 13:21 03/09/25 13:22 Temperature Temperature Source Pulse Rate 54 L 66 Pulse Rate [Lying] 48 L Pulse Rate [Sitting (for 1 minute prior to obtaining)] 56 L Pulse Rate [Standing (for 1 minute prior to obtaining)] 98 Respiratory Rate 24 H 26 H Respiratory Effort Blood Pressure 118/61 111/59 L Blood Pressure [Lying] 155/63 H Blood Pressure [Sitting (for 1 minute prior to obtaining)] 118/61 Blood Pressure [Standing (for 1 minute prior to obtaining)] 111/59 L Blood Pressure Mean 79 75 Blood Pressure Mean [Lying] 93 Blood Pressure Mean [Sitting (for 1 minute prior to obtaining)] 80 Blood Pressure Mean [Standing (for 1 minute prior to obtaining)] 76 Pulse Ox 100 100 Oxygen Delivery Method 03/09/25 13:22 03/09/25 13:30 03/09/25 13:30 Temperature Temperature Source Pulse Rate 49 L Pulse Rate [Lying] Pulse Rate [Sitting (for 1 minute prior to obtaining)] Pulse Rate [Standing (for 1 minute prior to obtaining)] Respiratory Rate 18 Respiratory Effort Blood Pressure 111/59 L 116/65 116/65 Blood Pressure [Lying] Blood Pressure [Sitting (for 1 minute prior to obtaining)] Blood Pressure [Standing (for 1 minute prior to obtaining)] Blood Pressure Mean 75 83 83 Blood Pressure Mean [Lying] Blood Pressure Mean [Sitting (for 1 minute prior to obtaining)] Blood Pressure Mean [Standing (for 1 minute prior to obtaining)] Pulse Ox 100 Oxygen Delivery Method 03/09/25 13:45 03/09/25 14:00 03/09/25 14:15 Temperature Temperature Source Pulse Rate 49 L 51 L Pulse Rate [Lying] Pulse Rate [Sitting (for 1 minute prior to obtaining)] Pulse Rate [Standing (for 1 minute prior to obtaining)] Respiratory Rate 24 H 17 25 H Respiratory Effort Blood Pressure 168/62 H 187/70 H 174/66 H Blood Pressure [Lying] Blood Pressure [Sitting (for 1 minute prior to obtaining)] Blood Pressure [Standing (for 1 minute prior to obtaining)] Blood Pressure Mean 93 98 96 Blood Pressure Mean [Lying] Blood Pressure Mean [Sitting (for 1 minute prior to obtaining)] Blood Pressure Mean [Standing (for 1 minute prior to obtaining)] Pulse Ox 100 100 100 Oxygen Delivery Method 03/09/25 14:30 03/09/25 14:45 03/09/25 14:46 Temperature Temperature Source Pulse Rate 52 L Pulse Rate [Lying] Pulse Rate [Sitting (for 1 minute prior to obtaining)] Pulse Rate [Standing (for 1 minute prior to obtaining)] Respiratory Rate 15 Respiratory Effort Blood Pressure 170/65 H 169/67 H Blood Pressure [Lying] Blood Pressure [Sitting (for 1 minute prior to obtaining)] Blood Pressure [Standing (for 1 minute prior to obtaining)] Blood Pressure Mean 92 94 Blood Pressure Mean [Lying] Blood Pressure Mean [Sitting (for 1 minute prior to obtaining)] Blood Pressure Mean [Standing (for 1 minute prior to obtaining)] Pulse Ox Oxygen Delivery Method 03/09/25 15:00 03/09/25 15:26 Temperature 97.6 F L Temperature Source Pulse Rate 56 L 56 L Pulse Rate [Lying] Pulse Rate [Sitting (for 1 minute prior to obtaining)] Pulse Rate [Standing (for 1 minute prior to obtaining)] Respiratory Rate 16 16 Respiratory Effort Blood Pressure 181/69 H 160/69 H Blood Pressure [Lying] Blood Pressure [Sitting (for 1 minute prior to obtaining)] Blood Pressure [Standing (for 1 minute prior to obtaining)] Blood Pressure Mean 101 99 Blood Pressure Mean [Lying] Blood Pressure Mean [Sitting (for 1 minute prior to obtaining)] Blood Pressure Mean [Standing (for 1 minute prior to obtaining)] Pulse Ox 99 99 Oxygen Delivery Method MDM MDM MDM Narrative Medical decision making narrative: 84-year-old gentleman with past medical history Parkinson's disease, CAD with history of PCI, GERD, HTN, HLD, DM, recent GI bleed due to NSAID presents for evaluation of chronic lightheadedness. Patient states for months he has been having intermittent lightheadedness with ambulation. He has followed up with his neurologist as well as cut off machine helper. States they have no clear etiology. He states he also has exertional dyspnea. He just recently seen cardiology in which he states he was scheduled for an outpatient echocardiogram. Patient states that his lightheadedness occurred today while trying to ambulate. Lightheadedness is better with rest. Triage note states the patient is having chest pain. He denies any chest pain to me. States that his home health care nurse visited him today and she recommended him coming to the ER for symptoms. Patient had triage protocols placed given high volume in our emergency department with critical care patients. On chart review, patient saw cardiology on the fourth. He has history of CAD in which his last cardiac catheterization was July 2022 which he received stenting to the proximal LAD and proximal RCA. They ordered a outpatient echocardiogram for shortness of breath. Due to his lightheadedness/dizziness they decreased his antihypertensives. Differential diagnosis includes but is not limited to symptomatic Parkinson's, orthostatic hypotension, electrolyte abnormality, dehydration, UTI, ACS, suspect less likely PE. Orthostatic vital signs negative. CBC without leukocytosis. Patient has baseline anemia of 11.7. D-dimer negative per age adjustment. BMP shows baseline CKD. Magnesium level unremarkable. BNP unremarkable. UA positive for ketones but negative for UTI. CT of the head negative for any acute abnormality. Patient is a diabetic. States he last ate at 7 AM. Will get [id number] glucose. This is low at 66. Patient given p.o. to increase sugar. Troponin 43 and 41. Patient not having chest pain. I do not have previous troponins to compare to. Patient is a moderate heart score given his previous CAD. I have a low suspicion for ACS given patient is not having chest pain and his lightheadedness is chronic however will speak with cardiology. I spoke with Dr. Arcos with cardiology. Given patient is not having chest pain and his history of CAD suspect these are his baseline elevation. Symptoms are chronic as well. States discharge home and follow-up outpatient with cardiology and primary care physician. Patient was updated of all results confirmed understanding. His repeat glucose improved. He ambulated in the emergency department without difficulty. At this point in time no clear etiology for his chronic dyspnea and lightheadedness. Follow-up with primary care physician. Return precautions explained. He confirmed understand the plan. Patient discharged home. EKG: Interpreted by me/EM physician: EKG shows sinus bradycardia with first-degree AV block. Heart rate 49. Right bundle branch block. No QTc prolongation. On chart review, patient has a history of a right bundle blaise block. Diagnostic: Interpreted by me/EM physician: Chest x-ray without pneumonia, effusion, cardiomegaly, pneumothorax. Radiology in agreement. Impression: 1. Chronic intermittent lightheadedness 2. Chronic dyspnea 3. History of Parkinson's disease 4. CKD 5. Chronic anemia Lab Data Labs: Laboratory Results - last 24 hr 03/09/25 03/09/25 03/09/25 11:23 11:23 11:23 WBC Cancelled 8.4 Corrected WBC Cancelled RBC Cancelled 3.89 L Hgb Cancelled Hct MCV MCH MCHC RDW Std Deviation RDW Coeff of Jose Miguel Plt Count MPV Immature Gran % (Auto) Neut % (Auto) Lymph % (Auto) [place] % (Auto) Eos % (Auto) Baso % (Auto) Absolute Neuts (auto) Absolute Lymphs (auto) Total Counted Neutrophils % (Manual) Band Neutrophils % Lymphocytes % (Manual) Monocytes % (Manual) Eosinophils % (Manual) Basophils % (Manual) Metamyelocytes % Myelocytes % Promyelocytes % Blast Cells % Plasma Cell % (Manual) Other Cells % Nucleated RBC % Nucleated RBCs/100 WBC Differential Comment Diff Path Review Hypersegmented Neuts Atypical Lymphocytes Reactive Lymphocytes Smudge Cells Toxic Granulation Toxic Vacuolation Dohle Bodies Cande Rods Platelet Estimate Plt Morphology Comment RBC Morphology Polychromasia Hypochromasia Basophilic Stippling Anisocytosis Microcytosis Macrocytosis Spherocytes Sickle Cells Target Cells Tear Drop Cells Ovalocytes Stomatocytes [place] Bodies [place] Cells Bite Cells Crenated Cell Acanthocytes (Spur) Rouleaux Schistocytes D-Dimer Quant (PE/DVT) Sodium Potassium Chloride Carbon Dioxide Anion Gap BUN Creatinine Est GFR (MDRD) Non-Af BUN/Creatinine Ratio Glucose Calcium Magnesium Troponin T High Sens Troponin T Hi Sens 2 Hr NT pro BNP II Urine Color Urine Clarity Urine pH Ur Specific [place] Urine Protein Urine Glucose (UA) Urine Ketones Urine Occult Blood Urine Nitrite Urine Bilirubin Urine Urobilinogen Ur Leukocyte Esterase Urine RBC Urine WBC Ur Squamous Epith Cells Urine Bacteria Hyaline Casts Fine Granular Casts Urine Mucus POC Glucose 03/09/25 03/09/25 03/09/25 11:23 11:23 11:23 WBC Corrected WBC RBC Hgb 11.7 L Hct Cancelled 35.8 L MCV Cancelled 92.0 MCH Cancelled MCHC RDW Std Deviation RDW Coeff of Jose Miguel Plt Count MPV Immature Gran % (Auto) Neut % (Auto) Lymph % (Auto) [place] % (Auto) Eos % (Auto) Baso % (Auto) Absolute Neuts (auto) Absolute Lymphs (auto) Total Counted Neutrophils % (Manual) Band Neutrophils % Lymphocytes % (Manual) Monocytes % (Manual) Eosinophils % (Manual) Basophils % (Manual) Metamyelocytes % Myelocytes % Promyelocytes % Blast Cells % Plasma Cell % (Manual) Other Cells % Nucleated RBC % Nucleated RBCs/100 WBC Differential Comment Diff Path Review Hypersegmented Neuts Atypical Lymphocytes Reactive Lymphocytes Smudge Cells Toxic Granulation Toxic Vacuolation Dohle Bodies Cande Rods Platelet Estimate Plt Morphology Comment RBC Morphology Polychromasia Hypochromasia Basophilic Stippling Anisocytosis Microcytosis Macrocytosis Spherocytes Sickle Cells Target Cells Tear Drop Cells Ovalocytes Stomatocytes [place] Bodies [place] Cells Bite Cells Crenated Cell Acanthocytes (Spur) Rouleaux Schistocytes D-Dimer Quant (PE/DVT) Sodium Potassium Chloride Carbon Dioxide Anion Gap BUN Creatinine Est GFR (MDRD) Non-Af BUN/Creatinine Ratio Glucose Calcium Magnesium Troponin T High Sens Troponin T Hi Sens 2 Hr NT pro BNP II Urine Color Urine Clarity Urine pH Ur Specific [place] Urine Protein Urine Glucose (UA) Urine Ketones Urine Occult Blood Urine Nitrite Urine Bilirubin Urine Urobilinogen Ur Leukocyte Esterase Urine RBC Urine WBC Ur Squamous Epith Cells Urine Bacteria Hyaline Casts Fine Granular Casts Urine Mucus POC Glucose 03/09/25 03/09/25 03/09/25 11:23 11:23 11:23 WBC Corrected WBC RBC Hgb Hct MCV MCH 30.1 MCHC Cancelled 32.7 RDW Std Deviation Cancelled 47.0 H RDW Coeff of Jose Miguel Cancelled Plt Count MPV Immature Gran % (Auto) Neut % (Auto) Lymph % (Auto) [place] % (Auto) Eos % (Auto) Baso % (Auto) Absolute Neuts (auto) Absolute Lymphs (auto) Total Counted Neutrophils % (Manual) Band Neutrophils % Lymphocytes % (Manual) Monocytes % (Manual) Eosinophils % (Manual) Basophils % (Manual) Metamyelocytes % Myelocytes % Promyelocytes % Blast Cells % Plasma Cell % (Manual) Other Cells % Nucleated RBC % Nucleated RBCs/100 WBC Differential Comment Diff Path Review Hypersegmented Neuts Atypical Lymphocytes Reactive Lymphocytes Smudge Cells Toxic Granulation Toxic Vacuolation Dohle Bodies Cande Rods Platelet Estimate Plt Morphology Comment RBC Morphology Polychromasia Hypochromasia Basophilic Stippling Anisocytosis Microcytosis Macrocytosis Spherocytes Sickle Cells Target Cells Tear Drop Cells Ovalocytes Stomatocytes [place] Bodies [place] Cells Bite Cells Crenated Cell Acanthocytes (Spur) Rouleaux Schistocytes D-Dimer Quant (PE/DVT) Sodium Potassium Chloride Carbon Dioxide Anion Gap BUN Creatinine Est GFR (MDRD) Non-Af BUN/Creatinine Ratio Glucose Calcium Magnesium Troponin T High Sens Troponin T Hi Sens 2 Hr NT pro BNP II Urine Color Urine Clarity Urine pH Ur Specific [place] Urine Protein Urine Glucose (UA) Urine Ketones Urine Occult Blood Urine Nitrite Urine Bilirubin Urine Urobilinogen Ur Leukocyte Esterase Urine RBC Urine WBC Ur Squamous Epith Cells Urine Bacteria Hyaline Casts Fine Granular Casts Urine Mucus POC Glucose 03/09/25 03/09/25 03/09/25 11:23 11:23 11:23 WBC Corrected WBC RBC Hgb Hct MCV MCH MCHC RDW Std Deviation RDW Coeff of Jose Miguel 14.0 Plt Count Cancelled 186 MPV Cancelled 9.0 Immature Gran % (Auto) Cancelled Neut % (Auto) Lymph % (Auto) [place] % (Auto) Eos % (Auto) Baso % (Auto) Absolute Neuts (auto) Absolute Lymphs (auto) Total Counted Neutrophils % (Manual) Band Neutrophils % Lymphocytes % (Manual) Monocytes % (Manual) Eosinophils % (Manual) Basophils % (Manual) Metamyelocytes % Myelocytes % Promyelocytes % Blast Cells % Plasma Cell % (Manual) Other Cells % Nucleated RBC % Nucleated RBCs/100 WBC Differential Comment Diff Path Review Hypersegmented Neuts Atypical Lymphocytes Reactive Lymphocytes Smudge Cells Toxic Granulation Toxic Vacuolation Dohle Bodies Cande Rods Platelet Estimate Plt Morphology Comment RBC Morphology Polychromasia Hypochromasia Basophilic Stippling Anisocytosis Microcytosis Macrocytosis Spherocytes Sickle Cells Target Cells Tear Drop Cells Ovalocytes Stomatocytes [place] Bodies [place] Cells Bite Cells Crenated Cell Acanthocytes (Spur) Rouleaux Schistocytes D-Dimer Quant (PE/DVT) Sodium Potassium Chloride Carbon Dioxide Anion Gap BUN Creatinine Est GFR (MDRD) Non-Af BUN/Creatinine Ratio Glucose Calcium Magnesium Troponin T High Sens Troponin T Hi Sens 2 Hr NT pro BNP II Urine Color Urine Clarity Urine pH Ur Specific [place] Urine Protein Urine Glucose (UA) Urine Ketones Urine Occult Blood Urine Nitrite Urine Bilirubin Urine Urobilinogen Ur Leukocyte Esterase Urine RBC Urine WBC Ur Squamous Epith Cells Urine Bacteria Hyaline Casts Fine Granular Casts Urine Mucus POC Glucose 03/09/25 03/09/25 03/09/25 11: 11:23 11:23 WBC Corrected WBC RBC Hgb Hct MCV MCH MCHC RDW Std Deviation RDW Coeff of Jose Miguel Plt Count MPV Immature Gran % (Auto) 0.400 Neut % (Auto) Cancelled 56.9 Lymph % (Auto) Cancelled 26.5 [place] % (Auto) Cancelled Eos % (Auto) Baso % (Auto) Absolute Neuts (auto) Absolute Lymphs (auto) Total Counted Neutrophils % (Manual) Band Neutrophils % Lymphocytes % (Manual) Monocytes % (Manual) Eosinophils % (Manual) Basophils % (Manual) Metamyelocytes % Myelocytes % Promyelocytes % Blast Cells % Plasma Cell % (Manual) Other Cells % Nucleated RBC % Nucleated RBCs/100 WBC Differential Comment Diff Path Review Hypersegmented Neuts Atypical Lymphocytes Reactive Lymphocytes Smudge Cells Toxic Granulation Toxic Vacuolation Dohle Bodies Cande Rods Platelet Estimate Plt Morphology Comment RBC Morphology Polychromasia Hypochromasia Basophilic Stippling Anisocytosis Microcytosis Macrocytosis Spherocytes Sickle Cells Target Cells Tear Drop Cells Ovalocytes Stomatocytes [place] Bodies [place] Cells Bite Cells Crenated Cell Acanthocytes (Spur) Rouleaux Schistocytes D-Dimer Quant (PE/DVT) Sodium Potassium Chloride Carbon Dioxide Anion Gap BUN Creatinine Est GFR (MDRD) Non-Af BUN/Creatinine Ratio Glucose Calcium Magnesium Troponin T High Sens Troponin T Hi Sens 2 Hr NT pro BNP II Urine Color Urine Clarity Urine pH Ur Specific [place] Urine Protein Urine Glucose (UA) Urine Ketones Urine Occult Blood Urine Nitrite Urine Bilirubin Urine Urobilinogen Ur Leukocyte Esterase Urine RBC Urine WBC Ur Squamous Epith Cells Urine Bacteria Hyaline Casts Fine Granular Casts Urine Mucus POC Glucose 03/09/25 03/09/25 03/09/25 11:23 11:23 11:23 WBC Corrected WBC RBC Hgb Hct MCV MCH MCHC RDW Std Deviation RDW Coeff of Jose Miguel Plt Count MPV Immature Gran % (Auto) Neut % (Auto) Lymph % (Auto) [place] % (Auto) 9.2 Eos % (Auto) Cancelled 6.2 H Baso % (Auto) Cancelled 0.8 Absolute Neuts (auto) Cancelled Absolute Lymphs (auto) Total Counted Neutrophils % (Manual) Band Neutrophils % Lymphocytes % (Manual) Monocytes % (Manual) Eosinophils % (Manual) Basophils % (Manual) Metamyelocytes % Myelocytes % Promyelocytes % Blast Cells % Plasma Cell % (Manual) Other Cells % Nucleated RBC % Nucleated RBCs/100 WBC Differential Comment Diff Path Review Hypersegmented Neuts Atypical Lymphocytes Reactive Lymphocytes Smudge Cells Toxic Granulation Toxic Vacuolation Dohle Bodies Cande Rods Platelet Estimate Plt Morphology Comment RBC Morphology Polychromasia Hypochromasia Basophilic Stippling Anisocytosis Microcytosis Macrocytosis Spherocytes Sickle Cells Target Cells Tear Drop Cells Ovalocytes Stomatocytes [place] Bodies [place] Cells Bite Cells Crenated Cell Acanthocytes (Spur) Rouleaux Schistocytes D-Dimer Quant (PE/DVT) Sodium Potassium Chloride Carbon Dioxide Anion Gap BUN Creatinine Est GFR (MDRD) Non-Af BUN/Creatinine Ratio Glucose Calcium Magnesium Troponin T High Sens Troponin T Hi Sens 2 Hr NT pro BNP II Urine Color Urine Clarity Urine pH Ur Specific [place] Urine Protein Urine Glucose (UA) Urine Ketones Urine Occult Blood Urine Nitrite Urine Bilirubin Urine Urobilinogen Ur Leukocyte Esterase Urine RBC Urine WBC Ur Squamous Epith Cells Urine Bacteria Hyaline Casts Fine Granular Casts Urine Mucus POC Glucose 03/09/25 03/09/25 03/09/25 11:23 11:23 11:23 WBC Corrected WBC RBC Hgb Hct MCV MCH MCHC RDW Std Deviation RDW Coeff of Jose Miguel Plt Count MPV Immature Gran % (Auto) Neut % (Auto) Lymph % (Auto) [place] % (Auto) Eos % (Auto) Baso % (Auto) Absolute Neuts (auto) 4.8 Absolute Lymphs (auto) Cancelled 2.22 Total Counted Cancelled Neutrophils % (Manual) Cancelled Band Neutrophils % Cancelled Lymphocytes % (Manual) Cancelled Monocytes % (Manual) Cancelled Eosinophils % (Manual) Cancelled Basophils % (Manual) Cancelled Metamyelocytes % Cancelled Myelocytes % Cancelled Promyelocytes % Cancelled Blast Cells % Cancelled Plasma Cell % (Manual) Cancelled Other Cells % Cancelled Nucleated RBC % Cancelled 0 Nucleated RBCs/100 WBC Cancelled Differential Comment Cancelled Diff Path Review Cancelled Hypersegmented Neuts Cancelled Atypical Lymphocytes Cancelled Reactive Lymphocytes Cancelled Smudge Cells Cancelled Toxic Granulation Cancelled Toxic Vacuolation Cancelled Dohle Bodies Cancelled Cande Rods Cancelled Platelet Estimate Cancelled Plt Morphology Comment Cancelled RBC Morphology Cancelled Polychromasia Hypochromasia Basophilic Stippling Anisocytosis Microcytosis Macrocytosis Spherocytes [place]le Cells Target Cells Tear Drop Cells Ovalocytes Stomatocytes [place] Bodies [place] Cells Bite Cells Crenated Cell Acanthocytes (Spur) Rouleaux Schistocytes D-Dimer Quant (PE/DVT) Sodium Potassium Chloride Carbon Dioxide Anion Gap BUN Creatinine Est GFR (MDRD) Non-Af BUN/Creatinine Ratio Glucose Calcium Magnesium Troponin T High Sens Troponin T Hi Sens 2 Hr NT pro BNP II Urine Color Urine Clarity Urine pH Ur Specific [place] Urine Protein Urine Glucose (UA) Urine Ketones Urine Occult Blood Urine Nitrite Urine Bilirubin Urine Urobilinogen Ur Leukocyte Esterase Urine RBC Urine WBC Ur Squamous Epith Cells Urine Bacteria Hyaline Casts Fine Granular Casts Urine Mucus POC Glucose 03/09/25 03/09/25 03/09/25 11:23 13:14 13:15 WBC Corrected WBC RBC Hgb Hct MCV MCH MCHC RDW Std Deviation RDW Coeff of Jose Miguel Plt Count MPV Immature Gran % (Auto) Neut % (Auto) Lymph % (Auto) [place] % (Auto) Eos % (Auto) Baso % (Auto) Absolute Neuts (auto) Absolute Lymphs (auto) Total Counted Neutrophils % (Manual) Band Neutrophils % Lymphocytes % (Manual) Monocytes % (Manual) Eosinophils % (Manual) Basophils % (Manual) Metamyelocytes % Myelocytes % Promyelocytes % Blast Cells % Plasma Cell % (Manual) Other Cells % Nucleated RBC % Nucleated RBCs/100 WBC Differential Comment Diff Path Review Hypersegmented Neuts Atypical Lymphocytes Reactive Lymphocytes Smudge Cells Toxic Granulation Toxic Vacuolation Dohle Bodies Cande Rods Platelet Estimate Plt Morphology Comment RBC Morphology Cancelled Polychromasia Cancelled Hypochromasia Cancelled Basophilic Stippling Cancelled Anisocytosis Cancelled Microcytosis Cancelled Macrocytosis Cancelled Spherocytes Cancelled Sickle Cells Cancelled Target Cells Cancelled Tear Drop Cells Cancelled Ovalocytes Cancelled Stomatocytes Cancelled [place] Bodies Cancelled [place] Cells Cancelled Bite Cells Cancelled Crenated Cell Cancelled Acanthocytes (Spur) Cancelled Rouleaux Cancelled Schistocytes Cancelled D-Dimer Quant (PE/DVT) 0.50 H Sodium 139 Potassium 4.4 Chloride 106 Carbon Dioxide 20.6 L Anion Gap 12 BUN 33 H Creatinine 1.80 H Est GFR (MDRD) Non-Af 37 L BUN/Creatinine Ratio 18.1 Glucose 111 H Calcium 9.3 Magnesium 2.1 Troponin T High Sens 43 H Troponin T Hi Sens 2 Hr 41 H NT pro BNP II 875 Urine Color Yellow Urine Clarity Sl. Cloudy Urine pH 6.0 Ur Specific [place] 1.015 Urine Protein 30 H Urine Glucose (UA) Normal Urine Ketones 15 H Urine Occult Blood Negative Urine Nitrite Negative Urine Bilirubin 1 H Urine Urobilinogen 1 H Ur Leukocyte Esterase 25 H Urine RBC 0 SEEN Urine WBC 0-5 SEEN Ur Squamous Epith Cells 0 SEEN Urine Bacteria 0 SEEN Hyaline Casts 10-25 SEEN Fine Granular Casts 0-5 SEEN Urine Mucus 1+ POC Glucose 03/09/25 03/09/25 14:34 15:08 WBC Corrected WBC RBC Hgb Hct MCV MCH MCHC RDW Std Deviation RDW Coeff of Jose Miguel Plt Count MPV Immature Gran % (Auto) Neut % (Auto) Lymph % (Auto) [place] % (Auto) Eos % (Auto) Baso % (Auto) Absolute Neuts (auto) Absolute Lymphs (auto) Total Counted Neutrophils % (Manual) Band Neutrophils % Lymphocytes % (Manual) Monocytes % (Manual) Eosinophils % (Manual) Basophils % (Manual) Metamyelocytes % Myelocytes % Promyelocytes % Blast Cells % Plasma Cell % (Manual) Other Cells % Nucleated RBC % Nucleated RBCs/100 WBC Differential Comment Diff Path Review Hypersegmented Neuts Atypical Lymphocytes Reactive Lymphocytes Smudge Cells Toxic Granulation Toxic Vacuolation Dohle Bodies Cande Rods Platelet Estimate Plt Morphology Comment RBC Morphology Polychromasia Hypochromasia Basophilic Stippling Anisocytosis Microcytosis Macrocytosis Spherocytes Sickle Cells Target Cells Tear Drop Cells Ovalocytes Stomatocytes [place] Bodies [place] Cells Bite Cells Crenated Cell Acanthocytes (Spur) Rouleaux Schistocytes D-Dimer Quant (PE/DVT) Sodium Potassium Chloride Carbon Dioxide Anion Gap BUN Creatinine Est GFR (MDRD) Non-Af BUN/Creatinine Ratio Glucose Calcium Magnesium Troponin T High Sens Troponin T Hi Sens 2 Hr NT pro BNP II Urine Color Urine Clarity Urine pH Ur Specific [place] Urine Protein Urine Glucose (UA) Urine Ketones Urine Occult Blood Urine Nitrite Urine Bilirubin Urine Urobilinogen Ur Leukocyte Esterase Urine RBC Urine WBC Ur Squamous Epith Cells Urine Bacteria Hyaline Casts Fine Granular Casts Urine Mucus POC Glucose 66 L 101 Radiography Diagnostic Testing: Clinical Impression(s) from Imaging Studies Chest X-Ray 03/09/25 11:18 IMPRESSION: No Acute Findings. Reading Location: [facility] Brain CT 03/09/25 13:00 IMPRESSION: No CT evidence of acute intracranial hemorrhage, infarct, or significant mass effect. Reading Location: [facility] Discharge Plan Triage Chief Complaint: Palpitations ED Provider: Helio Hollis Dx/Rx/DC Orders Clinical Impression: Episodic lightheadedness, Chronic dyspnea Instructions: ED Dizziness, Uncertain Cause, ED Dyspnea Prescriptions: No Action cholecalciferol (vitamin D3) 125 mcg (5,000 unit) capsule 125 mcg PO DAILY isosorbide mononitrate 60 mg tablet extended release 24 hr 60 mg PO DAILY Qty: 60 3RF escitalopram oxalate 10 mg tablet 10 mg PO DAILY coenzyme Q10 100 mg capsule 100 mg PO QDAY losartan 50 mg tablet 50 mg PO DAILY clopidogrel 75 mg tablet 75 mg PO QDAY amlodipine 5 mg tablet 5 mg PO QDAY multivitamin [Daily Multi-Vitamin] Tablet 1 tab PO QAM carbidopa-levodopa 25-100 mg tablet 2 tab PO TID Qty: 180 2RF glipizide 5 mg tablet 5 mg PO BID Patient Comments: TAKE 1 TABLET BY MOUTH TWICE DAILY Glucagon Emergency Kit (human) 1 mg recon soln 1 mg IM Q20M PRN (Reason: hypoglycemia) Rx Instructions: until target blood sugar attained atorvastatin 80 mg tablet 80 mg PO DAILY Qty: 90 3RF Primary Care Provider: Joe Mak Referrals: Joe Mak MD [Primary Care Provider, Medical] - 3-5 Days Activity Restrictions/Additional Instructions: Follow-up with your primary care physician and cardiology. Make sure you get your outpatient echocardiogram. Monitor your sugar at home. Return back to ED if symptoms change or worsen. Print Language: Gabonese Disposition Disposition: Home, Self Care Discharge Date/Time: 03/09/25 15:27
[2025-03-09 13:47] LABS: Magnesium 2.1 mg/dL (1.5-2.2); Pro- Brain NATRIURETIC PEPTIDE 875 pg/mL (<=1800)
[2025-03-09 13:49] LABS: Urine Bilirubin Dipstick 1 mg/dL (Negative)
[2025-03-09 13:52] LABS: Fine Granular Cast- Urine 0-5 SEEN /lpf (0-5); Mucous, Urine 1+ /hpf (<or=2+)
[2025-03-09 14:16] LABS: Troponin T High Sens 2 HR 41 ng/L (<=22)
== END 2025-03-09 15:27 | disposition home or self-care (01) ==
PROVIDERS: Emergency Provider Surgery; PCP Family Medicine; Visit Provider Surgery
DX: R42 Dizziness and giddiness (principal); E11.9 Type 2 diabetes mellitus without complications; E78.00 Pure hypercholesterolemia, unspecified; I25.10 Atherosclerotic heart disease of native coronary artery without angina pectoris; I10 Essential (primary) hypertension; R06.00 Dyspnea, unspecified; Z87.891 Personal history of nicotine dependence; Z79.899 Other long term (current) drug therapy; Z79.02 Long term (current) use of antithrombotics/antiplatelets; Z79.84 Long term (current) use of oral hypoglycemic drugs; Z95.5 Presence of coronary angioplasty implant and graft
CPT/HCPCS: 70450; 71045; 80048; 81001; 82962; 83735; 83880; 84484; 85025; 85379; 93005; 99285; A4216

== ENCOUNTER → 2025-03-13 | Outpatient (CLI) | payer MEDICARE, OTHER, SELFPAY ==
[2022-10-20 07:30] VITALS: BMI 24.9
--- NOTE | 2025-03-13 10:48 | ECHOD_ITS ---
Reason For Study Reason For Study: SOB Procedure This was a 2D Doppler, Color Flow transthoracic echocardiogram. Exam performed in department. Left Ventricle Normal LV size. The estimated ejection fraction is 53 %. Left ventricular systolic function is lower limits of normal. Stage 1 diastolic dysfunction. The apex is hypokinetic. Right Ventricle Normal RV size. Normal systolic function. Atria Normal left atrium. Normal right atrium. Mitral Valve Mild mitral annular calcification. Trivial mitral valve insufficiency. Tricuspid Valve Normal tricuspid valve. Trivial tricuspid valve insufficiency. Pulmonary artery systolic pressure is 22 mmHg. Aortic Valve Trisinus/trileaflet aortic valve. Mild focal aortic valve calcification. Aortic sclerosis, no stenosis. Mild (1+) aortic valve insufficiency. Pulmonic Valve Normal pulmonic valve. Trivial pulmonic valve insufficiency. Great Vessels Normal sized aortic root. Pericardium/Pleural No pericardial effusion. MMode/2D Measurements & Calculations LVIDd: 5.5 cm IVSd: 0.90 cm Ao root diam: 3.9 cm LVIDs: 3.5 cm LVPWd: 0.89 cm RVDd: 3.3 cm FS: 36.5 % LAV(MOD-bp): 48.8 ml LVAd ap4: 35.4 cm2 LVAd ap2: 26.0 cm2 LAV(MOD-bp) Indexed: 25.1 ml/m2 LVLd ap4: 8.7 cm LVLd ap2: 7.8 cm LAV(MOD-sp2): 43.6 ml EDV(MOD-sp4): 116.9 ml EDV(MOD-sp2): 75.5 ml LAV(MOD-sp4): 50.3 ml EDV(sp4-el): 122.5 ml EDV(sp2-el): 73.9 ml LVAs ap4: 20.7 cm2 LVAs ap2: 16.0 cm2 LVLs ap4: 7.0 cm LVLs ap2: 6.4 cm ESV(MOD-sp4): 49.9 ml ESV(MOD-sp2): 35.1 ml ESV(sp4-el): 51.5 ml ESV(sp2-el): 34.1 ml EF(MOD-sp4): 57.3 % EF(MOD-sp2): 53.5 % EF(sp4-el): 58.0 % SV(MOD-sp4): 67.1 ml SV(MOD-sp2): 40.4 ml EDV(MOD-bp): 98.3 ml SI(MOD-sp4): 34.5 ml/m2 SI(MOD-sp2): 20.8 ml/m2 ESV(MOD-bp): 43.8 ml EF(MOD-bp): 55.4 % SV(sp4-el): 71.0 ml LA dimension(2D): 4.0 cm LA A4 area: 17.9 cm2 RA A4 area: 15.2 cm2 TAPSE: 2.4 cm Time Measurements MV dec time: 0.37 sec Doppler Measurements & Calculations MV E max neal: 42.0 cm/sec Lat Peak E' Neal: 7.0 cm/sec Med Peak E' Neal: 6.5 cm/sec MV A max neal: 71.2 cm/sec E/E' lat: 6.0 E/E' med: 6.4 MV E/A: 0.59 MV V2 max: 85.2 cm/sec MV P1/2t max neal: 46.4 cm/sec Ao V2 max: 127.2 cm/sec MV max P.9 mmHg MV P1/2t: 92.5 msec Ao max P.5 mmHg MV V2 mean: 31.7 cm/sec Ao V2 mean: 81.1 cm/sec MV mean P.52 mmHg MV dec slope: 146.9 cm/sec2 Ao mean P.0 mmHg MV V2 VTI: 24.9 cm MVA(P1/2t): 2.4 cm2 Ao V2 VTI: 28.9 cm AV (velocity ratio): 0.69 LV V1 max: 83.6 cm/sec PA V2 max: 87.2 cm/sec TR max neal: 216.2 cm/sec LV V1 max P.8 mmHg TR max P.8 mmHg LV V1 mean P.4 mmHg LV V1 mean: 55.6 cm/sec LV V1 VTI: 20.1 cm ECHO/Echo Complete Interpretation Summary The estimated ejection fraction is 53 %. Normal LV size. Stage 1 diastolic dysfunction. The apex is hypokinetic. Mild (1+) aortic valve insufficiency. Mild mitral annular calcification. Ordering Physician: Carey Valladares Referring Physician: Joe Mak Performed By: Dea Raya, KELLY, RVT
== END | disposition home or self-care (01) ==
LOC: CVS 10:47
PROVIDERS: PCP Family Medicine; Referring Provider Physician Assistant Medical; Visit Provider Physician Assistant Medical
DX: R06.02 Shortness of breath (principal)
CPT/HCPCS: 93306